=== PATIENT | female | born 1940 | race Caucasian/White ===

== ENCOUNTER 2023-08-05 08:49 | Outpatient (OUT) | payer MEDICARE, SELFPAY ==
--- NOTE | 2023-08-05 08:51 | VEIN_ITS ---
Patient Name: MAU WILLAMS MR#: [id number] : 1940 Exam Date: 08/05/2023 Ordering Doctor: DR ISIS DYSON M.D. RADIOLOGY REPORT PROCEDURE: VC EXT VENOUS REFLUX [place] LMTD COMPARISON: None. INDICATIONS: Pain due to varicose veins of bilateral legs I83.813 TECHNIQUE: Duplex imaging of the lower extremity to assess the deep and superficial venous system for the presence of deep or superficial venous incompetence and to document the location and severity of disease. The study includes evaluation of the great saphenous vein (GSV), anterior accessory saphenous vein (AASV) and small saphenous vein (SSV). Patient scanned in reverse Trendelenburg and standing. FINDINGS: RIGHT LOWER EXTREMITY: Saphenofemoral Junction Reflux: Yes 7.0mm 1.4 sec GSV: Diam (mm) Reflux/ Time (sec) Proximal Thigh 5.6 Yes 0.7 Mid Thigh 4.6 Yes0.4 Distal Thigh 3.1 Yes0.4 Prox Calf 2.3 Yes0.4 Mid Calf 1.4 Yes 0.4 Saphenopopliteal Junction Reflux: 8.7mm Yes 4.9 SSV: Proximal Calf 7.6 Yes 4.2 Mid Calf 3.3 Yes 2.6 AASV: Not present Proximal Thigh Mid Thigh Distal Thigh Thrombi: No acute or chronic thrombus. Compressibility: Normal. Flow: Severe deep venous reflux. Preforator: Dist/medial lower leg 3.4 mm with 0.8s reflux. Mid medial calf 3.0 mm with 0.4s reflux. Tech Note: Incompetent varicose vein proximal posterior calf off SSV measures 6.7 mm with 4.9s reflux. Varicose vein distal medial lower leg 5.4 mm with 4.3s reflux. LEFT LOWER EXTREMITY: Saphenofemoral Junction Reflux: Yes 7.9 mm 0.6 sec GSV: Diam (mm) Reflux/Time (sec) Proximal Thigh 5.5 Yes 0.9 Mid Thigh 3.6 Yes 0.5 Distal Thigh 3.2 Yes 0.3 Prox Calf 1.5 Yes 2.6 Mid Calf 1.8 Yes 0.8 Saphenopopliteal Junction Relux: 4.2 mm Yes 0.8 SSV: Proximal Calf 3.4 Yes 0.8 Mid Calf 2.7 No AASV: Proximal Thigh 2.6 No Mid Thigh Distal Thigh Thrombi: No acute or chronic thrombus. Compressibility: Normal. Flow: Severe deep venous reflux. [place] [employer]: Prox posterior calf 2.8 mm with 0.4s reflux. Tech Note: Small varicose vein medial knee measures 2.2 mm with 0.2s reflux. CONCLUSION: 1. Abnormally dilated and incompetent right small saphenous vein. 2. Borderline mildly dilated and mildly incompetent right and left great saphenous veins. Dictated by: Willis Solano M.D. on 08/05/2023 at 09:59 Approved by: Willis Solano M.D. on 08/05/2023 at 10:45
--- NOTE | 2023-08-05 08:51 | VEIN_ITS ---
Patient Name: MAU WILLAMS MR#: [id number] : 1940 Exam Date: 08/05/2023 Ordering Doctor: DR ISIS DYSON M.D. RADIOLOGY REPORT PROCEDURE: [facility] - OFFICE VISIT INITIAL COMPARISON: None. PROGRESS NOTES: [age] year old female who presents with a 4 year history of dilated bulging veins, discolored veins, leg pain and swelling, muscle cramping. The patient's right leg symptoms are worse than the left. There has been a progression of symptoms over time. This increases with prolonged like dependency. The patient describes an improvement with rest, elevation, exercise, support stockings. The patient denies any signs and symptoms to suggest arterial ischemia. The patient describes a family history varicose veins on maternal side. The patient has drinking and smoking history of occasional alcohol consumption; no tobacco use. Patient has a past medical history significant for atrial fibrillation, hypertension, and hypothyroidism. The patient denies a history of deep venous thrombus or pulmonary embolus. See separate history and physical for medication list. No prior treatment for varicose or spider veins. Current use of compression stockings. After review of nurse notes, history and physical exam I discussed at length the pathophysiology of venous hypertension and possible treatments, therapies and strategies available. We discussed at length the importance of elevating the lower extremities above the level of the heart, increased physical activity and compression stocking use. Ultrasound venous reflux study performed today was discussed at length with the patient. The report demonstrates abnormally dilated and markedly incompetent right small saphenous vein with prominent branching varicosities. Minimally dilated and mildly incompetent great saphenous vein bilaterally.. PHYSICAL EXAM: The right leg demonstrates several large varicosities, multiple spider veins, no ulceration, mild edema, no skin discoloration. The left leg demonstrates no significant varicosities, scattered spider veins, no ulceration, no significant edema, no skin discoloration. Both thighs, legs and feet were symmetrically warm to the touch. Good posterior tibial and dorsalis pedis pulses were present bilaterally. VEIN/[facility] Facility EST Comprehensive IMPRESSION: 1. Right greater than left bilateral lower extremity venous insufficiency 2. Right lower extremity varicose veins 3. Mild right lower extremity subcutaneous edema 4. No flow significant arterial disease 5. CEAP: C3, EC, , [place] PLAN: 1. Continued use of compression stockings 2. Elevated legs and increased physical activity symptomatic relief 3. Endovenous laser ablation of right small saphenous vein. 4. Microfoam chemical ablation of right lower extremity incompetent branch saphenous varicosities. 5. Sclerotherapy as needed. Nurse notes, history and physical were reviewed and confirmed, see attached forms. The nurse was present throughout the physical exam and consultation Dictated by: Willis Solano M.D. on 08/05/2023 at 10:45 Approved by: Willis Solano M.D. on 08/05/2023 at 10:53
== END 2023-08-05 08:50 | disposition home or self-care (01) ==
PROVIDERS: PCP Radiology Diagnostic Radiology; Visit Provider Radiology Diagnostic Radiology
DX: I83.813 Varicose veins of bilateral lower extremities with pain (principal)
CPT/HCPCS: 93970; G0463

== ENCOUNTER 2023-08-17 12:45 | Outpatient (OUT) | payer MEDICARE, SELFPAY ==
[2023-08-17] MEDS: 0.9 % SODIUM CHLORIDE 500 ML, LIDOCAINE HCL 20 ML, SODIUM BICARBONATE 10 MEQ INJ (12:47)
[2023-08-17] MEDS: LIDOCAINE HCL 1% 100 MG/10 ML MDV INJ (12:47)
--- OUTSIDE RECORDS SUMMARY | 2023-08-17 13:00 | XMS_ITS | CCD ---
Author Organization [facility] Care Team Providers Care Dot Compliance Specialist Name Role Phone ARABELLA WITT Unavailable Unavailable EDUAR, ARABELLA Unavailable Unavailable RENATO ROSARIO Unavailable Unavailable WEST, ISIS Valladares Unavailable Unavailable WEST, ISIS Valladares Unavailable Unavailable WEST, ISIS V Unavailable Unavailable JAI BOWIE Unavailable Unavailable WEST, ISIS V Unavailable Unavailable WEST, ISIS V Unavailable Unavailable WEST, ISIS Valladares Unavailable Unavailable Renato Rosario Unavailable Unavailable Unavailable Mary Oneill Unavailable Isis Hernandez Unavailable MD Mary Oneill Primary Care Provider MD Dmitri Garcia Attending Provider MD Isis Hernandez Attending Provider DO Sarah Hardin Attending Provider MD Mary Oneill Primary Care Provider MD Dmitri Garcia Attending Provider MD Arabella Witt Attending Provider Risaliti, TRAILER RENTAL CLERK-C Lianne Other Provider [phone] MD Mary Oneill Primary Care Provider MD Dmitri Garcia Attending Provider DO Sarah Hardin Attending Provider [phone] MD Arabella Witt Attending Provider Risaliti, TRAILER RENTAL CLERK-C Lianne Other Provider MD Mary Oneill Attending Provider Dr. Arabella Witt Attending Unavailab le Dr. Arabella Witt Referring Unavailab le Mai, Mary Blackmon Primary Care Unavailable Eduar, Dr. Arabella Mendez Attending Unavailab le Mai, Mary Blackmon Primary Care Unavailable Eduar, Dr. Arabella Mendez Attending Unavailab le Mai, Mary Blackmon Primary Care Unavailable Eduar, Dr. Arabella Mendez Attending Unavailab le Mai, Mary Blackmon Primary Care Unavailable Eduar, Dr. Arabella Mendez Attending Unavailab le Mai, Mary Blackmon Referring Unavailable Hill, Mary Blackmon Primary Care Unavailable Eduar, Dr. Arabella Mendez Admitting Unavailab le Eduar, Dr. Arabella Mendez Attending Unavailab le Hill, Mary Blackmon Referring Unavailable Hill, Mary Blackmon Primary Care Unavailable Eduar, Dr. Arabella Mendez Admitting UnavailMD Mary Killian Primary Care Provider MD Arabella Witt Attending Provider [phone] Unavailable Unavailable Silvano Leigh Unavailable MD Mary Oneill Primary Care Provider MD Arabella Witt Attending Provider MD Mary Oneill Attending Provider MD Mary Oneill Primary Care Provider MD Arabella Witt Attending Provider Felisha Heart Unavailable SHREYA Heart Attending Provider MD aMry Oneill Primary Care Provider MD Arabella Witt Attending Provider Mai MANUEL, Mary Primary Care Provider Eduar, Dr. Arabella Mendez Attending Unavailab le Eduar, Dr. Arabella Mendez Referring Unavailab le Mai, Dr. Mary Blackmon Primary Care Unavailab le Eduar, Dr. Arabella Mendez Attending Unavailab quinn Oneill, Dr. Mary Blackmon Primary Care Unavailab le Eduar, Dr. Arabella Mendez Referring Unavailab le Mai, Dr. Mary Blackmon Primary Care Unavailab le Mai, Dr. Mary Blackmon Primary Care Unavailab le Mai, Dr. Mary Blackmon Primary Care Unavailab le Hill, Dr. Mary Blackmon Primary Care Unavailab le Mai, Dr. Mary Blackmon Primary Care Unavailab le Hill, Dr. Mary Blackmon Primary Care Unavailab le Dmitriy, Dr. Zimmerman Attending Unavaila ble Dmitriy, Dr. Zimmerman Referring Unavaila ble Hill, Dr. Mary Blackmon Primary Care Unavailab le Hill, Dr. Mary Blackmon Primary Care Unavailab le Dmitriy, Dr. Zimmerman Attending Unavaila ble Dmitriy, Dr. Zimmerman Referring Unavaila ble Eduar, Dr. Arabella Mendez Attending Unavailab le Eduar, Dr. Arabella Mendez Referring Unavailab le Hill, Dr. Mary Blackmon Primary Care Unavailab le HILL, MARY Primary Care Unavailable JEFERSON HASSAN Referring Unavailable JEFERSON HASSAN Attending Unavailable JEFERSON HASSAN Admitting Unavailable MAI, MARY Primary Care Unavailable MAI, MARY Primary Care Unavailable JEFERSON HASSAN Referring Unavailable JEFERSON HASSAN Attending Unavailable MD Mary Oneill Primary Care Provider Self, Referral Attending Provider Unavailable DO Sarah Haridn Referring Provider MD Mary Oneill Attending Provider MD Mary Oneill Primary Care Provider MD Arabella Witt Attending Provider [phone] Mary Oneill MD Primary Care Provider ARABELLA WITT Attending Unavailable MARY ONEILL Primary Care Unavailable DMITRI GARCIA Attending Unavailable MARY ONEILL Primary Care Unavailable Emily Gordilload Unavailable MD Mary Oneill Primary Care Provider MD Mary Oneill Attending Provider [phone] MD Arabella Witt Attending Provider MD Fco Gordillo Attending Provider MD Mary Oneill Primary Care Provider MD Arabella Witt Attending Provider MARY ONEILL Referring Unavailable LIANNE STEWART Attending Unavailable MARY ONEILL Referring Unavailable FELISHA CALDERON Attending Unavailable MARY ONEILL Referring Unavailable SANDRO FRAGA Attending Unavailable SANDRO FRAGA Referring Unavailable BOBBY LAWS Attending Unavailable BOBBY LAWS Attending Unavailable MARY ONEILL Attending Unavailable MARY ONEILL Referring Unavailable MD Mary Oneill Primary Care Provider [phone] MD Arabella Witt Attending Provider MD Fco Gordillo Attending Provider MD Mary Oneill Attending Provider Mary Oneill Primary Care Unavailable Eduar, Arabella Attending Unavailable Eduar, Arabella Admitting Unavailable Mai, Mary Primary Care Unavailable Asaad, Imad Attending Unavailable Asaad, Imad Admitting Unavailable Mai, Mary Primary Care Unavailable Eduar, Arabella Attending Unavailable Eduar, Arabella Admitting Unavailable Hill, Mary Admitting Unavailable Hill, Mary Attending Unavailable Hill, Mary Primary Care Unavailable Self, Referral Admitting Unavailable Hill, Mary Primary Care Unavailable Self, Referral Attending Unavailable Sarah Hardin Referring Unavailable Mai, Mary Primary Care Unavailable Hill, Mary Admitting Unavailable Hill, Mary Attending Unavailable Hill, Mary Primary Care Unavailable Asaad, Imad Attending Unavailable Asaad, Imad Admitting Unavailable Mai, Mary Primary Care Unavailable Eduar, Arabella Attending Unavailable Eduar, Arabella Admitting Unavailable Mai, Mary Primary Care Unavailable Felisha Heart Attending Unavailable Felisha Heart Admitting Unavailable Hill, Mary Primary Care Unavailable Felisha Heart Attending Unavailable Sly Felisha Admitting Unavailable Hill, Mary Primary Care Unavailable Asaad, Imad Attending Unavailable Asaad, Imad Admitting Unavailable Allergies Allergy Classification Reported Allergen(s) Allergy Type Date of Onset Reaction(s) Facility (20 sources) Meperidine; Translations: [Demerol TABS] Drug Allergy 3 Shortness of breath, Other [facility] (7 sources) Meperidine Drug Allergy [facility] Other (18 sources) Meperidine; Translations: [MEPERIDINE] Drug Allergy 0 Hypotension [facility] Medications Current Medications Medication Drug Class(es) Dates Sig (Normalized) Sig (Original) acetaminophen 325 mg oral tablet (20 sources) Start: 01-29-2022 take 2 tablets by mouth every four hours as needed acetaminophen (Tylenol) 325 mg tablet Take 2 tablets (650 mg) by mouth every 4 hours if needed (pain). 0 01/29/2022 Active take 2 tablets by nd ut every six hours as needed Acetaminophen 325 MG tablet Take 2 table ts by mouth every 6 hours as needed for Mild Pain. 0 Active Tylenol 325 MG O ral Capsule as directed prn Quantity: 0 Refills: 0 Ordered: 15-Jan-2021 DO Active apixaban 2.5 mg oral tablet (20 sources) Factor Xa Inhibitor Start: 10-26-2019 End: 04-15-2024 take 1 tablet by mouth twice daily Apixaban (Eliquis) 2.5 mg Tablet Active 2.5 MG PO Twice daily October 26, 2019 12:00am Eliquis 5 MG Ora lly Active cholecalciferol 0.05 mg oral capsule (1 source) Vitamin D Cholecalciferol 50 MCG (1999) capsule Take 1 capsule by mouth. 0 Active 168 hr estradiol 0.46410 mg/ hr transdermal system (20 sources) Estrogen Start: 10-26-2019 Estradiol Active 0.025 MG TOPICAL As Directed October 26, 2019 12:00am apply 1 dose transde rmal route two times weekly Estradiol 0.025 MG/24HR 1 patch to skin Transdermal Two times a Week Active estradiol (Clima ra) 0.025 mg/[address] 1 patch on the skin 1 (one) time per week. 0 Active apply 1 dose transdermal route e very week Estradiol 0.025 MG/24HR Transdermal Patch Weekly APPLY 1 PATCH WEEKLY DIRECTED. Quantity: 0 Refills: 0 Ordered: 15-Jan-2021 DO Active lidocaine 0.05 mg/mg medicated patch (1 source) Antiarrhythmic, Amide Local Anesthetic Start: 08-20-2022 Lidocaine 5 % 1 patch remove after 12 hours Externally Once a day for 15 days August, Active Magnesium (4 sources) take 2 tablets by mouth once daily Magnesium 200 MG 2 tablets with a meal Orally Once a day Active magnesium citrate (20 sources) take 1 tablet by mouth once daily MAGNESIUM CITRATE ORAL Take 1 tablet by mouth once daily. 200 mg 0 Active Magnesium Citrat e 125 MG capsule Take 1 capsule by mouth. 0 Active take 1 tablet by mouth once aster y Magnesium Citrate 200 MG Oral Tablet Take 1 tablet daily Quantity: 0 Refills: 0 Ordered: 31-Dec-2021 DO Active Magnesium Citrat e TABS TAKE 1 TABLET DAILY. Quantity: 0 Refills: 0 Ordered: 27-Aug-2021 DO Active Magnesium Citrat e TABS TAKE 2 TABLETS DAILY. Quantity: 0 Refills: 0 Ordered: 5-Oct-2021 DO Active 24 hr metoprolol succinate 25 mg extended release oral tablet (19 sources) beta-Adrenergic Roger Start: 02-25-2023 End: 02-25-2024 take 1 tablet by mouth once daily metoprolol succinate XL (Toprol-XL) 25 mg 24 hr tablet Indications: Essential (primary) hypertension Take 1 tablet (25 mg) by mouth once daily. 90 tablet 3 02/25/2023 02/25/2024 Active Start: 08-29-2022 take 1 tablet by bonnie th once daily Metoprolol succinate 25 MG tablet XL Take 1 tablet by mouth daily. 0 08/29/2022 Active Start: 03-03-2022 take 1 tablet by bonnie th once daily Metoprolol Succinate ER 25 MG Oral Tablet Extended Release 24 Hour take 1 tablet by mouth once daily Quantity: 90 Refills: 3 Ordered: 03-Mar-2022 Dmitriy MANUEL, Dmitri Start : 03-Mar-2022 Active Start: 02-19-2022 End: 02-27-2023 take 1 tablet by mouth once daily metoprolol succinate XL (Toprol-XL) 50 mg 24 hr tablet Take 1 tablet (50 mg) by mouth once daily. 0 02/19/2022 02/27/2023 Discontinued (Therapy completed) take 1 capsule by mo [facility] once daily Metoprolol Succinate 25 MG 1 capsule Orally Once a day Active Multiple Vitamin (multivitamin) tablet (1 source) take 1 tablet by mouth once daily Multiple Vitamin (multivitamin) tablet Take 1 tablet by mouth daily. 0 Active omeprazole 20 mg delayed release oral tablet (20 sources) Proton Pump Inhibitor take 1 tablet by mouth every twenty-four hours as needed omeprazole OTC (PriLOSEC OTC) 20 mg EC tablet Take 1 tablet (20 mg) by mouth once daily as needed. 0 Active take 1 capsule by mouth once kate ly ubidecarenone 100 mg oral capsule (4 sources) take 1.5 capsules by mouth once daily coenzyme Q-10 (Co Q-10) 100 mg capsule Take 1.5 capsules by mouth once daily. 0 Active valsartan 40 mg oral tablet (20 sources) Angiotensin 2 Receptor Roger Start: take 40 mg by mouth twice daily Valsartan Active 40 MG PO Twice daily June 03, 2023 1:00am Start: 08-27-2021 take 0.5 tablet by m out once daily valsartan (Diovan) 80 mg tablet Take 0.5 tablets (40 mg) by mouth once daily. 0 08/27/2021 Active Start: 08-27-2021 take 1 tablet by bonnie th once daily Valsartan 80 MG Oral Tablet TAKE 1 TABLET DAILY. Quantity: 90 Refills: 3 Ordered: 15-Aug-2022 Dmitri Garcia MD Start : 27-Aug-2021 Active take 1 tablet by bonnie th every twenty-four hours Valsartan 40 MG 1 tablet Orally Once a day Active Valsartan Active Completed/Discontinued Medications Medication Drug Class(es) Dates Sig (Normalized) Sig (Original) amoxicillin 500 mg oral capsule (2 sources) Penicillin-class Antibacterial Start: 03-08-2021 Amoxicillin 500 MG Oral Capsule Quantity: 40 Refills: 0 Ordered: 08-Mar-2021 DO Start : 08-Mar-2021 Complete azilsartan medoxomil 40 mg oral tablet (20 sources) Angiotensin 2 Receptor Roger Start: 10-26-2019 End: 06-03-2023 take 1 tablet by mouth once daily Azilsartan Medoxomil (Edarbi) 40 mg Tablet Discontinued 40 MG PO Daily October 26, 2019 12:00am June 03, 2023 2:22pm cephalexin 500 mg oral tablet (3 sources) Cephalosporin Antibacterial Start: 09-20-2021 take 1 tablet by mouth three times daily Cephalexin 500 MG Oral Tablet TAKE 1 TABLET 3 TIMES DAILY FOR 5 DAYS. Quantity: 15 Refills: 0 Ordered: 20-Sep-2021 Kobe Fraga MD Start : 20-Sep-2021 Active Start: 12-03-2020 Cephalexin 500 MG Oral Capsule Quantity: 4 Refills: 0 Ordered: 15-Nov-2021 DO Start : 03-Dec-2020 Complete Guaifenesin-DM NR (4 sources) Guaifenesin-DM N R Not-Taking Ketoprofen (4 sources) Nonsteroidal Anti-inflammatory Drug Ketoprofen 5 % as directed Externally every 8 hrs Not-Taking Ketoprofen 10% Cream Base 10 % CREA (6 sources) Ketoprofen 10% C ream Base 10 % CREA as directed Quantity: 0 Refills: 0 Ordered: 15-Jan-2021 DO Active magnesium oxide 400 mg oral tablet (20 sources) End: 02-28-20 take 1 tablet by mouth every other day magnesium oxide (Mag-Ox) 400 mg (241.3 mg magnesium) tablet Take 1 tablet (400 mg) by mouth every other day. 0 02/27/2023 Discontinued (Therapy completed) take 1 tablet by mouth once aster y Magnesium Oxide 400 MG Oral Tablet TAKE 1 TABLET DAILY. Quantity: 90 Refills: 3 Ordered: 16-Jul-2021 DO Active metroNIDAZOLE 7.5 mg/ml topical cream (2 sources) Nitroimidazole Antimicrobial Start: 01-09-2022 metroNIDAZOLE 0.75 % External Cream Apply to face twice a day Quantity: 45 Refills: 0 Ordered: 09-Jan-2022 DO Start : 09-Jan-2022 Complete nebivolol 2.5 mg oral tablet (20 sources) Start: 07-16-2021 End: 02-27-2023 take 1 tablet by mouth once daily Nebivolol HCl - 2.5 MG Oral Tablet TAKE 1 TABLET DAILY. Quantity: 90 Refills: 3 Ordered: 16-Jul-2021 Arabella Witt MD Start : 16-Jul-2021 Active Replace the Bystolic 5 mg. PT will call when needed Start: 07-16-2021 take 0.5 tablet by m outh once daily Nebivolol HCl - 5 MG Oral Tablet TAKE 0.5 TABLET Daily Quantity: 45 Refills: 3 Ordered: 16-Jul-2021 Arabella Witt MD Start : 16-Jul-2021 Active PUT ON HOLD UNTIL PT CALLS Start: 10-26-2019 End: 06-03-2023 Nebivolol (Bystolic) 5 mg Ta blet Discontinued 5 MG PO As Directed October 26, 2019 12:00am June 03, 2023 2:23pm olmesartan medoxomil 20 mg oral tablet (3 sources) Angiotensin 2 Receptor Roger Start: 02-20-2021 take 1 tablet by mouth once daily Olmesartan Medoxomil 20 MG Oral Tablet TAKE 1 TABLET DAILY. Quantity: 90 Refills: 3 Ordered: 20-Feb-2021 Dmitri Garcia MD Start : 20-Feb-2021 Active Olmesartan Paxlovid (300/100) 20 x 150 MG & 10 x 100MG Oral Tablet Therapy Pack (1 source) Start: 03-26-2022 Paxlovid (300/100) 20 x 150 MG & 10 x 100MG Oral Tablet Therapy Pack Quantity: 30 Refills: 0 Ordered: 26-Mar-2022 DO Start : 26-Mar-2022 Complete 1000 ml sodium chloride 9 mg/ml injection (1 source) Start: 11-24-2022 End: 11-24-2022 Sodium chloride 0.9% IV solution traMADol hydrochloride 50 mg oral tablet (3 sources) Opioid Agonist Start: 01-29-2022 End: 02-27-2023 take 1 tablet by mouth every six hours as needed traMADol (Ultram) 50 mg tablet Take 1 tablet (50 mg) by mouth every 6 hours if needed. if no relief from tylenol then alternate tylenol and tramadol 0 01/29/2022 02/27/2023 Discontinued (Therapy completed) triamcinolone acetonide 40 mg/ml injectable suspension (6 sources) Corticosteroid Start: 07-17-2022 Kenalog-40 Jul, 40 mg ubidecarenone 100 mg / vitamin e 5 unt oral capsule (4 sources) Co Q10 100 MG CA PS TAKE 1.5 CAPSULE Daily Quantity: 0 Refills: 0 Ordered: 24-Jun-2022 DO Active Problems Active Problems Problem Classification Problem Date Documented Da te Episodic/Chronic Abdominal hernia (20 sources) Hiatal hernia; Translations: [Diaphragmatic hernia without obstruction or gangrene] 10-27-2019 Episodic Abdominal pain (8 sources) Unspecified abdominal pain; Translations: [Abdominal pain] Onset: 4 Episodic Administrative/social admission (20 sources) Follow-up status; Translations: [Other specified counseling] Episodic Cardiac dysrhythmias (20 sources) Longstanding persistent atrial fibrillation; Translations: [Atrial fibrillation] Onset: 9 Chronic Cardiac dysrhythmias (20 sources) Palpitations; Translations: [Palpitations] Onset: 2 Episodic Conduction disorders (20 sources) Cardiac pacemaker in situ; Translations: [Cardiac pacemaker in situ] Onset: 3 Chronic Diverticulosis and diverticulitis (7 sources) Diverticulosis of sigmoid colon; Translations: [Diverticulosis of large intestine without perforation or abscess without bleeding] Chronic Esophageal disorders (20 sources) Gastroesophageal reflux disease; Translations: [Esophageal reflux] Onset: 3 10-27-2019 Chronic Essential hypertension (20 sources) Hypertensive disorder; Translations: [Unspecified essential hypertension] Onset: 1 11-17-2022 Chronic Miscellaneous mental health disorders (7 sources) Psychophysiologic insomnia; Translations: [Psychophysiologic insomnia] Chronic Osteoarthritis (1 source) Idiopathic osteoarthritis; Translations: [Primary osteoarthritis, unspecified site] Onset: 9 11-17-2022 Chronic Other aftercare (20 sources) Patient encounter status; Translations: [Long-term (current) use of other medications] Episodic Other and ill-defined heart disease (1 source) Cardiomegaly; Translations: [Cardiomegaly] Onset: 3 Chronic Other and unspecified benign neoplasm (20 sources) History of polyp of colon; Translations: [Personal history of colonic polyps] 10-27-2019 Episodic Other and unspecified benign neoplasm (10 sources) Benign lipomatous neoplasm of other sites; 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] Episodic Other and unspecified benign neoplasm (2 sources) Hemangioma; Translations: [Hemangioma unspecified site] 06-03-2023 Episodic Other and unspecified benign neoplasm (2 sources) Hemangioma unspecified site; Translations: [Hemangioma of unspecified site] 06-03-2023 Episodic Other circulatory disease (16 sources) History of cardiovascular surgery; Translations: [Other specified cardiac device in situ] Chronic Other circulatory disease (1 source) Presence of other cardiac implants and grafts; Translations: [Presence of other cardiac implants and grafts] Onset: 3 Chronic Other gastrointestinal disorders (1 source) Irritable bowel syndrome; Translations: [Irritable bowel syndrome without diarrhea] Onset: 9 11-17-2022 Chronic Other nervous system disorders (7 sources) Chronic pain; Translations: [Other chronic pain] Chronic Other nervous system disorders (2 sources) Other chronic pain Chronic Other nutritional; endocrine; and metabolic disorders (1 source) Body mass index 25-29 - overweight; Translations: [Body Mass Index 25.0-25.9, adult] Episodic Other nutritional; endocrine; and metabolic disorders (1 source) Overweight; Translations: [Overweight] Episodic Other nutritional; endocrine; and metabolic disorders (20 sources) Overweight in adulthood with body mass index of 25 or more but less than 30; Translations: [Overweight] Onset: 3 02-27-2023 Episodic Other nutritional; endocrine; and metabolic disorders (2 sources) Body mass index (BMI) 27.0-27.9, adult; Translations: [Body mass index (BMI) 27.0-27.9, adult] Onset: 3 Episodic Other nutritional; endocrine; and metabolic disorders (2 sources) Body mass index (BMI) 28.0-28.9, adult; Translations: [Body mass index (BMI) 28.0-28.9, adult] Onset: 3 Episodic Other screening for suspected conditions (not mental disorders or infectious disease) (20 sources) Electrocardiogram abnormal; Translations: [Nonspecific abnormal electrocardiogram [ECG] [EKG]] Onset: 3 12-14-2022 Episodic Pulmonary heart disease (20 sources) Pulmonary hypertension; Translations: [Other chronic pulmonary heart diseases] Onset: 3 11-17-2022 Chronic Residual codes; unclassified (7 sources) Obstructive sleep apnea syndrome; Translations: [Obstructive sleep apnea (adult) (pediatric)] Chronic Residual codes; unclassified (1 source) Obstructive sleep apnea (adult) (pediatric); Translations: [Obstructive sleep apnea G47.33] Onset: 1 Resolved: 1 Chronic Residual codes; unclassified (4 sources) Postmenopausal state; Translations: [Asymptomatic menopausal state] Episodic Residual codes; unclassified (1 source) Asymptomatic menopausal state Episodic Residual codes; unclassified (6 sources) Never smoked tobacco; Translations: [Other specified health status] Onset: 3 02-27-2023 Episodic Residual codes; unclassified (2 sources) Other specified health status; Translations: [Other specified health status] Onset: 3 Episodic Screening and history of mental health and substance abuse codes (1 source) Encounter for screening for depression Episodic Skin and subcutaneous tissue infections (14 sources) Wound cellulitis; Translations: [Cellulitis and abscess of unspecified sites] Episodic Spondylosis; intervertebral disc disorders; other back problems (14 sources) Cervical spondylosis; Translations: [Spondylosis without myelopathy or radiculopathy, cervical region] Chronic Thyroid disorders (1 source) Hypothyroidism; Translations: [Hypothyroidism, unspecified] Onset: 9 11-17-2022 Chronic Unclassified (5 sources) Longstanding persistent atrial fibrillation; Translations: [Longstanding persistent atrial fibrillation] Onset: 3 Unclassified (1 source) Other persistent atrial fibrillation; Translations: [Other persistent atrial fibrillation] Onset: 2 Unclassified (1 source) Encounter for checking and testing of cardiac pacemaker pulse generator [battery]; Translations: [Encounter for checking and testing of cardiac pacemaker pulse generator [battery]] Onset: 4 Unclassified (1 source) Benign lipomatous neoplasm of other sites; Translations: [Benign lipomatous neoplasm of other sites] Onset: 4 Unclassified (1 source) Encounter for screening mammogram for malignant neoplasm of breast; Translations: [Encounter for screening mammogram for malignant neoplasm of breast] Onset: 3 Varicose veins of lower extremity (4 sources) Varicose veins of bilateral lower extremities with pain; Translations: [VARICOSE VNS [place] LOW EXTREM W/PAIN] Onset: 8 Episodic Past or Other Problems Problem Classification Problem Date Documented Da te Episodic/Chronic Other aftercare (1 source) 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; Translations: [snf (current) use of anticoagulants] Onset: 09-04-2021 Episodic Residual codes; unclassified (3 sources) History of palpitations; Translations: [Personal history of other diseases of circulatory system] Resolved: 07-08-2021 Episodic Spondylosis; intervertebral disc disorders; other back problems (12 sources) Cervicalgia; Translations: [Neck pain] Onset: 06-01-2019 Episodic Unclassified (20 sources) Never smoked tobacco; Translations: [Never smoker] Unclassified (1 source) Onset: 04-16-2023 04-16-2023 Results Test Name Value Interpretation Reference Range Facility [facility] Antinuclear Antibodieson 08-11-2023 Antinuclear Abs, IFA Positive Critically abnormal . [facility] Comment on above: Result Comment: Nega tive <1:80 Borderline 1:80 Positive >1:80 Performed By: #### A NA #### [facility] , Note 1 Normal . [facility] Comment on above: Result Comment: Candi felipa Potential Disease Association Homogeneous Systemic Lupus Erythematosus, Drug Induced Systemic Lupus Erythematosus, Chronic Autoimmune hepatitis, Juvenile Idiopathic Arthritis Speckled Sjogren Syndrome, Systemic Lupus Erythematosus, Subacute Cutaneous Lupus, Lupus, Congenital Heart Block, Mixed Connective Tissue Disease, Scleroderma-diffuse, Scleroderma-Autoimmune Myositis Overlap Syndrome, Systemic Lupus Uezkrswoaawfb-Hhlevmjtyis-Cnizrnxilq Myositis Overlap Syndrome, Systemic Autoimmune Rheumatic Disease, Undifferentiated Connective Tissue Disease Nucleolar Systemic Sclerosis, Scleroderma-Autoimmune Myositis Overlap Syndrome, Sjogren Syndrome, Raynaud phenomenon, Pulmonary Arterial Hypertension, Systemic Autoimmune Rheumatic Disease, Cancer Centromere Scleroderma-CREST, Limited Cutaneous SSc, Raynaud's Phenomenon, Primary Biliary Cholangitis Nuclear Dot Primary Biliary Cholangitis Nuclear Primary Biliary Cholangitis, Autoimmune Membrane Hepatitis/Liver disease, Systemic Autoimmune Rheumatic Disease, Autoimmune Cytopenias, Linear Scleroderma, Antiphospholipid Syndrome Performed at: [facility] [id number] Mandrel Maker: Girish Gilbert PhD, Phone: [phone] PERFORMED BY: [place] [address] [place] [address] PATHOLOGIST DIE ATTACHER AYANA CLEMENTE M.D. Performed By: #### A NA #### [facility] , Nucleolar Pattern 1:1280 High . [facility] Comment on above: Result Comment: ICAP nomenclature: [id number] Performed By: #### A NA #### [facility] , Speckled Pattern 1:1280 High . [facility] Comment on above: Result Comment: ICAP nomenclature: [id number] Performed By: #### A NA #### [facility] , Alanine aminotransferase [En zymatic activity/volume] in Serum or PlasmaOrdered By: Sandro [facility] on 08-11-2023 ALT [Catalytic activity/Vol] 12 U/L 7-52 [facility] Albumin [Mass/volume] in Ser um or Plasma by Bromocresol green (BCG) dye binding methoOrdered By: summerbranchland on 08-11-2023 Albumin BCG dye [Mass/Vol] 4.0 g/dL 3.5-5.7 [facility] Alkaline phosphatase [Enzyma tic activity/volume] in Serum or PlasmaOrdered By: [facility] 08-11-2023 ALP [Catalytic activity/Vol] 53 U/L 34-104 [facility] Aspartate aminotransferase [ Enzymatic activity/volume] in Serum or PlasmaOrdered By: [facility] branchland 08-11-2023 AST [Catalytic activity/Vol] 17 U/L 13-39 [facility] Automated erythrocytes count in urine sediment (number/area)Ordered By: summerman on 08-11-2023 RBC Auto (Urine sed) [#/Area] 1-2 [HPF] 0-4 [facility] Automated leukocytes count i n urine sediment (number/area)Ordered By: summer on 08-11-2023 WBC Auto (Urine sed) [#/Area] 5-9 [HPF] 0-4 [facility] Basophils Auto (Bld) [#/Vol] Ordered By: summerman on 08-11-2023 Basophils (Bld) [#/Vol] 0.0 10*3/uL 0.0-0.2 [facility] Basophils/100 WBC Auto (Bld) Ordered By: summer on 08-11-2023 Basophils/100 WBC (Bld) 0.6 % . [facility] Bilirubin Test strip Ql (U)O rdered By: summer on 08-11-2023 Bilirubin Ql (U) Negative Negative [facility] Bilirubin.total [Mass/volume ] in Serum or PlasmaOrdered By: summer on 08-11-2023 Bilirubin [Mass/Vol] 0.5 mg/dL 0.3-1.0 [facility] Calcium [Mass/volume] in Ser um or PlasmaOrdered By: summer08-11-2023 Calcium [Mass/Vol] 9.5 mg/dL 8.6-10.3 [facility] Carbon dioxide, total [Moles /volume] in Serum or PlasmaOrdered By: summer08-11-2023 CO2 [Moles/Vol] 31.3 mmol/L 21.0-31.0 [facility] Chloride [Moles/volume] in S sumeet or PlasmaOrdered By: summer08-11-2023 Chloride [Moles/Vol] 102 mmol/L 98-107 [facility] Cholesterol [Mass/volume] in Serum or PlasmaOrdered By: summerman on 08-11-2023 Cholesterol [Mass/Vol] 163 mg/dL 140-200 [facility] Comment on above: Chol less than 200 m g/dl low riskChol 201-239 mg/dl borderline riskChol 240 mg/dl and greater high risk Cholesterol in LDL Calc [Mas s/Vol]Ordered By: Sandro [facility] on 08-11-2023 Cholesterol in LDL [Mass/Vol] 92 mg/dL 0-100 [facility] Comment on above: LDL ATP III CLASSIFI CATIONLDL less than 100 mg/dL OptimalLDL 100-129 mg/dL Near or above optimalLDL 130-159 mg/dL Borderline highLDL 160-189 mg/dL HighLDL greater than 189 mg/dL Very high Cholesterol in VLDL Calc [Ma ss/Vol]Ordered By: Sandro [facility] on 08-11-2023 Cholesterol in VLDL [Mass/Vol] 15 mg/dL [facility] Color Auto (U)Ordered By: Maricarmen saravia [facility] on 08-11-2023 Color (U) Yellow Yellow [facility] Complete Blood Count Auto Di ffon 08-11-2023 Basophils (Bld) [#/Vol] 0.0 10*3/uL Normal 0.0-0.2 [facility] Comment on above: Result Comment: PERF ORMED BY: [place] [address] PATHOLOGIST DIE ATTACHER AYANA CLEMENTE M.D. Performed By: #### T 4F, T3F, ADDONUAPLUS, URMACRERAT, CMP, CBC, LIPID, TSH3 #### [address] Basophils/100 WBC (Bld) 0.6 % Normal . [facility] Comment on above: Performed By: #### T 4F, T3F, ADDONUAPLUS, URMACRERAT, CMP, CBC, LIPID, TSH3 #### [place] [address] [place] Eosinophils (Bld) [#/Vol] 0.2 10*3/uL Normal 0.0-0.45 [facility] Comment on above: Performed By: #### T 4F, T3F, ADDONUAPLUS, URMACRERAT, CMP, CBC, LIPID, TSH3 #### [place] [address] [place] Eosinophils/100 WBC (Bld) 3.5 % Normal . [facility] Comment on above: Performed By: #### T 4F, T3F, ADDONUAPLUS, URMACRERAT, CMP, CBC, LIPID, TSH3 #### [address] Erythrocyte distribution width (RBC) [Ratio] 14.3 % Normal 11.9-15.3 [facility] Comment on above: Performed By: #### T 4F, T3F, ADDONUAPLUS, URMACRERAT, CMP, CBC, LIPID, TSH3 #### [address] Hematocrit (Bld) [Volume fraction] 37.5 % Normal 34.0-46.4 [facility] Comment on above: Performed By: #### T 4F, T3F, ADDONUAPLUS, URMACRERAT, CMP, CBC, LIPID, TSH3 #### [address] Hemoglobin (Bld) [Mass/Vol] 12.6 g/dL Normal 11.8-15.4 [facility] Comment on above: Performed By: #### T 4F, T3F, ADDONUAPLUS, URMACRERAT, CMP, CBC, LIPID, TSH3 #### [address] Lymphocytes (Bld) [#/Vol] 1.7 10*3/uL Normal 1.00-4.8 [facility] Comment on above: Performed By: #### T 4F, T3F, ADDONUAPLUS, URMACRERAT, CMP, CBC, LIPID, TSH3 #### [address] Lymphocytes/100 WBC (Bld) 30.6 % Normal . [facility] Comment on above: Performed By: #### T 4F, T3F, ADDONUAPLUS, URMACRERAT, CMP, CBC, LIPID, TSH3 #### [address] MCH (RBC) [Entitic mass] 32.5 pg Normal 24.7-34.3 [facility] Comment on above: Performed By: #### T 4F, T3F, ADDONUAPLUS, URMACRERAT, CMP, CBC, LIPID, TSH3 #### [address] MCV (RBC) [Entitic vol] 96.7 fL Normal 80-100 [facility] Comment on above: Performed By: #### T 4F, T3F, ADDONUAPLUS, URMACRERAT, CMP, CBC, LIPID, TSH3 #### [address] Mean Corpuscular HGB Conc 33.6 g/dL Normal 32.0-35.0 [facility] Comment on above: Performed By: #### T 4F, T3F, ADDONUAPLUS, URMACRERAT, CMP, CBC, LIPID, TSH3 #### [address] Monocytes (Bld) [#/Vol] 0.8 10*3/uL Normal 0.0-0.8 [facility] Comment on above: Performed By: #### T 4F, T3F, ADDONUAPLUS, URMACRERAT, CMP, CBC, LIPID, TSH3 #### [address] Monocytes/100 WBC (Bld) 13.9 % Normal . [facility] Comment on above: Performed By: #### T 4F, T3F, ADDONUAPLUS, URMACRERAT, CMP, CBC, LIPID, TSH3 #### [address] Neutrophils (Bld) [#/Vol] 2.9 10*3/uL Normal 1.8-7.7 [facility] Comment on above: Performed By: #### T 4F, T3F, ADDONUAPLUS, URMACRERAT, CMP, CBC, LIPID, TSH3 #### [address] Neutrophils/100 WBC (Bld) 51.4 % Normal . [facility] Comment on above: Performed By: #### T 4F, T3F, ADDONUAPLUS, URMACRERAT, CMP, CBC, LIPID, TSH3 #### [facility] [address] [place] [address] NRBC% 0.2 /100{WBC} Normal 0-0.5 [facility] Comment on above: Performed By: #### T 4F, T3F, ADDONUAPLUS, URMACRERAT, CMP, CBC, LIPID, TSH3 #### [address] Platelet mean volume (Bld) [Entitic vol] 10.8 fL High 6.3-10.7 [facility] Comment on above: Performed By: #### T 4F, T3F, ADDONUAPLUS, URMACRERAT, CMP, CBC, LIPID, TSH3 #### [address] Platelets (Bld) [#/Vol] 179 10*3/uL Normal 150-450 [facility] Comment on above: Performed By: #### T 4F, T3F, ADDONUAPLUS, URMACRERAT, CMP, CBC, LIPID, TSH3 #### [address] RBC (Bld) [#/Vol] 3.88 10*6/uL Normal 3.60-5.00 [facility] Comment on above: Performed By: #### T 4F, T3F, ADDONUAPLUS, URMACRERAT, CMP, CBC, LIPID, TSH3 #### [address] WBC (Bld) [#/Vol] 5.5 10*3/uL Normal 3.8-11.6 [facility] Comment on above: Performed By: #### T 4F, T3F, ADDONUAPLUS, URMACRERAT, CMP, CBC, LIPID, TSH3 #### [address] Comprehensive Metabolic Pane leslie 08-11-2023 Albumin [Mass/Vol] 4.0 g/dL Normal 3.5-5.7 [facility] Comment on above: Performed By: #### T 4F, T3F, ADDONUAPLUS, URMACRERAT, CMP, CBC, LIPID, TSH3 ####[address] Albumin/Globulin [Mass ratio] 1.7 {ratio} Normal [facility] Comment on above: Performed By: #### T 4F, T3F, ADDONUAPLUS, URMACRERAT, CMP, CBC, LIPID, TSH3 ####[address] ALP [Catalytic activity/Vol] 53 U/L Normal 34-104 [facility] Comment on above: Performed By: #### T 4F, T3F, ADDONUAPLUS, URMACRERAT, CMP, CBC, LIPID, TSH3 ####[address] ALT [Catalytic activity/Vol] 12 U/L Normal 7-52 [facility] Comment on above: Performed By: #### T 4F, T3F, ADDONUAPLUS, URMACRERAT, CMP, CBC, LIPID, TSH3 ####[address] Anion gap [Moles/Vol] 9.1 mmol/L Normal 6.0-15.0 [facility] Comment on above: Performed By: #### T 4F, T3F, ADDONUAPLUS, URMACRERAT, CMP, CBC, LIPID, TSH3 ####[address] AST [Catalytic activity/Vol] 17 U/L Normal 13-39 [facility] Comment on above: Performed By: #### T 4F, T3F, ADDONUAPLUS, URMACRERAT, CMP, CBC, LIPID, TSH3 ####[address] Bilirubin [Mass/Vol] 0.5 mg/dL Normal 0.3-1.0 [facility] Comment on above: Performed By: #### T 4F, T3F, ADDONUAPLUS, URMACRERAT, CMP, CBC, LIPID, TSH3 ####[address] Calcium [Mass/Vol] 9.5 mg/dL Normal 8.6-10.3 [facility] Comment on above: Performed By: #### T 4F, T3F, ADDONUAPLUS, URMACRERAT, CMP, CBC, LIPID, TSH3 ####[address] Chloride [Moles/Vol] 102 mmol/L Normal 98-107 [facility] Comment on above: Performed By: #### T 4F, T3F, ADDONUAPLUS, URMACRERAT, CMP, CBC, LIPID, TSH3 ####[address] CO2 [Moles/Vol] 31.3 mmol/L High 21.0-31.0 [facility] Comment on above: Performed By: #### T 4F, T3F, ADDONUAPLUS, URMACRERAT, CMP, CBC, LIPID, TSH3 ####[address] Creatinine [Mass/Vol] 0.88 mg/dL Normal 0.60-1.20 [facility] Comment on above: Performed By: #### T 4F, T3F, ADDONUAPLUS, URMACRERAT, CMP, CBC, LIPID, TSH3 ####[address] GFR/1.73 sq M.predicted MDRD (S/P/Bld) [Vol rate/Area] mL/min/{1.73_m2} Normal [facility] Comment on above: Performed By: #### T 4F, T3F, ADDONUAPLUS, URMACRERAT, CMP, CBC, LIPID, TSH3 ####[address] Globulin (S) [Mass/Vol] 2.3 g/dL Normal [facility] Comment on above: Performed By: #### T 4F, T3F, ADDONUAPLUS, URMACRERAT, CMP, CBC, LIPID, TSH3 ####[place] [address] [place] [id number] [facility] Glucose [Mass/Vol] 92 mg/dL Normal 70-100 [facility] Comment on above: Result Comment: [facility] Glucose Reference Range is dependent on time and content of last meal. Glucose of more than 200 mg/dL in a nonstressed, ambulatory subject supports the diagnosis of Diabetes Mellitus. ADA recommended reference range Performed By: #### T 4F, T3F, ADDONUAPLUS, URMACRERAT, CMP, CBC, LIPID, TSH3 ####[place] [address] [address] Potassium [Moles/Vol] 4.4 mmol/L Normal 3.5-5.1 [facility] Comment on above: Performed By: #### T 4F, T3F, ADDONUAPLUS, URMACRERAT, CMP, CBC, LIPID, TSH3 ####[address] Protein [Mass/Vol] 6.3 g/dL Low 6.4-8.9 [facility] Comment on above: Performed By: #### T 4F, T3F, ADDONUAPLUS, URMACRERAT, CMP, CBC, LIPID, TSH3 ####[address] [address] [facility] Sodium [Moles/Vol] 138 mmol/L Normal 136-145 [facility] Comment on above: Performed By: #### T 4F, T3F, ADDONUAPLUS, URMACRERAT, CMP, CBC, LIPID, TSH3 ####[address] [address] [facility] Urea nitrogen [Mass/Vol] 26 mg/dL High 7-25 [facility] Comment on above: Performed By: #### T 4F, T3F, ADDONUAPLUS, URMACRERAT, CMP, CBC, LIPID, TSH3 ####[place] [id number] [facility] Creatinine [Mass/volume] in Serum or PlasmaOrdered By: Summer Workman on 08-11-2023 Creatinine [Mass/Vol] 0.88 mg/dL 0.60-1.20 [facility] Creatinine [Mass/volume] in UrineOrdered By: Summer Workman on 08-11-2023 Creatinine (U) [Mass/Vol] 73.0 mg/dL [facility] Comment on above: No reference range e stablished Dipstick and Microscopicon 0 08-11-2023 Appearance (U) Clear Normal Clear [facility] Comment on above: Order Comment: Name Collection Type:: Clean-Voided Midstream Performed By: #### T 4F, T3F, ADDONUAPLUS, URMACRERAT, CMP, CBC, LIPID, TSH3 ####[address] Bacteria,Urine 1+ High None Seen [facility] Comment on above: Order Comment: Name Collection Type:: Clean-Voided Midstream Performed By: #### T 4F, T3F, ADDONUAPLUS, URMACRERAT, CMP, CBC, LIPID, TSH3 ####[address] [address] [facility] Bilirubin,Urine Negative Normal Negative [facility] Comment on above: Order Comment: Name Collection Type:: Clean-Voided Midstream Performed By: #### T 4F, T3F, ADDONUAPLUS, URMACRERAT, CMP, CBC, LIPID, TSH3 ####[address] [address] [facility] Color (U) Yellow Normal Yellow [facility] Comment on above: Order Comment: Name Collection Type:: Clean-Voided Midstream Performed By: #### T 4F, T3F, ADDONUAPLUS, URMACRERAT, CMP, CBC, LIPID, TSH3 ####[address] [address] [facility] Glucose Ql (U) Normal Normal Normal [facility] Comment on above: Order Comment: Name Collection Type:: Clean-Voided Midstream Performed By: #### T 4F, T3F, ADDONUAPLUS, URMACRERAT, CMP, CBC, LIPID, TSH3 ####[address] [address] [facility] Hyaline Casts,Urine 0-8 Normal 0-8 [facility] Comment on above: Order Comment: Name Collection Type:: Clean-Voided Midstream Result Comment: PERF ORMED BY: [facility] [address] [id number] PATHOLOGIST DIE ATTACHER AYANA CLEMENTE M.D. Performed By: #### T 4F, T3F, ADDONUAPLUS, URMACRERAT, CMP, CBC, LIPID, TSH3 ####[address] [address] [facility] Ketones Ql (U) Negative Normal Negative [facility] Comment on above: Order Comment: Name Collection Type:: Clean-Voided Midstream Performed By: #### T 4F, T3F, ADDONUAPLUS, URMACRERAT, CMP, CBC, LIPID, TSH3 ####[address] [address] [facility] Leukocyte esterase Test strip Ql (U) Negative Normal Negative [facility] Comment on above: Order Comment: Name Collection Type:: Clean-Voided Midstream Performed By: #### T 4F, T3F, ADDONUAPLUS, URMACRERAT, CMP, CBC, LIPID, TSH3 ####[address] [address] [facility] Nitrite,Urine Negative Normal Negative [facility] Comment on above: Order Comment: Name Collection Type:: Clean-Voided Midstream Performed By: #### T 4F, T3F, ADDONUAPLUS, URMACRERAT, CMP, CBC, LIPID, TSH3 ####[address] [address] [facility] Occult Blood,Urine Negative Normal Negative [facility] Comment on above: Order Comment: Name Collection Type:: Clean-Voided Midstream Performed By: #### T 4F, T3F, ADDONUAPLUS, URMACRERAT, CMP, CBC, LIPID, TSH3 ####[address] [address] [facility] pH (U) 8.0 [pH] Normal 5.0-9.0 [facility] Comment on above: Order Comment: Name Collection Type:: Clean-Voided Midstream Performed By: #### T 4F, T3F, ADDONUAPLUS, URMACRERAT, CMP, CBC, LIPID, TSH3 ####[address] [address] [facility] Protein,Urine Negative Normal Negative [facility] Comment on above: Order Comment: Name Collection Type:: Clean-Voided Midstream Performed By: #### T 4F, T3F, ADDONUAPLUS, URMACRERAT, CMP, CBC, LIPID, TSH3 ####[place] [id number] [facility] RBC,Urine 1-2 Normal 0-4 [facility] Comment on above: Order Comment: Name Collection Type:: Clean-Voided Midstream Performed By: #### T 4F, T3F, ADDONUAPLUS, URMACRERAT, CMP, CBC, LIPID, TSH3 ####[place] [id number] [facility] Specificy [place],Urine 1.012 Normal 1.001-1.03 0 [facility] Comment on above: Order Comment: Name Collection Type:: Clean-Voided Midstream Performed By: #### T 4F, T3F, ADDONUAPLUS, URMACRERAT, CMP, CBC, LIPID, TSH3 ####[place] [id number] [facility] Squamous Epithelial Cell,Urine 5-9 High 0-2 [facility] Comment on above: Order Comment: Name Collection Type:: Clean-Voided Midstream Performed By: #### T 4F, T3F, ADDONUAPLUS, URMACRERAT, CMP, CBC, LIPID, TSH3 ####[place] [id number] [facility] Urobilinogen,Urine Normal Normal Normal [facility] Comment on above: Order Comment: Name Collection Type:: Clean-Voided Midstream Performed By: #### T 4F, T3F, ADDONUAPLUS, URMACRERAT, CMP, CBC, LIPID, TSH3 ####[facility] [place] [id number] [facility] WBC,Urine 5-9 High 0-4 [facility] Comment on above: Order Comment: Name Collection Type:: Clean-Voided Midstream Performed By: #### T 4F, T3F, ADDONUAPLUS, URMACRERAT, CMP, CBC, LIPID, TSH3 ####[place] [address] [place] [id number] [facility] Eosinophils Auto (Bld) [#/Vo l]Ordered By: Eloxxbranchland on 08-11-2023 Eosinophils (Bld) [#/Vol] 0.2 10*3/uL 0.0-0.45 [facility] Eosinophils/100 WBC Auto (Bl d)Ordered By: Summer Quad/Graphicsman on 08-11-2023 Eosinophils/100 WBC (Bld) 3.5 % . [facility] Erythrocyte distribution wid th Auto (RBC) [Ratio]Ordered By: Eloxxbranchland on 08-11-2023 Erythrocyte distribution width (RBC) [Ratio] 14.3 % 11.9-15.3 [facility] Free T4 (Free Thyroxine)on 0 08-11-2023 Free T4 [Mass/Vol] 0.79 ng/dL Normal 0.61-1.12 [facility] Comment on above: Performed By: #### T 4F, T3F, ADDONUAPLUS, URMACRERAT, CMP, CBC, LIPID, TSH3 ####[place] [address] [place] [id number] [facility] Globulin Calc (S) [Mass/Vol] Ordered By: Eloxxbranchland on 08-11-2023 Globulin (S) [Mass/Vol] 2.3 g/dL [facility] Glucose [Mass/volume] in Ser um or PlasmaOrdered By: Eloxxbranchland on 08-11-2023 Glucose [Mass/Vol] 92 mg/dL 70-100 [facility] Comment on above: ADA recommended refe rence rangeRandom Glucose Reference Range is dependent on time and content of last meal. Glucose of more than 200 mg/dL in a nonstressed, ambulatory subject supports the diagnosis of Diabetes Mellitus. Hematocrit Auto (Bld) [Volum e fraction]Ordered By: Sandro [facility] on 08-11-2023 Hematocrit (Bld) [Volume fraction] 37.5 % 34.0-46.4 [facility] Hemoglobin [Mass/volume] in BloodOrdered By: Sandro [facility] on 08-11-2023 Hemoglobin (Bld) [Mass/Vol] 12.6 g/dL 11.8-15.4 [facility] Ketones Auto test strip (U) [Mass/Vol]Ordered By: Sandro [facility] on 08-11-2023 Ketones (U) [Mass/Vol] Negative Negative [facility] - UrinalysisOrder ed By: Sandro [facility] on 08-11-2023 Hyaline casts LM Ql (Urine sed) 0-8 [LPF] 0-8 [facility] Leukocytes [#/volume] correc abel for nucleated erythrocytes in Blood by Automated counOrdered By: Sandro [facility] on 08-11-2023 WBC corrected for nucl RBC Auto (Bld) [#/Vol] 5.5 10*3/uL 3.8-11.6 [facility] Lipid Panelon 08-11-2023 Cholesterol [Mass/Vol] 163 mg/dL Normal 140-200 [facility] Comment on above: Result Comment: Chol less than 200 mg/dl low risk Chol 201-239 mg/dl borderline risk Chol 240 mg/dl and greater high risk Performed By: #### T 4F, T3F, ADDONUAPLUS, URMACRERAT, CMP, CBC, LIPID, TSH3 ####[facility] [id number] Cholesterol in HDL [Mass/Vol] 56 mg/dL Normal 23-92 [facility] Comment on above: Result Comment: HDL CHOL ATP-III CLASSIFICATION Cardiovascular Risk HDL > or equal to 60 mg/dL LOW HDL < 40 mg/dL HIGH Performed By: #### T 4F, T3F, ADDONUAPLUS, URMACRERAT, CMP, CBC, LIPID, TSH3 ####[facility] [address] [place] [address] [facility] Cholesterol.total/Chol esterol in HDL [Mass ratio] 2.9 {ratio} Normal <5.0 [facility] Comment on above: Performed By: #### T 4F, T3F, ADDONUAPLUS, URMACRERAT, CMP, CBC, LIPID, TSH3 ####[place] [address] LDL Cholesterol,Calculated 92 mg/dL Normal 0-100 [facility] Comment on above: Result Comment: LDL ATP III CLASSIFICATION LDL less than 100 mg/dL Optimal LDL 100-129 mg/dL Near or above optimal LDL 130-159 mg/dL Borderline high LDL 160-189 mg/dL High LDL greater than 189 mg/dL Very high Performed By: #### T 4F, T3F, ADDONUAPLUS, URMACRERAT, CMP, CBC, LIPID, TSH3 ####[place] [address] Triglyceride w/Reflex 76 mg/dL Normal 0-149 [facility] Comment on above: Result Comment: TRIG ATP III CLASSIFICATION TRIG less than 150 mg/dL Normal TRIG 150-199 mg/dL Borderline high TRIG 200-500 mg/dL High TRIG greater than 500 mg/dL Very high Standard traceable to the Center for Disease Conrtrol and Prevention (CDC) test method. Performed By: #### T 4F, T3F, ADDONUAPLUS, URMACRERAT, CMP, CBC, LIPID, TSH3 ####[place] [address] VLDL CHOLESTEROL 15 mg/dL Normal [facility] Comment on above: Performed By: #### T 4F, T3F, ADDONUAPLUS, URMACRERAT, CMP, CBC, LIPID, TSH3 ####[address] Lymphocytes Auto (Bld) [#/Vo l]Ordered By: Sandro Workman on 08-11-2023 Lymphocytes (Bld) [#/Vol] 1.7 10*3/uL 1.00-4.8 [facility] Lymphocytes/100 WBC Auto (Bl d)Ordered By: Summer Workman on 08-11-2023 Lymphocytes/100 WBC (Bld) 30.6 % . [facility] MCH Auto (RBC) [Entitic mass ]Ordered By: Summer Workman on 08-11-2023 MCH (RBC) [Entitic mass] 32.5 pg 24.7-34.3 [facility] MCHC Auto (RBC) [Mass/Vol]Or dered By: Summer Workman on 08-11-2023 MCHC (RBC) [Mass/Vol] 33.6 g/dL 32.0-35.0 [facility]ir [facility] MCV Auto (RBC) [Entitic vol] Ordered By: Summer Workman on 08-11-2023 MCV (RBC) [Entitic vol] 96.7 fL 80-100 [facility] MicroAlb Creat Ratio,Uon Albumin DL <= 20 mg/L (U) [Mass/Vol] 1.0 mg/dL Normal 0.0-1.8 [facility] Comment on above: Performed By: #### T 4F, T3F, ADDONUAPLUS, URMACRERAT, CMP, CBC, LIPID, TSH3 #### [address] Creatinine, Urine (Random) 73.0 mg/dL Normal [facility] Comment on above: Result Comment: No r eference range established Performed By: #### T 4F, T3F, ADDONUAPLUS, URMACRERAT, CMP, CBC, LIPID, TSH3 #### [address] Microalbumin/Creatinin e Ratio 13.0 mg/g Normal 0.0-30.0 [facility] Comment on above: Result Comment: 30-3 00 mg/g indicates an increased risk for diabetic nephropathy. Greater than 300 mg/g is consistent with clinical nephropathy. (Am. J. Kidney Disease 1995, 25:107) PERFORMED BY: [place] [address] PATHOLOGIST DIE ATTACHER AYANA CLEMENTE M.D. Performed By: #### T 4F, T3F, ADDONUAPLUS, URMACRERAT, CMP, CBC, LIPID, TSH3 #### [address] Microalbumin [Mass/volume] i n UrineOrdered By: Sandro Fraga on 08-11-2023 Albumin DL <= 20 mg/L (U) [Mass/Vol] 1.0 mg/dL 0.0-1.8 [facility] Monocytes Auto (Bld) [#/Vol] Ordered By: Sandro Fraga on 08-11-2023 Monocytes (Bld) [#/Vol] 0.8 10*3/uL 0.0-0.8 [facility] Monocytes/100 WBC Auto (Bld) Ordered By: Sandro Fraga on 08-11-2023 Monocytes/100 WBC (Bld) 13.9 % . [facility] Neutrophils Auto (Bld) [#/Vo l]Ordered By: Sandro Fraga on 08-11-2023 Neutrophils (Bld) [#/Vol] 2.9 10*3/uL 1.8-7.7 [facility] Neutrophils/100 WBC Auto (Bl d)Ordered By: Sandro Fraga 08-11-2023 Neutrophils/100 WBC (Bld) 51.4 % . [facility] Nitrite Test strip Ql (U)Ord ered By: Sandro Fraga on 08-11-2023 Nitrite Ql (U) Negative Negative [facility] No Panel InformationOrdered By: Sandro Fraga on 08-11-2023 Estimated GFR (CKD-EPI) > 60.0 mL/Min [facility] Creatinine Clearance (Chem N/A [facility] Nucleated erythrocytes [Pres ence] in Blood by Automated countOrdered By: Sandro Fraga 08-11-2023 Nucleated RBC Auto Ql (Bld) 0.2 /100{WBC} 0-0.5 [facility] Platelet mean volume Auto (B ld) [Entitic vol]Ordered By: Sandro Fraga 08-11-2023 Platelet mean volume (Bld) [Entitic vol] 10.8 fL 6.3-10.7 [facility] Platelets Auto (Bld) [#/Vol] Ordered By: Sandro Fraga 08-11-2023 Platelets (Bld) [#/Vol] 179 10*3/uL 150-450 [facility] Potassium [Moles/volume] in Serum or PlasmaOrdered By: Sandro Fraga on 08-11-2023 Potassium [Moles/Vol] 4.4 mmol/L 3.5-5.1 [facility] Protein Auto test strip (U) [Mass/Vol]Ordered By: summer on 08-11-2023 Protein (U) [Mass/Vol] Negative Negative [facility] Protein [Mass/volume] in Ser um or PlasmaOrdered By: summer08-11-2023 Protein [Mass/Vol] 6.3 g/dL 6.4-8.9 [facility] RBC Auto (Bld) [#/Vol]Ordere d By: summer on 08-11-2023 RBC (Bld) [#/Vol] 3.88 10*6/uL 3.60-5.00 [facility] Serum or plasma albumin/glob ulin mass ratioOrdered By: summer08-11-2023 Albumin/Globulin [Mass ratio] 1.7 {ratio} [facility] Serum or plasma anion gap de terminationOrdered By: summer on 08-11-2023 Anion gap [Moles/Vol] 9.1 mmol/L 6.0-15.0 [facility] Serum or plasma high density lipoprotein (HDL) cholesterol measurementOrdered By: summer08-11-2023 Cholesterol in HDL [Mass/Vol] 56 mg/dL 23-92 [facility] Comment on above: HDL CHOL ATP-III CLA SSIFICATION Cardiovascular RiskHDL > or equal to 60 mg/dL LOWHDL < 40 mg/dL HIGH Serum or plasma total choles terol/high density lipoprotein (HDL) cholesterol mass ratOrdered By: summer08-11-2023 Cholesterol.total/Chol esterol in HDL [Mass ratio] 2.9 {ratio} <5.0 [facility] Sodium [Moles/volume] in Ser um or PlasmaOrdered By: summer08-11-2023 Sodium [Moles/Vol] 138 mmol/L 136-145 [facility] Specific gravity Auto test s trip (U) [Rel density]Ordered By: summer08-11-2023 Specific gravity (U) [Rel density] 1.012 1.001-1.03 0 [facility] Squamous epithelial cells de tection in urine sediment by light microscopyOrdered By: Summer Workman on 08-11-2023 Epithelial cells.squamous LM Ql (Urine sed) 5-9 [HPF] 0-2 [facility] Thyroid Stimulating Hormoneo n 08-11-2023 TSH Qn 5.04 m[IU]/L Normal 0.45-5.33 [facility] Comment on above: Result Comment: PERF ORMED BY: [facility] [address] [place] [address] PATHOLOGIST DIE ATTACHER AYANA CLEMENTE M.D. Performed By: #### T 4F, T3F, ADDONUAPLUS, URMACRERAT, CMP, CBC, LIPID, TSH3 ####[facility] [id number] [place] [address] [facility] Thyrotropin [Units/volume] i n Serum or PlasmaOrdered By: Summer Workman on 08-11-2023 TSH Qn 5.04 m[IU]/L 0.45-5.33 [facility] Thyroxine (T4) free [Mass/vo lume] in Serum or PlasmaOrdered By: Summer Workman on 08-11-2023 Free T4 [Mass/Vol] 0.79 ng/dL 0.61-1.12 [facility] Triglyceride [Mass/volume] i n Serum or PlasmaOrdered By: Summer Workman on 08-11-2023 Triglyceride [Mass/Vol] 76 mg/dL 0-149 [facility] Comment on above: TRIG ATP III CLASSIF ICATIONTRIG less than 150 mg/dL NormalTRIG 150-199 mg/dL Borderline highTRIG 200-500 mg/dL High TRIG greater than 500 mg/dL Very highStandard traceable to the Center for Disease Conrtrol and Prevention (CDC) test method. Triiodothyronine (T3) Freeon 08-11-2023 Triiodothyronine (T3) Free 3.03 pg/mL Normal 2.50-3.90 [facility] Comment on above: Result Comment: PERF ORMED BY: [facility] [address] [place] [address] PATHOLOGIST DIE ATTACHER AYANA CLEMENTE M.D. Performed By: #### T 4F, T3F, ADDONUAPLUS, URMACRERAT, CMP, CBC, LIPID, TSH3 ####[facility] [id number] [place] [address] [facility] Triiodothyronine (T3) Free [ Mass/volume] in Serum or PlasmaOrdered By: summerbranchland on 08-11-2023 Free T3 [Mass/Vol] 3.03 pg/mL 2.50-3.90 [facility] Urea nitrogen [Mass/volume] in Serum or PlasmaOrdered By: summerbranchland on 08-11-2023 Urea nitrogen [Mass/Vol] 26 mg/dL 7-25 [facility] Urine bacteria detection by automated methodOrdered By: summerbranchland on 08-11-2023 Bacteria Auto Ql (U) 1+ [HPF] None Seen [facility] Urine clarity by refractomet ry automatedOrdered By: summerbranchland 08-11-2023 Clarity Refractometry automated (U) Clear Clear [facility] Urine glucose measurement by automated test strip (mass/volume)Ordered By: summerbranchland 08-11-2023 Glucose Auto test strip (U) [Mass/Vol] Normal mg/dL Normal [facility] Urine hemoglobin detection b y automated test stripOrdered By: [facility] 08-11-2023 Hemoglobin Auto test strip Ql (U) Negative Negative [facility] Urine leukocyte esterase det ection by automated test stripOrdered By: [facility] 08-11-2023 Leukocyte esterase Auto test strip Ql (U) Negative Negative [facility] Urine microalbumin/creatinin e mass ratioOrdered By: summerbranchland 08-11-2023 Albumin/Creatinine DL <= 20 mg/L (U) [Mass ratio] 13.0 mg/g 0.0-30.0 [facility] Comment on above: 30-300 mg/g indicate s an increased risk for diabetic nephropathy. Greater than 300 mg/g is consistent with clinical nephropathy. (Am. J. Kidney Disease 1995, 25:107) Urobilinogen Auto test strip (U) [Mass/Vol]Ordered By: [facility] branchland on 08-11-2023 Urobilinogen (U) [Mass/Vol] Normal mg/dL Normal [facility] WBC Auto (Bld) [#/Vol]Ordere d By: Sandro Workman on 08-11-2023 WBC (Bld) [#/Vol] 5.5 10*3/uL 3.8-11.6 [facility] pH Auto test strip (U)Ordere d By: Sandro Workman on 08-11-2023 pH (U) 8.0 [pH] 5.0-9.[address] [facility] [address] abdomen pelvis w conon CT abdomen pelvis w con [facility] Main [place] [address] [place] [address] CT Scan Report Signed Patient: Mau Lopez MR#: [id number] : 1940 Acct:[id number] Age/Sex: 82 / F ADM Date: 06/02/23 Loc: CT Room: Type: [facility] Attending Dr: Fco Gordillo MD Copies to: Fco Gordillo MD Ordering Provider: Fco Gordillo MD Date of Service: 06/02/23 CT/CT abdomen pelvis w con: 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 Multiplanar reformats were performed and reviewed to further define anatomy and possible pathology. CT was performed with one or more of the following dose reduction techniques: Automated exposure control, adjustment of the mA and/or kV according to patient size, or use of iterative reconstruction technique. COMPARISON: 05/27/2023, 12/17/2011, and 11/16/2001 FINDINGS: Lower Chest: Atherosclerotic changes are noted in the thoracic aorta and coronary arteries. There is mild cardiomegaly. There is a 2 mm calcified granuloma at the base of the left upper lobe. Mild emphysematous changes are present. ABDOMEN: Liver: There is a hypoattenuating 5.2 cm mass within the right hepatic lobe extending exophytically inferior and posterior to involve the pastora hepatis. This shows only peripheral arterial enhancement with more delayed peripheral filling remaining hypointense to liver throughout. The nodular peripheral enhancement pattern is more suggestive of a benign hemangioma. This is unchanged when compared to the CT from 12/17/2011 and ultrasound dated 11/16/2001. Bile Ducts: Normal caliber. Gallbladder: Stones and debris are noted in the gallbladder lumen. Pancreas: Within normal limits. Spleen: Within normal limits. Adrenals: Within normal limits. Kidneys: There is a simple cyst in the left renal cortex requiring no further follow-up. Pelvis: Reproductive Organs: No pelvic masses. Ureters: Within normal limits. Bladder: Within normal limits. Bowel: There are uncomplicated colonic diverticula. There is no evidence of bowel obstruction. There is a normal appendix in the right lower quadrant. Mesenteric Lymph Nodes: No enlarged mesenteric lymph nodes. Peritoneum: No ascites or free air, no fluid collection. Vessels: Atherosclerotic changes are noted in the abdominal aorta and its branches. Retroperitoneum: Within normal limits. Abdominal Wall: Within normal limits. Bones: Degenerative changes are noted in the thoracolumbar spine, hips, and sacroiliac joints. CT/CT abdomen pelvis w con IMPRESSION: Redemonstration of a benign-appearing hemangioma within the right hepatic lobe measuring up to 5.2 cm in greatest dimension. This is unchanged when compared to the CT from 12/17/2011 and ultrasound dated 11/16/2001. No acute intra-abdominal pathology. Additional chronic findings are noted, as above. Impression dictated by: Venancio Lopez M.D.06/02/2023 8:55 PM Dictation Location: [place] [address] Transcribed By: [facility] 06/02/232054 Dictated By: Venancio Lopez II, MD 06/02/232041 Signed By: 06/02/232054 Normal [facility] Creatinine (Bld) [Mass/Vol]O rdered By: Fco Gordillo on 05-27-2023 Creatinine [Mass/Vol] 1.1 mg/dL 0.6-1.3 [facility] Comment on above: ER/ESD physician is notified/shown all ISTAT results.Critical values may be confirmed by laboratory testing ifdeemed necessary by ER attending doctor. ISTAT XRay CREon 05-27-2023 Creatinine [Mass/Vol] 1.1 mg/dL Normal 0.6-1.3 [facility] Comment on above: Result Comment: ER/E SD physician is notified/shown all ISTAT results. Critical values may be confirmed by laboratory testing if deemed necessary by ER attending doctor. Performed By: #### I SCRE #### [address] ISTAT GFR 50.169 Normal [facility] Comment on above: Result Comment: PERF ORMED BY: [place] [address] PATHOLOGIST DIE ATTACHER AYANA CLEMENTE M.D. Performed By: #### I SCRE #### [address] MR abdomen wo/w conon 2023 MR abdomen wo/w con [facility] Main [place] [address] [place] [address] MRI Report Signed Patient: Mau Lopez MR#: [id number] : 1940 Acct:[id number] Age/Sex: 82 / F ADM Date: 05/27/23 Loc: Room: Type: [facility] Attending Dr: Fco Gordillo MD Copies to: Fco Gordillo MD Ordering Provider: Fco Gordillo MD Date of Service: 05/27/23 MR/MR abdomen wo/w con: Abdominal pain MRI OF THE ABDOMEN WITH AND WITHOUT CONTRAST: CLINICAL HISTORY: Known liver abnormality since 2016. COMPARISON: No prior imaging for direct comparison. TECHNIQUE: Multisequence, multiplanar imaging of the abdomen was obtained before and after the use of IV contrast. FINDINGS: Examination is significantly limited due to respiratory motion. The liver appears normal in contour without evidence of steatosis or intrahepatic ductal dilatation. A mildly T2 hyperintense mass with central area of T2 hyperintensity is seen in the region of the caudate lobe measuring 5.1 x 2.9 x 4.1 cm. No definitive enhancement is seen on the postcontrast series. There is associated restricted diffusion. Gallbladder appears to be distended with stones present. CBD is normal in caliber. No pancreatic divisum. Pancreatic duct appears normal in caliber. Pancreas is grossly unremarkable. Spleen appears grossly unremarkable. Small cyst left kidney. Right kidney also demonstrates a small cyst. Abdominal aorta appears normal in caliber. No bulky lymphadenopathy or ascites. Trace bilateral pleural effusions. MR/MR abdomen wo/w con IMPRESSION: EXAMINATION IS SIGNIFICANTLY LIMITED DUE TO RESPIRATORY MOTION. A MILDLY T2 HYPERINTENSE MASS WITH CENTRAL AREA OF T2 HYPERINTENSITY IS NOTED IN THE REGION OF THE CAUDATE LOBE MEASURING 5.1 X 2.9 X 4.1 CM. NO DEFINITIVE ENHANCEMENT IS SEEN CENTRALLY. GIVEN THE CT FINDINGS, AN FNH IS SUSPECTED. REPEAT LIVER CT OR MRI IN 6 MONTHS IS SUGGESTED. CHOLELITHIASIS. TRACE BILATERAL PLEURAL EFFUSIONS. 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 Results cannot be interpreted as absolute evidence of the presence or absence of malignant disease. This test is not interpretable in females. 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 Results cannot be interpreted as absolute evidence of the presence or absence of malignant disease. Performed at: [facility] [address] [id number] Mandrel Maker: Girish Gilbert PhD, Phone: [phone] PERFORMED BY: [facility] [place] [address] PATHOLOGIST DIE ATTACHER AYANA CLEMENTE M.D. Performed By: #### C A19, AFPTM #### [facility] , Serum or plasma [id number] protein tumor marker measurement (mass/volume)Ordered By: Fco Gordillo on 04-20-2023 AFP.tumor marker [Mass/Vol] 3.0 ng/mL 0.0-8.7 [facility] Comment on above: [facility] El ectrochemiluminescence Immunoassay(ECLIA)Values obtained with different assay methods or kits cannotbe used interchangeably. Results cannot be interpreted asabsolute evidence of the presence or absence of malignantdisease.This test is not interpretable in females. Serum or plasma cancer antig en 19-9 measurement (units/volume)Ordered By: Fco Gordillo on 04-20-2023 Cancer Ag 19-9 Qn 3 [arb'U]/mL 0-35 [facility] Comment on above: [facility] El ectrochemiluminescence Immunoassay(ECLIA)Values obtained with different assay methods or kits cannotbe used interchangeably. Results cannot be interpreted asabsolute evidence of the presence or absence of malignantdisease.Performed at: [facility] [id number] Director: Girish Gilbert PhD, Phone: [phone] US RUQon 03-10-2023 US RUQ US RUQ : 03/13/2023 8 :15 AM CLINICAL HISTORY: right upper qudrant abd pain. COMPARISON: February 19, 2017 TECHNIQUE: ROUTINE FINDINGS: In the right lobe of the liver there is a hyperechoic area seen and measures 4.6 x 6.9 x 3.9 cm. No intrahepatic ductal dilation is seen. There is no evidence for ascites. Within the gallbladder there are echogenic foci seen that exhibit posterior shadowing and move with change in position. Also sludge is seen. No pericholecystic edema or gallbladder wall thickening seen. The common bile duct is within normal limits at 6 mm. No peripancreatic fluid collection or focal mass is seen. The right kidney appears anatomically normal. IMPRESSION: HYPERECHOIC AREA IS SEEN IN THE RIGHT LOBE OF THE LIVER THAT IS AGAIN THOUGHT TO BE AN ANGIOMYOLIPOMA. ON PREVIOUS EXAMINATION IT MEASURED 4.8 x 3.4 x 4.9 cm. Cholelithiasis without evidence for cholecystitis ELECTRONICALLY SIGNED BY: Tasia Winters, DO Normal Not Available ECG 12 Leadon 02-27-2023 See scan [facility] Work Phone: Alanine aminotransferase [En zymatic activity/volume] in Serum or PlasmaOrdered By: Mary Oneill on 02-04-2023 ALT [Catalytic activity/Vol] 14 U/L 7-52 [facility] Albumin [Mass/volume] in Ser um or Plasma by Bromocresol green (BCG) dye binding methoOrdered By: Mary Oneill on 02-04-2023 Albumin BCG dye [Mass/Vol] 4.0 g/dL 3.5-5.7 [facility] Alkaline phosphatase [Enzyma tic activity/volume] in Serum or PlasmaOrdered By: Mary Oneill on 02-04-2023 ALP [Catalytic activity/Vol] 54 U/L 34-104 [facility] Aspartate aminotransferase [ Enzymatic activity/volume] in Serum or PlasmaOrdered By: Mary Oneill on 02-04-2023 AST [Catalytic activity/Vol] 17 U/L 13-39 [facility] Bilirubin.total [Mass/volume ] in Serum or PlasmaOrdered By: Mary Oneill on 02-04-2023 Bilirubin [Mass/Vol] 0.6 mg/dL 0.3-1.0 [facility] Calcium [Mass/volume] in Ser um or PlasmaOrdered By: Mary Oneill on 02-04-2023 Calcium [Mass/Vol] 9.6 mg/dL 8.6-10.3 [facility] Carbon dioxide, total [Moles /volume] in Serum or PlasmaOrdered By: Mary Oneill on 02-04-2023 CO2 [Moles/Vol] 31.0 mmol/L 21.0-31.0 [facility] Chloride [Moles/volume] in S sumeet or PlasmaOrdered By: Mary Oneill on 02-04-2023 Chloride [Moles/Vol] 103 mmol/L 98-107 [facility] Comprehensive Metabolic Pane leslie 02-04-2023 Albumin [Mass/Vol] 4.0 g/dL Normal 3.5-5.7 [facility] Comment on above: Performed By: #### C MP #### [address] Albumin/Globulin [Mass ratio] 1.6 {ratio} Normal [facility] Comment on above: Performed By: #### C MP #### [address] ALP [Catalytic activity/Vol] 54 U/L Normal 34-104 [facility] Comment on above: Result Comment: PERF ORMED BY: [place] [address] PATHOLOGIST DIE ATTACHER AYANA CLEMENTE M.D. Performed By: #### C MP #### [address] ALT [Catalytic activity/Vol] 14 U/L Normal 7-52 [facility] Comment on above: Performed By: #### C MP #### [address] Anion gap [Moles/Vol] 9.6 mmol/L Normal 6.0-15.0 [facility] Comment on above: Performed By: #### C MP #### [address] AST [Catalytic activity/Vol] 17 U/L Normal 13-39 [facility] Comment on above: Performed By: #### C MP #### [place] [address] [place] Bilirubin [Mass/Vol] 0.6 mg/dL Normal 0.3-1.0 [facility] Comment on above: Performed By: #### C MP #### [address] Calcium [Mass/Vol] 9.6 mg/dL Normal 8.6-10.3 [facility] Comment on above: Performed By: #### C MP #### [address] Chloride [Moles/Vol] 103 mmol/L Normal 98-107 [facility] Comment on above: Performed By: #### C MP #### [address] CO2 [Moles/Vol] 31.0 mmol/L Normal 21.0-31.0 [facility] Comment on above: Performed By: #### C MP #### [address] Creatinine [Mass/Vol] 0.82 mg/dL Normal 0.60-1.20 [facility] Comment on above: Performed By: #### C MP #### [place] [address] [place] GFR/1.73 sq M.predicted MDRD (S/P/Bld) [Vol rate/Area] mL/min/{1.73_m2} Normal [facility] Comment on above: Performed By: #### C MP #### [address] Globulin (S) [Mass/Vol] 2.5 g/dL Normal [facility] Comment on above: Performed By: #### C MP #### [address] Glucose [Mass/Vol] 90 mg/dL Normal 70-100 [facility] Comment on above: Result Comment: [facility] Glucose Reference Range is dependent on time and content of last meal. Glucose of more than 200 mg/dL in a nonstressed, ambulatory subject supports the diagnosis of Diabetes Mellitus. ADA recommended reference range Performed By: #### C MP #### [place] [address] [place] Potassium [Moles/Vol] 4.6 mmol/L Normal 3.5-5.1 [facility] Comment on above: Performed By: #### C MP #### [address] Protein [Mass/Vol] 6.5 g/dL Normal 6.4-8.9 [facility] Comment on above: Performed By: #### C MP #### [facility] [address] [place] [address] [place] Sodium [Moles/Vol] 139 mmol/L Normal 136-145 [facility] Comment on above: Performed By: #### C MP #### [facility] [address] [place] [id number] [place] Urea nitrogen [Mass/Vol] 21 mg/dL Normal 7-25 [facility] Comment on above: Performed By: #### C MP #### [facility] [address] [place] [id number] [facility] Creatinine [Mass/volume] in Serum or PlasmaOrdered By: Mary Oneill on 02-04-2023 Creatinine [Mass/Vol] 0.82 mg/dL 0.60-1.20 [facility] Globulin Calc (S) [Mass/Vol] Ordered By: Mary Oneill on 02-04-2023 Globulin (S) [Mass/Vol] 2.5 g/dL [facility] Glucose [Mass/volume] in Ser um or PlasmaOrdered By: Mary Oneill on 02-04-2023 Glucose [Mass/Vol] 90 mg/dL 70-100 [facility] Comment on above: ADA recommended refe rence rangeRandom Glucose Reference Range is dependent on time and content of last meal. Glucose of more than 200 mg/dL in a nonstressed, ambulatory subject supports the diagnosis of Diabetes Mellitus. No Panel InformationOrdered By: Mary Oneill on 02-04-2023 Estimated GFR (CKD-EPI) > 60.0 mL/Min [facility] Creatinine Clearance (Chem N/A [facility] Potassium [Moles/volume] in Serum or PlasmaOrdered By: Mary Oneill on 02-04-2023 Potassium [Moles/Vol] 4.6 mmol/L 3.5-5.1 [facility] Protein [Mass/volume] in Ser um or PlasmaOrdered By: Mary Oneill on 02-04-2023 Protein [Mass/Vol] 6.5 g/dL 6.4-8.9 [facility] Serum or plasma albumin/glob ulin mass ratioOrdered By: Mary Oneill on 02-04-2023 Albumin/Globulin [Mass ratio] 1.6 {ratio} [facility] Serum or plasma anion gap de terminationOrdered By: Mary Oneill on 02-04-2023 Anion gap [Moles/Vol] 9.6 mmol/L 6.0-15.0 [facility] Sodium [Moles/volume] in Ser um or PlasmaOrdered By: Mary Oneill on 02-04-2023 Sodium [Moles/Vol] 139 mmol/L 136-145 [facility] Urea nitrogen [Mass/volume] in Serum or PlasmaOrdered By: Mary Oneill on 02-04-2023 Urea nitrogen [Mass/Vol] 21 mg/dL 11-04 [facility] MM screening mammo BI w/CADo n 01-14-2023 MM screening mammo BI w/CAD [facility] [place] [address] Mammography Report Signed Patient: Mau Lopez MR#: [id number] : 1940 Acct:[id number] Age/Sex: 82 / F ADM Date: 01/14/23 Loc: [place] Room: Type: [facility] Attending Dr: Referral Self Copies to: Sarah Hardin, DO Mary Oneill MD SELF,REFERRAL Ordering Provider: SELF,REFERRAL Date of Service: 01/14/23 MM/MM screening mammo BI w/CAD: SCREENING CLINICAL DATA: Screening for malignancy. BILATERAL SCREENING MAMMOGRAMS - FULL FIELD DIGITAL WITH TOMOSYNTHESIS AND CAD Tomosynthesis craniocaudal and mediolateral oblique views of both breasts were obtained using low- dose digital technique. Comparison is made to prior studies from January 13, 2019 through January 14, 2022. This examination was reviewed with the aid of CAD. There are scattered fibroglandular densities. Benign and vascular calcifications are present. There are no developing masses, typically malignant calcifications or architectural distortion. There has been no significant interval change. MM/MM screening mammo BI w/CAD IMPRESSION: NO MAMMOGRAPHIC EVIDENCE OF MALIGNANCY. ROUTINE FOLLOW-UP IS RECOMMENDED IN ONE YEAR. RESULT CODE: 2 Benign Findings(s) DENSITY CODE: 2 (approximately 25-50% glandular) FOLLOW UP: 1YR The false-negative rate of mammography is approximately 10-percent. Management of a palpable abnormality must be based on clinical grounds. Patient was entered into a reminder system with a target due date for the next mammogram. Impression dictated by: Shira Davis M.D.01/14/2023 2:43 PM Dictation Location: [facility] Transcribed By: ASHLYN 01/14/231442 Dictated By: Shira Davis MD 01/14/231440 Signed By: 01/14/231442 Normal [facility] CMP FASTINGon 11-17-2022 A:G RATIO 1.3 RATIO Normal 1.3-2.2 [facility] ALBUMIN 4.0 G/dl Normal 3.5-5.0 [facility] ALP [Catalytic activity/Vol] 53 U/L Normal 38-126 [facility] ALT [Catalytic activity/Vol] 18 U/L Normal <35 [facility] AST [Catalytic activity/Vol] 26 U/L Normal 14-36 [facility] Bilirubin [Mass/Vol] 0.5 mg/dL Normal 0.2-1.3 [facility] Calcium [Mass/Vol] 9.6 mg/dL Normal 8.4-10.2 [facility] Chloride [Moles/Vol] 102 mmol/L Normal 98-107 [facility] Comment on above: Result Comment: Ashu hughes note: Triglyceride levels of 600mg/dL or higher may positively bias chloride results by approximately 2.1 mmol CO2 [Moles/Vol] 29 mmol/L Normal 22-30 [facility] Creatinine [Mass/Vol] 0.80 mg/dL Normal 0.7-1.2 [facility] EST. GFR, 89 ml/min/1.73sq.m [facility] EST. GFR,Non 73 ml/min/1.73sq.m [facility] GFR Information Average GFR for 70+ years old = 75. Normal [facility] Comment on above: Result Comment: Slot Shift Manager tammie Kidney disease, GFR = <60. Kidney failure, GFR = <15. The GFR estimate is not adjusted for extreme body surface area or acute process, nor has it been validated for women or ethnic groups other than and . Glucose [Mass/Vol] 80 mg/dL Normal 70-100 [facility] Comment on above: Result Comment: NORMAL <100 mg/dL PREDIABETES 101-126 mg/dL DIABETES 126 mg/dL or higher Potassium [Moles/Vol] 5.0 mmol/L Normal 3.5-5.1 [facility] Protein [Mass/Vol] 7.2 g/dL Normal 6.3-8.2 [facility] Sodium [Moles/Vol] 135 mmol/L Low 137-145 [facility] Urea nitrogen [Mass/Vol] 31 mg/dL High 7-20 [facility] XR pre/post mri xrayon 09-16 XR pre/post mri xray [facility] [place] [address] MRI Report Signed Patient: Mau Lopez MR#: [id number] : 1940 Acct:[id number] Age/Sex: 81 / F ADM Date: 09/16/22 Loc: Room: Type: [facility] Attending Dr: Felisha CASH Copies to: SHREYA Chu Ordering Provider: SHREYA Chu Date of Service: 09/16/22 MR/MR cervical spine wo con: evaluate for spondylosis;Cervical muscle pain ([id number]) XR/XR pre/post mri xray: M54.2 MR cervical spine wo con, XR pre/post mri xray 09/16/2022 7:34 AM SIGNS AND SYMPTOMS: Posterior neck pain, limited range of motion PROTOCOL: Multiplanar multisequence MR images of the cervical spine were obtained without IV contrast. Lateral and bilateral oblique radiographs of the cervical spine were obtained. COMPARISON: 06/14/2021 FINDINGS: Radiographs of the cervical spine: There is mild vertebral disc height loss at C2-C3, C3-C4, and C4-C5. There is severe disc height loss at C5-C6 with partial bony fusion at C6-C7. There is accompanying facet and uncovertebral joint degenerative change contributing to bilateral neural foraminal stenosis. There is 3 mm of anterolisthesis of C4 upon C5. There is 3 mm of retrolisthesis of C5 upon C6. There is 3 mm of anterolisthesis of C7 upon T1. The prevertebral soft tissues are within normal limits. There is no fracture. The vertebral body heights are preserved. MRI cervical spine: Disc height loss and alignment is as noted above. There is preservation of vertebral body heights. The marrow signal is within normal limits. The cord is normal in signal. No epidural or paraspinous fluid collection is appreciated. The visualized paraspinous soft tissues are within normal limits. The prevertebral soft tissues are within normal limits. At C2-C3: There is a normal disc, central canal, and neural foramen. At C3-C4: There is a normal disc, central canal, and neural foramen. At C4-C5: There is a broad-based disc bulge with facet and uncovertebral joint degenerative change contributing to moderate bilateral neural foraminal narrowing and mild spinal canal narrowing. At C5-C6: There is facet and uncovertebral joint degenerative change contributing to moderate spinal canal narrowing with mild to moderate bilateral neural foraminal narrowing. At C6-C7: There is fusion across the intervertebral disc space with facet hypertrophy contributing to mild left neural foraminal narrowing. And dural diverticula extend into the neural foramina bilaterally. At C7-T1: There is uncovertebral joint spurring with facet hypertrophy contributing to mild left neural foraminal narrowing. Neural diverticula extend into the neural foramina bilaterally. No significant spinal canal narrowing. MR/MR cervical spine wo con IMPRESSION: No cord compression or cord signal abnormality. Similar malalignment is as noted above. Relatively similar degrees of degenerative changes are noted without significant interval change. Impression dictated by: Venancio Lopez M.D.09/16/2022 3:08 PM Dictation Location: [place] [address] Transcribed By: [facility] 09/16/22 1508 Dictated By: Venancio Lopez II, MD 09/16/22 1458 Signed By: 09/16/22 1508 Normal [facility] XR cerv spine AP/LAT/FLX/EXT on 08-20-2022 XR cerv spine AP/LAT/FLX/EXT [facility] [place] [address] XRay Report Signed Patient: Mau Lopez#: [id number] : 1940 Acct:[id number] Age/Sex: 81 / F ADM Date: 08/20/22 Loc: XD Room: Type: [facility] Attending Dr: Felisha CASH Copies to: SHREYA Chu Ordering Provider: SHREYA Chu Date of Service: 08/20/22 XR/XR cerv spine AP/LAT/FLX/EXT: M54.2 CERVICAL SPINE 4 views: CLINICAL HISTORY: Posterior neck pain that radiates up into head and down into left shoulder COMPARISON: CT cervical spine 06/14/2021 FINDINGS: Vertebral body heights appear maintained. Moderate to severe spondylosis C5-C7 similar configuration to the prior MRI study. No pathological motion seen on flexion or extension views. No prevertebral soft tissue swelling. XR/XR cerv spine AP/LAT/FLX/EXT IMPRESSION: NO SIGNIFICANT CHANGE IN CERVICAL SPINE FINDINGS COMPARED TO THE PRIOR MRI STUDY. Impression dictated by: Reynaldo Gallo Jr., Yohana08/20/2022 3:02 PM Dictation Location: [place] [address] Transcribed By: [facility] 08/20/22 1502 Dictated By: Reynaldo Gallo Jr, DO 08/20/22 1501 Signed By: 08/20/22 1502 Normal [facility] Alanine aminotransferase [En zymatic activity/volume] in Serum or PlasmaOrdered By: Mary Oneill on 08-01-2022 ALT [Catalytic activity/Vol] 12 U/L 7-52 [facility] Albumin [Mass/volume] in Ser um or Plasma by Bromocresol green (BCG) dye binding methoOrdered By: Mary Oneill on 08-01-2022 Albumin BCG dye [Mass/Vol] 4.0 g/dL 3.5-5.7 [facility] Alkaline phosphatase [Enzyma tic activity/volume] in Serum or PlasmaOrdered By: Mary Oneill on 08-01-2022 ALP [Catalytic activity/Vol] 46 U/L 34-104 [facility] Aspartate aminotransferase [ Enzymatic activity/volume] in Serum or PlasmaOrdered By: Mary Oneill on 08-01-2022 AST [Catalytic activity/Vol] 15 U/L 13-39 [facility] Basophils Auto (Bld) [#/Vol] Ordered By: Mary Oneill on 08-01-2022 Basophils (Bld) [#/Vol] 0.1 10*3/uL 0.0-0.2 [facility] Basophils/100 WBC Auto (Bld) Ordered By: Mary Oneill on 08-01-2022 Basophils/100 WBC (Bld) 0.8 % . [facility] Bilirubin Test strip Ql (U)O rdered By: Mary Oneill on 08-01-2022 Bilirubin Ql (U) Negative Negative [facility] Bilirubin.total [Mass/volume ] in Serum or PlasmaOrdered By: Mary Oneill on 08-01-2022 Bilirubin [Mass/Vol] 0.6 mg/dL 0.3-1.0 [facility] Calcium [Mass/volume] in Ser um or PlasmaOrdered By: Mary Oneill on 08-01-2022 Calcium [Mass/Vol] 9.0 mg/dL 8.6-10.3 [facility] Carbon dioxide, total [Moles /volume] in Serum or PlasmaOrdered By: Mary Oneill on 08-01-2022 CO2 [Moles/Vol] 29.9 mmol/L 21.0-31.0 [facility] Chloride [Moles/volume] in S sumeet or PlasmaOrdered By: Mary Oneill on 08-01-2022 Chloride [Moles/Vol] 102 mmol/L 98-107 [facility] Cholesterol [Mass/volume] in Serum or PlasmaOrdered By: Mary Oneill on 08-01-2022 Cholesterol [Mass/Vol] 165 mg/dL 140-200 [facility] Comment on above: Chol less than 200 m g/dl low riskChol 201-239 mg/dl borderline riskChol 240 mg/dl and greater high risk Cholesterol in LDL Calc [Mas s/Vol]Ordered By: Mary Oneill on 08-01-2022 Cholesterol in LDL [Mass/Vol] 89 mg/dL 0-100 [facility] Comment on above: LDL ATP III CLASSIFI CATIONLDL less than 100 mg/dL OptimalLDL 100-129 mg/dL Near or above optimalLDL 130-159 mg/dL Borderline highLDL 160-189 mg/dL HighLDL greater than 189 mg/dL Very high Cholesterol in VLDL Calc [Ma ss/Vol]Ordered By: Mary Oneill on 08-01-2022 Cholesterol in VLDL [Mass/Vol] 13 mg/dL [facility] Color Auto (U)Ordered By: Jena Oneill on 08-01-2022 Color (U) Yellow Yellow [facility] Creatinine [Mass/volume] in Serum or PlasmaOrdered By: Mary Oneill on 08-01-2022 Creatinine [Mass/Vol] 0.96 mg/dL 0.60-1.20 [facility] Creatinine [Mass/volume] in UrineOrdered By: Mary Oneill on 08-01-2022 Creatinine (U) [Mass/Vol] 72.0 mg/dL 11.0-20.0 [facility] Eosinophils Auto (Bld) [#/Vo l]Ordered By: Mary Oneill on 08-01-2022 Eosinophils (Bld) [#/Vol] 0.1 10*3/uL 0.0-0.45 [facility] Eosinophils/100 WBC Auto (Bl d)Ordered By: Mary Oneill on 08-01-2022 Eosinophils/100 WBC (Bld) 1.8 % . [facility] Erythrocyte distribution wid th Auto (RBC) [Ratio]Ordered By: Mary Oneill on 08-01-2022 Erythrocyte distribution width (RBC) [Ratio] 14.1 % 11.9-15.3 [facility] Globulin Calc (S) [Mass/Vol] Ordered By: Mary Oneill on 08-01-2022 Globulin (S) [Mass/Vol] 2.6 g/dL [facility] Glucose [Mass/volume] in Ser um or PlasmaOrdered By: Mary Oneill on 08-01-2022 Glucose [Mass/Vol] 87 mg/dL 70-100 [facility] Comment on above: ADA recommended refe rence rangeRandom Glucose Reference Range is dependent on time and content of last meal. Glucose of more than 200 mg/dL in a nonstressed, ambulatory subject supports the diagnosis of Diabetes Mellitus. Hematocrit Auto (Bld) [Volum e fraction]Ordered By: Mary Oneill on 08-01-2022 Hematocrit (Bld) [Volume fraction] 40.2 % 34.0-46.4 [facility] Hemoglobin [Mass/volume] in BloodOrdered By: Mary Oneill on 08-01-2022 Hemoglobin (Bld) [Mass/Vol] 13.0 g/dL 11.8-15.4 [facility] Ketones Auto test strip (U) [Mass/Vol]Ordered By: Mary Oenill on 08-01-2022 Ketones (U) [Mass/Vol] Negative [facility] Leukocytes [#/volume] correc abel for nucleated erythrocytes in Blood by Automated counOrdered By: Mary Oneill on 08-01-2022 WBC corrected for nucl RBC Auto (Bld) [#/Vol] 7.5 10*3/uL 3.8-11.6 [facility] Lymphocytes Auto (Bld) [#/Vo l]Ordered By: Mary Oneill on 08-01-2022 Lymphocytes (Bld) [#/Vol] 1.7 10*3/uL 1.00-4.8 [facility] Lymphocytes/100 WBC Auto (Bl d)Ordered By: Mary Oneill on 08-01-2022 Lymphocytes/100 WBC (Bld) 22.6 % . [facility] MCH Auto (RBC) [Entitic mass ]Ordered By: Mary Oneill on 08-01-2022 MCH (RBC) [Entitic mass] 31.6 pg 24.7-34.3 [facility] MCHC Auto (RBC) [Mass/Vol]Or dered By: Mary Oneill on 08-01-2022 MCHC (RBC) [Mass/Vol] 32.4 g/dL 32.0-35.0 [facility] MCV Auto (RBC) [Entitic vol] Ordered By: Mary Oneill on 08-01-2022 MCV (RBC) [Entitic vol] 97.6 fL 80-100 [facility] Microalbumin [Mass/volume] i n UrineOrdered By: Mary Oneill on 08-01-2022 Albumin DL <= 20 mg/L (U) [Mass/Vol] mg/dL 0.0-1.8 [facility] Monocytes Auto (Bld) [#/Vol] Ordered By: Mary Oneill on 08-01-2022 Monocytes (Bld) [#/Vol] 1.0 10*3/uL 0.0-0.8 [facility] Monocytes/100 WBC Auto (Bld) Ordered By: Mary Oneill on 08-01-2022 Monocytes/100 WBC (Bld) 14.0 % . [facility] Neutrophils Auto (Bld) [#/Vo l]Ordered By: Mary Oneill on 08-01-2022 Neutrophils (Bld) [#/Vol] 4.5 10*3/uL 1.8-7.7 [facility] Neutrophils/100 WBC Auto (Bl d)Ordered By: Mary Oneill on 08-01-2022 Neutrophils/100 WBC (Bld) 60.8 % . [facility] Nitrite Test strip Ql (U)Ord ered By: Mary Oneill on 08-01-2022 Nitrite Ql (U) Negative Negative [facility] No Panel InformationOrdered By: Mary Oneill on 08-01-2022 Estimated GFR (CKD-EPI) 59.440 mL/Min [facility] Creatinine Clearance (Chem N/A [facility] Nucleated erythrocytes [Pres ence] in Blood by Automated countOrdered By: Mary Oneill on 08-01-2022 Nucleated RBC Auto Ql (Bld) 0.2 /100{WBC} 0-0.5 [facility] Platelet mean volume Auto (B ld) [Entitic vol]Ordered By: Mary Oneill on 08-01-2022 Platelet mean volume (Bld) [Entitic vol] 10.4 fL 6.3-10.7 [facility] Platelets Auto (Bld) [#/Vol] Ordered By: Mary Oneill on 08-01-2022 Platelets (Bld) [#/Vol] 205 10*3/uL 150-450 [facility] Potassium [Moles/volume] in Serum or PlasmaOrdered By: Mary Oneill on 08-01-2022 Potassium [Moles/Vol] 4.8 mmol/L 3.5-5.1 [facility] Protein Auto test strip (U) [Mass/Vol]Ordered By: Mary Oneill on 08-01-2022 Protein (U) [Mass/Vol] Negative Negative [facility] Protein [Mass/volume] in Ser um or PlasmaOrdered By: Mary Oneill on 08-01-2022 Protein [Mass/Vol] 6.6 g/dL 6.4-8.9 [facility] RBC Auto (Bld) [#/Vol]Ordere d By: Mary Oneill on 08-01-2022 RBC (Bld) [#/Vol] 4.12 10*6/uL 3.60-5.00 [facility] Serum or plasma albumin/glob ulin mass ratioOrdered By: Mary Oneill on 08-01-2022 Albumin/Globulin [Mass ratio] 1.5 {ratio} [facility] Serum or plasma anion gap de terminationOrdered By: Mary Oneill on 08-01-2022 Anion gap [Moles/Vol] 9.9 mmol/L 6.0-15.0 [facility] Serum or plasma high density lipoprotein (HDL) cholesterol measurementOrdered By: Mary Oneill on 08-01-2022 Cholesterol in HDL [Mass/Vol] 63 mg/dL 35-85 [facility] Comment on above: HDL CHOL ATP-III CLA SSIFICATION Cardiovascular RiskHDL > or equal to 60 mg/dL LOWHDL < 40 mg/dL HIGH Serum or plasma total choles terol/high density lipoprotein (HDL) cholesterol mass ratOrdered By: Mary Oneill on 08-01-2022 Cholesterol.total/Chol esterol in HDL [Mass ratio] 2.6 {ratio} <5.0 [facility] Sodium [Moles/volume] in Ser um or PlasmaOrdered By: Mary Oneill on 08-01-2022 Sodium [Moles/Vol] 137 mmol/L 136-145 [facility] Specific gravity Auto test s trip (U) [Rel density]Ordered By: Mary Oneill on 08-01-2022 Specific gravity (U) [Rel density] 1.014 1.001-1.03 0 [facility] Thyrotropin [Units/volume] i n Serum or PlasmaOrdered By: Mary Oneill on 08-01-2022 TSH Qn 4.63 m[IU]/L 0.45-5.33 [facility] Thyroxine (T4) free [Mass/vo lume] in Serum or PlasmaOrdered By: Mary Oneill on 08-01-2022 Free T4 [Mass/Vol] 0.93 ng/dL 0.61-1.12 [facility] Triglyceride [Mass/volume] i n Serum or PlasmaOrdered By: Mary Oneill on 08-01-2022 Triglyceride [Mass/Vol] 65 mg/dL 0-149 [facility] Comment on above: TRIG ATP III CLASSIF ICATIONTRIG less than 150 mg/dL NormalTRIG 150-199 mg/dL Borderline highTRIG 200-500 mg/dL High TRIG greater than 500 mg/dL Very highStandard traceable to the Center for Disease Conrtrol and Prevention (CDC) test method. Triiodothyronine (T3) Free [ Mass/volume] in Serum or PlasmaOrdered By: Mary Oneill on 08-01-2022 Free T3 [Mass/Vol] 3.27 pg/mL 2.50-3.90 [facility] Urea nitrogen [Mass/volume] in Serum or PlasmaOrdered By: Mary Oneill on 08-01-2022 Urea nitrogen [Mass/Vol] 32 mg/dL 7-25 [facility] Urine clarity by refractomet ry automatedOrdered By: Mary Oneill on 08-01-2022 Clarity Refractometry automated (U) Clear Clear [facility] Urine glucose measurement by automated test strip (mass/volume)Ordered By: Mary Oneill on 08-01-2022 Glucose Auto test strip (U) [Mass/Vol] Normal mg/dL Normal [facility] Urine hemoglobin detection b y automated test stripOrdered By: Mary Oneill on 08-01-2022 Hemoglobin Auto test strip Ql (U) Negative Negative [facility] Urine leukocyte esterase det ection by automated test stripOrdered By: Mary Oneill on 08-01-2022 Leukocyte esterase Auto test strip Ql (U) Negative Negative [facility] Urine microalbumin/creatinin e mass ratioOrdered By: Mary Oneill on 08-01-2022 Albumin/Creatinine DL <= 20 mg/L (U) [Mass ratio] TNP [facility] Comment on above: Test not performed Urobilinogen Auto test strip (U) [Mass/Vol]Ordered By: Mary Oneill on 08-01-2022 Urobilinogen (U) [Mass/Vol] Normal mg/dL Normal [facility] WBC Auto (Bld) [#/Vol]Ordere d By: Mary Oneill on 08-01-2022 WBC (Bld) [#/Vol] 7.5 10*3/uL 3.8-11.6 [facility] pH Auto test strip (U)Ordere d By: Mary Oneill on 08-01-2022 pH (U) 7.0 [pH] 5.0-9.0 [facility] Office Visit (Cardiology)on 06-24-2022 Follow-up visit Diagnoses/Problems Assessed Atrial flutter (427.32) (I48.92) Hypertension (401.9) (I10) Longstanding persistent atrial fibrillation (427.31) (I48.11) Never smoker Overweight with body mass index (BMI) of 27 to 27.9 in adult (278.02,V85.23) (E66.3,Z68.27) PAC (premature atrial contraction) (427.61) (I49.1) Palpitation (785.1) (R00.2) Premature ventricular contractions (PVCs) (VPCs) (427.69) (I49.3) Pulmonary hypertension (416.8) (I27.20) Sinus bradycardia (427.89) (R00.1) Status post placement of implantable loop recorder (V45.09) (Z95.818) 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 Prescriptions will not be filled unless you are compliant with your follow up appointments or have a follow up appointment scheduled as per instruction of your physician. Refills should be requested at the time of your visit. Echo Follow up in 6 months Chief Complaint MAU LOPEZ is being seen for a 6 month follow-up of. History of Present Illness Here for follow-up continue management for history of atrial fibrillation flutter status post PVI x2, sick sinus syndrome with permanent pacemaker implantation, continue complain of palpitation. She also had documentation of moderate degree of pulmonary hypertension. There had been some concern about the possibility of pulmonic vein stenosis. Patient denies complaint of chest pain, lightheadedness, dizziness or syncope. She denies shortness of breath. She continues to complain of intermittent palpitation. She report her blood pressure overall is controlled. She reports her palpitation is improved since restarting Q enzyme Q10. ASSESSMENT: 1. Atrial fibrillation /flutter with prior radiofrequency ablation, remained in sinus rhythm with no recurrence in a while, she does have frequent premature atrial contractions based on recent Holter monitor. Recent documentation of bradycardia and sick sinus syndrome underwent pacemaker implantation 2. Mildly overweight. 3. Abnormal ECG, but normal LV function and no significant left ventricular hypertrophy noted on prior echo. 4. Hypertension controlled 5. Documentation of ectopic beats based on Holter monitor 6. Recent documentation of moderate degree of pulmonary hypertension she is functional class I. Concern had been raised about the possibility of pulmonic vein stenosis however the plan was to repeat echo for follow-up RECOMMENDATION: 1. The patient advised to present medical regimen 2. The patient was counseled on losing weight, exercise, and risk factor adjustment. 3. I will repeat echocardiogram for follow-up for pulmonary hypertension if continues to demonstrate significant pulmonary hypertension consideration for CTA of the chest looking for pulmonic vein stenosis 4. I reviewed with her her recent test check 5. Risk, benefit and alternative anticoagulation reviewed with her at length 6. I we will see her back in the office in 6 weeks and follow-up Surgical History Problems History of Appendectomy History of Cataract surgery History of Catheter ablation History of Complete colonoscopy Jaiden Boss History of Hysterectomy History of Knee replacement History of Knee surgery History of Loop recorder insertion History of Loop recorder removal History of Pacemaker insertion History of Permanent pacemaker insertion Current Meds Medication NameInstruction Co Q10 100 MG CAPSTAKE 1.5 CAPSULE Daily Eliquis 2.5 MG Oral Tablet1 tab twice daily Estradiol 0.025 MG/24HR Transdermal Patch WeeklyAPPLY 1 PATCH WEEKLY DIRECTED. Magnesium Citrate 200 MG Oral TabletTake 1 tablet daily Magnesium Oxide 400 MG Oral TabletTAKE 1 TABLET EVERY OTHER DAY Metoprolol Succinate ER 25 MG Oral Tablet Extended Release 24 Hourtake 1 tablet by mouth once daily PriLOSEC OTC 20 MG Oral Tablet Delayed ReleaseTAKE 1 TABLET Daily prn Tylenol 325 MG Oral Capsuleas directed prn Valsartan 80 MG Oral TabletTAKE 1 TABLET DAILY. Allergies Medication Demerol TABS Allergy; Shortness of breath; Syncope; Updated By: Kriss Schaefer; 02/15/2021 8:18:30 AM Social History Problems Caffeine use (V49.89) (Z78.9) 1 piece of chocolate or less daily Never smoker No alcohol use No illicit drug use Review of Systems Constitutional: not feeling tired. Cardiovascular: no intermittent leg claudication and as noted in HPI. (more content not included)... Normal [facility] Tobacco Screening.on 023 Adult depression screening assessment No [facility] [employer] 250 DO Work Phone: Fall risk assessment a) No falls within the last year [facility] [employer] 250 DO Work Phone: Tobacco use status [facility] b) No [facility] [employer] 250 DO Work Phone: CHEST 2 VIEW PA AND LATon CHEST 2 VIEW PA AND LAT Patient Name: MAU LOPEZ STUDY: TH CHEST 2 VIEW PA AND LAT INDICATION: CLINIC AND CHEST XRAY. COMPARISON: January 29, 2022 ACCESSION NUMBER(S): [id number] ORDERING CLINICIAN: ARABELLA WITT FINDINGS: Cardiomegaly with pacemaker. No consolidation, effusion, edema, or pneumothorax. IMPRESSION: Interval pacemaker placement. No evidence of acute intrathoracic abnormality. Electronically signed by: MARIA G [place] MD Normal [facility] Office Visit (Cardiology)on 04-29-2022 Follow-up visit Diagnoses/Problems Assessed Atrial flutter (427.32) (I48.92) Longstanding persistent atrial fibrillation (427.31) (I48.11) Premature ventricular contractions (PVCs) (VPCs) (427.69) (I49.3) PAC (premature atrial contraction) (427.61) (I49.1) Palpitation (785.1) (R00.2) Status post placement of implantable loop recorder (V45.09) (Z95.818) Encounter for long-term current use of medication (V58.69) (Z79.899) Encounter for medication counseling (V65.49) (Z71.89) Encounter to discuss test results (V65.49) (Z71.2) Sinus bradycardia (427.89) (R00.1) Cardiac pacemaker in situ (V45.01) (Z95.0) Overweight with body mass index (BMI) of 27 to 27.9 in adult (278.02,V85.23) (E66.3,Z68.27) Hypertension (401.9) (I10) Never smoker Orders Cardiac pacemaker in situ Interr. Device Eval - Sngl/Dual/Multiple Pacemaker; Status:Hold For - Scheduling,Retrospective Authorization; Requested for:29Apr2022; Longstanding persistent atrial fibrillation IO EKG Electrocardiogram- 12 Lead; Status:Complete - Retrospective Authorization; Done: 29Apr2022 Overweight with body mass index (BMI) of 27 to 27.9 in adult Healthy Weight Tips; Status:Complete - Retrospective Authorization; Done: 29Apr2022 Losing just 5 to 10 pounds may lower your risk of health problems.; Status:Complete - Retrospective Authorization; Done: 29Apr2022 Patient Instructions Continue same medications/treatment. Patient educated on proper medication use. Patient educated on risk factor modification. Please bring any lab results from other providers/physicians to your next appointment. Please bring all medicines, vitamins, and herbal supplements with you when you come to the office. Prescriptions will not be filled unless you are compliant with your follow up appointments or have a follow up appointment scheduled as per instruction of your physician. Refills should be requested at the time of your visit. Increase walking activity [place] office - May increase rate to 60 after the first week of May 2022, will fax to [facility] device clinic Follow up with Dr. Garcia in June [address] Witt in 12 months Chief Complaint Patient here for 3 month follow-up, s/p loop recorder explant and PM implant Adult Risk Screening Initial Fall Risk Screening: MAU has not fallen in the last 6 months. Tobacco Screening: MAU does not use tobacco. History of Present Illness She is here for electrophysiology follow-up The patient and are here to discuss l pacemaker. She feels worse since PVI x 2 in [place]. She inquires if remote PVI's added to her shortness of breath. We did discuss that pulmonary vein stenosis can occur with PVI's. Defer to PCP for further evaluation. For symptomatic bradycardia, she had pacemaker implanted in January 2022. She used to have daily episodes of near syncope, and those resolved since pacemaker was implanted. Her arrhythmia symptoms have stabilized. She may feel better with her heart rate at 60 bpm rather than 50 bpm. She can feel sharp episodes of rapid beat that lasts for about 20 beats in a row. We reviewed that her device check did not show any tachycardia. We also discussed that the device was tweaked to increase the sensitivity of diagnosis. I reviewed with the patient and her how pacemaker works and that it does not prevent atrial fibrillation. We reviewed her personal heart rate and blood pressure log. The patient denies any syncope, chest discomfort, orthopnea, PND, or edema. See ROS, PMH, FMH, and surgical history for details. Personal review of ECG and cardiac data reviewed Outside records: OV with Dr. Garcia February 2022 Pacemaker implant January 2022. Loop recorder implant January 2022 Device check Dec 2021 OV with me December 2021 Echo August 2021. Normal LVEF 60%. Mod pulm HTN with RVSP 52.6 mm Hg MIld to mod LA and RA dilation. Event monitor August 2021. No AF Holter Jun 2021. Ave HR 57 bpm. Moderate amount of PAC's. Rare PVC's.No symptoms. No AF. ECG Jan 2021 Nuclear testing October 2019 Echocardiogram January 2020 Device check. Today. [employer] 2272 pacemaker. Estimate longevity device over 10.2 years. 0 A. fib. 0 VT. 11% atrial pacing and 9% ventricular pacing. Acceptable heart rate histogram. Chest x-ray pending ECG today. NSR,. PACs. Normal axis. Qtc 450 ms. LVH. Inferolateral T wave abnormality. Imp / Plan Persistent atrial fibrillation and atrial flutter, s/p PVI ablation x2 in [place], most recent ablation 2016. Chronic. Stable. Monitor for burden of atrial fibrillation. Pacemaker Palpitation, may correlate with PAC's. Reviewed medications. Continue medications. Follow-up with cardiology. Chronotropic competence and sinus node dysfunction. Status post pacemaker. Resolution of syncope after pacemaker. [employer] 2272 pacemaker. Reviewed device check. Normal device function. Ordered device checks. Patient follows at [facility] device clini (more content not included)... Normal [facility] Radiologyon 04-29-2022 XR Chest 2 Views Please click on the link to view the study images Normal -[facility] DO Work Phone: XR Chest 2 Views Normal [facility] DO Work Phone: Tobacco Screening.on 023 Adult depression screening assessment No [facility] DO Work Phone: Fall risk assessment a) No falls within the last year [facility] DO Work Phone: Tobacco use status CPHS b) No -[facility] DO Work Phone: COVID CepheidOrdered By: Kashmir Oneill on 03-26-2022 SARS-CoV-2 (COVID-19) Ab IA Ql Positive Negative [facility] Comment on above: This is a duplicate CepColibri IOid Xpert Xpress CoV-2/Flu/RSV Plus RNA by RT-PCR result to be used for statistical tracking purpose only. SARS-CoV-2 (COVID-19) RNA LUIS E+probe Ql (Unsp spec) [facility] SARS-CoV-2 (COVID-19) RNA LUIS E+probe Ql (Unsp spec) [facility] Office Visit (Cardiology)on 02-19-2022 Follow-up visit Diagnoses/Problems Assessed Atrial flutter (427.32) (I48.92) Hypertension (401.9) (I10) PAC (premature atrial contraction) (427.61) (I49.1) Palpitation (785.1) (R00.2) Premature ventricular contractions (PVCs) (VPCs) (427.69) (I49.3) Pulmonary hypertension (416.8) (I27.20) Sinus bradycardia (427.89) (R00.1) Longstanding persistent atrial fibrillation (427.31) (I48.11) Never smoker Abnormal EKG (794.31) (R94.31) Overweight with body mass index (BMI) of 27 to 27.9 in adult (278.02,V85.23) (E66.3,Z68.27) Cardiac pacemaker in situ (V45.01) (Z95.0) Orders Longstanding persistent atrial fibrillation Renew: Eliquis 2.5 MG Oral Tablet; 1 tab twice daily Longstanding persistent atrial fibrillation, Premature ventricular contractions (PVCs) (VPCs) Start: Metoprolol Succinate ER 50 MG Oral Tablet Extended Release 24 Hour (Toprol XL); TAKE 1 TABLET BY MOUTH DAILY SocHx: Never smoker Tobacco Use Screening; Status:Complete; Done: 19Feb2022 Unlinked Stop: Nebivolol HCl - 5 MG Oral Tablet Patient Instructions Please bring all medicines, vitamins, and herbal supplements with you when you come to the office. Prescriptions will not be filled unless you are compliant with your follow up appointments or have a follow up appointment scheduled as per instruction of your physician. Refills should be requested at the time of your visit. Echo in August Toprol xl 50 mg daily Follow up in 6 months Chief Complaint MAU LOPEZ is being seen for a 6 month follow-up of. History of Present Illness Patient is here for follow-up continue management for history of paroxysmal atrial fibrillation with prior ablation x2, will continue complain of palpitation. She clearly has an element of sick sinus syndrome and recently underwent pacemaker implantation historically she has been treated with diastolic due to tendency to have bradycardia. Her previous work-up including the presence of pulmonary hypertension is moderately elevated. She denies lightheadedness, dizziness or syncope. She is Functional class II. ASSESSMENT: 1. Atrial fibrillation /flutter with prior radiofrequency ablation, remained in sinus rhythm with no recurrence in a while, she does have frequent premature atrial contractions based on recent Holter monitor. Recent documentation of bradycardia and sick sinus syndrome underwent pacemaker implantation 2. Mildly overweight. 3. Abnormal ECG, but normal LV function and no significant left ventricular hypertrophy noted on prior echo. 4. Hypertension optimally controlled 5. Rate documentation of PVCs and 6. Recent documentation of moderate degree of pulmonary hypertension she is functional class I she is 80 years old. She has no lung disease this is a new finding and I suggested for the time being with recommend to repeat echo in 6 months to a year and advised the patient to notify if she had changes in her shortness of breath. 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 The patient advised to try to switch from diastolic to metoprolol XL 50 mg once daily to see if her palpitation will improve 2. The patient was counseled on losing weight, exercise, and risk factor adjustment. 3. I will see the patient back in 6-month and plan to repeat her echocardiogram if pulmonary pressure remains elevated will consider CTA to look for pulmonic vein stenosis 4. I reviewed with her her recent hospitalization record and pacemaker check 5. Risk, benefit and alternative anticoagulation reviewed with her at length 6. I we will see her back in the office in 6 weeks and follow-up Current Meds Medication NameInstruction Eliquis 2.5 MG Oral Tablet1 tab twice daily Estradiol 0.025 MG/24HR Transdermal Patch WeeklyAPPLY 1 PATCH WEEKLY DIRECTED. Magnesium Citrate 200 MG Oral TabletTake 1 tablet daily Magnesium Oxide 400 MG Oral TabletTAKE 1 TABLET EVERY OTHER DAY Nebivolol HCl - 5 MG Oral TabletTAKE 1 TABLET DAILY. PriLOSEC OTC 20 MG Oral Tablet Delayed ReleaseTAKE 1 TABLET Daily prn Tylenol 325 MG Oral Capsuleas directed prn Valsartan 80 MG Oral TabletTAKE 1 TABLET DAILY. Allergies Medication Demerol TABS Allergy; Shortness of breath; Syncope; Updated By: Kriss Schaefer; 02/15/2021 8:18:30 AM Social History Problems Caffeine use (V49.89) (Z78.9) 1 piece of chocolate or less daily Never smoker No alcohol use No illicit drug use Review of Systems Constitutional: not feeling tired. Cardiovascular: palpitations, but no intermittent leg claudication and as noted in HPI. Respiratory: shortness of breath during exertion, but no cough and no shortness of breath. Gastrointestinal: no change in bowel habits and no blood in stools. Integumentary: no skin rashes. Neurological: no seizures and no frequent falls. All other systems have been reviewed and are negative for complaint. Vitals Vital Signs Recorded: 19Feb2022 02:52PM Heart Rat (more content not included)... Normal [facility] Tobacco Screening.on 022 Adult depression screening assessment No [facility] 250 DO Work Phone: Fall risk assessment a) No falls within the last year [facility] 250 DO Work Phone: Tobacco use status CPHS b) No [facility] 250 DO Work Phone: Discharge [id number] Discharge Profile2 Discharge Orders: DNAR: Code Status at Discharge: Full Code Appointments: Follow-Up Appointment 01: Physician/Dept/[facility] Reason for ReferralIncision check Scheduled Date/Vlws75-Hwn-6715 13:30 [facility], [email or web address] Phone [phone] Follow-Up Appointment 02: Physician/Dept/[facility] Reason for ReferralDevice check and chest X-ray Scheduled Date/Byuq85-Wys-3886 13:45 [facility] Phone [phone] CommentsBring chest x-ray requisition to this appt Follow-Up Appointment 03: Physician/Dept/Service[facility] Eduar Reason for ReferralFollow-up Scheduled Date/Cshh47-Dqv-3578 15:20 [facility] Office, [email or web address] Phone [phone] Electronic Signatures: Ho Constantino (COOR) (Signed 29-Jan-2022 09:14) Authored: Discharge Orders, Appointments, Gold Form - Harnessmaker Apprentice Summary Last Updated: 29-Jan-2022 09:14 by Ho Constantino (COOR) Normal [facility] Electrocardiogram 12 Leadon 01-29-2022 Electrocardiogram 12 Lead Ventricular Rate 76 Atrial Rate 76 P-R Interval 194 QRS Duration 108 Q-T Interval 446 QTC Calculation(Bazett) 501 P Brem[place] -8 R Brem[place] -45 T [place] 123 QRS Count 13 Q Onset 209 P Onset 111 P Offset 154 T Offset 432 QTC Fredericia 482 Diagnosis Class Abnormal Diagnosis AV dual-paced rhythm with premature atrial complexes with aberrant conduction Abnormal ECG When compared with ECG of 29-JAN-2022 07:40, Electronic ventricular pacemaker has replaced Sinus rhythm Confirmed by Momo Gonzalez ([id number]) on 01/29/2022 1:25:55 PM Normal [facility] Electrocardiogram 12 Lead Ventricular Rate 65 Atrial Rate 65 P-R Interval 150 QRS Duration 84 Q-T Interval 436 QTC Calculation(Bazett) 453 P [place] 69 R Brem[place] -21 T [place] 156 QRS Count 11 Q Onset 227 P Onset 152 P Offset 218 T Offset 445 QTC Fredericia 447 Diagnosis Class Abnormal Diagnosis Sinus rhythm with marked sinus arrhythmia Possible Left atrial enlargement Left ventricular hypertrophy with repolarization abnormality Abnormal ECG When compared with ECG of 04-SEP-2021 08:01, No significant change was found Confirmed by Momo Gonzalez ([id number]) on 01/29/2022 10:43:20 AM Normal [facility] No Panel Informationon 01-29 [email or web address] ?RetrieveTestByDateTime?Pa [id number]&Date=&Time=12%3a52%3a43% 3a00&TestType=ECG&Site=11& OutputType=PDF&Ext=PDF [facility] [place] Work Phone: AV dual-paced rhythm with premature atrial complexes with aberrant conduction [facility] [place] Work Phone: Abnormal [facility] [place] Work Phone: [phone] [facility] [place] Work Phone: [phone] [facility] [place] Work Phone: [phone] [facility] [place] Work Phone: [phone] [facility] [place] Work Phone: [phone] [facility] [place] Work Phone: 13 [phone] [facility] [place] Work Phone: [phone] [facility] [place] Work Phone: -[phone] [facility] [place] Work Phone: -[phone] [facility] [place] Work Phone: [phone] [facility] [place] Work Phone: [phone] [facility] [place] Work Phone: [phone] [facility] [place] Work Phone: [phone] [facility] [place] Work Phone: [phone] [facility] [place] Work Phone: [email or web address] ?RetrieveTestByDateTime?Pa [id number]&Date=&Time=07%3a40%3a19% 3a00&TestType=ECG&Site=11& OutputType=PDF&Ext=PDF [facility] [place] Work Phone: Sinus rhythm with ma rked sinus arrhythmia [facility] [place] Work Phone: Abnormal [facility] [place] Work Phone: [phone] [facility] [place] Work Phone: [phone] [facility] [place] Work Phone: [phone] [facility] [place] Work Phone: [phone] [facility] [place] Work Phone: [phone] [facility] [place] Work Phone: 11 1 [facility] [place] Work Phone: [phone] [facility] [place] Work Phone: -[phone] [facility] [place] Work Phone: [phone] [facility] [place] Work Phone: [phone] [facility] [place] Work Phone: [phone] [facility] [place] Work Phone: [phone] [facility] [place] Work Phone: [phone] [facility] [place] Work Phone: [phone] [facility] [place] Work Phone: Order Reconciliationon 01-29 Order Reconciliation Page 1 Discharge Reconciliation Document Reconciliation Type: Discharge requested on behalf of Carolina Mauro (Advanced Practice Nurse) done by Carolina Mauro ([facility]) Discharge - Reconciliation: 29-Jan-2022 12:42 by: Carolina Mauro ([facility]) Discharge - Reset to Incomplete: 29-Jan-2022 15:16 by: Carolina Mauro ([facility]) Discharge - Reconciliation: 29-Jan-2022 15:16 by: Carolina Mauro ([facility]) Home Medications EnteredHOME MEDICATIONS AT DISCHARGE DateReconciliation Comment/ Additional Information Bystolic 2.5 mg oral tablet 1 tab(s) alternating with 2 tabs every other day. 28-Jan-2022 10:10 Bystolic 2.5 mg oral tablet 1 tab(s) orally once a day Discontinued; Copy/Discontinue Bystolic 2.5 mg oral tablet is continued and modified Bystolic 2.5 mg oral tablet 2 tab(s) orally every other day 28-Jan-2022 10:11 Discontinued; Discontinue from OR Bystolic 2.5 mg oral tablet is not required Eliquis 2.5 mg oral tablet 1 tab(s) orally 2 times a day 04-Sep-2021 09:26 Eliquis 2.5 mg oral tablet 1 tab(s) orally 2 times a day - hold for 2 days and resume on 02/01/22 Discontinued; Copy/Discontinue Eliquis 2.5 mg oral tablet is continued and modified Estradiol Patch 0.025 mg/24 hours weekly transdermal film, extended release 1 patch transdermal once a week 03-Sep-2021 10:44 Estradiol Patch 0.025 mg/24 hours weekly transdermal film, extended release 1 patch transdermal once a week 03-Sep-2021 10:44 Estradiol Patch 0.025 mg/24 hours weekly transdermal film, extended release is continued as Estradiol Patch 0.025 mg/24 hours weekly transdermal film, extended release magnesium citrate 1 tab(s) orally once a day 04-Sep-2021 07:53 magnesium citrate 1 tab(s) orally once a day 04-Sep-2021 07:53 magnesium citrate is continued as magnesium citrate magnesium oxide 400 mg oral tablet 1 tab(s) orally every other day 03-Sep-2021 10:45 magnesium oxide 400 mg oral tablet 1 tab(s) orally every other day 03-Sep-2021 10:45 magnesium oxide 400 mg oral tablet is continued as magnesium oxide 400 mg oral tablet PriLOSEC OTC 20 mg oral delayed release tablet 1 tab(s) orally once a day 03-Sep-2021 10:45 PriLOSEC OTC 20 mg oral delayed release tablet 1 tab(s) orally once a day 03-Sep-2021 10:45 PriLOSEC OTC 20 mg oral delayed release tablet is continued as PriLOSEC OTC 20 mg oral delayed release tablet Tylenol 325 mg oral capsule 1 cap(s) orally 3 times a day, As Needed 03-Sep-2021 10:46 Discontinued; Discontinue from ORM Tylenol 325 mg oral capsule is not required valsartan 80 mg oral tablet 1 tab(s) orally once a day 03-Sep-2021 10:46 valsartan 80 mg oral tablet 1 tab(s) orally once a day 03-Sep-2021 10:46 valsartan 80 mg oral tablet is continued as valsartan 80 mg oral tablet Current OrdersDateHOME MEDICATIONS AT DISCHARGE DateReconciliation Comment/ Additional Information Acetaminophen Tablet (TYLENOL)DOSE = 650 mg Oral Every 4 Hours, PRN Pain - Mild (1-3) 29-Jan-2022 12:38 acetaminophen 325 mg oral tablet 2 tab(s) orally every 4 hours, As needed, Pain 29-Jan-2022 12:39 Acetaminophen is continued as acetaminophen 325 mg oral tablet and modified Ondansetron Injectable (ZOFRAN)DOSE = 4 mg IntraVenous Push Every 8 Hours, PRN Nausea & Vomiting 29-Jan-2022 12:38 Ondansetron Injectable is not required Sodium Chloride 0.9% Infusion IV Bag Volume = 1,000 mL Run at: 10 mL/hr IntraVenous 28-Jan-2022 10:01 Sodium Chloride 0.9% Infusion is not required traMADol Tablet (ULTRAM)DOSE = 50 mg Oral Every 6 Hours, PRN Pain - Mod (4-6) 29-Jan-2022 12:38 traMADol 50 mg oral tablet 1 tab(s) orally every 6 hours, As needed, Pain if no relief from tylenol then alternate tylenol and tramadol 29-Jan-2022 12:40 Prescription is created for traMADol 50 mg oral tablet Home Medications Added During Discharge Reconciliation Discharge Discharge Diagnosis< I49.5 Sinus node dysfunction Discharge Provider, Dannie Witt Instructions for Staff Only: after 1529 if meets discharge criteria and device check completed Discharge Disposition : .Home Condition at Discharge: Satisfactory Discharge Communication Instructions for Nursing Only: Remove IV prior to discharge from hospital. Do not remove any midline, if present, without an order from the provider. Discharge Instructions - PHR After your discharge from the hospital, two Summary of Care Documents will be available online in your Personal Health Record (PHR). 1.Consolidated-Clinical Document Architecture (C-CDA) Patient Discharge Summary This document is a summary of your hospital stay to be kept for your reference.2.C-CDA Visit Summary This document is a summary of your hospital stay to be shared with your follow-up providers (doctor, steel placer, physical therapist, etc.). Follow Up with incision check ([facility] office) in 1 Weeks see additional discharge sheet All Active Home Medications at time of Discharge Reconciliation: 29-Jan-2022 15:16 (more content not included)... Normal [facility] Patient Profile - Preop v3on 01-29-2022 Patient Profile - Preop v3 Patient Profile - Preop: Initial Info: Patient DemographicsName: MAU LOPEZ Date: 1940 Address: [address] [place] [address] Primary Phone [phone] How to be AddressedSheila Spoken Language PreferredEnglish Stated Reason for Admissionpacemaker in Primary Contact Name and NumberClemith [phone] Medications Brought to Hospitalno General Health: Weight in kg63.5 kilogram(s) Weight in rwy713.9 pound(s) Weight Methodactual (measured) Scale Typestanding Height in feet5 feet Height in inches1.97 inch(es) Height in cm157.4 centimeter(s) Height Methodstated BMI (kg/m2)25.63 square meter Patient or Family Member Reaction to Anesthesiano previous reaction Blood Avoidance/Restrictionsnone Previous Transfusion Reactionno Health Mgmt: Symptoms/Conditions Managed at Homegastrointestinal; cardiovascular Cardiovascular Symptoms/Conditionshyperte nsion; dysrhythmia Cardiovascular Management Strategiesroutine screening; medication therapy Gastrointestinal Symptoms/Conditionsreflux/ heartburn Gastrointestinal Management Strategiesmedication therapy Barriers to Managing Healthnone Relationship/Environ: Lives Withspouse Living Arrangementshouse Resource/Environmental Concernsnone [facility]ticipated [facility] Anticipated at Transitionnone Tobacco Use: Tobacco Useno Pre-op Checklist: Arrival [id number] Arrival Time07:12 Procedure TypePPM Last Food [id number]-0199 23:00 Last Clear Fluid [id number]-Rvl-6076 07:00 ID Band On Patientpatient ID (name), allergy, falls risk Consent Signedyes H&P Completeyes Anesthesia Assessment Completedpending EKG Performedyes Additional Information: Information Review: Allergies, Home Meds and Significant Events have been Reviewed and Verified with Patient/Familyyes Allergy, Intolerance, Adverse Event: Allergies: Demerol: Drug, Unknown, Active Electronic Signatures: Blessing Puri (STAFF N) (Signed 29-Jan-2022 07:49) Authored: Initial Info, General Health, Health Mgmt, Relationship/Environ, Tobacco Use, Pre-op Checklist, Additional Information Last Updated: 29-Jan-2022 07:49 by Blessing Puri (STAFF N) Normal [facility] Radiologyon 01-29-2022 XR Chest 2 Views Normal -[facility] Work Phone: Basophils Auto (Bld) [#/Vol] Ordered By: Arabella Witt on 01-27-2022 Basophils (Bld) [#/Vol] 0.0 10*3/uL 0.0-0.2 [facility] Basophils/100 WBC Auto (Bld) Ordered By: Arabella Witt on 01-27-2022 Basophils/100 WBC (Bld) 0.7 % . [facility] COVID-19 Positive/NegativeOr dered By: Arabella Witt on 01-27-2022 SARS-CoV-2 (COVID-19) N gene LUIS E+probe Ql (Resp) Negative Negative [facility] Comment on above: Testing for SARS-CoV -2 by RT-PCRThis test was developed and its performance characteristics determined by [employer] ([employer]) and validated at the [facility]. This test has not been FDA cleared or approved. This test has been authorized by FDA under an Emergency Use Authorization (EUA). This test has been validated in accordance with the FDA's Guidance Document (Policy for Diagnostics Testing in Laboratories Certified to Perform High Complexity Testing under CLIA prior to Emergency Use Authorization for Coronavirus Disease-2019 during the Public Health Emergency) issued on July 14, 2019. This test is only authorized for the duration of time the declaration that circumstances exist justifying the authorization of the emergency use of in vitro diagnostic tests for detection of SARS-CoV-2 virus and/or diagnosis of COVID-19 infection under section 564(b)(1) of the Act, 21 U.S.C. 360bbb-3(b)(1), unless the authorization is terminated or revoked sooner. Creatinine and Glomerular fi ltration rate.predicted panel (S/P/Bld)Ordered By: Arabella Witt on 01-27-2022 Creatinine [Mass/Vol] 0.85 mg/dL 0.44-1.03 [facility] Eosinophils Auto (Bld) [#/Vo l]Ordered By: Arabella Witt on 01-27-2022 Eosinophils (Bld) [#/Vol] 0.2 10*3/uL 0.0-0.45 [facility] Eosinophils/100 WBC Auto (Bl d)Ordered By: Arabella Witt on 01-27-2022 Eosinophils/100 WBC (Bld) 3.1 % . [facility] Erythrocyte distribution wid th Auto (RBC) [Ratio]Ordered By: Arabella Witt on 01-27-2022 Erythrocyte distribution width (RBC) [Ratio] 14.5 % 11.9-15.3 [facility] Estimated glomerular filtrat ion rate (GFR) non- AmericanOrdered By: Arabella Witt on 01-27-2022 GFR/1.73 sq M.predicted among non-blacks MDRD (S/P/Bld) [Vol rate/Area] > 60 mL/Min [facility] Hematocrit Auto (Bld) [Volum e fraction]Ordered By: Arabella Witt on 01-27-2022 Hematocrit (Bld) [Volume fraction] 38.5 % 34.0-46.4 [facility] Hemoglobin [Mass/volume] in BloodOrdered By: Arabella Witt on 01-27-2022 Hemoglobin (Bld) [Mass/Vol] 12.7 g/dL 11.8-15.4 [facility] Laboratory - CoagulationOrde red By: Arabella Witt on 01-27-2022 PT Coag (PPP) [Time] 12.4 s 9.0-12.9 [facility] Laboratory - Hematology and Cell countsOrdered By: Arabella Witt on 01-27-2022 Nucleated RBC/100 WBC (Bld) [Ratio] 0.1 % 0-0.5 [facility] Leukocytes [#/volume] in Blo od by Automated countOrdered By: Arabella Witt on 01-27-2022 WBC (Bld) [#/Vol] 5.4 10*3/uL 4.5-11.0 [facility] Lymphocytes Auto (Bld) [#/Vo l]Ordered By: Arabella Witt on 01-27-2022 Lymphocytes (Bld) [#/Vol] 1.6 10*3/uL 1.00-4.8 [facility] Lymphocytes/100 WBC Auto (Bl d)Ordered By: Arabella Witt on 01-27-2022 Lymphocytes/100 WBC (Bld) 29.3 % . [facility] MCH Auto (RBC) [Entitic mass ]Ordered By: Arabella Witt on 01-27-2022 MCH (RBC) [Entitic mass] 31.9 pg 24.7-34.3 [facility] MCHC Auto (RBC) [Mass/Vol]Or dered By: Arabella Witt on 01-27-2022 MCHC (RBC) [Mass/Vol] 32.9 g/dL 32.0-35.0 [facility] MCV Auto (RBC) [Entitic vol] Ordered By: Arabella Witt on 01-27-2022 MCV (RBC) [Entitic vol] 96.9 fL 80-100 [facility] Monocytes Auto (Bld) [#/Vol] Ordered By: Arabella Witt on 01-27-2022 Monocytes (Bld) [#/Vol] 0.8 10*3/uL 0.0-0.8 [facility] Monocytes/100 WBC Auto (Bld) Ordered By: Arabella Witt on 01-27-2022 Monocytes/100 WBC (Bld) 15.5 % . [facility] Neutrophils Auto (Bld) [#/Vo l]Ordered By: Arabella Witt on 01-27-2022 Neutrophils (Bld) [#/Vol] 2.8 10*3/uL 1.8-7.7 [facility] Neutrophils/100 WBC Auto (Bl d)Ordered By: Arabella Witt on 01-27-2022 Neutrophils/100 WBC (Bld) 51.4 % . [facility] No Panel InformationOrdered By: Arabella Witt on 01-27-2022 Estimated GFR () > 60 mL/Min [facility] Comment on above: GFR estimated refere nce range: According to KDOQI guidelines, <60 ml/min/1.73m2 is sufficient to diagnose a patient with chronic kidney disease. Pharmacy Creatinine Clearance (Chem N/A [facility] No Panel Informationon 01-27 8.5\S\8.5 Normal 6.0-15.0 [facility] a [address] DO Work Phone: 9.2\S\9.2 Normal 8.2-10.2 [facility] a 320 DO Work Phone: Comment on above: PERFORMED BY:[place] [address] [place] [place] [phone] MEDICAL DIRECTORAYANA CLEMENTE M.D. 29.1\S\29.1 Normal 22.0-30.0 [facility] a [address] DO Work Phone: 105\S\105 Normal 95-114 [facility] a [address] DO Work Phone: 4.6\S\4.6 Normal 3.5-5.1 [facility] 320 DO Work Phone: [phone]\S\138 Normal 136-146 [facility] garland 320 DO Work Phone: > 60 Normal [facility] Morena garland 320 DO Work Phone: Comment on above: GFR estimated refere nce range: According to KDOQI guidelines, <60 ml/min/1.73m2 is sufficient to diagnose a patient with chronic kidney disease. 0.85\S\0.85 Normal 0.44-1.03 [facility] 320 DO Work Phone: 19\S\19 Normal 9-23 [facility] 320 DO Work Phone: 95\S\95 Normal 70-100 [facility] 320 DO Work Phone: Comment on above: Random Glucose Refer ence Range is dependent on time and content of last meal. Glucose of more than 200 mg/dL in a nonstressed, ambulatory subject supports the diagnosis of Diabetes Mellitus. ADA recommended reference range 1.1\S\1.1 Normal [facility] [address] DO Work Phone: Comment on above: INR Therapeutic Rang e A) Pre- and Peroperative OAT started two weeks before surgery. NOT HIP SURGERY: 1.5 - 2.5 HIP SURGERY: 2 - 3 B) Primary and secondary prevention of venous THROMBOSIS: 2 - 3 C) Active venous thrombosis, pulmonary embolism and prevention of recurrent venous thrombosis: 2 - 3 D) Prevention of arterial thromboembolism including patients with mechanical heart valves: 3 - 4.5PERFORMED BY:[facility] [place], [place] [phone] MEDICAL DIRECTORAYANA CLEMENTE M.D. 12.4\S\12.4 Normal 9.0-12.9 [facility] dada 320 DO Work Phone: 0.0\S\0.0 Normal 0.0-0.2 [facility] a 320 DO Work Phone: [phone] Comment on above: PERFORMED BY:[facility] [place] [phone] MEDICAL DIRECTORAYANA CLEMENTE M.D. 0.2\S\0.2 Normal 0.0-0.45 [facility] [address] DO Work Phone: [phone] 0.8\S\0.8 Normal 0.0-0.8 [facility] [address] DO Work Phone: [phone] 1.6\S\1.6 Normal 1.00-4.8 [facility] [address] DO Work Phone: [phone] 2.8\S\2.8 Normal 1.8-7.7 [facility] a [address] DO Work Phone: [phone] 0.1\S\0.1 Normal 0-0.5 [facility] [address] DO Work Phone: [phone] 0.7\S\0.7 Normal . [facility] [address] DO Work Phone: [phone] 3.1\S\3.1 Normal . [facility] [address] DO Work Phone: [phone] 15.5\S\15.5 Normal . [facility] [address] DO Work Phone: 29.3\S\29.3 Normal . [facility] [address] DO Work Phone: [phone] 51.4\S\51.4 Normal . [facility] [address] DO Work Phone: 10.3\S\10.3 Normal 6.3-10.7 [facility] 320 DO Work Phone: [phone] 210\S\210 Normal 150-450 [facility] [address] DO Work Phone: [phone] 14.5\S\14.5 Normal 11.9-15.3 [facility] [address] DO Work Phone: [phone] 32.9\S\32.9 Normal 32.0-35.0 [facility] [address] DO Work Phone: [phone] 31.9\S\31.9 Normal 24.7-34.3 [facility] a [address] DO Work Phone: [phone] 96.9\S\96.9 Normal 80-100 [facility] [address] DO Work Phone: [phone] 38.5\S\38.5 Normal 34.0-46.4 [facility] [address] DO Work Phone: [phone] 12.7\S\12.7 Normal 11.8-15.4 [facility] [address] DO Work Phone: [phone] 3.98\S\3.98 Normal 3.60-5.00 [facility] [address] DO Work Phone: [phone] 5.4\S\5.4 Normal 3.8-11.6 [facility] [address] DO Work Phone: [phone] Platelet mean volume Auto (B ld) [Entitic vol]Ordered By: Arabella Witt on 01-27-2022 Platelet mean volume (Bld) [Entitic vol] 10.3 fL 6.3-10.7 [facility] Platelet poor plasma interna tional normalized ratio (INR) by coagulation assay (relatOrdered By: Arabella Witt on 01-27-2022 INR Coag (PPP) [Relative time] 1.1 {INR} [facility] Comment on above: INR Therapeutic Rang e A) Pre- and Peroperative OAT started two weeks before surgery. NOT HIP SURGERY: 1.5 - 2.5 HIP SURGERY: 2 - 3B) Primary and secondary prevention of venous THROMBOSIS: 2 - 3C) Active venous thrombosis, pulmonary embolismand prevention of recurrent venous thrombosis: 2 - 3D) Prevention of arterial thromboembolismincluding patients with mechanical heart valves: 3 - 4.5 Platelets Auto (Bld) [#/Vol] Ordered By: Arabella Witt on 01-27-2022 Platelets (Bld) [#/Vol] 210 10*3/uL 150-450 [facility] RBC Auto (Bld) [#/Vol]Ordere d By: Arabella Witt on 01-27-2022 RBC (Bld) [#/Vol] 3.98 10*6/uL 3.60-5.00 [facility] Serum or plasma anion gap de terminationOrdered By: Arabella Witt on 01-27-2022 Anion gap [Moles/Vol] 8.5 mmol/L 6.0-15.0 [facility] Serum or plasma calcium bari urement (mass/volume)Ordered By: Arabella Witt on 01-27-2022 Calcium [Mass/Vol] 9.2 mg/dL 8.2-10.2 [facility] Serum or plasma chloride asndra surement (moles/volume)Ordered By: Arabella Witt on 01-27-2022 Chloride [Moles/Vol] 105 mmol/L 95-114 [facility] Serum or plasma glucose bari urement (mass/volume)Ordered By: Arabella Witt on 01-27-2022 Glucose [Mass/Vol] 95 mg/dL 70-100 [facility] Comment on above: ADA recommended refe rence rangeRandom Glucose Reference Range is dependent on time and content of last meal. Glucose of more than 200 mg/dL in a nonstressed, ambulatory subject supports the diagnosis of Diabetes Mellitus. Serum or plasma potassium me asurement (moles/volume)Ordered By: Arabella Witt on 01-27-2022 Potassium [Moles/Vol] 4.6 mmol/L 3.5-5.1 [facility] Serum or plasma sodium measu rement (moles/volume)Ordered By: Arabella Witt on 01-27-2022 Sodium [Moles/Vol] 138 mmol/L 136-146 [facility] Serum or plasma total carbon dioxide measurement (moles/volume)Ordered By: Arabella Witt on 10-17-2022 CO2 [Moles/Vol] 29.1 mmol/L 22.0-30.0 [facility] Serum or plasma urea nitroge n measurement (mass/volume)Ordered By: Arabella Witt on 01-27-2022 Urea nitrogen [Mass/Vol] 19 mg/dL 01-03 [facility] TSH DL <= 0.005 mIU/L QnOrde red By: Lianne Stewart on 01-27-2022 TSH Qn 5.74 m[IU]/L 0.45-5.33 [facility] Thyroxine (T4) free [Mass/vo lume] in Serum or PlasmaOrdered By: Lianne Stewart on 01-27-2022 Free T4 [Mass/Vol] 0.61 ng/dL 0.61-1.12 [facility] Triiodothyronine (T3) Free [ Mass/volume] in Serum or PlasmaOrdered By: Lianne Stewart on 01-27-2022 Free T3 [Mass/Vol] 2.80 pg/mL 2.50-3.90 [facility] Office Visit (Cardiology)on 12-31-2021 Follow-up visit Diagnoses/Problems Assessed Atrial flutter (427.32) (I48.92) Longstanding persistent atrial fibrillation (427.31) (I48.11) Premature ventricular contractions (PVCs) (VPCs) (427.69) (I49.3) Palpitation (785.1) (R00.2) PAC (premature atrial contraction) (427.61) (I49.1) Status post placement of implantable loop recorder (V45.09) (Z95.818) Overweight with body mass index (BMI) of 27 to 27.9 in adult (278.02,V85.23) (E66.3,Z68.27) Never smoker Encounter to discuss test results (V65.49) (Z71.2) Encounter for medication counseling (V65.49) (Z71.89) Encounter for long-term current use of medication (V58.69) (Z79.899) Sinus bradycardia (427.89) (R00.1) Preop cardiovascular exam (V72.81) (Z01.810) Orders Health Maintenance Avoid alcoholic beverages.; Status:Complete - Retrospective Authorization; Done: 00Pvd6529 Diets that are low in carbohydrates and high in protein are very popular for weight loss.; Status:Complete - Retrospective Authorization; Done: 27Saz5422 Eat a low fat and low cholesterol diet.; Status:Complete - Retrospective Authorization; Done: 59Ycq3373 Please bring all medicines, vitamins, and herbal supplements with you when you come to the office.; Status:Complete - Retrospective Authorization; Done: 41Llo6759 Restrict the salt in your diet by avoiding highly salted foods.; Status:Complete - Retrospective Authorization; Done: 39Jfu7142 There are many exercise options for seniors.; Status:Complete - Retrospective Authorization; Done: 75Nbt4183 Longstanding persistent atrial fibrillation, PAC (premature atrial contraction), Premature ventricular contractions (PVCs) (VPCs), Sinus bradycardia Pacemaker Implant, Dual Chamber; Status:Active - Retrospective Authorization; Requested for:[id number]; Longstanding persistent atrial fibrillation, Pulmonary hypertension Renew: Nebivolol HCl - 2.5 MG Oral Tablet (Bystolic); Take 1 tablet alternating with 2 tablets every other day Overweight with body mass index (BMI) of 27 to 27.9 in adult Losing just 5 to 10 pounds may lower your risk of health problems.; Status:Complete - Retrospective Authorization; Done: 22Xdv9781 Sinus bradycardia Basic Metabolic Panel; Status:Active - Retrospective Authorization; Requested for:36Hpp9396; Complete Blood Count; Status:Active - Retrospective Authorization; Requested for:[id number]; CORONAVIRUS 2019 RNA BY PCR, SCREEN ASYMPTOMATIC AMBULATORY; Status:Hold For - Specimen/Data Collection,Retrospective Authorization; Requested for:[id number]; PT/INR; Status:Active - Retrospective Authorization; Requested for:[id number]; SocHx: Never smoker Tobacco Use Screening; Status:Complete; Done: 15Rcl1304 Patient Instructions Will Schedule a Dual Chamber Pacmeker. Hold Eliquis 2 days prior. Increase Bystolic to 2.5mg alternating with 5 mg daily. Drink plenty of water daily. Andie Lyles CMA, am scribing for and in the presence of, Dr. Arabella Witt MA, FACC, FACP, FHRS. The provider reviewed the following test(s) and result(s) with the patient: ECG Chief Complaint Patient here for 4 month follow-up from [facility] after loop recorder insertion Adult Risk Screening Initial Fall Risk Screening: MAU has not fallen in the last 6 months. Tobacco Screening: MAU does not use tobacco. Has not used tobacco in the past 6 months. History of Present Illness She is here for electrophysiology evaluation The patient and are here to discuss loop recorder and palpitation. She feels worse since PVI x 2 in [place]. Every day she feels palpitation. She has worked up Mg dose to Mg Ox 400 mg and Mg Citrate. She can only take Bystolic 2.5 mg daily. We reviewed loop recorder check with frequent PAC's. The patient is agreeable to try alternating doses of Bystolic 2.5 mg and 5 mg. We reviewed her personal bp and irregular HR log. She continues to be anxious. She gets diarrhea with higher dose Mg Ox and Bystolic makes her tired. She is fatigued , short of breath, feels palpitation, and has near syncope every day. The patient denies any syncope, chest discomfort, orthopnea, PND, or edema. See ROS, PMH, FMH, and surgical history for details. Personal review of ECG and cardiac data reviewed Outside records: Device check Dec 2021 Device check Nov 2021 Device check October 2021 Device check September 2021 OV with me August 2021 Echo August 2021. Normal LVEF 60%. Mod pulm HTN with RVSP 52.6 mm Hg MIld to mod LA and RA dilation. Event monitor August 2021. No AF Holter Jun 2021. Ave HR 57 bpm. Moderate amount of PAC's. Rare PVC's.No symptoms. No AF. ECG Jan 2021 Nuclear testing October 2019 Echocardiogram January 2020 Device check. 2021. NSR, PAC S and PVC s HR histogram blunted with HR 40-50's bpm ECG today. NSR, sinus arrhythmia. PAC. Normal axis. Qtc 450 ms. Inferolateral T wave abnormality. 1 Imp / Plan Persistent atrial fibrillation and atrial flutter, s/p PVI ablation x2 i (more content not included)... Normal [facility] Tobacco Screening.on 022 Fall risk assessment a) No falls within the last year [facility] a [address] DO Work Phone: Tobacco use status [facility] b) No [facility] a [address] DO Work Phone: Tobacco Screening. Yes [facility] a 320 DO Work Phone: Discharge [id number] Discharge Profile2 Discharge Orders: DNAR: Code Status at Discharge: Full Code Appointments: [facility] Reason for ReferralIncision Check Scheduled Date/[id number]-[id number] 09:30 [facility] Office Phone [phone] Follow-Up Appointment 02: Physician/Dept/[facility] Registration Reason for ReferralDevice check Scheduled Date/[id number]-Yet-5746 14:00 [id number] [place] [place] Phone [phone] Follow-Up Appointment 03: Physician/Dept/ServiceDr. Witt Reason for ReferralFollow-up Scheduled Date/Nvih83-Hpy-6195 15:00 [facility] Office, [address], [address] Phone [phone] Electronic Signatures: Ho Constantino (COOR) (Signed 04-Sep-2021 09:08) Authored: Discharge Orders, Appointments, Gold Form - Harnessmaker Apprentice Summary Last Updated: 04-Sep-2021 09:08 by Ho Constantino (COOR) [facility] No Panel Informationon 09-04 [email or web address] ?RetrieveTestByDateTime?Pa [id number]&Date=&Time=08%3a01%3a06% 3a00&TestType=ECG&Site=11& OutputType=PDF&Ext=PDF [facility] 250 DO Work Phone: Sinus bradycardia [facility] kevin 250 DO Work Phone: [phone] Abnormal [facility] 250 DO Work Phone: [phone] [facility] 250 DO Work Phone: [phone] [facility] 250 DO Work Phone: [phone] [facility] 250 DO Work Phone: [phone] [facility] 250 DO Work Phone: [phone] [facility] 250 DO Work Phone: [phone] [facility] 250 DO Work Phone: [phone] [facility] 250 DO Work Phone: [phone] [facility] 250 DO Work Phone: [phone] [facility] 250 DO Work Phone: [phone] [facility] 250 DO Work Phone: [phone] [facility] 250 DO Work Phone: [phone] [facility] 250 DO Work Phone: [phone] [facility] 250 DO Work Phone: [phone] [facility] 250 DO Work Phone: Order Reconciliationon 09-04 Order Reconciliation Page 1 Discharge Reconciliation Document Reconciliation Type: Discharge requested on behalf of Carolina Mauro (Advanced Practice Nurse) done by Carolina Mauro (CENTER ADMINISTRATOR-[facility]) Discharge - Partial Reconciliation: 04-Sep-2021 09:26 by: Carolina Mauro (CENTER ADMINISTRATOR-[facility]) Discharge - Reconciliation: 04-Sep-2021 11:06 by: Carolina Mauro (CENTER ADMINISTRATOR-[facility]) Home Medications EnteredHOME MEDICATIONS AT DISCHARGE DateReconciliation Comment/ Additional Information Bystolic 2.5 mg oral tablet 1 tab(s) orally once a day 03-Sep-2021 10:43 Bystolic 2.5 mg oral tablet 1 tab(s) orally once a day 03-Sep-2021 10:43 Bystolic 2.5 mg oral tablet is continued as Bystolic 2.5 mg oral tablet Eliquis 2.5 mg oral tablet 1 tab(s) orally 2 times a day 03-Sep-2021 10:44 Eliquis 2.5 mg oral tablet 1 tab(s) orally 2 times a day- hold for 2 days. Resume on 09/07/21 Discontinued; Copy/Discontinue Eliquis 2.5 mg oral tablet is continued and modified Estradiol Patch 0.025 mg/24 hours weekly transdermal film, extended release 1 patch transdermal once a week 03-Sep-2021 10:44 Estradiol Patch 0.025 mg/24 hours weekly transdermal film, extended release 1 patch transdermal once a week 03-Sep-2021 10:44 Estradiol Patch 0.025 mg/24 hours weekly transdermal film, extended release is continued as Estradiol Patch 0.025 mg/24 hours weekly transdermal film, extended release magnesium citrate 1 tab(s) orally once a day 04-Sep-2021 07:53 magnesium citrate 1 tab(s) orally once a day 04-Sep-2021 07:53 magnesium citrate is continued as magnesium citrate magnesium oxide 400 mg oral tablet 1 tab(s) orally every other day 03-Sep-2021 10:45 magnesium oxide 400 mg oral tablet 1 tab(s) orally every other day 03-Sep-2021 10:45 magnesium oxide 400 mg oral tablet is continued as magnesium oxide 400 mg oral tablet PriLOSEC OTC 20 mg oral delayed release tablet 1 tab(s) orally once a day 03-Sep-2021 10:45 PriLOSEC OTC 20 mg oral delayed release tablet 1 tab(s) orally once a day 03-Sep-2021 10:45 PriLOSEC OTC 20 mg oral delayed release tablet is continued as PriLOSEC OTC 20 mg oral delayed release tablet Tylenol 325 mg oral capsule 1 cap(s) orally 3 times a day, As Needed 03-Sep-2021 10:46 Tylenol 325 mg oral capsule 1 cap(s) orally 3 times a day, As Needed 03-Sep-2021 10:46 Tylenol 325 mg oral capsule is continued as Tylenol 325 mg oral capsule valsartan 80 mg oral tablet 1 tab(s) orally once a day 03-Sep-2021 10:46 valsartan 80 mg oral tablet 1 tab(s) orally once a day 03-Sep-2021 10:46 valsartan 80 mg oral tablet is continued as valsartan 80 mg oral tablet Current OrdersDateHOME MEDICATIONS AT DISCHARGE DateReconciliation Comment/ Additional Information Acetaminophen Tablet (TYLENOL)DOSE = 650 mg Oral Every 6 Hours, PRN Pain - Mild (1-3) 04-Sep-2021 09:19 Acetaminophen is not required Ondansetron Injectable (ZOFRAN)DOSE = 4 mg IntraVenous Push Every 8 Hours, PRN Nausea & Vomiting 04-Sep-2021 09:19 Ondansetron Injectable is not required Sodium Chloride 0.9% Infusion IV Bag Volume = 1,000 mL Run at: 10 mL/hr IntraVenous 03-Sep-2021 10:42 Sodium Chloride 0.9% Infusion is not required All Active Home Medications at time of Discharge Reconciliation: 04-Sep-2021 11:06 Bystolic 2.5 mg oral tablet 1 tab(s) orally once a day Eliquis 2.5 mg oral tablet 1 tab(s) orally 2 times a day- hold for 2 days. Resume on 09/07/21 Estradiol Patch 0.025 mg/24 hours weekly transdermal film, extended release 1 patch transdermal once a week magnesium citrate 1 tab(s) orally once a day magnesium oxide 400 mg oral tablet 1 tab(s) orally every other day PriLOSEC OTC 20 mg oral delayed release tablet 1 tab(s) orally once a day Tylenol 325 mg oral capsule 1 cap(s) orally 3 times a day, As Needed valsartan 80 mg oral tablet 1 tab(s) orally once a day Normal [facility] Patient Profile - Preop v3on 09-04-2021 Patient Profile - Preop v3 Patient Profile - Preop: Initial Info: Patient DemographicsName: MAU LOPEZ Date: 1940 Address: [address] [place] [address] Primary Phone [phone] How to be AddressedSheila Spoken Language PreferredEnglish Source of Informationpatient Stated Reason for AdmissionLOOP implant Primary [facility] Chay [phone] Medications Brought to Hospitalno General Health: Weight in kg63.4 kilogram(s) Weight in lul840.7 pound(s) Weight Methodactual (measured) Scale Typestanding Height in feet5 feet Height in inches0 inch(es) Height in cm152.4 centimeter(s) Height Methodstated BMI (kg/m2)27.297 square meter Patient or Family Member Reaction to Anesthesiano previous reaction Blood Avoidance/Restrictionsnone Previous Transfusion Reactionnot applicable Health Mgmt: Symptoms/Conditions Managed at Homecardiovascular; respiratory; musculoskeletal; gastrointestinal Cardiovascular Symptoms/Conditionsdysrhyt hmia Gastrointestinal Symptoms/Conditionsdiarrhe a Musculoskeletal Symptoms/Conditionsosteoar thritis Respiratory Symptoms/Conditionssleep disordered breathing Respiratory Management StrategiesCPAP Barriers to Managing Healthnone Relationship/Environ: Lives Withspouse Living Arrangementshouse Resource/Environmental Concernsnone [facility]ticipated [facility] Anticipated at Transitionnone Tobacco Use: Tobacco Useno Pre-op Checklist: Arrival [id number] Arrival Time07:10 Procedure TypeLOOP implant NPOyes Last Food [id number] 21:30 ID Band On Patientpatient ID (name), allergy, falls risk Consent Signedyes H&P Completeyes Anesthesia Assessment Completedpending EKG Performedyes Chest X-Ray Performedyes Preop Antibioticsnot ordered HCG Urine TestN/A Chlorhexadine Bath Givencompleted in pre-op Nasal Antiseptic Appliedcompleted in pre-op Soap and Water Bath the Night Before Surgerynot applicable Hair Washed with Shampoonot applicable Bowel Prepno Surgical Site Infection Preventionyes Pain Scales and Managementyes Additional Information: Information Review: Allergies, Home Meds and Significant Events have been Reviewed and Verified with Patient/Familyyes Allergy, Intolerance, Adverse Event: Allergies: Demerol: Drug, Unknown, Active Electronic Signatures: Andie Zabala (KANDICE) (Signed 04-Sep-2021 07:40) Authored: Initial Info, General Health, Health Mgmt, Relationship/Environ, Tobacco Use, Pre-op Checklist, Additional Information Last Updated: 04-Sep-2021 07:40 by Andie Zabala (KANDICE) Normal [facility] Radiologyon 09-04-2021 XR Chest 2 Views Normal -[facility]-Sandu kevin 250 DO Work Phone: Office Visit (Cardiology)on 08-27-2021 Follow-up visit Diagnoses/Problems Assessed Atrial flutter (427.32) (I48.92) Palpitation (785.1) (R00.2) Hypertension (401.9) (I10) Longstanding persistent atrial fibrillation (427.31) (I48.11) Overweight with body mass index (BMI) of 27 to 27.9 in adult (278.02,V85.23) (E66.3,Z68.27) PAC (premature atrial contraction) (427.61) (I49.1) Premature ventricular contractions (PVCs) (VPCs) (427.69) (I49.3) Never smoker Pulmonary hypertension (416.8) (I27.20) Orders Hypertension Start: Valsartan 80 MG Oral Tablet; TAKE 1 TABLET DAILY Basic Metabolic Panel; Status:Active; Requested for:10Sep2021; Longstanding persistent atrial fibrillation Continue with our present treatment plan.; Status:Complete; Done: [id number] Longstanding persistent atrial fibrillation, Pulmonary hypertension Echocardiogram; Status:Hold For - Scheduling; Requested for:27Aug2022; Overweight with body mass index (BMI) of 27 to 27.9 in adult Healthy Weight Tips; Status:Complete; Done: [id number] SocHx: Never smoker Tobacco Use Screening; Status:Complete; Done: [id number] Unlinked Stop: Valsartan 40 MG Oral Tablet Patient Instructions By signing my name below, Verena Lyles Lpn, Scribe, attest that this documentation has been prepared under the direction and in the presence of Dr. Dmitri Garcia MD. All medical record entries made by the Beatriceibe were at my direction and personally dictated by me. I have reviewed the chart and agree that the record accurately reflects my personal performance of the history, physical exam, discussion and plan. Please bring all medicines, vitamins, and herbal supplements with you when you come to the office. Prescriptions will not be filled unless you are compliant with your follow up appointments or have a follow up appointment scheduled as per instruction of your physician. Refills should be requested at the time of your visit. Echo one year. Follow up in 6 months Chief Complaint MAU LOPEZ is being seen for an annual follow-up of. History of Present Illness Here for follow-up continue management for atrial fibrillation flutter with prior radiofrequency ablation, hypertension and palpitation. Since last time I saw her she continues to complain bitterly about palpitation. She has been seen by Dr. Witt and recommendation for loop recorder because of concern about tachybradycardia. This is in the process of being done. The patient blood pressure has been elevated elevated. Recent echo showed moderate degree of pulmonary hypertension which is a new finding. ASSESSMENT: 1. Atrial fibrillation /flutter with prior radiofrequency ablation, remained in sinus rhythm with no recurrence in a while, she does have frequent premature atrial contractions based on recent Holter monitor. Continues to complain of palpitation and concerned about slow heart rate. Loop recorder has been recommended by Dr. Witt 2. Mildly overweight. 3. Abnormal ECG, but normal LV function and no significant left ventricular hypertrophy noted on prior echo. 4. Hypertension optimally controlled 5. Rate documentation of PVCs and 6. Recent documentation of moderate degree of pulmonary hypertension she is functional class I she is 80 years old. She has no lung disease this is a new finding and I suggested for the time being with recommend to repeat echo in 6 months to a year and advised the patient to notify if she had changes in her shortness of breath RECOMMENDATION: 1. The patient advised to increase her valsartan to 80 mg to optimize blood pressure control 2. The patient was counseled on losing weight, exercise, and risk factor adjustment. 3. I will see the patient back in 6-month 4. Patient advised to repeat lab work 5. Risk, benefit and alternative anticoagulation reviewed with her at length 6. I reviewed her lab with her Surgical History Problems History of Appendectomy History of Cataract surgery History of Catheter ablation History of Complete colonoscopy Jaiden Dr Isis Boss History of Hysterectomy History of Knee replacement History of Knee surgery Current Meds Medication NameInstruction Bystolic 2.5 MG Oral TabletTAKE 1 TABLET DAILY. Eliquis 2.5 MG Oral Tablet1 tab twice daily Estradiol 0.025 MG/24HR Transdermal Patch WeeklyAPPLY 1 PATCH WEEKLY DIRECTED. Magnesium Citrate TABSTAKE 1 TABLET DAILY. Magnesium Oxide 400 MG Oral TabletTAKE 1 TABLET EVERY OTHER DAY PriLOSEC OTC 20 MG Oral Tablet Delayed ReleaseTAKE 1 TABLET Daily prn Tylenol 325 MG Oral Capsuleas directed prn Valsartan 40 MG Oral TabletTAKE 1 and 1/2 TABLET DAILY= 60 mg QD Allergies Medication Demerol TABS Allergy; Shortness of breath; Syncope; Updated By: Kriss Schaefer; 02/15/2021 8:18:30 AM Social History Problems Caffeine use (V49.89) (Z78.9) 1 piece of chocolate or less daily Never smoker No alcohol use No illicit drug use Review of Systems Constitutional: not feeling tired. Cardiovascular: palpitations, but no int (more content not included)... Normal [facility] Follow-up visit Diagnoses/Problems Assessed Premature ventricular contractions (PVCs) (VPCs) (427.69) (I49.3) Palpitations (785.1) (R00.2) PAC (premature atrial contraction) (427.61) (I49.1) Longstanding persistent atrial fibrillation (427.31) (I48.11) Encounter to discuss test results (V65.49) (Z71.2) Encounter for medication counseling (V65.49) (Z71.89) Encounter for long-term current use of medication (V58.69) (Z79.899) Overweight with body mass index (BMI) of 27 to 27.9 in adult (278.02,V85.23) (E66.3,Z68.27) Never smoker Orders Health Maintenance Avoid alcoholic beverages.; Status:Complete - Retrospective Authorization; Done: [id number] Avoid foods and beverages that contain caffeine.; Status:Complete - Retrospective Authorization; Done: 86Xnl9846 Diets that are low in carbohydrates and high in protein are very popular for weight loss.; Status:Complete - Retrospective Authorization; Done: 43Bgw4976 Eat a low fat and low cholesterol diet.; Status:Complete - Retrospective Authorization; Done: 07Tnw4830 Please bring all medicines, vitamins, and herbal supplements with you when you come to the office.; Status:Complete - Retrospective Authorization; Done: 50Obw9161 Restrict the salt in your diet by avoiding highly salted foods.; Status:Complete - Retrospective Authorization; Done: [id number] There are many exercise options for seniors.; Status:Complete - Retrospective Authorization; Done: 46Oxh3992 PAC (premature atrial contraction) Start: Nebivolol HCl - 2.5 MG Oral Tablet; TAKE 1 TABLET EVERY OTHER DAY PAC (premature atrial contraction), Premature ventricular contractions (PVCs) (VPCs) Loop Recorder Implant; Status:Active - Retrospective Authorization; Requested for:27Aug2021; Basic Metabolic Panel; Status:Active - Retrospective Authorization; Requested for:27Aug2021; Complete Blood Count; Status:Active - Retrospective Authorization; Requested for:27Aug2021; CORONAVIRUS 2019 RNA BY PCR, SCREEN ASYMPTOMATIC AMBULATORY; Status:Hold For - Specimen/Data Collection,Retrospective Authorization; Requested for:27Aug2021; PT/INR; Status:Active - Retrospective Authorization; Requested for:27Aug2021; SocHx: Never smoker Tobacco Use Screening; Status:Complete; Done: 27Aug2021 Patient Instructions Follow up with Dr. Witt on 01-14-2022, and in 1 year. Hold Eliquis 1 day prior to procedure. By signing my name below, I, Andie Martinez CMA,Scribe, attest that this documentation has been prepared under the direction and in the presence of Dr. Arabella Witt MD, FACC, FACP, FHRS. The provider reviewed the following test(s) and result(s) with the patient: echocardiogram and Holter monitor Chief Complaint Patient here to review recent Echocardiogram and RAGINI results Adult Risk Screening Initial Fall Risk Screening: MAU has not fallen in the last 6 months. Tobacco Screening: MAU does not use tobacco. Blood Pressure monitoring Blood Pressure Controlled, Systolic = 130-139 mm Hg Blood Pressure Controlled, Diastolic < 80mm Hg History of Present Illness She is here for electrophysiology evaluation The patient and are here to discuss Holter monitor. She can feel her PAC's several times a day. She doesn't like her beta roger because it makes her tired and short of breath. It feels the same as when she had AF. She brings her log with irregular HR readings. We reviewed her 7 day monitor which showed no AF but did show isolated and consecutive PAC s up to 3 beats. She is very anxious. Mg Ox makes loose stool. Bystolic makes her tired. PAC s make her tired. The patient denies any near syncope, syncope, chest discomfort, orthopnea, PND, or edema. See ROS, PMH, FMH, and surgical history for details. Personal review of ECG and cardiac data reviewed Outside records: Echo August 2021. Normal LVEF 60%. Mod pulm HTN with RVSP 52.6 mm Hg Event monitor August 2021. No AF Holter Jun 2021. Ave HR 57 bpm. Moderate amount of PAC's. Rare PVC's.No symptoms. No AF. OV with me Jan 2021 ECG Jan 2021 Nuclear testing October 2019 Echocardiogram January 2020 Imp / Plan Persistent atrial fibrillation and atrial flutter, s/p PVI ablation x2 in [place], most recent ablation 2016. Chronic. Stable. Palpitation, may correlate with PAC's. Reviewed event monitor and echo. Pt very anxious. Extended discussion 64 minutes re: no AF, PAC's, loop recorder, and what are indcations for pacemaker. She will take Bystolic every other day per her request, as she's too tired with daily dosing. Shared decision making. Discussed loop recorder. Reviewed model of loop recorder. Consented. If loop recorder shows symptomatic bradycardia in future, then dual chamber pacemaker. High-risk medication - Eliquis. She continues to take lower dose than recommended Eliquis and understands risk of suboptimal anticoagulation what is considered standard dose anticoagulation. Hold Eliquis x 24 hours before procedure. Abnormal echo with mild LA (more content not included)... Normal [facility] Tobacco Screening.on 022 Adult depression screening assessment No [facility] 320 DO Work Phone: Fall risk assessment a) No falls within the last year [facility] 320 DO Work Phone: Tobacco use status [facility] b) No [facility] 320 DO Work Phone: Adult depression screening assessment No [facility] 320 DO Work Phone: Fall risk assessment a) No falls within the last year [facility] 320 DO Work Phone: Tobacco use status [facility] b) No [facility] 320 DO Work Phone: Echocardiogramon 08-13-2021 Echocardiography [facility] [address] [place] [address], [address] [facility], [place] [address] TRANSTHORACIC ECHOCARDIOGRAM REPORT Patient Name: MAU LOPEZ Reading Physician: [id number] Dmitri Garcia MD Study Date: 08/13/2021 Referring [id number] ARABELLA WITT Physician: MRN/PID: [id number] PCP: Mary Oneill MD Accession/Order#: [id number] Department [facility] Location: Date of : 1940 Fellow: Gender: F Nurse: Admit Date: Gas Check Pad Maker: Neela Navarro RDCS, RVT Height: 152.40 cm CC Report to: Weight: 63.96 kg Study Type: Echocardiogram BSA: 1.61 m2 Blood Pressure: 136 /70 mmHg Diagnosis/ICD: I48.0-Paroxysmal atrial fibrillation; R00.2-Palpitations; I49.1-Atrial premature depolarization; I49.3-Ventricular premature depolarization Indication: s/p Abltion X2, HTN Procedure/CPT: Echo Complete w Full [id number] Study Detail: The following Echo studies were performed: 2D, M-Mode, Doppler and color flow. PHYSICIAN INTERPRETATION: Left Ventricle: The left ventricular systolic function is normal, with an estimated ejection fraction of 60-65%. The left ventricular cavity size is normal. Spectral Doppler shows a restrictive pattern of left ventricular diastolic filling. Mild LVH. Left Atrium: The left atrium is mild to moderately dilated. Right Ventricle: The right ventricle is normal in size. There is normal right ventricular global systolic function. Right Atrium: The right atrium is mild to moderately dilated. Aortic Valve: The aortic valve appears structurally normal. There is no evidence of aortic valve regurgitation. The peak instantaneous gradient of the aortic valve is 5.9 mmHg. The mean gradient of the aortic valve is 3.0 mmHg. Mitral Valve: The mitral valve is mildly thickened. There is mild mitral valve regurgitation. Mild MR. Tricuspid Valve: The tricuspid valve is structurally normal. There is mild tricuspid regurgitation. The Doppler estimated RVSP is moderately elevated at 52.6 mmHg. Mild TR. Pulmonic Valve: The pulmonic valve is structurally normal. There is no indication of pulmonic valve regurgitation. Pericardium: There is no pericardial effusion noted. Aorta: The aortic root is normal. CONCLUSIONS: 1. The left ventricular systolic function is normal with a 60-65% estimated ejection fraction. 2. Mild LVH. 3. Spectral Doppler shows a restrictive pattern of left ventricular diastolic filling. 4. The left atrium is mild to moderately dilated. 5. The right atrium is mild to moderately dilated. 6. Mild MR. 7. Mild TR. 8. Moderately elevated right ventricular systolic pressure. 9. When compared to previous study the pulmonary hypertension is new. QUANTITATIVE DATA SUMMARY: 2D MEASUREMENTS: Normal Ranges: Ao Root d: 2.50 cm (2.0-3.7cm) LAs: 3.90 cm (2.7-4.0cm) RVIDd: 2.50 cm (0.9-3.6cm) IVSd: 1.30 cm (0.6-1.1cm) LVPWd: 0.90 cm (0.6-1.1cm) LVIDd: 4.00 cm (3.9-5.9cm) LVIDs: 2.40 cm LV Mass Index: 90.5 g/m2 LV % FS 40.0 % LV SYSTOLIC FUNCTION BY 2D PLANIMETRY (MOD): Normal Ranges: EF-A4C View: 67.4 % (>55%) LV DIASTOLIC FUNCTION: Normal Ranges: MV Peak E: 1.22 m/s (0.7-1.2 m/s) MV Peak A: 0.25 m/s (0.42-0.7 m/s) E/A Ratio: 4.94 (1.0-2.2) MV lateral e' 0.08 m/s MV medial e' 0.08 m/s E/e' Ratio: 15.40 (<8.0) MITRAL VALVE: Normal Ranges: MV Vmax: 1.30 m/s (<1.3m/s) MV peak P.8 mmHg (<5mmHg) MV mean P.0 mmHg (<48mmHg) MITRAL INSUFFICIENCY: Normal Ranges: MR Vmax: 549.00 cm/s dP/dt: 1298 mmHg/s (>1200mmHg/sec) AORTIC VALVE: Normal Ranges: AoV Vmax: 1.21 m/s (<1.7m/s) AoV Peak P.9 mmHg (<20mmHg) AoV Mean P.0 mmHg (1.7-11.5mmHg) LVOT Max Arash: 0.75 m/s (<1.1m/s) AoV VTI: 27.00 cm (18-25cm) LVOT VTI: 17.20 cm LVOT Diameter: 2.10 cm (1.8-2.4cm) AoV Area, VTI: 2.21 cm2 (2.5-5.5cm2) AoV Area,Vmax: 2.15 cm2 (2.5-4.5cm2) AoV Dimensionless Index: 0.64 AORTIC INSUFFICIENCY: AI Vmax: 3.80 m/s AI Half-time: 833 msec AI Decel Rate: 134.00 cm/s2 TRICUSPID VALVE/RVSP: Normal Ranges: Peak TR Velocity: 3.52 m/s RV Syst Pressure: 52.6 mmHg (< 30mmHg) PULMONIC VALVE: Normal Ranges: PV Max Arash: 0.4 m/s (0.6-0.9m/s) PV Max P.7 mmHg [id number] Dmitri Garcia MD Electronically signed on 08/14/2021 at 5:38:11 PM Final Normal [facility] Cardiovasc Arrhythmia Result son 08-06-2021 Cardiovasc Arrhythmia Results Reason For Visit Event Monitor: MAU is here for the application of a 30 day event monitor in office., Diagnosis: AFIB Ordering Physician: EDUAR WOODARD Enrollment sent to: [facility] Monitor number [id number] applied. Holter monitor printed and placed on Eduar desk to dictate. Procedure Date I received for dictation 08/21/21 7 day monitor Indication for test - atrial fibrillation 29 triggered events. The recorded rhythms were normal sinus rhythm, sinus arrhythmia, isolated and consecutive PAC's up to 3 beats, or isolated PVC. Heart rates were 48 - 72 bpm. Imp: No clinically significant rhythm. No atrial fibrillation Clinical correlation recommended. Diagnosis/Problems Assessed Atrial flutter (427.32) (I48.92) Future Appointments Date/TimeProviderSpecialty Site 08/27/2021 08:40 Arabella Trujillo [facility] [place] 320 DO 09/25/2021 02:20 Dmitri Casey [facility] 2 [place] 250 DO 01/14/2022 10:20 Arabella Trujillo [facility] [place] 320 DO Signatures Electronically signed by : Arabella Witt MD; Aug 21 2021 5:42PM EST (Author) Normal [facility] Office Visit (Cardiology)on 07-16-2021 Follow-up visit Diagnoses/Problems Assessed Longstanding persistent atrial fibrillation (427.31) (I48.11) PAC (premature atrial contraction) (427.61) (I49.1) Palpitations (785.1) (R00.2) Premature ventricular contractions (PVCs) (VPCs) (427.69) (I49.3) Encounter for medication counseling (V65.49) (Z71.89) Encounter to discuss test results (V65.49) (Z71.2) Encounter for long-term current use of medication (V58.69) (Z79.899) Overweight with body mass index (BMI) of 27 to 27.9 in adult (278.02,V85.23) (E66.3,Z68.27) Never smoker Orders Health Maintenance Avoid alcoholic beverages.; Status:Complete - Retrospective Authorization; Done: 04Vdy3359 Avoid foods and beverages that contain caffeine.; Status:Complete - Retrospective Authorization; Done: 54Lqc4313 Diets that are low in carbohydrates and high in protein are very popular for weight loss.; Status:Complete - Retrospective Authorization; Done: 85Xtc2389 Eat a low fat and low cholesterol diet.; Status:Complete - Retrospective Authorization; Done: 71Wmi0635 Please bring all medicines, vitamins, and herbal supplements with you when you come to the office.; Status:Complete - Retrospective Authorization; Done: 71Kxz3562 Restrict the salt in your diet by avoiding highly salted foods.; Status:Complete - Retrospective Authorization; Done: 32Jht2176 There are many exercise options for seniors.; Status:Complete - Retrospective Authorization; Done: 24Hzd3998 Longstanding persistent atrial fibrillation Start: Nebivolol HCl - 2.5 MG Oral Tablet (Bystolic); TAKE 1 TABLET DAILY [place] [facility] [place]-Event Monitor; Status:Active - Retrospective Authorization; Requested for:16Jul2021; Longstanding persistent atrial fibrillation, PAC (premature atrial contraction), Palpitations, Premature ventricular contractions (PVCs) (VPCs) Start: Nebivolol HCl - 5 MG Oral Tablet (Bystolic); TAKE 0.5 TABLET Daily Echocardiogram; Status:Hold For - Scheduling,Retrospective Authorization; Requested for:16Jul2021; SocHx: Never smoker Tobacco Use Screening; Status:Complete; Done: 16Jul2021 Patient Instructions Magnesium Oxide 500mg daily for 1 week, then Start Bystolic 0.5mg daily. Holter monitor in 3 weeks. Follow up with Dr. Witt in August after testing. By signing my name below, I, Andie Martinez CMA,Scribe, attest that this documentation has been prepared under the direction and in the presence of Dr. Arabella Witt MD, FACC, FACP, RS. Chief Complaint Patient is here today to review recent test results Adult Risk Screening Initial Fall Risk Screening: MAU has not fallen in the last 6 months. Tobacco Screening: MAU does not use tobacco. Blood Pressure monitoring Blood Pressure Controlled, Systolic = 130-139 mm Hg Blood Pressure Controlled, Diastolic 80-89mm Hg History of Present Illness She is here for electrophysiology evaluation The patient and are here to discuss Holter monitor. She can feel her PAC's daily. It makes her tired and short of breath. When she wore the 24 hour monitor, she didn't have many symptoms. She tracks her bp and HR on her bp monitor. SHe's had irregular heart beats and slow beats. Bystolic was discontinued due to side effects. Then her PAC s increased in frequency. The patient denies any near syncope, syncope, chest discomfort, orthopnea, PND, or edema. See ROS, PMH, FMH, and surgical history for details. The patient denies any recent hospitalizationor urgent care visit. Personal review of ECG and cardiac data reviewed Outside records: Holter Jun 2021. Ave HR 57 bpm. Moderate amount of PAC's. Rare PVC's.No symptoms. No AF. OV with me Jan 2021 ECG Jan 2021 Nuclear testing October 2019 Echocardiogram January 2020 Imp / Plan Persistent atrial fibrillation and atrial flutter, s/p PVI ablation x2 in [place], most recent ablation 2015. Chronic. Stable. Palpitation, may correlate with PAC's. Reviewed Holter with patient and . Echo with normal EF 65% in January 2020. Reviewed medication. Change to Mg Ox to 400 mg daily. Restart Bystolic at 2.5 mg after 1 week of Mg Ox. Declined and continues to decline loop recorder to assess for arrhythmia with symptoms. 7 day event monitor after 2 weeks of Bystolic. Echo to reeval LVEF. If symptomatic bradycardia then dual chamber pacemaker. High-risk medication - Eliquis. She continues to take lower dose than recommended Eliquis and understands risk of suboptimal anticoagulation what is considered standard dose anticoagulation Abnormal echo with mild LA dilation, mild valvular heart disease with mild mitral vegetation tricuspid regurgitation in January 2020 echocardiogram. Chronic. Hypertension, benign, chronic, controlled. Stable. Reviewed medications. Reenforced that pt should be taking valsartan 60 mg daily as noted in last OV with me. Refills discussed. Paroxysmal supraventricular tachycardia / atrial flutter and remote ablation. Chronic. Stable. No clinical recurrence. Reviewed medications (more content not included)... Normal [facility] Tobacco Screening.on 022 Fall risk assessment a) No falls within the last year [facility] 320 DO Work Phone: Tobacco use status [facility] b) No [facility] 320 DO Work Phone: Tobacco Screening. Yes [facility] a 320 DO Work Phone: Cardiovasc Arrhythmia Result son 07-02-2021 Cardiovasc Arrhythmia Results Reason For Visit Reason for Visit: Holter Monitor: MAU is here for the application of a 24 hour Holter monitor. Ordering Physician: Dr. Sharmaine CARD Diagnosis: palps NO equipment agreement signed. MAU understands monitor is to be returned on: 07/03/2021 Monitor number [id number] applied. Holter monitor returned with diary and downloaded. Holter monitor printed and placed on DR ONEILL desk to dictate Procedure Holter monitor recording completed for 24 hours for complaint of palpitations. Findings: 1) the rhythm is sinus mechanism throughout the recording. The average heart rate 57 bpm. Minimum rate was 41 bpm and the maximum rate 129 bpm. There are no significant pauses. 2) the patient has at least moderate volume of supraventricular ectopy. There were 6710 supraventricular ectopic beats. This included 9 atrial runs longest of which was 5 beats in duration. There were 463 atrial couplets. The rest is single PACs. 3) ventricular ectopy is present but low volume. There were 6 PVCs. 4) there is persistent T wave inversion throughout most of the recording. Unclear clinical significance. There were no patient's complaints of anginal symptoms. 5) patient diary is returned but there are no entries for activities or symptoms while wearing the monitor. 6) overall the Holter monitor is technically somewhat limited as there is significant artifact throughout much of the recording but the rhythm appears to be sinus rhythm with at least moderate volume of supraventricular ectopy and very low volume of ventricular ectopy. No patient's symptoms were reported. Diagnosis/Problems Assessed Palpitations (785.1) (R00.2) Future Appointments Date/TimeProviderSpecialty Site 09/25/2021 02:20 Dmitri Casey [id number] Victor Manuel 250 DO 01/14/2022 10:20 Arabella Trujillo MDCardiology[address] Victor Manuel 320 DO Signatures Electronically signed by : Momo Oneill DO; Jul 04 2021 3:02PM EST (Author) [facility] MRI Cervical Spine w/oon MRI Cervical Spine w/o HISTORY: Position al headaches, left greater than right upper extremity paresthesias. TECHNIQUE: Routine cervical spine MR protocol without gadolinium. COMPARISON: None. RESULT: Counting reference: Craniocervical junction. Anatomic Variants: None. Alignment: There is mild reversal of the cervical lordosis. Vertebral body heights are maintained. Multilevel loss of disc spaced throughout the cervical the spine. There is a retrolisthesis of C5 and C6. There is grade 1 anterolisthesis of C7 on T1. Craniocervical junction: Craniocervical junction is normal. Cord: The cervical spinal cord is within normal limits of signal intensity and morphology. Multilevel perineural sleeve cysts at right of C5-C7. Bone marrow signal/fracture: No evidence of pathologic marrow infiltration. No evidence of prior fracture. Cervical soft tissues: The paraspinal soft tissues are within normal limits. Multilevel degenerative changes of the cervical spine including discussion of her complex, endplate remodeling, ligamentum flavum hypertrophy and uncinate hypertrophy. C2-C3: Small disc osteophyte complex without canal stenosis. Neural foramen are patent. C3-C4: Small disc osteophyte complex, facet degenerative changes without significant canal stenosis. Mild bilateral neural foraminal narrowing. C4-C5: Small disc osteophyte complex, uncinate hypertrophy and facet degenerative changes with mild canal stenosis. Moderate right and mild left neural foraminal narrowing. C5-C6: Disc osteophyte complex, uncinate hypertrophy and facet degenerative changes with moderate canal stenosis. Severe bilateral neural foraminal narrowing. C6-C7: Disc osteophyte complex, facet degenerative changes with mild canal stenosis. Neural foramen are patent. C7-T1: Small disc osteophyte complex without canal stenosis. Neural foramen are patent. Upper thoracic spine: Visualized upper thoracic canal and foramina without significant narrowing. IMPRESSION: Multilevel degenerative change of the cervical spine with up to moderate canal stenosis and severe neural foraminal narrowing, most prominent at C5-C6. Report reported and signed by MARISSA GOMEZ on 06/14/2021 1517 HISTORY: Positional headaches, left greater than right upper extremity paresthesias. TECHNIQUE: Routine cervical spine MR protocol without gadolinium. COMPARISON: MRI cervical spine 05/15/2019. RESULT: Counting reference: Craniocervical junction. Anatomic Variants: None. Alignment: There is mild reversal of the cervical lordosis. Vertebral body heights are maintained. Multilevel loss of disc spaced throughout the cervical the spine. There is a retrolisthesis of C5 and C6. There is grade 1 anterolisthesis of C7 on T1. No way better looking Craniocervical junction: Craniocervical junction is normal. Cord: The cervical spinal cord is within normal limits of signal intensity and morphology. Multilevel perineural sleeve cysts at right of C5-C7. Bone marrow signal/fracture: No evidence of pathologic marrow infiltration. No evidence of prior fracture. Cervical soft tissues: The paraspinal soft tissues are within normal limits. Multilevel degenerative changes of the cervical spine including discussion of her complex, endplate remodeling, ligamentum flavum hypertrophy and uncinate hypertrophy. C2-C3: Small disc osteophyte complex without canal stenosis. Neural foramen are patent. C3-C4: Small disc osteophyte complex, facet degenerative changes without significant canal stenosis. Mild bilateral neural foraminal narrowing. C4-C5: Small disc osteophyte complex, uncinate hypertrophy and facet degenerative changes with mild canal stenosis. Moderate right and mild left neural foraminal narrowing, unchanged since prior C5-C6: Disc osteophyte complex, uncinate hypertrophy and facet degenerative changes with moderate canal stenosis. Severe bilateral neural foraminal narrowing similar to 2020. C6-C7: Disc osteophyte complex, facet degenerative changes with mild canal stenosis. Neural foramen are patent. C7-T1: Small disc osteophyte complex without canal stenosis. Neural foramen are patent. Upper thoracic spine: Visualized upper thoracic canal and foramina without significant narrowing. IMPRESSION: Multilevel degenerative change of the cervical spine with up to moderate canal stenosis and severe neural foraminal narrowing, most prominent at C5-C6, similar to the MRI from May 2019. Report reported and signed by MARISSA GOMEZ on 06/18/2021 1446 Normal [facility] MRI Brain w/o + w/on 022 MRI Brain w/o + w/ HISTORY: Positional headaches with pressure to the left frontal region. TECHNIQUE: Routine brain MRI protocol without and with contrast including diffusion images. CONTRAST: 13 mL gadolinium (Prohance) injection COMPARISON: CT head 05/14/2021. RESULT: Acute Change: There is no evidence of restricted diffusion to suggest an acute infarct. Hemorrhage: No evidence of prior parenchymal hemorrhage. Mass Lesion/ Mass Effect: No evidence of an intracranial mass or extra-axial fluid collection. No abnormal parenchymal or leptomeningeal enhancement following contrast administration. No significant mass effect. Chronic Change: The white matter is within normal limits of signal intensity for age. Parenchyma: No significant volume loss for age. The brain parenchyma is otherwise within normal limits of signal intensity and morphology. Ventricles: Normal caliber and morphology. Skull Base: Hypothalamic and pituitary region are grossly normal. Craniocervical junction is normal. No significant marrow replacement process. Vasculature: Major intracranial arterial structures, and dural venous sinuses show typical flow void, suggesting patency. Other: Mild mucosal thickening paranasal sinuses. Mastoid air cells are clear. Bilateral lens replacement surgery. Extracranial soft tissues grossly unremarkable. IMPRESSION: No acute intracranial process or suspicious enhancement. Report reported and signed by Ho Dee on 05/27/2021 1509 Normal [facility] CT Head or Brain w/o Contras t*on 05-14-2021 CT Head or Brain w/o Contrast* HISTORY: Pain across left side of forehead wound bending over or coughing. COMPARISON: None available. TECHNIQUE: Multiple contiguous axial images of the head/brain were obtained without contrast enhancement. Multiplaner reformats were acquired at the CT console. All CT scans at this facility use dose modulation, iterative reconstruction, and/or weight based dosing when appropriate to reduce radiation dose to as low as reasonably achievable. FINDINGS: Brain volume is age-appropriate. Ventricular morphology is within normal limits. Westfall-white matter differentiation is maintained. No acute hemorrhage or abnormal extra-axial fluid collection. No mass-effect or midline shift. The visualized paranasal sinuses and mastoid air cells are clear. IMPRESSION: No acute intracranial process. Report reported and signed by Mary Cohen on 05/14/2021 1131 Normal [facility] [employer] Tobacco Screening.on Fall risk assessment a) No falls within the last year [facility] kevin 250 DO Work Phone: Tobacco use status [facility]PH[facility] b) No [facility] ke[facility] 250 DO Work Phone: Falls Risk Screeningon 01-15 Fall risk assessment a) No falls within the last year [facility] a 320 DO Work Phone: Tobacco use status CP b) No [facility] 320 DO Work Phone: Inpatient Clinical Summaryon 12-23-2018 Inpatient Clinical Summary [address] [address] Clinical Summary Person Information: Name: MAU LOPEZ Age: 78 Years : 1940 12:00 AM Sex: Female PCP: RENATO ROSARIO MD Marital Status: Phone: [phone] Race: White Ethnicity: Non- or Language: Hebrew Visit Id: Visit Reason: RIGHT KNEE OA VALGUS Speciality: Acuity: Enc Type: Inpatient Med Service: Surgery Arrival: 12/20/2018 9:46 AM Discharge: 12/21/2018 3:30 PM Dispo Type: Home (Routine DC) Address: [address] [place] [phone] Provider Notes: Discharge Summary Diagnosis: 1:S/P total knee arthroplasty; 2:Localized osteoarthritis of right knee; 3:Atrial fibrillation; 4:Hypertension; 5:No contraindication to deep vein thrombosis (DVT) prophylaxis; 6:Hyponatremia; 7:Leukocytosis; 8:Anemia Problems Active Hypertension Smoking Status: Functional Status: Sensory Deficits: History of Falls: Mobility Assistance Prior to Admission: ADLs: Current Level of Assistance for Self-Care/Mobility: Cognitive Status: Allergies Demerol (Hypotension) penicillin (Swelling) (Redness) erythromycin (jittery) Measurements: Height: Weight: 65.9 kg Blood Pressure: 96 mmHg / 57 mmHg BMI: Procedures Arthroplasty of knee Replacement of Right Knee Joint with Synthetic Substitute, Cemented, Open Approach (12/20/2018) Introduction of Anesthetic Agent into Peripheral Nerves and Plexi, Percutaneous Approach (12/20/2018) Immunizations No Immunizations Documented This Visit Final Med List: acetaminophen-oxycodone (Percocet 325 mg-5 mg Tab) 1 Tabs By Mouth every 4 hours as needed Pain - Moderate. acetaminophen-oxycodone (Percocet 325 mg-5 mg Tab) 2 Tabs By Mouth every 4 hours as needed Pain - Moderate. apixaban (Eliquis 2.5 mg oral tablet) 1 Tabs By Mouth 2 times a day. azilsartan (Edarbi 40 mg oral tablet) 0.5 Tabs By Mouth every day. docusate (Colace 100 mg Cap) 1 Capsules By Mouth 2 times a day. estradiol (estradiol 0.025 mg/24 hours weekly Transderm ER Film) 1 Patches Topical every 7 days. ketoprofen topical 1 Application Topical every day as needed Arthritis. magnesium hydroxide (magnesium hydroxide 400 mg oral tablet, chewable) 1 tab By Mouth at bedtime. multivitamin with minerals (Multivitamin, Therapeutic w/ Minerals) 1 Tabs By Mouth every day. Care Team Members: Attending Physician: Momo Del Castillo DO Consulting Physician: Referring Physician: Momo Del Castillo DO Follow up: With: Address: When: RENATO ROSARIO [address] [place], [place] [id number] Business (1) Comments: Call if needed. With: Address: When: Momo Del Castillo [address] [place] [id number] [employer] (1) 01/21/2019 8:30 AM Comments: Keep scheduled appointment Patient Education Information: Abundio - Total Knee Arthroplasty (Custom) (CUSTOM) Colace, Percocet 325 mg-5 mg Tab Normal [facility] Inpatient Patient Summaryon 12-23-2018 Inpatient Patient Summary [facility] [address] [place], [place] [address] Patient Discharge Instructions PERSON INFORMATION Name: MAU LOPEZ Date of : 1940 12:00 AM Current Date: 12/23/18 15:53:19 PHYSICIANS Admitting Physician: Momo Del Castillo DO Primary Care Physician: ABRAHAM MANUEL, RENATO PCP Comment: Discharge Diagnosis: 1:S/P total knee arthroplasty; 2:Localized osteoarthritis of right knee; 3:Atrial fibrillation; 4:Hypertension; 5:No contraindication to deep vein thrombosis (DVT) prophylaxis; 6:Hyponatremia; 7:Leukocytosis; 8:Anemia Condition at Discharge: Stable MAU LOPEZ has been given the following list of follow-up instructions, prescriptions, and patient education materials: PATIENT FOLLOW-UP INFORMATION Diet: Regular, Drink liquids and eat a light meal Discharge Activity: Ambulate as tolerated, Arrange for a responsible adult supervision for 24 hours, Expect mild pain, Partial weight bearing, Do not lift more than 5 lbs Discharge Restrictions: No driving, Do not operate machinery or tools, Do not make important decisions for 24 hours, Do not drink alcoholic beverages for 24 hours Wound Care Instructions: Remove dressing as instructed Remove Your Dressing In 10 Days Call Your Doctor For: Persistent or heavy bleeding, Temperature above 101.5 degrees, Redness, swelling, or pus at operative site, Severe pain at the operative site, Persistent vomiting Return to Work: Follow up with PCP IF UNABLE TO CONTACT YOUR PHYSICIAN AND YOU FEEL IT IS AN EMERGENCY, GO TO THE NEAREST EMERGENCY ROOM OR CALL 911 Home Treatment: CPAP Devices/Equipment: CPAP unit, Walker - front wheeled Special Services: Additional Instructions: Primary Care Physician to provide the following pending test results: None Follow up: With: Address: When: RENATO ROSARIO [address] [place] [id number] Business (1) Comments: Call if needed. With: Address: When: Momo Del Castillo [address] [place] [address] Business (1) 01/21/2019 8:30 AM Comments: Keep scheduled appointment In the event that this physician does not participate in your insurance network, please consult with your insurance company to find a nearby participating provider. Comment: IMER Lyles SHEILA M, have received the attached patient education materials/instructions and have verbalized understanding: Patient Signature __ Date Clinican/Nurse Signature Date HERE ARE THE MEDICATION CHANGES THAT OCCURRED DURING YOUR HOSPITAL STAY Medications to Continue with No Changes Other Medications acetaminophen-oxycodone (Percocet 325 mg-5 mg Tab) 1 Tabs By Mouth every 4 hours as needed Pain - Moderate. Last Dose: N ext Dose: acetaminophen-oxycodone (Percocet 325 mg-5 mg Tab) 2 Tabs By Mouth every 4 hours as needed Pain - Moderate. Last Dose: N ext Dose: apixaban (Eliquis 2.5 mg oral tablet) 1 Tabs By Mouth 2 times a day. Last Dose: N ext Dose: azilsartan (Edarbi 40 mg oral tablet) 0.5 Tabs By Mouth every day. Last Dose: N ext Dose: docusate (Colace 100 mg Cap) 1 Capsules By Mouth 2 times a day. Last Dose: N ext Dose: estradiol (estradiol 0.025 mg/24 hours weekly Transderm ER Film) 1 Patches Topical every 7 days. Last Dose: N ext Dose: ketoprofen topical 1 Application Topical every day as needed Arthritis. Last Dose: N ext Dose: magnesium hydroxide (magnesium hydroxide 400 mg oral tablet, chewable) 1 tab By Mouth at bedtime. Last Dose: N ext Dose: multivitamin with minerals (Multivitamin, Therapeutic w/ Minerals) 1 Tabs By Mouth every day. Last Dose: N ext Dose: Comment: MEDICATION LIST PROVIDED FOR YOU IS A LIST OF YOUR CURRENT MEDICATIONS. PLEASE CARRY THIS WITH YOU AT ALL TIMES. acetaminophen-oxycodone (Percocet 325 mg-5 mg Tab) 1 Tabs By Mouth every 4 hours as needed Pain - Moderate. acetaminophen-oxycodone (Percocet 325 mg-5 mg Tab) 2 Tabs By Mouth every 4 hours as needed Pain - Moderate. apixaban (Eliquis 2.5 mg oral tablet) 1 Tabs By Mouth 2 times a day. azilsartan (Edarbi 40 mg oral tablet) 0.5 Tabs By Mouth every day. docusate (Colace 100 mg Cap) 1 Capsules By Mouth 2 times a day. estradiol (estradiol 0.025 mg/24 hours weekly Transderm ER Film) 1 Patches Topical every 7 days. ketoprofen topical 1 Application Topical every day as needed Arthritis. magnesium hydroxide (magnesium hydroxide 400 mg oral tablet, chewable) 1 tab By Mouth at bedtime. multivitamin with minerals (Multivitamin, Therapeutic w/ Minerals) 1 Tabs By Mouth every day. Pharmacy Information: [facility] Comment: PATIENT EDUCATION INFORMATION Instructions: [place], [place] [facility] DISCHARGE INSTRUCTIONS TOTAL KNEE ARTHROPLASTY INCISION CARE: Aquacell dressing can get wet with showers. Please remove 10 days after surgery per instruction sheet. If eusebio present, please coordinate removal 14 days after surgery with office staff. Please notify the office if any increase in redness, tenderness, drainage, fever, or wound separation is noted beyond this point. Compression stockings may be helpful if any significant or uncomfortable swelling in the legs is noted postoperatively. Use and removal instructions should be given by physical therapy. If the swelling is below the knee, knee high compression stockings may suffice. If this does cause swelling into the thigh region, waist high compression stockings may be beneficial as well. These can be obtained from most pharmacies, or can be obtained from the hospital or through Home Health. The mild grade compression stockings are best used initially. MEDICATIONS: You may resume your home medications at the time of discharge. Resume preop medications including Eliquis. Pain medication has been prescribed as well. You may continue to use the pain medication every four hours as needed. Any narcotic pain medication can cause side effects including stomach upset, constipation, or light-headedness. You should not drive or operate machinery, or use alcohol while using the narcotic pain medication. You should not use other pain medications with this prescription pain medication unless further directed by your physician. PHYSICAL THERAPY: Continue the range of motion and strengthening exercises initiated in Physical Therapy in the hospital. [facility] Discharge Instructs for TKA Page 2 Physical Therapy Cont. Continue weight bearing, as ordered, to the operated knee for four to six weeks as directed in Physical Therapy, or until your strength is improved and Physical Therapy will then allow you to progress to full weight. This will be with the use of a walker or crutches initially. After four or six weeks you may then progress to the use of one crutch, or a cane. A quad-cane is preferred as this is more stable. Physical therapy as begun in the hospital will continue at home, possible with the language assistant of Home Health Physical Therapy or in the hospital as an outpatient. When you have become independent with the physical therapy program, this will then be discontinued as a supervised program and you will be instructed to continue the physical therapy exercises at home. Your exercises are more to successful rehabilitation. You should gain full extension first, hopefully before hospital discharge, then continue to do the exercises to maintain this, and gain 90 degrees flexion by one month post-op. Do the exercises daily, twice if preferred. DRIVING: Please do not drive for 4-6 weeks pending therapy progress. 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 It is therefore advised not to drive until after your first office visit following surgery FOLLOW-UP OFFICE VISIT: ___ Momo Del Castillo, DO [facility] [address] [place] [address] Reviewed: 07-19 Medication Leaflets: docusate (oral/rectal) (MAKEDA caruso) Colace, Diocto, Doc-Q-Lace, Docu, Doculase, Docusil, Docusoft S, DocuSol, Dulcolax Stool Softener, Enemeez Mini, Jose-Tin, Pedia-Lax Stool Softener, Delatorre Stool Softener, Promolaxin, Silace, Surfak Stool Softener, Abida-Q-Lax What is the most important information I should know about docusate? You should not use docusate if you also use mineral oil, unless your doctor tells you to. What is docusate? Docusate is a stool softener that makes bowel movements softer and easier to pass. Docusate is used to relieve occasional constipation (irregularity). There are many brands and forms of docusate available. Not all brands are listed on this leaflet. Docusate may also be used for purposes not listed in this medication guide. What should I discuss with my healthcare provider before using docusate? You should not use docusate if you are allergic to it. Ask a doctor or pharmacist if this medicine is safe to use if you have: ?? stomach pain; ? nausea; ? vomiting; or ? a sudden change in bowel habits that lasts over 2 weeks. Ask a doctor before using this medicine if you are or . Do not give this medicine to a child without medical advice. How should I use docusate? Use exactly as directed on the label, or as prescribed by your doctor. Drink plenty of liquids while you are using docusate. Measure liquid medicine carefully. Use the dosing syringe provided, or use a medicine dose-measuring device (not a kitchen spoon). Do not take the rectal enema by mouth. Rectal medicine is for use only in the rectum. Wash your hands before and after using the enema. To use the enema, lie on your left side with your left leg extended and your right leg slightly bent. Remove the cap from the applicator tip and gently insert the tip into your rectum. Slowly squeeze the bottle to empty the contents into the rectum. After using the enema, lie down on your left side for at least 30 minutes to allow the liquid to distribute throughout your intestines. Avoid using the bathroom, and hold in the enema at least 1 hour, or all night if possible. Read and carefully follow any Instructions for Use provided with your medicine. Ask your doctor or pharmacist if you do not understand these instructions. Docusate generally produces bowel movement in 12 to 72 hours. Call your doctor if your symptoms do not improve after 72 hours. You should not use docusate for longer than 1 week, unless your doctor tells you to. Store at room temperature away from moisture and heat. Do not freeze liquid medicine. What happens if I miss a dose? Since docusate is used when needed, you may not be on a dosing schedule. Skip any missed dose if it's almost time for your next dose. Do not use two doses at one time. What happens if I overdose? Seek emergency medical attention or call the Poison Help line at . What should I avoid while using docusate? Avoid using mineral oil, unless told to do so by a doctor. What are the possible side effects of docusate? Get emergency medical help if you have signs of an allergic reaction: hives; difficult breathing; swelling of your face, lips, tongue, or throat. Stop using docusate and call your doctor at once if you have: ?? rectal bleeding or irritation; or ? no bowel movement after 72 hours. Less serious side effects may be more likely, and you may have none at all. This is not a complete list of side effects and others may occur. Call your doctor for medical advice about side effects. You may report side effects to FDA at 8-718-ZSX-0991. What other drugs will affect docusate? Other drugs may affect docusate, including prescription and [id number]-[id number] medicines, vitamins, and herbal products. Tell your doctor about all your current medicines and any medicine you start or stop using. Where can I get more information? Your pharmacist can provide more information about docusate. Remember, keep this and all other medicines out of the reach of children, never share your medicines with others, and use this medication only for the indication prescribed. Every effort has been made to ensure that the information provided by [employer]. ('[employer]') is accurate, up-to-date, and complete, but no guarantee is made to that effect. Drug information contained herein may be time sensitive. op5 information has been compiled for use by healthcare practitioners and consumers in the [place] and therefore op5 does not warrant that uses outside of the [place] are appropriate, unless specifically indicated otherwise. [employer] drug information does not endorse drugs, diagnose patients or recommend therapy. [employer] drug information is an informational resource designed to assist licensed healthcare practitioners in caring for their patients and/or to serve consumers viewing this service as a supplement to, and not a substitute for, the expertise, skill, knowledge and judgment of healthcare practitioners. The absence of a warning for a given drug or drug combination in no way should be construed to indicate that the drug or drug combination is safe, effective or appropriate for any given patient. op5 does not assume any responsibility for any aspect of healthcare administered with the aid of information op5 provides. The information contained herein is not intended to cover all possible uses, directions, precautions, warnings, drug interactions, allergic reactions, or adverse effects. If you have questions about the drugs you are taking, check with your doctor, nurse or pharmacist. Copyright 2364-0327 [employer] Version: 4.01. Revision Date: 10/18/2018. acetaminophen and oxycodone (a SEET a MIN oh fen and OX i KOE done) Endocet 10/325, Endocet 2.5/325, Endocet 5/325, Endocet 7.5/325, Nalocet, Percocet 10/325, Percocet 2.5/325, Percocet 5/325, Percocet 7.5/325, Primalev, Primlev, Roxicet, Xartemis XR What is the most important information I should know about acetaminophen and oxycodone? MISUSE OF OPIOID MEDICINE CAN CAUSE ADDICTION, OVERDOSE, OR . Keep the medication in a place where others cannot get to it. An overdose of acetaminophen can damage your liver or cause . Call your doctor at once if you have pain in your upper stomach, loss of appetite, dark urine, or jaundice (yellowing of your skin or eyes). Taking opioid medicine during may cause life-threatening withdrawal symptoms in the . Fatal side effects can occur if you use opioid medicine with alcohol, or with other drugs that cause drowsiness or slow your breathing. Stop taking this medicine and call your doctor right away if you have skin redness or a rash that spreads and causes blistering and peeling. What is acetaminophen and oxycodone? Oxycodone is an opioid pain medication, sometimes called a narcotic. Acetaminophen is a less potent pain reliever that increases the effects of oxycodone. Acetaminophen and oxycodone is a combination medicine used to relieve moderate to severe pain. Acetaminophen and oxycodone may also be used for purposes not listed in this medication guide. What should I discuss with my healthcare provider before taking acetaminophen and oxycodone? You should not use this medicine if you are allergic to acetaminophen or oxycodone, or if you have: ?? severe asthma or breathing problems; or ? a blockage in your stomach or intestines. Tell your doctor if you have ever had: ?? liver disease; ? a drug or alcohol addiction; ? kidney disease; ? a head injury or seizures; ? urination problems; or ? problems with your thyroid, pancreas, or gallbladder. If you use opioid medicine while you are , your baby could become dependent on the drug. This can cause life-threatening withdrawal symptoms in the baby after it is born. Babies born dependent on opioids may need medical treatment for several weeks. Do not breast-feed. This medicine can pass into breast milk and cause drowsiness, breathing problems, or in a nursing baby. How should I take acetaminophen and oxycodone? Follow all directions on your prescription label. Never take this medicine in larger amounts, or for longer than prescribed. An overdose can damage your liver or cause . Tell your doctor if the medicine seems to stop working as well in relieving your pain. Never share this medicine with another person, especially someone with a history of drug abuse or addiction. MISUSE CAN CAUSE ADDICTION, OVERDOSE, OR . Keep the medicine in a place where others cannot get to it. Selling or giving away acetaminophen and oxycodone is against the law. Measure liquid medicine carefully. Use the dosing syringe provided, or use a medicine dose-measuring device (not a kitchen spoon). If you need surgery or medical tests, tell the doctor ahead of time that you are using this medicine. You should not stop using this medicine suddenly. Follow your doctor's instructions about tapering your dose. Store at room temperature away from moisture and heat. Keep track of your medicine. You should be aware if anyone is using it improperly or without a prescription. Do not keep leftover opioid medication. Just one dose can cause in someone using this medicine accidentally or improperly. Ask your pharmacist where to locate a drug take-back disposal program. If there is no take-back program, flush the unused medicine down the toilet. What happens if I miss a dose? Since this medicine is used for pain, you are not likely to miss a dose. Skip any missed dose if it is almost time for your next dose. Do not use two doses at one time. What happens if I overdose? Seek emergency medical attention or call the Poison Help line at . An overdose of acetaminophen and oxycodone can be fatal. The first signs of an acetaminophen overdose include loss of appetite, nausea, vomiting, stomach pain, sweating, and confusion or weakness. Later symptoms may include pain in your upper stomach, dark urine, and yellowing of your skin or the whites of your eyes. Overdose can also cause severe muscle weakness, pinpoint pupils, very slow breathing, extreme drowsiness, or coma. What should I avoid while taking acetaminophen and oxycodone? Avoid driving or operating machinery until you know how this medicine will affect you. Dizziness or drowsiness can cause falls, accidents, or severe injuries. Do not drink alcohol. Dangerous side effects or could occur. Ask a doctor or pharmacist before using any other medicine that may contain acetaminophen (sometimes abbreviated as APAP). Taking certain medications together can lead to a fatal overdose. What are the possible side effects of acetaminophen and oxycodone? Get emergency medical help if you have signs of an allergic reaction: hives; difficulty breathing; swelling of your face, lips, tongue, or throat. Opioid medicine can slow or stop your breathing, and may occur. A person caring for you should seek emergency medical attention if you have slow breathing with long pauses, blue colored lips, or if you are hard to wake up. In rare cases, acetaminophen may cause a severe skin reaction that can be fatal. This could occur even if you have taken acetaminophen in the past and had no reaction. Stop taking this medicine and call your doctor right away if you have skin redness or a rash that spreads and causes blistering and peeling. Call your doctor at once if you have: ?? noisy breathing, sighing, shallow breathing; ? a light-headed feeling, like you might pass out; ? weakness, tiredness, fever, unusual bruising or bleeding; ? confusion, unusual thoughts or behavior; ? problems with urination; ? liver problems--nausea, upper stomach pain, tiredness, loss of appetite, dark urine, nakia-colored stools, jaundice (yellowing of the skin or eyes); or ? low cortisol levels-- nausea, vomiting, loss of appetite, dizziness, worsening tiredness or weakness. Seek medical attention right away if you have symptoms of serotonin syndrome, such as: agitation, hallucinations, fever, sweating, shivering, fast heart rate, muscle stiffness, twitching, loss of coordination, nausea, vomiting, or diarrhea. Serious side effects may be more likely in older adults and those who are overweight, malnourished, or debilitated. Long-term use of opioid medication may affect fertility (ability to have children) in men or women. It is not known whether opioid effects on fertility are permanent. Common side effects include: ?? dizziness, drowsiness, feeling tired; ? feelings of extreme happiness or sadness; ? nausea, vomiting, stomach pain; ? constipation; or ? headache. This is not a complete list of side effects and others may occur. Call your doctor for medical advice about side effects. You may report side effects to FDA at 7-658-RXH-6565. What other drugs will affect acetaminophen and oxycodone? You may have breathing problems or withdrawal symptoms if you start or stop taking certain other medicines. Tell your doctor if you also use an antibiotic, antifungal medication, heart or blood pressure medication, seizure medication, or medicine to treat HIV or hepatitis C. Opioid medication can interact with many other drugs and cause dangerous side effects or . Be sure your doctor knows if you also use: ?? cold or allergy medicines, bronchodilator asthma/COPD medication, or a diuretic ('water pill'); ? medicines for motion sickness, irritable bowel syndrome, or overactive bladder; ? other narcotic medications--opioid pain medicine or prescription cough medicine; ? a sedative like Valium--diazepam, alprazolam, lorazepam, Xanax, Klonopin, Versed, and others; ? drugs that make you sleepy or slow your breathing--a sleeping pill, muscle relaxer, medicine to treat mood disorders or mental illness; ? drugs that affect serotonin levels in your body--a stimulant, or medicine for depression, Parkinson's disease, migraine headaches, serious infections, or nausea and vomiting. This list is not complete. Other drugs may affect acetaminophen and oxycodone, including prescription and [id number]-[id number] medicines, vitamins, and herbal products. Not all possible interactions are listed here. Where can I get more information? Your doctor or pharmacist can provide more information about acetaminophen and oxycodone. Remember, keep this and all other medicines out of the reach of children, never share your medicines with others, and use this medication only for the indication prescribed. Every effort has been made to ensure that the information provided by [employer]') is accurate, up-to-date, and complete, but no guarantee is made to that effect. Drug information contained herein may be time sensitive. [employer] information has been compiled for use by healthcare practitioners and consumers in the [place] and therefore [employer] does not warrant that uses outside of the [place] are appropriate, unless specifically indicated otherwise. op5's drug information does not endorse drugs, diagnose patients or recommend therapy. op5's drug information is an informational resource designed to assist licensed healthcare practitioners in caring for their patients and/or to serve consumers viewing this service as a supplement to, and not a substitute for, the expertise, skill, knowledge and judgment of healthcare practitioners. The absence of a warning for a given drug or drug combination in no way should be construed to indicate that the drug or drug combination is safe, effective or appropriate for any given patient. [facility] does not assume any responsibility for any aspect of healthcare administered with the aid of information [facility] provides. The information contained herein is not intended to cover all possible uses, directions, precautions, warnings, drug interactions, allergic reactions, or adverse effects. If you have questions about the drugs you are taking, check with your doctor, nurse or pharmacist. Copyright 2917-8176 [employer] [facility] [employer]. Version: 18.02. Revision Date: 03/10/2018. Thank you for choosing [facility] Normal [facility] Coding Summary.on 12-22-2018 Coding Summary. CODING DATE: 019 FINAL [facility] STATUS: Home (Routine DC) PAYOR: Medicare Grouper: 470 MS-DRG MAJOR HIP AND KNEE JOINT REPLACEMENT OR REATTACHMENT OF LOWER EXTREMITY W/O LONG-TERM Low Trim 0 High Trim 999 302 APR-DRG KNEE JOINT REPLACEMENT Severity of Illness Major Risk of Mortality Moderate ADMIT DX: M17.11 Unilateral primary osteoarthritis, right knee REASON FOR VISIT DX: FINAL DX: PRINCIPAL: M17.11 Y Unilateral primary osteoarthritis, right knee SECONDARY: E87.1 Y Hypo-osmolality and hyponatremia D62 N Acute posthemorrhagic anemia M21.061 Y Valgus deformity, not elsewhere classified, right knee I95.81 Y Postprocedural hypotension E86.0 Y Dehydration E87.8 Y Other disorders of electrolyte and fluid balance, not elsewhere classified I48.91 Y Unspecified atrial fibrillation I10 Y Essential (primary) hypertension E03.9 Y Hypothyroidism, unspecified E66.9 Y Obesity, unspecified Z68.26 1 Body mass index (BMI) 26.0-26.9, adult Z79.01 1 snf (current) use of anticoagulants PROCEDURES DOCTOR NAME DATE [id number] Replacement of Right Knee Joint Momo Del Castillo DO 12/20/2018 with Synthetic Substitute, Cemented, Open Approach [id number] Introduction of Anesthetic Ho Sexton MD 12/20/2018 Agent into Peripheral Nerves and Plexi, Percutaneous Approach NOTE: The code number assigned matches the documented diagnosis and / or procedure in the patient's chart. However, the narrative phrase printed from the coding software may appear abbreviated, or result in slightly different terminology. Coded By: Carolina Nickerson Date Saved: 12/22/2018 07:53 am Normal [facility] Auto Diffon 12-21-2018 Basophils/100 WBC (Bld) 0.1 % Normal 0.0-2.0 [facility] Comment on above: Order Comment: Order added by Discern Expert. Performed By: #### 2 583026, 8725018, 16716972, 2131997, 1093928, 4834928 #### [facility] [address] [place] [address] Basophils/Leukocytes Auto (Bld) [Pure # fraction] 0.0 E9/L Normal 0.0-0.2 [facility] Comment on above: Order Comment: Order added by Discern Expert. Performed By: #### 2 441896, 2134105, 31954285, 0344037, 0161740, 1289344 #### [facility] [address] [place] [address] Eosinophils/100 WBC (Bld) 0.0 % Normal 0.0-8.0 [facility] Comment on above: Order Comment: Order added by Discern Expert. Performed By: #### 2 228956, 9093757, 46437992, 3046108, 8978838, 6433706 #### [facility] [address] [place] [address] Eosinophils/Leukocytes Auto (Bld) [Pure # fraction] 0.0 E9/L Normal 0.0-0.5 [facility] Comment on above: Order Comment: Order added by Discern Expert. Performed By: #### 2 153327, 0935338, 16418149, 7138752, 7663743, 5416968 #### [facility] [address] [place] [address] Lymphocytes/100 WBC (Bld) 7.7 % Low 14.0-50.0 [facility] Comment on above: Order Comment: Order added by Discern Expert. Performed By: #### 2 108231, 7119400, 04967736, 1970375, 3329358, 3154867 #### [facility] [address] [place] [address] Lymphocytes/Leukocytes Auto (Bld) [Pure # fraction] 0.9 E9/L Low 1.0-4.0 [facility] Comment on above: Order Comment: Order added by Discern Expert. Performed By: #### 2 931634, 8927562, 52280638, 6858499, 3403453, 5571913 #### [facility] [address] [place] [address] Monocytes/100 WBC (Bld) 8.6 % Normal 4.0-14.0 [facility] Comment on above: Order Comment: Order added by Discern Expert. Performed By: #### 2 459024, 3467191, 31372750, 8070799, 9608277, 3502135 #### [facility] [address] [place] [address] Monocytes/Leukocytes Auto (Bld) [Pure # fraction] 1.0 E9/L Normal 0.2-1.0 [facility] Comment on above: Order Comment: Order added by Discern Expert. Performed By: #### 2 046582, 4539650, 77851848, 6251591, 1146233, 2991960 #### [facility] [address] [place] [address] Neutrophils/100 WBC (Bld) 83.6 % High 36.0-75.0 [facility] Comment on above: Order Comment: Order added by Discern Expert. Performed By: #### 2 330724, 5231906, 06032641, 4834900, 9702146, 9593110 #### [facility] [address] [place] [address] Neutrophils/Leukocytes Auto (Bld) [Pure # fraction] 9.4 E9/L High 2.0-7.5 [facility] Comment on above: Order Comment: Order added by Discern Expert. Performed By: #### 2 804573, 5418282, 29991071, 1646268, 2728160, 1760695 #### [facility] [address] [place] [address] BUNon 12-21-2018 Urea nitrogen [Mass/Vol] 22 mg/dL High 5-21 [facility] Comment on above: Performed By: #### 2 786182, 7392199, 84307002, 0146698, 1130999, 0790400 #### [facility] [address] [place] [address] CBC w/ Auto Diffon 9 Erythrocyte distribution width (RBC) [Ratio] 13.8 % Normal 10.9-14.2 [facility] Comment on above: Performed By: #### 2 053855, 4641689, 52145162, 6093811, 1832918, 8836483 #### [facility] [address] [place] [address] Hematocrit (Bld) [Volume fraction] 33.3 % Low 34.0-46.0 [facility] Comment on above: Performed By: #### 2 685715, 3211213, 87919454, 1973291, 1201081, 6645975 #### [facility] [address] [place] [address] Hemoglobin (Bld) [Mass/Vol] 11.1 g/dL Low 12.0-16.0 [facility] Comment on above: Performed By: #### 2 068361, 8622906, 70022369, 1764150, 2558604, 8153766 #### [facility] [address] [place] [address] MCH (RBC) [Entitic mass] 31.8 pg Normal 27.0-34.0 [facility] Comment on above: Performed By: #### 2 535382, 1537577, 88662959, 5308771, 7153768, 6112382 #### [facility] [address] [place] [address] MCHC (RBC) [Mass/Vol] 33.5 g/dL Normal 33.3-35.7 [facility] Comment on above: Performed By: #### 2 206695, 4318771, 38965166, 6539587, 3892194, 6134187 #### [facility] [address] [place], [place] [address] MCV (RBC) [Entitic vol] 95.0 fL Normal 80.0-100.0 [facility] Comment on above: Performed By: #### 2 209344, 2454994, 27231150, 6879742, 6278908, 7576356 #### [facility] [address] [place], [place] [address] Platelet mean volume (Bld) [Entitic vol] 10.4 fL Normal 6.4-10.8 [facility] Comment on above: Performed By: #### 2 820249, 3171092, 34322937, 3301193, 7467740, 4520221 #### [facility] [address] [place] [address] Platelets (Bld) [#/Vol] 175.0 E9/L Normal 150.0-500. 0 [facility] Comment on above: Performed By: #### 2 520842, 1296898, 94615172, 5228403, 7985209, 1345157 #### [facility] [address] [place], [place] [address] RBC (Bld) [#/Vol] 3.5 E12/L Low 4.3-5.9 [facility] Comment on above: Performed By: #### 2 564549, 0054539, 06279647, 7834745, 4601519, 9967096 #### [facility] [address] [place] [address] WBC corrected for nucl RBC Auto (Bld) [#/Vol] 11.3 E9/L High 4.0-11.0 [facility] Comment on above: Performed By: #### 2 925212, 7297119, 96567212, 7738394, 5525524, 1555957 #### [facility] [address] [place] [address] Creatinineon 12-21-2018 Creatinine [Mass/Vol] 0.8 mg/dL Normal 0.5-1.3 [facility] Comment on above: Performed By: #### 2 287936, 1934305, 63216492, 9413608, 3176696, 8717504 #### [facility] [address] [place] [address] Interdisciplinary Note - Amaury e Manageron 12-21-2018 Interdisciplinary Note - Director Of District Office Pt is alert and involved in plan of care. Previously rounded with Geovanna SIDDIQI and Dr. Del Castillo . PCP verified and insurance information reviewed. DME discussed. Contact information provided and white board updated. Pt is with [facility] program for therapy [place], and is expecting FWW to be delivered from [facility] today. Medicare rights reviewed, and form signed. Original provided to pt. Pt is nauseous at this time, and has not yet worked with therapy. Lives with and he will transport at [place]. Normal [facility] Interdisciplinary Note - Deisy n 12-21-2018 Interdisciplinary Note - OT OT eval. com leted. Instructed in use of LE ADL equi ment. Doing well SBA with LE ADL's after set u . 6 clicks AM- AC ADL score= 22/24. No OT is indicated. t. to go home with Home Health. No difficulties anitici ated. Normal [facility] Lyteson 12-21-2018 Anion gap [Moles/Vol] 14 mmol/L Normal 6-16 [facility] Comment on above: Performed By: #### 2 739423, 3768380, 12179368, 1427605, 3156469, 6448715 #### [facility] [address] [place] [address] Chloride [Moles/Vol] 97 mmol/L Low 101-111 [facility] Comment on above: Performed By: #### 2 323379, 7586874, 38491841, 6882613, 9716819, 9375149 #### [facility] [address] [place] [address] CO2 [Moles/Vol] 25 mmol/L Normal 21-31 [facility] Comment on above: Performed By: #### 2 241426, 3937386, 66356313, 1195143, 5124562, 3365760 #### [facility] [address] [place] [address] Potassium [Moles/Vol] 4.6 mmol/L Normal 3.5-5.3 [facility] Comment on above: Performed By: #### 2 968781, 4540613, 76946454, 0866333, 3814760, 5151112 #### [facility] [address] [place] [address] Sodium [Moles/Vol] 131 mmol/L Low 135-145 [facility] Comment on above: Performed By: #### 2 502011, 2677687, 15561436, 3844292, 6043764, 8072744 #### [facility] [address] [place] [address] Main OR Intraoperative Recor don 12-21-2018 Main OR Intraoperative Record IntraOp Document Type FT Summary Primary Physician: Momo Del Castillo DO Finalized Date/Time: 12/21/18 13:38:32 Pt. Name: MAU LOPEZ/Sex: 1940 Female Med Rec #: [id number] Physician: Momo Del Castillo DO Financial #: [id number] Pt. Type: I Room/Bed: Admit/Disch: 12/20/18 09:46:00 - Institution: Case Times FT Entry 1 Patient Times In Room 12/20/18 12:46:00 Out Room 12/20/18 14:25:00 Procedure Times Start 12/20/18 13:20:00 Stop 12/20/18 14:21:00 Anesthesia Times Start 12/20/18 12:46:00 Stop 12/20/18 14:25:00 Block Timeout w12/20/18 12:39:00 Anesthesia Last Modified By: Anum Sexton CST 12/20/18 14:28:44 General Comments: 1239- PATIENT TAKEN TO BLOCK ROOM, HOOKED TO MONITORS SATING 94% ON RA AND HR 67, USING ULTRASOUND AND CHLORAPREP TO PREP AREA DR SEXTON PERFORMED BLOCK WITH Karina LO RN ASSIST, PATIENT TOLERATED WELL. - AHMET WOODSON 1256- AFTER PATIENT ARRIVAL TO OR SPINAL DONE BY HERRERA ANTON WITH Fan PATEL RN ASSISTING WITH POSITIONING, PATIENT TOLERATED WELL AND THEN ASSISTED TO SUPINE POSITION. - AHMET WOODSON 12/21/18 Chart opened to review and send charges J Bonnie NAVARRETE Case Attendance FT Entry 1 Entry 2 Entry 3 Case Attendee Joo ANTON, Herrera Del Castillo DO, Momo Lo RN, Casey Role Performed Anesthesiologist Surgeon - Primary CONFIGURATION ENGINEER Director Of Rotc Time In 12/20/18 12:46:00 12/20/18 13:14:00 12/20/18 12:46:00 Time Out 12/20/18 13:55:00 12/20/18 14:08:00 12/20/18 14:25:00 Procedure KNEE TOTAL KNEE TOTAL KNEE TOTAL ARTHROPLASTY(Right) ARTHROPLASTY(Right) ARTHROPLASTY(Right) Comments DR SEXTON SUPERVISING dameon hutchinson student year 3 scrubbed in for procedure Last Modified By: Angelo RN, Hazel Stephens RN, Hazel Stephens RN, Hazel Garland 12/20/18 14:28:46 12/20/18 14:28:46 12/20/18 14:28:46 Entry 4 Entry 5 Entry 6 Case Attendee Amanda WOODSON, Andie Stephens RN, Hazel Kingston APPLICATION PACKAGING CONSULTANT, Andie Garland Role Performed Podiatric Foot And Ankle Specialist - Primary Podiatric Foot And Ankle Specialist - Primary Scrub - Primary Time In 12/20/18 12:46:00 09/09/19 12:46:00 12/20/18 12:46:00 Time Out 12/20/18 14:25:00 12/20/18 14:25:00 12/20/18 14:25:00 Procedure KNEE TOTAL KNEE TOTAL KNEE TOTAL ARTHROPLASTY(Right) ARTHROPLASTY(Right) ARTHROPLASTY(Right) Comments ORIENTATION Last Modified By: Angelo WOODSON, Hazel Stephens RN, Hazel Stephens RN, Hazel Garland 12/20/18 14:28:46 12/20/18 14:28:46 12/20/18 14:28:46 Entry 7 Entry 8 Case Attendee Mitchel NAVARRETE, Carlos Stephens Jr., DO Role Performed Scrub - Other Anesthesiologist of Record Time In 12/20/18 12:46:00 12/20/18 13:53:00 Time Out 12/20/18 14:25:00 12/20/18 14:25:00 Procedure KNEE TOTAL KNEE TOTAL ARTHROPLASTY(Right) ARTHROPLASTY(Right) Comments 2ND SCRUB, PRECEPTOR Last Modified By: Angelo WOODSON, Hazel Stephens RN, Hazel Garland 12/20/18 14:28:46 12/20/18 14:28:46 General Comments: reji roberts rep present for procedure. Austyn leo rninternet database specialist Protocols FT Pre-Care Text: Implements protective measures prior to operative or invasive procedure, confirms identity before the operative or invasive procedure, verifies operative procedure, surgical site, and laterality Entry 1 Procedure(s) KNEE TOTAL Patient Identity Birthday, Blood Band, ARTHROPLASTY(Right) Verified (select at ID Band Check, Patient least 2): Participation Consents / H and P Anesthesia Consent, Operative Site Present Verified HandP, Surgery/Procedure Marking Verified Consent, Transfusion Consent Surgical Site Yes Laterality Verified Yes Verified Procedure Verified Yes Correct Patient Yes Position Verified Availability Equipment, Implant, Prep Dry n/a Verified (If Medication, X-ray Applicable) PreOp Antibiotic Yes Time Out Herrera Bess, Given Participants Momo Del Castillo DO, Rivera RN, Amanda Peña RN, Angelo Singh RN, Thee Brennan CST, Mitchel Cervantes CST, Benjamin Time Out Complete 12/20/18 13:14:00 Outcomes Met? Yes Last Modified By: Hazel Stephens RN 12/20/18 13:17:09 Post-Care Text: The patient is free from signs and symptoms of injury caused by extraneous objects Allergy Information FT Pre-Care Text: Verifies allergies Entry 1 Allergies Reviewed? Yes Allergies Reviewed Self/Patient With Outcomes Met? Yes Last Modified By: Hazel Stephens RN 12/20/18 12:31:03 Post-Care Text: The patient received appropriate medication(s) safely administered during the perioperative period Surgical Procedures FT Entry 1 Procedure Description Procedure KNEE TOTAL ARTHROPLASTY Modifiers Right Surgeon Description RIGHT TOTAL KNEE ARTHROPLASTY Primary Procedure Yes Primary Surgeon Momo Del Castillo DO Start 12/20/18 13:20:00 Stop 12/20/18 14:21:00 Anesthesia Type MAC Surgical Service Orthopedics Wound Class 1 - Clean Last Modified By: Hazel Stephens RN 12/20/18 14:28:48 General Case Data FT Pre-Care Text: Classifies surgical wound, implements aseptic technique, initiates traffic control Entry 1 Case Information OR OR 7 FT Case Level Level 6 Wound Class 1 - Clean Specialty Orthopedics ASA Class 3 Preop Diagnosis RIGHT KNEE Postop Same As Preop Yes OSTEOARTHRITIS VALGUS Postop Diagnosis RIGHT KNEE Outcomes Met? Yes OSTEOARTHRITIS VALGUS Last Modified By: Hazel Stephens RN 12/20/18 13:33:27 Post-Care Text: The patient is free from signs and symptoms of infection Skin Assessment (Pre Procedure) FT Pre-Care Text: Implements protective measures to prevent skin/ tissue injury due to thermal or mechanical sources Evaluates for signs and symptoms of physical injury to skin and tissue Entry 1 Skin Integrity Intact, [place], Warm, and Skin Abnormality No Dry Outcomes Met? Yes Last Modified By: Hazel Stephens RN 12/20/18 13:17:22 Post-Care Text: The patient is free from signs and symptoms of injury caused by extraneous objects Patient Positioning FT Pre-Care Text: Identifies physical alterations that require additional precautions for procedure-specific positioning, verifies presence of prosthetics or corrective devices, positions the patient, evaluates the patient for signs and symptoms of injury as a result of positioning Entry 1 Procedure KNEE TOTAL Additional ORANGE TOTAL KNEE ARTHROPLASTY(Right) Information MORALSE PLACED ON RIGHT SIDE OF BED WITH FOLDED BLANKETS UNDER BILATERAL LEGS Body Position Supine Feet Uncrossed? Yes Left Arm Position Extended on Padded Arm Right Arm Position Extended on Padded Arm Board Board Left Leg Position Extended Right Leg Position Held on Field Positioning Device Blankets Folded, Padded Press Points Checked Yes Armboard, Pillow Under Head Large, Safety Strap, Total Knee Morales, Other/See Comments By Herrera Bess, Outcomes Met? Yes Casey Lo RN, Barbee RN, Andie Carrington Last Modified By: Hazel Stephens RN 12/20/18 12:59:55 Post-Care Text: The patient is free from signs and symptoms of injury related to positioning Patient Care Devices FT Pre-Care Text: Implements protective measures to prevent skin/ tissue injury due to thermal or mechanical sources Entry 1 Entry 2 Entry 3 Equipment Type CAUTERY UNIT[F] PLASCENCIA SYSTEM[F] INTERPULSE[F] Equipment Number C2 Equipment Setting Outcomes Met? Yes Yes Yes Last Modified By: Angelo RN, Hazel Stephens RN, Hazel Dacosta RN 12/20/18 08:30:18 12/20/18 08:30:18 12/20/18 08:30:18 Entry 4 Entry 5 Entry 6 Equipment Type MISTRAL FORCED AIR MONITOR CHARGE SURGERY ROSA SUCTION UNIT [F] WARMING SYSTEM UNIT[F] [F] Equipment Number M1 Equipment Setting Outcomes Met? Yes Yes Yes Last Modified By: Hazel Stephens RN, RN, Hazel Dacosta RN 12/20/18 08:30:18 12/20/18 08:30:18 12/20/18 08:30:18 Entry 7 Entry 8 Equipment Type SONOSITE ULTRASOUND TOURNIQUET KAYLEN [F] UNIT[F] Equipment Number D Equipment Setting Outcomes Met? Yes Yes Last Modified By: Hazel Stephens RN, RN, Emily A 12/20/18 08:30:18 12/20/18 08:30:18 Post-Care Text: The patient is free from signs and symptoms of injury caused by extraneous objects Transport To OR FT Pre-Care Text: Transports according to individual needs. Evaluates for signs and symptoms of skin and tissue injury as a result of transfer or transport Entry 1 Via Cart By Casey Lo RN Safety Precautions Side Rails Up Outcomes Met? Yes Last Modified By: Hazel Stephens RN 12/20/18 12:31:58 Post-Care Text: The patient is free from signs and symptoms of injury related to transfer/transport Cautery FT Pre-Care Text: Implements protective measures to prevent injury due to electrical sources, and evaluates for signs and symptoms of electrical injury Entry 1 ESU Identification Equipment Number C2 ESU Settings Cut 50 Coag 50 ESU Grounding Pad Site Left Thigh Hair Removal Pad No Site Pre Pad Site Clear and Intact Post Pad Site Clear and Intact Condition Condition Grounding Pad Hazel Stephens RN Placed By Outcomes Met? Yes Last Modified By: Hazel Stephens RN 12/20/18 13:17:45 Post-Care Text: The patient if free from signs and symptoms of electrical injury Counts Verification FT Pre-Care Text: Performs required counts Entry 1 Entry 2 Entry 3 Procedure(s) KNEE TOTAL KNEE TOTAL KNEE TOTAL ARTHROPLASTY(Right) ARTHROPLASTY(Right) ARTHROPLASTY(Right) Type Initial Closing Final Items Sponges, Sharps Sponges, Sharps Sponges, Sharps Status Correct Correct Correct Time 12/20/18 12:36:00 12/20/18 14:04:00 12/20/18 14:14:00 By Hazel Stephens RN, Barbee RN, Kimberly Y, Barbee RN, Andie Carrington, Thee APPLICATION PACKAGING CONSULTANT, Andie Kingston APPLICATION PACKAGING CONSULTANT, Andie Kingston APPLICATION PACKAGING CONSULTANT, Andie Garland Outcomes Met? Yes Yes Yes Last Modified By: Hazel Stephens RN, RN, Emily A Coy RN, Emily A 12/20/18 13:18:27 12/20/18 14:04:56 12/20/18 14:14:22 Post-Care Text: The patient is free from signs and symptoms of injury caused by extraneous objects Skin Prep FT Pre-Care Text: Performs skin preparations Entry 1 Procedure KNEE TOTAL Prep Area entire leg to upper ARTHROPLASTY(Right) thigh to ankle - RIGHT LEG Prep Agents Betadine Scrub and Solution Hair Removal Methods Not Indicated By Andie Patel RN Outcomes Met? Yes Last Modified By: Hazel Stephens RN 12/20/18 13:18:40 Post-Care Text: The patient is free from signs and symptoms of infection Departure From OR FT Pre-Care Text: Transports according to individual needs. Evaluates for signs and symptoms of skin and tissue injury as a result of transfer or transport. Entry 1 Via Patient Bed Safety Precautions Side Rails Up PostOp Destination PACU Transported By Hazel Stephens RN Patient Status Stable Skin. Condition Dry, Other/See Comments Description RIGHT KNEE INCISION, OTHER SKIN UNCHANGED FROM PREVIOUSLY Airway Maintenance Outcomes Met? Yes Last Modified By: Hazel Stephens RN 12/20/18 14:29:05 Post-Care Text: The patient is free from signs and symptoms of injury related to transfer/transport General Comments: REPORT GIVEN TO [facility]. Austyn LEO RN Dressing/Packing FT Pre-Care Text: Administers care to wound sites Entry 1 Type Dressing Site and Details SKIN AFFIX, MEPILEX, 6in cast padding and double 6 efe TO RIGHT KNEE Outcomes Met? Yes Last Modified By: Hazel Stephens RN 12/20/18 13:55:14 Post-Care Text: The patient is free from signs and symptoms of infection Medication Administration FT Pre-Care Text: Verifies allergies, administers prescribed medications and solutions, administers prescribed antibiotic therapy and immunizing agents as ordered, evaluates response to medications Administers prescribed medications and solutions Entry 1 Route of Admin Field Expiration Date Yes Verified Outcomes Met? Yes Last Modified By: Hazel Stephens RN 12/20/18 08:30:49 Post-Care Text: The patient received appropriate medication(s) safely administered during the perioperative period For Alonso-Ness please see scanned medication reconcilliation form for medications used at the field during the procedure. Tourniquet FT Pre-Care Text: Implements protective measures to prevent skin/tissue injury due to mechanical sources Entry 1 Tourniquet Type TOURNIQUET CUFF ROYAL Setting 300 mmHg BLUE 30 X 4 [[id number]][F] Equipment Number D Placement Right Upper Thigh Cuff Size 30 Padding Under Cuff Yes Applied Applied By Casey Lo RN Skin Assessment Unremarkable Before Inflation Skin Assessment Unremarkable After Inflation Tourniquet Times Inflated 12/20/18 13:19:00 Deflated 12/20/18 14:20:00 Total Time 60 minute(s) Outcomes Met? Yes Last Modified By: Hazel Stephens RN 12/20/18 14:21:21 Post-Care Text: The patient is free from signs and symptoms of injury caused by extraneous objects Implant Log FT Pre-Care Text: Records devices implanted during the operative or invasive procedure Entry 1 Entry 2 Entry 3 Procedure KNEE TOTAL KNEE TOTAL KNEE TOTAL ARTHROPLASTY(Right) ARTHROPLASTY(Right) ARTHROPLASTY(Right) Implant/Explant Implant Implant Implant Implant Identification FT Description CEMENT SIMPLEX PLAIN PFC SIGMA TIBIAL TRAY SIGMA FEMORAL POSTERIOR VISCOSITY HIGH FIXED BEARING MODULAR STABILIZED CEMENTED [6194-1-010][F] COCR Serial Number Lot Number [id number] Load Number Corporate Staff Accountant -KAYLEN DEPUY DEPUY Catalog ?# 6194-1-001 [id number] Size FULL DOSE US 2.5 2.5 RIGHT Expiration Date 07/11/20 07/11/28 08/11/27 Manufactured Date Materials Unique Device Identifier (AMANDA) Human Readable Barcode Machine Readable Barcode Usage Data FT Implant Site Knee R Knee R Knee R Implant Site Comment RIGHT KNEE RIGHT KNEE RIGHT KNEE Quantity 2 1 1 Implant/Explant Date 12/20/18 13:31:00 12/20/18 13:47:00 12/20/18 13:47:00 Implanted By Momo Del Castillo DO, DO, Momo Del Castillo DO, Momo T Explant Reason Biological Implants Biological Source Donor Number MR Classification Temperature Reconstitution Method Outcomes Met? Yes Yes Yes Corporate Staff Accountant Model Number Last Modified By: Angelo RN, Hazel Stephens RN, Hazel Stephens RN, Hazel Garland 12/20/18 13:33:07 12/20/18 13:51:51 12/20/18 13:51:51 Entry 4 Entry 5 Procedure KNEE TOTAL KNEE TOTAL ARTHROPLASTY(Right) ARTHROPLASTY(Right) Implant/Explant Implant Implant Implant Identification FT Description PFC SIGMA TIBIAL INSERT OVAL DOME PATELLA 3-PEG FIXED BEARING STABILIZED Serial Number Lot Number [id number] Load Number Corporate Staff Accountant DEPUY DEPUY Catalog ?# 1581-22-108 96-0101 Size 2.5, 8MM 35MM Expiration Date 06/10/22 08/11/23 Manufactured Date Materials Unique Device Identifier (AMANDA) Human Readable Barcode Machine Readable Barcode Usage Data FT Implant Site Knee R Knee R Implant Site Comment RIGHT KNEE RIGHT KNEE Quantity 1 1 Implant/Explant Date 12/20/18 13:47:00 12/20/18 13:47:00 Implanted By Abundio HAQ, Momo Del Castillo DO, Momo Moore Explant Reason Biological Implants Biological Source Donor Number MR Classification Temperature Reconstitution Method Outcomes Met? Yes Yes Corporate Staff Accountant Model Number Last Modified By: Hazel Stephens RN, RN, Emily A 12/20/18 13:51:51 12/20/18 13:51:51 Post-Care Text: The patient is free from signs and symptoms of injury caused by extraneous objects Urinary Catheter Pre-Care Text: Patient is prepped using sterile technique. Entry 1 Urinary Catheter TRAY URINE ANDREA CATH Present Upon Arrival No Inserted LF 16FR [[id number]][F] Insertion Date/Time 12/20/18 13:02:00 Urine Residual 375 Insertion Site Uretheral Urine CLEAR YELLOW URINE Characteristics Inserted By Andie Patel RN Discontinued? No Outcomes Met? Yes Last Modified By: Hazel Stephens RN 12/20/18 13:25:33 Post-Care Text: The patient is free from signs of trauma. Cultures and Specimens FT Pre-Care Text: Manages specimen handling and disposition Manages culture specimen collection Entry 1 Cultures Ordered Yes Culture Disposition Lab Culture Source URINE FROM ORELLANA Specimens Ordered Yes Specimen Disposition Designated OR Area Frozen Section Times Outcomes Met? Yes Last Modified By: Hazel Stephens RN 12/20/18 13:26:19 Post-Care Text: The patient is free from signs and symptoms of injury caused by extraneous objects The patient is free from signs and symptoms of infection General Comments: SPECIMEN: BONE AND SOFT TISSUE - RIGHT KNEE. Austyn LEO RN Temperature Control Entry 1 Temperature Control BLANKET MISTRAL AIR Quantity 1 Aid TORSO [[id number]][F] Fluid/Bogue Chitto Unit Mistral warming system Setting HIGH/43 Body Site Upper anterior torso Last Modified By: Hazel Stephens RN 12/20/18 08:31:22 Case Comments Finalized By: Anum Sexton CST Document Signatures Signed By: Hazel Stephens RN 12/20/18 14:29 Anum Sexton CST 12/21/18 13:38 Normal [facility] Operative Reporton 9 Operative Report Date of Surgery: 12/20/2018 SURGEON: Ho Sexton M.D. OPERATION: Right ultrasound guided single shot adductor canal block for postoperative pain control ANESTHESIA: 1 mg. of Versed PROCEDURE: The patient was interviewed and examined. Anesthetic options for postoperative pain control were discussed in great detail. After a lengthy discussion encompassing the risks, benefits and alternatives of the procedure, the patient elected to undergo the procedure. In the Block Room the patient was placed on routine monitors, vital signs were reviewed, landmarks were reviewed, and the site was prepped in a sterile fashion. Visualization of the adductor canal was excellent, and a 21 gauge 100 mm Pajunk needle was advanced with excellent ultrasound visualization. There were no paresthesias, and under direct ultrasound visualization 15 cc of a 0.35% Naropin solution was injected in divided doses with frequent aspiration. There were no signs of intraneural or intravascular injection, and the patient tolerated the procedure very well. Within several minutes the patient began to show signs and symptoms of successful blockade. The patient was then transported back to the Operating Room and underwent a spinal/monitored anesthesia care for the planned procedure. Ho Sexton M.D. [place] Dictated: 12/20/2018 #[id number] Typed: 12/21/2018 #[id number] cc: Ho Sexton M.D. [facility] Comment on above: Result Comment: Elec tronically Signed By: Bonnie MANUEL, Ho\.br\Date and Time Signed: 12/21/18 13:56 EDT Operative Report Date of Surgery: 12/20/2018 SURGEON: Momo Del Castillo D.O. 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 and SLOANE Durán TOURNIQUET TIME: See nurses record SPECIMEN: Bone ESTIMATED BLOOD LOSS: Zero IMPLANTS: DePuy PFC Knee System with a #2.5 PS cemented right femur, a #2.5 cemented fixed tibial tray, an 8 fixed PS insert, and a 35 mm cemented patellar button HISTORY/OPERATIVE INDICATIONS: Mau is a 78 year old female with progressive valgus knee osteoarthritis that has failed conservative injection care over the last several years. She has had pain and disruption with simple walking, standing for more than a few minutes, as well as night disruption. Simple activities of daily living such as cleaning her house, doing her dishes, going to the grocery store have become problematic. She has noticed a significant increase in her buckling with giving out with fear for falls and safety concern. X-rays show Grade IV severe degenerative changes, in particular the lateral patellofemoral joint with valgus deformity. The pros, cons, risks and benefits, and reasonable expectations of the above procedure were discussed, consent form signed and charted, sites marked preoperatively. All questions were answered preoperatively. Antibiotics were provided weight based per protocol. OPERATIVE REPORT: The patient was taken to the Operating Room in the supine position. Anesthesia was provided. The patient was positioned with a Sterile urinary Orellana catheter. The right leg was placed with a well padded tourniquet on the right upper thigh. It was prepped and draped in a sterile fashion with Betadine prep. Time-out procedure occurred consistent with the consent form, history and physical examination and preoperative marked site. Landmarks were identified. The leg was exsanguinated with a sterile Esmarch, tourniquet was inflated to 300 mm. of Hg. A midline incision was made of approximately six inches. Medial parapatellar arthrotomy was performed. The patella was everted. End stage tricompartmental degenerative changes were noted. Fat pad was excised, the ErySep antimicrobial irrigation solution soaked in the knee for one minute, and the patella was appropriately cut and retracted. Intramedullary drill and jig device was placed in the femur. A five degree valgus cut taking off 11 mm was performed. This was sized at a 2.5. Anterior and posterior chamfer cuts as well as posterior stabilized box cut was performed. Anterior cruciate ligament and posterior cruciate ligament were resected. Collateral ligaments were protected and balanced. Meniscal remnants were removed. Intramedullary drill and jig device was placed in the tibia. The tibia was cut. Gaps were symmetrical. Posterior gutters were clean and free. The tibia was prepared for a 2.5 fixed tray. Trial components were placed with full extension and appropriate flexion, patella tracking and alignment was appropriate. All trial components were removed. Posterior capsule, gutters and subcutaneous tissues were injected with 100 cc of Exparel. The ErySep was allowed to soak for two minutes and then copious irrigation was performed with bone preparation. The Kaylen Simplex cement was mixed, all components were cemented in place and allowed to harden for 16 minutes. All cement osteophytes were removed. It was taken through an arc of motion and deemed stable. After copious irrigation two grams of Tranexamic acid were placed subfascially. Fascial layer was closed with #2 Quill suture in a running fashion, 2-0 Quill suture closed the subcutaneous tissues, and 2-0 Monoderm intracuticular suture was placed with liquid adhesive glue. Tourniquet was deflated. Once dressing was applied with an eight inch Mepilex with a soft roll wrap. The patient was awakened from anesthesia and transferred to the Recovery Room in stable and satisfactory condition. CASE: Clean and elective SPONGE AND NEEDLE COUNT: Correct SPECIMEN: None PATIENT CONDITION: Satisfactory Momo Del Castillo D.O. aek Dictated: 12/20/2018 #[id number] Typed: 12/21/2018 #[id number] cc: Delisa Freire D.O. [facility] Comment on above: Result Comment: Elec tronically Signed By: Momo Del Castillo DO\.br\Date and Time Signed: 12/21/18 08:22 EDT Patient Education - Texton 0 12-21-2018 Patient Education - Text [place], [place] [facility] DISCHARGE INSTRUCTIONS TOTAL KNEE ARTHROPLASTY INCISION CARE: Aquacell dressing can get wet with showers. Please remove 10 days after surgery per instruction sheet. If eusebio present, please coordinate removal 14 days after surgery with office staff. Please notify the office if any increase in redness, tenderness, drainage, fever, or wound separation is noted beyond this point. Compression stockings may be helpful if any significant or uncomfortable swelling in the legs is noted postoperatively. Use and removal instructions should be given by physical therapy. If the swelling is below the knee, knee high compression stockings may suffice. If this does cause swelling into the thigh region, waist high compression stockings may be beneficial as well. These can be obtained from most pharmacies, or can be obtained from the hospital or through Home Health. The mild grade compression stockings are best used initially. MEDICATIONS: You may resume your home medications at the time of discharge. Resume preop medications including Eliquis. Pain medication has been prescribed as well. You may continue to use the pain medication every four hours as needed. Any narcotic pain medication can cause side effects including stomach upset, constipation, or light-headedness. You should not drive or operate machinery, or use alcohol while using the narcotic pain medication. You should not use other pain medications with this prescription pain medication unless further directed by your physician. PHYSICAL THERAPY: Continue the range of motion and strengthening exercises initiated in Physical Therapy in the hospital. [facility] Discharge Instructs for TKA Page 2 Physical Therapy Cont. Continue weight bearing, as ordered, to the operated knee for four to six weeks as directed in Physical Therapy, or until your strength is improved and Physical Therapy will then allow you to progress to full weight. This will be with the use of a walker or crutches initially. After four or six weeks you may then progress to the use of one crutch, or a cane. A quad-cane is preferred as this is more stable. Physical therapy as begun in the hospital will continue at home, possible with the language assistant of Home Health Physical Therapy or in the hospital as an outpatient. When you have become independent with the physical therapy program, this will then be discontinued as a supervised program and you will be instructed to continue the physical therapy exercises at home. Your exercises are more to successful rehabilitation. You should gain full extension first, hopefully before hospital discharge, then continue to do the exercises to maintain this, and gain 90 degrees flexion by one month post-op. Do the exercises daily, twice if preferred. DRIVING: Please do not drive for 4-6 weeks pending therapy progress. 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 It is therefore advised not to drive until after your first office visit following surgery FOLLOW-UP OFFICE VISIT: ___ Momo Del Castillo, DO [facility] [address] [place] [address] Reviewed: 07-19 [facility] Progress Note-Physicianon Progress Note-Physician Patient: MAU LOPEZ Age: 78 years Sex: Female : 1940 Associated Diagnoses: None Author: Ho Sexton MD Preoperative Information Anesthesia history: Patient History: No personal or Family history of problems with anesthesia. Re-eval prior to induction: Inital eval reviewed: No significant interval change. Review of Systems Constitutional: Negative. Cardiovascular: Cardiovascular risk stratafacation reviewed, 1 FOS without difficulty, No chest pain. Respiratory: No SOB. Hematology/Lymphatics: Negative. Gastrointestinal: Negative. Musculoskeletal: OTHER. Neurologic: Negative. Psychiatric: Negative. Health Status Allergies: Allergic Reactions (Selected) Moderate Demerol- Hypotension. Penicillin- Swelling and redness. Severity Not Documented Erythromycin- Jittery. Current medications: (Selected) Inpatient Medications Ordered Colace 100 mg Cap: 100 mg = 1 cap(s), Cap, Oral, BID, Routine, Start date 12/20/18 21:00:00 EDT Dulcolax 5 mg Tab-EC: 10 mg = 2 tab(s), Tab-EC, Oral, Daily PRN Constipation, Routine, Start date 12/22/18 17:06:00 EDT Exparel 1.3% (13.3 mg/mL) injectable suspension: 266 mg = 20 mL, Injection, Misc, Once, Stop date 12/20/18 13:00:00 EDT, Routine, Start date 12/20/18 13:00:00 EDT, 20 ml given to field with 50 ml 0.9% sodium chloride and 30 ml 0.25% Sensorcaine with epinephrine Fleet Enema: 135 mL, Enema, Rectal, Once PRN Other (see comment), Routine, Start date 12/23/18 17:06:00 EDT HYDROmorphone 1 mg/mL injectable solution: 1 mg = 1 mL, Injection, IV Push, q2hr PRN Pain - Severe for 5 day(s), Stop date 12/25/18 5:59:00 EDT, Routine, Start date 12/20/18 6:00:00 EDT Lactated Ringers IV Moni 1000 mL 1,000 mL: 1,000 mL, IV, 150 mL/hr, Routine, Start date 12/20/18 10:45:00 EDT, 6.7 hour(s), Total volume (mL): 1,000 Lactated Ringers IV Moni 1000 mL 1,000 mL: 1,000 mL, IV, 80 mL/hr, Routine, Start date 12/17/18 17:06:00 EDT, 12.5 hour(s), Total volume (mL): 1,000 Milk of Magnesia 8% Susp-Oral: 30 mL, Susp-Oral, Oral, BID PRN Constipation, Routine, Start date 12/17/18 17:06:00 EDT Ofirmev 10 mg/mL intravenous solution: 1,000 mg = 100 mL, Soln-IV, IV Piggyback, Once, Stop date 12/20/18 13:00:00 EDT, Routine, Start date 12/20/18 13:00:00 EDT, 400 mL/hr, Infuse over 15 minute(s), to be given during total joint replacement Pantoprazole [address] Tab: 40 mg = 1 tab(s), Tab-DR, Oral, Daily, Routine, Start date 12/21/18 9:00:00 EDT Percocet 325 mg-5 mg Tab: 1 tab(s), Tab, Oral, q4hr PRN Pain - Moderate for 5 day(s), Stop date 12/25/18 5:59:00 EDT, Routine, Start date 12/20/18 6:00:00 EDT Percocet 325 mg-5 mg Tab: 2 tab(s), Tab, Oral, q4hr PRN Pain - Moderate for 5 day(s), Stop date 12/25/18 5:59:00 EDT, Routine, Start date 12/20/18 6:00:00 EDT Tylenol 325 mg Tab: 650 mg = 2 tab(s), Tab, Oral, q4hr PRN Pain/Fever, Routine, Start date 12/17/18 17:06:00 EDT Vitamin C 500 mg Tab: 500 mg = 1 tab(s), Tab, Oral, BIDWM, Routine, Start date 12/20/18 17:00:00 EDT Zofran 4 mg/2 mL Injection: 4 mg = 2 mL, Injection, IV Push, q6hr PRN Nausea/Vomiting, Routine, Start date 12/17/18 17:06:00 EDT clindamycin 900 mg/50 mL-D5W IV Moni: 900 mg = 50 mL, Soln-IV, IV Piggyback, PREOP, Routine, Start date 12/20/18 10:15:00 EDT, 50 mL/hr, Infuse over 1 hour(s) clindamycin 900 mg/50 mL-D5W IV Moni: 900 mg = 50 mL, Soln-IV, IV Piggyback, q8hr for 2 dose(s), Stop date 12/21/18 3:59:00 EDT, Routine, Start date 12/20/18 12:00:00 EDT, 100 mL/hr, Infuse over 30 minute(s) ferrous sulfate 325 mg Tab: 325 mg = 1 tab(s), Tab, Oral, BIDWM, Routine, Start date 12/20/18 17:00:00 EDT morphine 2 mg/mL Inj: 2 mg = 1 mL, Injection, IV, q4hr PRN Pain - Severe for 5 day(s), Stop date 12/25/18 5:59:00 EDT, Routine, Start date 12/20/18 6:00:00 EDT tranexamic acid 100 mg/mL intravenous solution: 2,000 mg = 20 mL, Injection, Misc, Once, Stop date 12/20/18 13:00:00 EDT, Routine, Start date 12/20/18 13:00:00 EDT, To be given to the field for injection into the operative site during the procedure. Documented Medications Documented Colace 100 mg Cap: 100 mg = 1 cap(s), Oral, BID, Refills(s) 0 Edarbi 40 mg oral tablet: 20 mg = 0.5 tab(s), Oral, Daily, Refills(s) 0, High blood pressure Eliquis 2.5 mg oral tablet: 2.5 mg = 1 tab(s), Oral, BID, # 60 tab(s), Refills(s) 0, Irregular heartbeat Multivitamin, Therapeutic w/ Minerals: 1 tab(s), Oral, Daily, Refill(s) 0, Prophylaxis Percocet 325 mg-5 mg Tab: 1 tab(s), Oral, q4hr Pain - Moderate, Refill(s) 0 Percocet 325 mg-5 mg Tab: 2 tab(s), Oral, q4hr Pain - Moderate, Refill(s) 0 estradiol 0.025 mg/24 hours weekly Transderm ER Film: 1 patch(es), Topical, q7day, Refill(s) 0, Menopause ketoprofen topical: 1 eden, Topical, Daily Arthritis, Refill(s) 0, Arthritis magnesium hydroxide 400 mg oral tablet, chewable: 1 tab, Oral, Bedtime, Refills(s) 0, Constipation Problem list: All Problems Hypertension / SNOMED CT 1084841762 / Confirmed Apnea, sleep / SNOMED CT 367101307 / Confirmed Localized osteoarthritis of knee / SNOMED CT 180151005 / Confirmed right Acquired valgus deformity of knee / SNOMED CT 32571927 / Confirmed right Resolved: History of atrial fibrillation / SNOMED CT 386207660 resolved after second ablation Histories Past Medical History: No active or resolved past medical history items have been selected or recorded. Procedure history: Hysterectomy ([id number]). Appendectomy ([id number]). Comments: 12/03/2018 11:04 - Promise Cotton RN done with hysterectomy Cataract extraction and insertion of intraocular lens ([id number]). Comments: 12/03/2018 11:05 - Promise Cotton RN bilateral Arthroscopy of knee ([id number]). Comments: 12/03/2018 11:05 - Promise Cotton RN right cardiac ablation. Social History Social & Psychosocial Habits Alcohol 12/03/2018 Risk Assessment: Low Risk Substance Abuse 12/03/2018 Risk Assessment: Denies Substance Abuse Tobacco 12/03/2018 Risk Assessment: Denies Tobacco Use. Physical Examination Pain assessment: Self-reports no pain. Airway: Mallampati classification: II (soft palate, fauces, uvula visible). Distance: Adequate. Mouth: Adequate opening. Neck: Full range of motion. Respiratory: Respirations are non-labored. Cardiovascular: Regular rhythm. Neurologic: Alert, Oriented. Review / Management Results review: No qualifying data available. Plan [place] [employer] (ASA) physical status classification: Class III. Anesthetic Preoperative Plan Anesthesia: General. , Regional block for post op pain control.. Anesthetic plan, risks, benefits, and alternatives discussed with the patient and/or family. Patient verbalized understanding. Pt agrees with anesthetic plan and accepts all risks including but not limited to; Bleeding, infection, nerve injury, dental injury, eye injury, headache, low blood pressure, serious problems with the heart and lungs, allergic reactions, failed block and .. Normal [facility] Comment on above: Result Comment: Elec tronically Signed By: Bonnie MANUEL, Rui.nitish\Date and Time Signed: 12/21/18 13:51 EDT Progress Note-Physician DAILY PROGRESS NOTE: 12/21/2018 CHIEF COMPLAINT: Postoperative day 1 status post right total knee arthroplasty. HISTORY OF PRESENT ILLNESS: Mau was seen in postoperative rounding which she is doing well and well controlled with respect to pain. She did have some nausea last night which did require medication with Zofran. No significant emesis. She did eat some dinner but felt somewhat nauseous. She has no chest pain, shortness of breath or palpitations. She has been reinitiated on her Eliquis with her history of atrial fibrillation. Her pain is currently well controlled. She did do well with physical therapy and walked yesterday. She does feel as though she is comfortable going home later. PHYSICAL EXAMINATION: She is alert and oriented, vital signs stable 36.3, 80, 16, 95/58. Hemoglobin 11.1, hematocrit 33.3, sodium 131, chloride 97. Her Mepilex dressing is clean, dry and intact. Cryo cuff and SCD are opened up. Her swelling is very mild. There is no ecchymosis, no hematoma. She can straight leg raise without assist. She does get some posterior hamstring discomfort. No tourniquet pain. She is neurovascularly intact distally without sign of deficit or food drop. X-rays in the Recovery Room show stable position and alignment of the prosthesis. ASSESSMENT: 1. Status post right total knee arthroplasty secondary to end-stage severe osteoarthritis with valgus deformity. 2. Postsurgical expected stable acute blood loss anemia. 3. Hyponatremia, hypochloremia. 4. History of hypertension and atrial fibrillation. TREATMENT PLAN: The nature of the findings were discussed at length. She has been reinitiated on her Eliquis. She will continue with mechanical prophylaxis. Physical therapy for two sessions today as well as occupational therapy with probable discharge thereafter. Will continue to monitor her medically. She will resume all her normal medications, Percocet 1-2 every four hours as needed for pain, regular diet. She has suture which dressing can be removed at ten days. Follow up in the office will be in four weeks. She is an [facility] patient with assignments made at her house. Numerous questions answered at the bedside. Momo Del Castillo D.O. gls Dictated: 12/21/2018 #[id number] Typed: 12/21/2018 #[id number] cc: Momo Del Castillo D.O. [facility] Comment on above: Result Comment: Elec tronically Signed By: Momo Del Castillo DO\.br\Date and Time Signed: 12/21/18 12:31 EDT Progress Note-Physician Assessment/Plan PLAN: 1. S/P total knee arthroplasty (Z96.659: Presence of unspecified artificial knee joint) Status post right total knee arthroplasty POD # 1 secondary to OA performed and managed by Dr. Momo Del Castillo -PT/OT- to eval, treat- recommending HH/PT -Pain management -per ortho services -Education: Oral pain medication regimen, incentive spirometry while awake and bowel regimen to avoid constipation -Thank you for the opportunity to assist in the management of your patient 2. Localized osteoarthritis of right knee (M17.11: Unilateral primary osteoarthritis, right knee) -See # 1 3. Atrial fibrillation (I48.91: Unspecified atrial fibrillation) Patient is s/p 2 ablations - states she has been in RSR since that time, apical is regular -Continue apixaban -per Dr. Del Castillo 4. Hypertension (I10: Essential (primary) hypertension) -Mildly hypotensive this morning . Hold azilsartan today. 5. No contraindication to deep vein thrombosis (DVT) prophylaxis (Z78.9: Other specified health status) Deferred to orthopedic services? resume apixaban this evening -Continue SCDs, early ambulation 6. Hyponatremia (E87.1: Hypo-osmolality and hyponatremia) - Mild dehydration with hypochloremia and hypotension postoperative. -Given 250mg Sodium Chloride x 1 IV 7. Leukocytosis (D72.829: Elevated white blood cell count, unspecified) -Secondary to #1 -No fevers or tachycardia. -Trend lab and vital curves. 8. Anemia (D64.9: Anemia, unspecified) -Secondary to #1 -Trend labs. Orders: Sodium Chloride 0.9% intravenous solution 250 mL, 250 mL, IV, 250 mL/hr, Routine, Start date 12/21/18 7:28:00 EDT, 1 hour(s), Total volume (mL): 250 Subjective Doing well this morning. Denies chest pain, shortness of breath; is using her incentive spirometry as directed. Complains of mild nausea but no vomiting. Has not eaten yet this morning. Is expelling flatus but no bowel movement. Discussed home pain and bowel regimen to avoid constipation. Objective Vitals & Measurements T: 36.5 ?C (Oral) TMIN: 34.5 ?C (Axillary) TMAX: 37.3 ?C (Axillary) HR: 61(Monitored) RR: 18 BP: 92/48 SpO2: 99% WT: 65.9 kg Intake & Output This visit (24 hour periods starting at 07:00 EDT) 12/21/18 * 12/20/18 12/19/18 Total Summary Intake mL -- 3,460.392 -- Output mL -- 1,160 -- Fluid Balance -- 2,300.392 -- Intake (13) Lactated Ringers Injection mL -- 1,200 -- Lactated Ringers Injection 1,000 mL mL -- 1,063 -- Oral Intake mL -- 1,050 -- bupivacaine mL -- 1.2 -- clindamycin mL -- 100 -- dexamethasone mL -- 1 -- ephedrine mL -- 0.6 -- fentanyl mL -- 0.2 -- lidocaine mL -- 3 -- midazolam mL -- 1 -- morphine mL -- 1 -- ondansetron mL -- 2 -- propofol mL -- 37.392 -- Total -- 3,460.392 -- Output (2) Urine Catheter mL -- 1,080 -- Urine Count mL -- 80 -- Total -- 1,160 -- Counts (1) Urine Count mL -- 80 -- * This column has not completed the indicated time period. Physical Exam General: Alert and oriented, No acute distress. Ambulation status: Not observed Appearance: obese Behavior: Appropriate, Cooperative. Hydration: mild dehydration Skin: Normal for ethnicity. Eye: Pupils are equal, round and reactive to light. Sclera: neg HENT: Normocephalic, Normal hearing, No pharyngeal erythema. Mouth: Tongue (furrowed), Oral mucosa ( moist), Neck: Supple, Non-tender, No lymphadenopathy. Respiratory: Lungs are clear to auscultation, Respirations are non-labored, Breath sounds are equal, Symmetrical chest wall expansion. Cardiovascular: Normal rate, apical is regular, Good pulses equal in all extremities, Normal peripheral perfusion, No edema. Gastrointestinal: Soft, Non-tender, Non-distended, Normal bowel sounds. Musculoskeletal Normal range of motion & strength with exception of RLE s/p surgical intervention Integumentary: Warm, Dry, not intact. Integumentary exam: Right knee Efe wrap and ice pack intact, surgical incision line not visualized as this is managed per orthopedic services. Neurologic: Alert, Oriented, No focal deficits. Psychiatric: Cooperative, Appropriate mood & affect, Normal judgment. Lab Results Size: 2.5 (12/20/18 13:51:51 EDT) Size: 35MM (12/20/18 13:51:51 EDT) Size: 2.5, 8MM (12/20/18 13:51:51 EDT) Size: 2.5 RIGHT (12/20/18 13:51:51 EDT) WBC: 11.3 E9/L High (12/21/18 05:09:00 EDT) RBC: 3.5 E12/L Low (12/21/18 05:09:00 EDT) Hgb: 11.1 gm/dL Low (12/21/18 05:09:00 EDT) Hct: 33.3 % Low (12/21/18 05:09:00 EDT) MCV: 95 fL (12/21/18 05:09:00 EDT) MCH: 31.8 pg (12/21/18 05:09:00 EDT) MCHC: 33.5 gm/dL (12/21/18 05:09:00 EDT) RDW: 13.8 % (12/21/18 05:09:00 EDT) Platelet: 175 E9/L (12/21/18 05:09:00 EDT) MPV: 10.4 fL (12/21/18 05:09:00 EDT) Neutro Auto: 83.6 % High (12/21/18 05:09:00 EDT) Lymph Auto: 7.7 % Low (12/21/18 05:09:00 EDT) [place] Auto: 8.6 % (12/21/18 05:09:00 EDT) Eos Auto: 0 % (12/21/18 05:09:00 EDT) Basophil Auto: 0.1 % (12/21/18 05:09:00 EDT) Neutro Absolute: 9.4 E9/L High (12/21/18 05:09:00 EDT) Lymph Absolute: 0.9 E9/L Low (12/21/18 05:09:00 EDT) [place] Absolute: 1 E9/L (12/21/18 05:09:00 EDT) Eos Absolute: 0 E9/L (12/21/18 05:09:00 EDT) Basophil Absolute: 0 E9/L (12/21/18 05:09:00 EDT) BUN: 22 mg/dL High (12/21/18 05:09:00 EDT) Creatinine: 0.8 mg/dL (12/21/18 05:09:00 EDT) eGFR: >60 (12/21/18 05:09:00 EDT) eGFR AA: >60 (12/21/18 05:09:00 EDT) Sodium Lvl: 131 mmol/L Low (12/21/18 05:09:00 EDT) Potassium Lvl: 4.6 mmol/L (12/21/18 05:09:00 EDT) Chloride: 97 mmol/L Low (12/21/18 05:09:00 EDT) CO2: 25 mmol/L (12/21/18 05:09:00 EDT) AGAP: 14 mEq/L (12/21/18 05:09:00 EDT) UA Spec Desc: [place] (12/20/18 13:02:00 EDT) UA Color: Yellow2 (12/20/18 13:02:00 EDT) UA Clarity: Clear2 (12/20/18 13:02:00 EDT) UA Spec Grav: <=1.005 (12/20/18 13:02:00 EDT) UA pH: 6.0 (12/20/18 13:02:00 EDT) UA Protein: NEGATIVE1 (12/20/18 13:02:00 EDT) UA Glucose: NEGATIVE1 (12/20/18 13:02:00 EDT) UA Ketones: NEGATIVE1 (12/20/18 13:02:00 EDT) UA Bili: NEGATIVE1 (12/20/18 13:02:00 EDT) UA Blood: NEGATIVE1 (12/20/18 13:02:00 EDT) UA Nitrite: NEGATIVE1 (12/20/18 13:02:00 EDT) UA Urobilinogen: 0.2 (12/20/18 13:02:00 EDT) UA Leuk Est: NEGATIVE1 (12/20/18 13:02:00 EDT) UA RBC: 0-3 (12/20/18 13:02:00 EDT) UA Squam Epithelial: 0-2 (12/20/18 13:02:00 EDT) UA WBC: 0-5 (12/20/18 13:02:00 EDT) ABO/Rh: A POS (12/20/18 10:51:00 EDT) ABSC Gel Interp: Negative (12/20/18 10:51:00 EDT) Problem List/Past Medical History Ongoing Hypertension Historical No qualifying data Medications Inpatient clindamycin 900 mg/50 mL-D5W IV Moni, 900 mg= 50 mL, IV Piggyback, q8hr Colace 100 mg Cap, 100 mg= 1 cap(s), Oral, BID Dulcolax 5 mg Tab-EC, 10 mg= 2 tab(s), Oral, Daily, PRN Eliquis, Normal Patient Dose, Oral, BID ferrous sulfate 325 mg Tab, 325 mg= 1 tab(s), Oral, BIDWM Fleet Enema, 135 mL, Rectal, Once, PRN HYDROmorphone 1 mg/mL injectable solution, 1 mg= 1 mL, IV Push, q2hr, PRN Lactated Ringers IV Moni 1000 mL 1,000 mL, 1000 mL, IV Lactated Ringers IV Moni 1000 mL 1,000 mL, 1000 mL, IV Lactated Ringers IV Moni 1000 mL 1,000 mL, 1000 mL, IV Magnesium Citrate, Normal Patient Dose, Oral, BID Milk of Magnesia 8% Susp-Oral, 30 mL, Oral, BID, PRN morphine 2 mg/mL Inj, 2 mg= 1 mL, IV, q4hr, PRN Pantoprazole [address] Tab, 40 mg= 1 tab(s), Oral, Daily Percocet 325 mg-5 mg Tab, 2 tab(s), Oral, q4hr, PRN Percocet 325 mg-5 mg Tab, 1 tab(s), Oral, q4hr, PRN Sodium Chloride 0.9% IV Moni 250 mL bag 250 mL, 250 mL, IV Therapeutic Multiple Vitamins with Minerals Tab, 1 tab(s), Oral, Daily Tylenol 325 mg Tab, 650 mg= 2 tab(s), Oral, q4hr, PRN Vitamin C 500 mg Tab, 500 mg= 1 tab(s), Oral, BIDWM Zofran 4 mg/2 mL Injection, 4 mg= 2 mL, IV Push, q6hr, PRN Home Colace 100 mg Cap, 100 mg= 1 cap(s), Oral, BID Edarbi 40 mg oral tablet, 20 mg= 0.5 tab(s), Oral, Daily Eliquis 2.5 mg oral tablet, 2.5 mg= 1 tab(s), Oral, BID estradiol 0.025 mg/24 hours weekly Transderm ER Film, 1 patch(es), Topical, q7day ketoprofen topical, 1 eden, Topical, Daily, PRN magnesium hydroxide 400 mg oral tablet, chewable, 1 tab, Oral, Bedtime Multivitamin, Therapeutic w/ Minerals, 1 tab(s), Oral, Daily Percocet 325 mg-5 mg Tab, 2 tab(s), Oral, q4hr, PRN Percocet 325 mg-5 mg Tab, 1 tab(s), Oral, q4hr, PRN Normal [facility] Comment on above: Result Comment: Elec tronically Signed By: Kalee MILLER\.br\Date and Time Signed: 12/21/18 10:45 EDT\.br\Electronically Co-Signed By: Antionette Ruiz MD\.br\Date and Time Co-Signed: 12/21/18 11:22 EDT eGFRon 12-21-2018 GFR/1.73 sq M predicted among blacks MDRD (S/P/Bld) [Vol rate/Area] mL/min/{1.73_m2} Normal >=59 [facility] Comment on above: Order Comment: Order added by Discern Expert. Result Comment: eGFR is race adjusted. AA=. Performed By: #### 2 [id number] #### [facility] [address] [place] [address] GFR/1.73 sq M predicted among non-blacks MDRD (S/P/Bld) [Vol rate/Area] mL/min/{1.73_m2} Normal >=59 [facility] Comment on above: Order Comment: Order added by Discern Expert. Result Comment: Slot Shift Manager tammie kidney disease could be indicated at eGFR's of less than 60 mL/min/1.73m2. Kidney failure is indicated at less than 15 mL/min/1.73m2. Performed By: #### 2 [id number] #### [facility] [address] [place] [address] ABO/Rhon 12-20-2018 ABO/Rh Positive [facility] Comment on above: Performed By: #### 2 [id number] #### [facility] [address] [place] [address] ABO/Rh History Checkon 12-20 ABO/Rh History Check Verified Hx Blood Type Normal [facility] Comment on above: Performed By: #### 2 [id number] #### [facility] [address] [place] [address] ABSCon 12-20-2018 ABSC Gel Interp Negative Normal [facility] Comment on above: Performed By: #### 2 [id number] #### [facility] [address] [place] [address] Blood Bank ID#on 12-20-2018 BBID# [id number] [facility] Comment on above: Performed By: #### 2 [id number] #### [facility] [address] [place] [address] Consultation Noteon 12-21-19 Consultation Note Chief Complaint Right knee pain Reason for Consultation Medical management History of Present Illness 78-year-old female with PMH of atrial fibrillation, HTN and right knee OA. Patient presented to [facility] to the care of Dr. Momo Del Castillo and underwent a right total knee arthroplasty on 12/20/18. Review of Systems Constitutional: Negative Eye: Negative. Ear/Nose/Mouth/Throat: Negative. Respiratory: Negative Cardiovascular: Negative. Gastrointestinal: Passing flatus. Last bowel movement: Genitourinary: Negative. Hematology/Lymphatics: Negative. Endocrine: Negative. Immunologic: Negative Musculoskeletal: Negative. Integumentary: Negative. Neurologic: Alert and oriented X4. Psychiatric: Negative. Additional ROS info: Except as noted in the above Review of Systems and in the History of Present Illness all other systems have been reviewed and are negative or noncontributory Physical Exam Vitals & Measurements T: 37.3 ?C (Axillary) TMIN: 36.6 ?C (Oral) TMAX: 37.3 ?C (Axillary) HR: 63(Monitored) RR: 18 BP: 115/58 SpO2: 97% General: Alert and oriented, No acute distress. Ambulation status: Not observed Appearance: obese Behavior: Appropriate, Cooperative. Hydration: mild dehydration Skin: Normal for ethnicity. Eye: Pupils are equal, round and reactive to light. Sclera: neg HENT: Normocephalic, Normal hearing, No pharyngeal erythema. Mouth: Tongue (furrowed), Oral mucosa ( moist), Neck: Supple, Non-tender, No lymphadenopathy. Respiratory: Lungs are clear to auscultation, Respirations are non-labored, Breath sounds are equal, Symmetrical chest wall expansion. Cardiovascular: Normal rate, apical is regular, Good pulses equal in all extremities, Normal peripheral perfusion, No edema. Gastrointestinal: Soft, Non-tender, Non-distended, Normal bowel sounds. Musculoskeletal Normal range of motion & strength with exception of RLE s/p surgical intervention Integumentary: Warm, Dry, not intact. Integumentary exam: Right knee Efe wrap and ice pack intact, surgical incision line not visualized as this is managed per orthopedic services. Neurologic: Alert, Oriented, No focal deficits. Psychiatric: Cooperative, Appropriate mood & affect, Normal judgment. Assessment/Plan 1. S/P total knee arthroplasty (Z96.659: Presence of unspecified artificial knee joint) Status post right total knee arthroplasty POD # 0 secondary to OA performed and managed by Dr. Momo Del Castillo -Continue ferrous sulfate -PT/OT -CBC/BMP -Pain management -per ortho services -Education: Oral pain medication regimen, incentive spirometry 10 times while awake and bowel regimen to avoid constipation -Thank you for the opportunity to assist in the management of your patient 2. Localized osteoarthritis of right knee (M17.11: Unilateral primary osteoarthritis, right knee) -See # 1 3. Atrial fibrillation (I48.91: Unspecified atrial fibrillation) Patient is s/p 2 ablations - states she has been in RSR since that time, apical is regular -Continue apixaban - resume this evening per Dr. Del Castillo 4. Hypertension (I10: Essential (primary) hypertension) -Continue azilsartan - with hold parameters 5. Obesity (E66.9: Obesity, unspecified) BMI - pending ht./wt. 6. No contraindication to deep vein thrombosis (DVT) prophylaxis (Z78.9: Other specified health status) Deferred to orthopedic services? resume apixaban this evening -Continue SCDs, early ambulation Orders: apixaban, 2.5 mg = 1 tab(s), Tab, Oral, BID, Routine, Start date 12/20/18 21:00:00 EDT losartan, 25 mg = 0.5 tab(s), Tab, Oral, Daily, Routine, Start date 12/21/18 9:00:00 EDT, Hold for sbp 110 or less multivitamin with minerals, 1 tab(s), Tab, Oral, Daily, Routine, Start date 12/21/18 9:00:00 EDT Communication Order Physician to Nursing Disposition: Deferred to surgical services This report was transcribed using voice recognition software. Every effort was made to ensure accuracy, however, inadvertently computerized manager camp mistakes may be present. Attestation Case reviewed and discussed with Dr. Ruiz who is in agreement with current treatment plan Problem List/Past Medical History Ongoing Hypertension Historical No qualifying data Procedure/Surgical History Appendectomy, Arthroscopy of knee, cardiac ablation, Cataract extraction and insertion of intraocular lens, Hysterectomy. Medications Inpatient clindamycin 900 mg/50 mL-D5W IV Moni, 900 mg= 50 mL, IV Piggyback, q8hr Colace 100 mg Cap, 100 mg= 1 cap(s), Oral, BID Dulcolax 5 mg Tab-EC, 10 mg= 2 tab(s), Oral, Daily, PRN Eliquis 2.5 mg oral tablet, 2.5 mg= 1 tab(s), Oral, BID ferrous sulfate 325 mg Tab, 325 mg= 1 tab(s), Oral, BIDWM Fleet Enema, 135 mL, Rectal, Once, PRN HYDROmorphone 1 mg/mL injectable solution, 1 mg= 1 mL, IV Push, q2hr, PRN Lactated Ringers IV Moni 1000 mL 1,000 mL, 1000 mL, IV Lactated Ringers IV Moni 1000 mL 1,000 mL, 1000 mL, IV Lactated Ringers IV Moni 1000 mL 1,000 mL, 1000 mL, IV losartan 50 mg Tab, 25 mg= 0.5 tab(s), Oral, Daily Milk of Magnesia 8% Susp-Oral, 30 mL, Oral, BID, PRN morphine 2 mg/mL Inj, 2 mg= 1 mL, IV, q4hr, PRN Pantoprazole [address] Tab, 40 mg= 1 tab(s), Oral, Daily Percocet 325 mg-5 mg Tab, 2 tab(s), Oral, q4hr, PRN Percocet 325 mg-5 mg Tab, 1 tab(s), Oral, q4hr, PRN Therapeutic Multiple Vitamins with Minerals Tab, 1 tab(s), Oral, Daily Tylenol 325 mg Tab, 650 mg= 2 tab(s), Oral, q4hr, PRN Vitamin C 500 mg Tab, 500 mg= 1 tab(s), Oral, BIDWM Zofran 4 mg/2 mL Injection, 4 mg= 2 mL, IV Push, q6hr, PRN Home Colace 100 mg Cap, 100 mg= 1 cap(s), Oral, BID Edarbi 40 mg oral tablet, 20 mg= 0.5 tab(s), Oral, Daily Eliquis 2.5 mg oral tablet, 2.5 mg= 1 tab(s), Oral, BID estradiol 0.025 mg/24 hours weekly Transderm ER Film, 1 patch(es), Topical, q7day ketoprofen topical, 1 [place], Topical, Daily, PRN magnesium hydroxide 400 mg oral tablet, chewable, 1 tab, Oral, Bedtime Multivitamin, Therapeutic w/ Minerals, 1 tab(s), Oral, Daily Percocet 325 mg-5 mg Tab, 2 tab(s), Oral, q4hr, PRN Percocet 325 mg-5 mg Tab, 1 tab(s), Oral, q4hr, PRN Allergies Demerol (Hypotension) penicillin (Swelling, Redness) erythromycin (jittery) Social History Alcohol - Low Risk, 12/03/2018 Substance Abuse - Denies Substance Abuse, 12/03/2018 Tobacco - Denies Tobacco Use, 12/03/2018 Family History Cardiac arrhythmia: Father. Primary malignant neoplasm of lung: Father. Lab Results Size: 2.5 (12/20/18 13:51:51 EDT) Size: 35MM (12/20/18 13:51:51 EDT) Size: 2.5, 8MM (12/20/18 13:51:51 EDT) Size: 2.5 RIGHT (12/20/18 13:51:51 EDT) UA Spec Desc: Orellana (12/20/18 13:02:00 EDT) UA Color: Yellow2 (12/20/18 13:02:00 EDT) UA Clarity: Clear2 (12/20/18 13:02:00 EDT) UA Spec Grav: <=1.005 (12/20/18 13:02:00 EDT) UA pH: 6.0 (12/20/18 13:02:00 EDT) UA Protein: NEGATIVE1 (12/20/18 13:02:00 EDT) UA Glucose: NEGATIVE1 (12/20/18 13:02:00 EDT) UA Ketones: NEGATIVE1 (12/20/18 13:02:00 EDT) UA Bili: NEGATIVE1 (12/20/18 13:02:00 EDT) UA Blood: NEGATIVE1 (12/20/18 13:02:00 EDT) UA Nitrite: NEGATIVE1 (12/20/18 13:02:00 EDT) UA Urobilinogen: 0.2 (12/20/18 13:02:00 EDT) UA Leuk Est: NEGATIVE1 (12/20/18 13:02:00 EDT) UA RBC: 0-3 (12/20/18 13:02:00 EDT) UA Squam Epithelial: 0-2 (12/20/18 13:02:00 EDT) UA WBC: 0-5 (12/20/18 13:02:00 EDT) ABO/Rh: A POS (12/20/18 10:51:00 EDT) ABSC Gel Interp: Negative (12/20/18 10:51:00 EDT) Diagnostic Results XR Knee 1 or 2 Views Right 12/20/18 15:25:20 IMPRESSION: SATISFACTORY POSTOPERATIVE APPEARANCE OF THE RIGHT KNEE. CLINICAL HISTORY: POSTOP RIGHT KNEE PROSTHESIS, POSTOP EVALUATION OF RIGHT KNEE COMPARISONS: None available. FINDINGS: Portable AP and lateral views demonstrate satisfactory anatomic alignment and position of the right knee prosthesis. There is no radiographic evidence of loosening of the prosthesis. There is no acute fracture or dislocation of the right knee. There is a postoperative joint effusion. Signed By: Joss Angelo MD [facility] Comment on above: Result Comment: Elec tronically Signed By: Lenka WHITTINGTON\.br\Date and Time Signed: 12/20/18 15:33 EDT\.br\Electronically Co-Signed By: Antionette Ruiz MD\.br\Date and Time Co-Signed: 12/20/18 16:28 EDT Interdisciplinary Note - PTo n 12-20-2018 Interdisciplinary Note - PT PT evaluation completed this date. The pt scores a on the AM-PAC, recommending d/c home with home health once medically stable. The pt with great start to PT, performing all transfers with SBA-CGA and ambulating 40' w/ FWW, CGA. PT to see 2x/day during acute care stay. [facility] Main OR PACU I [place] Main OR PACU I Record PACU Phase I Docum ent Type FT Summary Primary Physician: Momo Del Castillo DO Finalized Date/Time: 12/20/18 15:15:40 Pt. Name: MAU LOPEZ/Sex: 1940 Female Med Rec #: [id number] Physician: Momo Del Castillo DO Financial #: [id number] Pt. Type: I Room/Bed: 12/12 Admit/Disch: 12/20/18 09:46:46 - Institution: Case Times PACU I FT Pre-Care Text: Identifies barriers to communication and implements measures to provide psychological support Develops individualized plan of care, and ensures continuity of care Maintains patient's dignity and privacy, and maintains patient confidentiality Identifies and reports philosophical, cultural, and spiritual beliefs and values Identifies individual values and wishes concerning care Implements aseptic technique, and administers prescribed antibiotic therapy and immunizing agents as ordered Evaluates postoperative tissue perfusion Implements thermoregulation measures, and monitors body temperature Evaluates postoperative respiratory status Evaluates postoperative cardiac status Evaluates postoperative neurological status Assesses pain control, collaborated in initiating patient-controlled analgesia and implements alternative methods of pain control Verifies allergies, administers prescribed medications and solutions, evaluates response to medications Entry 1 In PACU I 12/20/18 14:26:00 Discharge from PACU 12/20/18 14:56:00 I Outcomes Met? Yes Last Modified By: Deepika Jamil RN 12/20/18 15:15:21 Post-Care Text: The patient demonstrates knowledge of the expected response to the operative or invasive procedure The patient's care is consistent with the individualized perioperative plan of care The patient's right to privacy is maintained The patient's value system, lifestyle, ethnicity, and culture are considered, respected, and incorporated into the perioperative plan of care The patient participates in decisions affecting his or her perioperative plan of care The patient is free from signs and symptoms of infection The patient has wound/tissue perfusion consistent with or improved from baseline levels established preoperatively The patient is at or returning to normothermia at the conclusion of the immediate postoperative period The patient's respiratory function is consistent with or improved from baseline levels established preoperatively The patient's cardiovascular status is consistent with or improved from baseline levels established preoperatively The patient's cardiovascular status is consistent with or improved from baseline levels established preoperatively The patient demonstrates and/or reports adequate pain control throughout the perioperative period The patient received appropriate medication(s), safely administered during the perioperative period Acuity Level PACU I FT Entry 1 Start Time 12/20/18 14:26:00 Stop Time 12/20/18 14:56:00 Acuity Level Acuity Level I Last Modified By: Deepika Jamil RN 12/20/18 15:15:32 Finalized By: Deepika Jamil RN Document Signatures Signed By: Deepika Jamil RN 12/20/18 15:15 Deepika Jamil RN 12/20/18 15:15 Normal [facility] Main OR Preoperative Recordo n 12-20-2018 Main OR Preoperative Record PreOp Document Type FT Summary Primary Physician: Momo Del Castillo DO Finalized Date/Time: 12/20/18 12:58:11 Pt. Name: MAU LOPEZ Naa MullerB./Sex: 1940 Female Med Rec #: [id number] Physician: Momo Del Castillo DO Financial #: [id number] Pt. Type: Room/Bed: [place] [address] Admit/Disch: 12/20/18 09:46:46 - Institution: Case Times PreOp FT Pre-Care Text: Verifies consent for planned procedure, identifies individual values and wishes concerning care, includes family members in perioperative teaching Entry 1 Patient Times. In Pre Surgery 12/20/18 09:50:00 Out Pre Surgery 12/20/18 12:38:00 Outcomes Met? Yes Last Modified By: Hazel Stephens RN 12/20/18 12:58:07 Post-Care Text: The patient participates in decisions affecting his or her perioperative plan of care Finalized By: Hazel Stephens RN Document Signatures Signed By: Hazel Stephens RN 12/20/18 12:58 Normal [facility] Operative Reporton 9 Operative Report Patient: TRELL LOPEZ Age: 78 years Sex: Female : 1940 Associated Diagnoses: None Author: Momo Del Castillo DO Health Status Allergies: Allergic Reactions (Selected) Moderate Demerol- Hypotension. Penicillin- Swelling and redness. Severity Not Documented Erythromycin- Jittery. Review / Management Results review: Lab results 12/20/2018 13:02 EDT UA Spec Desc Orellana UA Color Yellow UA Clarity Clear UA Spec Grav <=1.005 UA pH 6.0 UA Protein Negative UA Glucose Negative UA Ketones Negative UA Bili Negative UA Blood Negative UA Nitrite Negative UA Urobilinogen 0.2 EU/dL UA Leuk Est Negative UA RBC 0-3 /HPF UA Squam Epithelial 0-2 /HPF UA WBC 0-5 /HPF 12/20/2018 10:51 EDT ABO/Rh Interp A POS ABSC Gel Interp Negative . Impression and Plan Diagnosis Pre-op dx-rt knee OA Post-op dx-same Procedure-rt tka Anesthesia-bonnie spinal EBL-0 TT-see nn To Recovery Room in stable and satisfactory condition.. Normal [facility] Comment on above: Result Comment: Elec tronically Signed By: Momo Del Castillo DO\.br\Date and Time Signed: 12/20/18 14:43 EDT UA With Cult Reflexon 2018 Bilirubin Ql (U) Negative Normal Negative [facility] Comment on above: Performed By: #### 2 632249, 1570374, 91860606, 1641550, 6451167, 6894348 #### [facility] [address] [place] [address] Clarity (U) CLEAR Normal Clear [facility] Comment on above: Performed By: #### 2 141840, 2326747, 31063695, 2631767, 9253282, 8230662 #### [facility] [address] [place] [address] Color (U) YELLOW Normal Yellow [facility] Comment on above: Performed By: #### 2 496433, 3468751, 62531878, 3946279, 2168791, 0647329 #### [facility] [address] [place] [address] Epithelial cells.squamous LM.HPF (Urine sed) [#/Area] 0-2 Normal 0-2 [facility] Comment on above: Performed By: #### 2 150964, 4715417, 61969997, 4870677, 3070245, 7636948 #### [facility] [address] [place] [address] Glucose Test strip (U) [Mass/Vol] Negative Normal Negative [facility] Comment on above: Performed By: #### 2 356006, 3683894, 68052893, 4845170, 9007898, 4390885 #### [facility] [address] [place] [address] Hemoglobin Ql (U) Negative Normal Negative [facility] Comment on above: Performed By: #### 2 836547, 0550932, 17649607, 9074361, 1358810, 9703191 #### [facility] [address] [place] [address] Ketones (U) [Mass/Vol] Negative Normal Negative [facility] Comment on above: Performed By: #### 2 575586, 2954746, 01223305, 2553713, 3204497, 6859980 #### [facility] [address] [place] [address] [place].plasma/[place] .RBC (Bld) [Mass ratio] 0-3 Normal 0-3 [facility] Comment on above: Performed By: #### 2 080480, 9216404, 05753773, 9995753, 5269466, 6863924 #### [facility] [address] [place] [address] Nitrite Ql (U) Negative Normal Negative [facility] Comment on above: Performed By: #### 2 695527, 3939483, 29637546, 7472621, 1531518, 8881205 #### [facility] [address] [place] [address] pH (U) 6.0 [pH] 5.0-9.0 [facility] Comment on above: Performed By: #### 2 626255, 3959297, 87621384, 3770579, 5489141, 6033971 #### [facility] [address] [place] [address] Protein (U) [Mass/Vol] Negative Normal Negative [facility] Comment on above: Performed By: #### 2 509116, 6331852, 04559467, 1651785, 7519424, 9380644 #### [facility] [address] [place] [address] Specific gravity (U) [Rel density] <=1.005 1.005-1.03 0 [facility] Comment on above: Performed By: #### 2 890692, 5703431, 03178183, 6962788, 4812467, 3017555 #### [facility] [address] [place] [address] UA Spec Desc Orellana Normal [facility] Comment on above: Performed By: #### 2 107025, 2630267, 57597334, 7468734, 3460032, 0760086 #### [facility] [address] [place], [place] [address] Urobilinogen Qn (U) 0.2 {Annika'U}/dL Normal 0.0-1.0 [facility] Comment on above: Performed By: #### 2 218344, 5013999, 28814164, 1146937, 3594545, 7815277 #### [facility] [address] [place] [address] WBC Auto Ql (U) Negative Normal Negative [facility] Comment on above: Performed By: #### 2 305143, 4157162, 59518314, 3236358, 8463568, 7934349 #### [facility] [address] [place] [address] WBC LM.HPF (Urine sed) [#/Area] 0-5 Normal 0-5 [facility] Comment on above: Performed By: #### 2 042464, 5536058, 92806405, 1387755, 4577483, 1638801 #### [facility] [address] [place] [address] XR Knee 1 or 2 Views Righton 12-20-2018 XR Knee 1 or 2 Views Right Exam Date/Time: 12/20/2018 14:41 EDT Reason for Exam: Post-op evaluation;Other (please specify) Report IMPRESSION: SATISFACTORY POSTOPERATIVE APPEARANCE OF THE RIGHT KNEE. CLINICAL HISTORY: POSTOP RIGHT KNEE PROSTHESIS, POSTOP EVALUATION OF RIGHT KNEE COMPARISONS: None available. FINDINGS: Portable AP and lateral views demonstrate satisfactory anatomic alignment and position of the right knee prosthesis. There is no radiographic evidence of loosening of the prosthesis. There is no acute fracture or dislocation of the right knee. There is a postoperative joint effusion. FINAL REPORT Dictated: 12/20/2018 3:22 pm Joss Angelo MD Signed (Electronic Signature): 12/20/2018 3:22 pm Signed by: Joss Angelo MD Transcribed by: GERA Technologist: STACY Normal [facility] Coding Summary.on 12-06-2018 Coding Summary. CODING DATE: 019 FINAL [facility] DSC STATUS: Home (Routine DC) PAYOR: Medicare APC DESCRIPTION 5521 Level 1 Imaging without Contrast ADMIT DX: REASON FOR VISIT DX: Z01.818 Encounter for other preprocedural examination FINAL DX: PRINCIPAL: Z01.818 Encounter for other preprocedural examination SECONDARY: M17.11 Unilateral primary osteoarthritis, right knee PYMT PROC APC STAT DESCRIPTION DOCTOR NAME DATE NOTE: The code number assigned matches the documented diagnosis and / or procedure in the patient's chart. However, the narrative phrase printed from the coding software may appear abbreviated, or result in slightly different terminology. Coded By: Yolanda Cortes CphT Date Saved: 12/06/2018 12:10 pm Normal [facility] ABO/Rh Retypeon 12-03-2018 ABO/Rh Retype Interp Positive Fish er [facility] Comment on above: Performed By: #### 1 [id number] #### [facility] [address] [place] [address] BUNon 12-03-2018 Urea nitrogen [Mass/Vol] 32 mg/dL High 5-21 [facility] Comment on above: Performed By: #### 2 120219, 8250647, 92377572, 8441171, 1497928, 6531775 #### [facility] [address] [place] [address] CBC w/Indiceson 12-03-2018 Erythrocyte distribution width (RBC) [Ratio] 14.0 % Normal 10.9-14.2 [facility] Comment on above: Performed By: #### 2 397552, 8181919, 23241133, 8059693, 1432511, 7873069 #### [facility] [address] [place] [address] Hematocrit (Bld) [Volume fraction] 35.4 % Normal 34.0-46.0 [facility] Comment on above: Performed By: #### 2 948189, 0497352, 25096892, 5364971, 7742160, 7844582 #### [facility] [address] [place] [address] Hemoglobin (Bld) [Mass/Vol] 11.7 g/dL Low 12.0-16.0 [facility] Comment on above: Performed By: #### 2 093810, 6859476, 33972838, 6854426, 6436365, 1771836 #### [facility] [address] [place] [address] MCH (RBC) [Entitic mass] 31.8 pg Normal 27.0-34.0 [facility] Comment on above: Performed By: #### 2 702039, 1686014, 49300558, 2914063, 1081854, 6737814 #### [facility] [address] [place] [address] MCHC (RBC) [Mass/Vol] 33.2 g/dL Low 33.3-35.7 [facility] Comment on above: Performed By: #### 2 856679, 1973981, 23511763, 6803457, 5471267, 1763821 #### [facility] [address] [place] [address] MCV (RBC) [Entitic vol] 95.8 fL Normal 80.0-100.0 [facility] Comment on above: Performed By: #### 2 370336, 8684276, 48066014, 0748571, 6318120, 9220904 #### [facility] [address] [place] [address] Platelet mean volume (Bld) [Entitic vol] 10.7 fL Normal 6.4-10.8 [facility] Comment on above: Performed By: #### 2 536412, 5695955, 69607035, 6561281, 4350373, 7386002 #### [facility] [address] [place] [address] Platelets (Bld) [#/Vol] 163.0 E9/L Normal 150.0-500. 0 [facility] Comment on above: Performed By: #### 2 843215, 7896667, 88756337, 9330450, 2893304, 2623997 #### [facility] [address] [place] [address] RBC (Bld) [#/Vol] 3.7 E12/L Low 4.3-5.9 [facility] Comment on above: Performed By: #### 2 352768, 1791297, 11578359, 8511349, 1875093, 6625725 #### [facility] [address] [place] [address] WBC corrected for nucl RBC Auto (Bld) [#/Vol] 7.8 E9/L Normal 4.0-11.0 [facility] Comment on above: Performed By: #### 2 225287, 7474144, 31933038, 4316271, 2139170, 2527524 #### [facility] [address] [place] [address] Creatinineon 12-03-2018 Creatinine [Mass/Vol] 0.7 mg/dL Normal 0.5-1.3 [facility] Comment on above: Performed By: #### 2 406043, 9638429, 59102588, 1368665, 9486382, 4498507 #### [facility] [address] [place] [address] Glucoseon 12-03-2018 Glucose [Mass/Vol] 96 mg/dL Normal 55-199 [facility] Comment on above: Performed By: #### 2 543306, 3052883, 34440777, 9880594, 8943984, 7349882 #### [facility] [address] [place] [address] Lyteson 12-03-2018 Anion gap [Moles/Vol] 14 mmol/L Normal 6-16 [facility] Comment on above: Performed By: #### 2 698420, 2808814, 27017822, 2337941, 9082921, 9321531 #### [facility] [address] [place] [address] Chloride [Moles/Vol] 96 mmol/L Low 101-111 [facility] Comment on above: Performed By: #### 2 745615, 4663436, 93183014, 1213746, 3137583, 8420754 #### [facility] [address] [place] [address] CO2 [Moles/Vol] 25 mmol/L Normal 21-31 [facility] Comment on above: Performed By: #### 2 031979, 5448027, 39710228, 4959514, 6319020, 1924883 #### [facility] [address] [place] [address] Potassium [Moles/Vol] 4.2 mmol/L Normal 3.5-5.3 [facility] Comment on above: Performed By: #### 2 198260, 6378582, 74015343, 6253037, 4292557, 0652372 #### [facility] [address] [place] [address] Sodium [Moles/Vol] 131 mmol/L Low 135-145 [facility] Comment on above: Performed By: #### 2 396362, 9593960, 77430551, 2410951, 1955022, 7249579 #### [facility] [address] [place] [address] Urinalysison 12-03-2018 Bilirubin Ql (U) Negative Normal Negative [facility] Comment on above: Performed By: #### 1 0372159 #### [facility] [address] [place] [address] Clarity (U) CLEAR Normal Clear [facility] Comment on above: Performed By: #### 1 1953338 #### [facility] [address] [place] [address] Color (U) YELLOW Normal Yellow [facility] Comment on above: Performed By: #### 1 2696916 #### [facility] [address] [place] [address] Epithelial cells.squamous LM.HPF (Urine sed) [#/Area] 0-2 Normal 0-2 [facility] Comment on above: Performed By: #### 1 8713556 #### [facility] [address] [place] [address] Glucose Test strip (U) [Mass/Vol] Negative Normal Negative [facility] Comment on above: Performed By: #### 1 6207537 #### [facility] [address] [place] [address] Hemoglobin Ql (U) TRACE Abnormal Negative [facility] Comment on above: Performed By: #### 1 0235720 #### [facility] [address] [place] [address] Ketones (U) [Mass/Vol] Negative Normal Negative [facility] Comment on above: Performed By: #### 1 0379185 #### [facility] [address] [place] [address] [place].plasma/[place] .RBC (Bld) [Mass ratio] 0-3 Normal 0-3 [facility] Comment on above: Performed By: #### 1 5607230 #### [facility] [address] [place] [address] Nitrite Ql (U) Negative Normal Negative [facility] Comment on above: Performed By: #### 1 5036378 #### [facility] [address] [place] [address] pH (U) 6.0 [pH] 5.0-9.0 [facility] Comment on above: Performed By: #### 1 8076807 #### [facility] [address] [place] [address] Protein (U) [Mass/Vol] Negative Normal Negative [facility] Comment on above: Performed By: #### 1 0416726 #### [facility] [address] [place] [address] Specific gravity (U) [Rel density] <=1.005 1.005-1.03 0 [facility] Comment on above: Performed By: #### 1 3892039 #### [facility] [address] [place] [address] UA Spec Desc Clean Catch Normal [facility] Comment on above: Performed By: #### 1 3755592 #### [facility] [address] [place] [address] Urobilinogen Qn (U) 0.2 {Annika'U}/dL Normal 0.0-1.0 [facility] Comment on above: Performed By: #### 1 6244171 #### [facility] [address] [place] [address] WBC Auto Ql (U) TRACE Abnormal Negative [facility] Comment on above: Performed By: #### 1 2363134 #### [facility] [address] [place] [address] WBC LM.HPF (Urine sed) [#/Area] 0-5 Normal 0-5 [facility] Comment on above: Performed By: #### 1 4673826 #### [facility] [address] [place] [address] XR Chest 2 Viewson 9 XR Chest 2 Views Exam Date/Time: 12/03/2018 12:11 EDT Reason for Exam: Pre Op Report IMPRESSION: NO EVIDENCE OF ACTIVE CHEST DISEASE. CLINICAL HISTORY: Pre Op. COMMENT: The heart is upper limits of normal in size. There is mild tortuosity of the descending thoracic aorta. The mediastinum is unremarkable. The lungs appear clear. No infiltration nor pleural effusion is evident. FINAL REPORT Dictated: 12/03/2018 1:01 pm Jean-Paul Hernandez M.D. Signed (Electronic Signature): 12/03/2018 1:01 pm Signed by: Jean-Paul Hernandez M.D. Transcribed by: GERA Technologist: RH Normal [facility] eGFRon 12-03-2018 GFR/1.73 sq M predicted among blacks MDRD (S/P/Bld) [Vol rate/Area] mL/min/{1.73_m2} Normal >=59 [facility] Comment on above: Order Comment: Order added by Discern Expert. Result Comment: eGFR is race adjusted. AA=. Performed By: #### 2 270394, 3239433, 50215289, 6613560, 1787325, 7016764 #### [facility] [address] [place] [address] GFR/1.73 sq M predicted among non-blacks MDRD (S/P/Bld) [Vol rate/Area] mL/min/{1.73_m2} Normal >=59 [facility] Comment on above: Order Comment: Order added by Discern Expert. Result Comment: Slot Shift Manager tammie kidney disease could be indicated at eGFR's of less than 60 mL/min/1.73m2. Kidney failure is indicated at less than 15 mL/min/1.73m2. Performed By: #### 2 006881, 6059098, 00071325, 1523159, 1177032, 2937207 #### [facility] [address] [place] [address] VEIN CENTER CONSULTATIONo n 12-24-2017 [facility] [address] [place] [address] Patient: MAU LOPEZ Exam Date: 12/24/2017DOB: 1940 Gender:F : DR ISIS KUMAR Admission #: [id number] : Order #: [id number] HERE TO VIEW EXAM RADIOLOGY REPORT PROCEDURE: [facility] C[facility] CONSULTATION [facility] - OFFICE VISIT INITIAL COMPARISON: [facility] VENOUS REFLUX [place] LMT, 12/23/2017. PROGRESS NOTES: 77-year-old female who presents with a 2 week history of lower extremity achiness and subcutaneous edema, left greater than right. This happened after prolonged sitting on a bus during a vacation and has spontaneously resolved. The patient has used over the counter muscle cramps. The patient denies any current symptoms of pain, achiness, swelling or tiredness. The patient did express concern that varicose veins on both lower extremities were secondary to anti coagulation therapy which she is on for atrial fibrillation. The patient denies any signs and symptoms to suggest arterial ischemia. The patient has a past medical history significant for atrial fibrillation with 2 ablation 's, hypertension and hypothyroidism. The patient is on Eliquis and Synthroid. No illicit drug use. . Past surgical history significant for hysterectomy, appendectomy, eye cataract surgery and right knee arthroscopy. No history of deep venous thrombus or pulmonary embolus. See separate history and physical for medication list. No prior treatment for varicose or spider veins. No use of compression stockings. After review of nurse notes, history and physical exam I discussed at length the pathophysiology of her lower extremity achiness edema and possible treatments, therapies and strategies available. We discussed at length the importance of elevating the lower extremities above the level of the heart, physical activity and frequent rest/exercise breaks instead of prolonged sitting. Ultrasound venous reflux study performed 12/23/17 was discussed at length with the patient. The report demonstrates slightly dilated incompetent right small saphenous vein and bilateral dilated incompetent varicose veins measuring up to 4.7 mm on the right. Despite the presence of incompetent veins, the patient reports no current symptoms at all, she was given the option of continued watchful waiting versus treatment. She did not want to proceed with treatment at this time. She was counseled to continue to observe the legs and was also given guidelines on symptoms of venous disease. The patient was asked to return as needed. PHYSICAL EXAM: The right leg demonstrates mild to moderate scattered varicose veins most significant along the lateral, posterior and medial lower leg. Mild scattered reticular and spider veins. No active ulceration, subcutaneous edema or skin discoloration The left leg demonstrates mild to moderate scattered varicose veins most significant along the lateral, posterior and medial lower leg. Mild scattered reticular and spider veins. No active ulceration, subcutaneous edema or skin discoloration Both thighs, legs and feet were symmetrically warm to the touch. Good posterior tibial and dorsalis pedis pulses were present bilaterally. IMPRESSION: 1. Right small saphenous vein venous insufficiency 2. Mild to moderate bilateral lower extremity varicose veins3. No lower extremity subcutaneous edema4. No flow significant arterial disease5. CEAP: C2, Ep, As, Pr PLAN:1. Elevated legs and increased physical activity symptomatic relief2. Return as needed Nurse notes, history and physical were reviewed and confirmed, see attached forms.The nurse was present throughout the physical exam and consultation Dictated by: Isis Kumar M.D. on 12/24/2017 at 11:21 Approved by: Isis Kumar M.D. on 12/24/2017 at 11:30 Normal [facility] VC VENOUS REFLUX SAN[place]ORD LMTon 0 12-23-2017 VC VENOUS REFLUX [address] [place] [address] Patient: MAU LOPEZ Exam Date: 12/23/2017DOB: 1940 Gender:F : DR ISIS KUMAR Admission #: [id number] : Order #: [id number] HERE TO VIEW EXAM RADIOLOGY REPORT PROCEDURE: VEIN CENTER ULTRASOUND VENOUS REFLUX BILATERAL LIMTED COMPARISON: None. INDICATIONS: Painful varicose veins TECHNIQUE: Duplex imaging of the lower extremity to assess the deep and superficial venous system for the presence of deep or superficial venous incompetence and to document the location and severity of disease. The study includes evaluation of the great saphenous vein (GSV), anterior accessory saphenous vein (AASV) and small saphenous vein (SSV). FINDINGS: RIGHT LOWER EXTREMITY: Saphenofemoral Junction Reflux: NoGSV: Diam (mm) Reflux/Time (sec) TortuousProximal Thigh 4.4 No NoMid Thigh 4.1 No NoDistal Thigh 3.4 No NoProx Calf 3.3 No NoMid Calf 1.6 No NoSaphenopopliteal Junction Reflux: Yes SSV: Proximal Calf 6.2 Yes 1.6 seconds. NoMid Calf 2.1 Yes 1.1 seconds. NoAASV: Not present Proximal Thigh Mid Thigh Distal Thigh Thrombi: No acute or chronic DVT visualized. Compressibility: Normal. Flow: Normal. Tech Note: Patent varicose veins visualized on the posterior lower leg measuring 4.7 mm. LEFT LOWER EXTREMITY: Saphenofemoral Junction Reflux: NoGSV: Diam (mm) Reflux/Time (sec) TortuousProximal Thigh 4.9 No NoMid Thigh 3.1 No NoDistal Thigh 2.9 No NoProximal Calf 2.8 No NoMid Calf 1.8 No NoSaphenopopliteal Junction Reflux: No SSV: Proximal Calf 3.6 No NoMid Calf 3.3 No NoAASV: Not present Proximal Thigh Mid Thigh Distal Thigh Thrombi: No acute or chronic DVT visualized. Compressibility: Normal. Flow: Normal. Tech Note: Small patent varicose veins visualized on the middle lateral lower leg measuring 1.7 mm. CONCLUSION: 1. Patent varicose veins of the distal lower leg bilaterally. 2. Mild reflux within the right small saphenous vein. Dictated by: Jai Bowie M.D. on 12/23/2017 at 15:20 Approved by: Jai Bowie M.D. on 12/23/2017 at 15:23 Normal [facility] Vital Signs Date Time Vital Sign Value Performing Clinician Facility 06-03-2023 13:21-0500 Body weight 64.41 kg MD Mary Oneill Work Phone: [facility] 05-27-2023 07:01-0500 Body height 154.94 cm MD Mary Oneill Work Phone: [facility] 05-27-2023 07:01-0500 Body weight 64.41 kg MD Mary Oneill Work Phone: [facility] 04-29-2023 11:53-0500 Body height 154.94 cm Imad Asaad Other [facility] 04-20-2023 14:30-0500 Body height 154.94 cm Imad Asaad Other [facility] 04-20-2023 14:30-0500 Body mass index (BMI) [Ratio] 26.83 kg/m2 Imad Asaad Other [employer] Other 04-20-2023 14:30-0500 Body weight 64.41 kg Imad Asaad Other [facility] 04-20-2023 14:30-0500 Diastolic blood pressure 64 mm[Hg] Imad Asaad Other [facility] 04-20-2023 14:30-0500 Systolic blood pressure 122 mm[Hg] Imad Duy Other [facility] 04-16-2023 14:56-0500 Body height 154.9 cm Dmitri Garcia MD Work Phone: [facility] 04-16-2023 14:56-0500 Body mass index (BMI) [Ratio] 26.83 kg/m2 Dmitri Garcia MD Work Phone: [facility] 04-16-2023 14:56-0500 Body weight 64.41 kg Dmitri Garcia MD Work Phone: [facility] 04-16-2023 14:56-0500 Diastolic blood pressure 62 mm[Hg] Dmitri Garcia MD Work Phone: [facility] 04-16-2023 14:56-0500 Heart rate 60 /min Dmitri Garcia MD Work Phone: [facility] 04-16-2023 14:56-0500 Systolic blood pressure 106 mm[Hg] Dmitri Garcia MD Work Phone: [facility] 02-27-2023 14:35-0500 Body height 152.4 cm Arabella Witt MD Work Phone: [facility] 02-27-2023 14:35-0500 Body mass index (BMI) [Ratio] 28.32 kg/m2 Arabella Witt MD Work Phone: [facility] 02-27-2023 14:35-0500 Body weight 65.77 kg Arabella Witt MD Work Phone: [facility] 02-27-2023 14:35-0500 Diastolic blood pressure 74 mm[Hg] Arabella Witt MD Work Phone: [facility] 02-27-2023 14:35-0500 Heart rate 80 /min Arabella Witt MD Work Phone: [facility] 02-27-2023 14:35-0500 Systolic blood pressure 120 mm[Hg] Arabella Witt MD Work Phone: [facility] 11-24-2022 08:05-0400 Diastolic blood pressure 73 mm[Hg] Jeferson Hassan MD Work Phone: [facility] 11-24-2022 08:05-0400 Heart rate 60 /min Jeferson Hassan MD Work Phone: [facility] 11-24-2022 08:05-0400 SaO2% (BldA) [Mass fraction] 97 % Jeferson Hassan MD Work Phone: [facility] 11-24-2022 08:05-0400 Systolic blood pressure 124 mm[Hg] Jeferson Hassan MD Work Phone: [facility] 11-24-2022 07:50-0400 Respiratory rate 16 /min Jeferson Hassan MD Work Phone: [facility] 11-24-2022 07:35-0400 Body temperature 97 [degF] Jeferson Hassan MD Work Phone: [facility] 11-24-2022 06:17-0400 Body height 154.9 cm Jeferson Hassan MD Work Phone: [facility] 11-24-2022 06:17-0400 Body mass index (BMI) [Ratio] 26.83 kg/m2 Jeferson Hassan MD Work Phone: [facility] 11-24-2022 06:17-0400 Body weight 64.41 kg Jeferson Hassan MD Work Phone: [facility] 08-20-2022 10:50-0400 Body height 154.94 cm Felisha Heart Other [employer] Other 08-20-2022 10:50-0400 Body mass index (BMI) [Ratio] 26.64 kg/m2 Felisha eHart Other [employer] Other 08-20-2022 10:50-0400 Body weight 63.96 kg Felisha Heart Other [employer] Other 08-20-2022 10:50-0400 Diastolic blood pressure 72 mm[Hg] Felisha Heart Other [employer] Other 08-20-2022 10:50-0400 SaO2% (BldA) [Mass fraction] 98 % Felisha [employer] Other [employer] Other 08-20-2022 10:50-0400 Systolic blood pressure 108 mm[Hg] Felisha [employer] Other [employer] Other 06-24-2022 14:49-0400 Body height 152.4 cm Mary Oneill Work Phone: [employer] [facility] Work Phone: 06-24-2022 14:49-0400 Body mass index (BMI) [Ratio] 27.93 kg/m2 Mary Oneill Work Phone: [employer] [facility] DO Work Phone: 06-24-2022 14:49-0400 Body surface area Derived from formula 1.62 m2 Mary Oneill Work Phone: [employer] [employer] [address] DO Work Phone: 06-24-2022 14:49-0400 Body weight 64.86 kg Mary Oneill Work Phone: [employer] [facility] [address] DO Work Phone: 06-24-2022 14:49-0400 Diastolic blood pressure 68 mm[Hg] Mary Oneill Work Phone: [facility] DO Work Phone: 06-24-2022 14:49-0400 Heart rate 60 /min Mary Oneill Work Phone: [facility] DO Work Phone: 06-24-2022 14:49-0400 Systolic blood pressure 118 mm[Hg] Mary Oneill Work Phone: [facility] DO Work Phone: 04-29-2022 15:15-0500 Body height 152.4 cm Mary Oneill Work Phone: [facility] [place] [address] DO Work Phone: 04-29-2022 15:15-0500 Body mass index (BMI) [Ratio] 27.54 kg/m2 Mary Oneill Work Phone: [facility] [address] DO Work Phone: 04-29-2022 15:15-0500 Body surface area Derived from formula 1.61 m2 Mary Oneill Work Phone: [facility] [address] DO Work Phone: 04-29-2022 15:15-0500 Body weight 63.96 kg Mary Oneill Work Phone: [facility] [address] DO Work Phone: 04-29-2022 15:15-0500 Diastolic blood pressure 84 mm[Hg] Mary Oneill Work Phone: [facility] [address] DO Work Phone: 04-29-2022 15:15-0500 Heart rate 65 /min Mary Oneill Work Phone: [facility] [address] DO Work Phone: 04-29-2022 15:15-0500 Systolic blood pressure 136 mm[Hg] Mary Oneill Work Phone: [facility] [address] DO Work Phone: 02-19-2022 14:52-0500 Body height 152.4 cm Mary Oneill Work Phone: [facility] DO Work Phone: 02-19-2022 14:52-0500 Body mass index (BMI) [Ratio] 27.93 kg/m2 Mary Oneill Work Phone: [facility] DO Work Phone: 02-19-2022 14:52-0500 Body surface area Derived from formula 1.62 m2 Mary Oneill Work Phone: [facility] DO Work Phone: 02-19-2022 14:52-0500 Body weight 64.86 kg Mary Oneill Work Phone: [facility] DO Work Phone: 02-19-2022 14:52-0500 Diastolic blood pressure 68 mm[Hg] Mary Oneill Work Phone: [facility] DO Work Phone: 02-19-2022 14:52-0500 Heart rate 66 /min Mary Oneill Work Phone: [facility] DO Work Phone: 02-19-2022 14:52-0500 Systolic blood pressure 110 mm[Hg] Mary Hines Mai Work Phone: [facility] DO Work Phone: 02-05-2022 14:35-0400 Body height 152.4 cm Mary Oneill Work Phone: [facility] DO Work Phone: 02-05-2022 14:35-0400 Body mass index (BMI) [Ratio] 27.54 kg/m2 Mary Oneill Work Phone: [facility] DO Work Phone: 02-05-2022 14:35-0400 Body surface area Derived from formula 1.61 m2 Mary Oneill Work Phone: [facility] DO Work Phone: 02-05-2022 14:35-0400 Body temperature 98 [degF] Mary Oneill Work Phone: [facility] DO Work Phone: 02-05-2022 14:35-0400 Body weight 63.96 kg Mary Oneill Work Phone: [facility] DO Work Phone: 02-05-2022 14:35-0400 Diastolic blood pressure 68 mm[Hg] Mary Oneill Work Phone: [facility] DO Work Phone: 02-05-2022 14:35-0400 Heart rate 72 /min Mary Oneill Work Phone: [facility] DO Work Phone: 02-05-2022 14:35-0400 Systolic blood pressure 112 mm[Hg] Mary Oneill Work Phone: [facility] DO Work Phone: 12-31-2021 13:39-0400 Body height 152.4 cm Mary Oneill Work Phone: [facility] [address] DO Work Phone: 12-31-2021 13:39-0400 Body mass index (BMI) [Ratio] 27.73 kg/m2 Mary Oneill Work Phone: [facility] [address] DO Work Phone: 12-31-2021 13:39-0400 Body surface area Derived from formula 1.61 m2 Mary Oneill Work Phone: [facility] [address] DO Work Phone: 12-31-2021 13:39-0400 Body weight 64.41 kg Mary Oneill Work Phone: [facility] [address] DO Work Phone: 12-31-2021 13:39-0400 Diastolic blood pressure 68 mm[Hg] Mary Oneill Work Phone: [facility] DO Work Phone: 12-31-2021 13:39-0400 Heart rate 64 /min Mary Oneill Work Phone: [facility] DO Work Phone: 12-31-2021 13:39-0400 Systolic blood pressure 112 mm[Hg] Mary Oneill Work Phone: [facility] DO Work Phone: 09-20-2021 15:45-0400 Body temperature 98.3 [degF] Mary Oneill Work Phone: [facility] DO Work Phone: 09-20-2021 15:45-0400 Diastolic blood pressure 70 mm[Hg] Mary Oneill Work Phone: [facility] DO Work Phone: 09-20-2021 15:45-0400 Heart rate 56 /min Mary Oneill Work Phone: [facility] DO Work Phone: 09-20-2021 15:45-0400 Systolic blood pressure 136 mm[Hg] Mary Oneill Work Phone: [facility] DO Work Phone: 09-12-2021 15:21-0400 Diastolic blood pressure 74 mm[Hg] Mary Oneill Work Phone: [facility] DO Work Phone: 09-12-2021 15:21-0400 Heart rate 56 /min Mary Oneill Work Phone: [facility] DO Work Phone: 09-12-2021 15:21-0400 Systolic blood pressure 130 mm[Hg] Mary Oneill Work Phone: [facility] DO Work Phone: 08-27-2021 14:45-0400 Diastolic blood pressure 88 mm[Hg] Mary Oneill Work Phone: [facility] DO Work Phone: 08-27-2021 14:45-0400 Systolic blood pressure 139 mm[Hg] Mary Oneill Work Phone: [facility] DO Work Phone: 08-27-2021 13:28-0400 Body height 152.4 cm Mary Oneill Work Phone: [facility] DO Work Phone: 08-27-2021 13:28-0400 Body mass index (BMI) [Ratio] 27.54 kg/m2 Mary Oneill Work Phone: [facility] DO Work Phone: 08-27-2021 13:28-0400 Body surface area Derived from formula 1.61 m2 Mary Oneill Work Phone: [facility] DO Work Phone: 08-27-2021 13:28-0400 Body weight 63.96 kg Mary Oneill Work Phone: [facility] DO Work Phone: 08-27-2021 13:28-0400 Diastolic blood pressure 78 mm[Hg] Mary Oneill Work Phone: [facility] DO Work Phone: 08-27-2021 13:28-0400 Heart rate 54 /min Mary Oneill Work Phone: [facility] DO Work Phone: 08-27-2021 13:28-0400 Systolic blood pressure 144 mm[Hg] Mary Oneill Work Phone: [facility] DO Work Phone: 08-27-2021 08:51-0400 Body height 152.4 cm Mary Oneill Work Phone: [facility] [address] DO Work Phone: 08-27-2021 08:51-0400 Body mass index (BMI) [Ratio] 27.39 kg/m2 Mary Oneill Work Phone: [facility] [address] DO Work Phone: 08-27-2021 08:51-0400 Body surface area Derived from formula 1.61 m2 Mary Oneill Work Phone: [facility] DO Work Phone: 08-27-2021 08:51-0400 Body weight 63.62 kg Mary Oneill Work Phone: [facility] [address] DO Work Phone: 08-27-2021 08:51-0400 Diastolic blood pressure 70 mm[Hg] Mary Oneill Work Phone: [facility] DO Work Phone: 08-27-2021 08:51-0400 Heart rate 56 /min Mary Oneill Work Phone: [facility] [address] DO Work Phone: 08-27-2021 08:51-0400 Systolic blood pressure 136 mm[Hg] Mary Oneill Work Phone: [facility] DO Work Phone: 08-13-2021 13:30-0400 65 1 Mary Oneill Work Phone: [facility] [place] Work Phone: Comment on above: [id number] 07-16-2021 13:28-0400 Body height 152.4 cm Mary Oneill Work Phone: [facility] [address] DO Work Phone: 07-16-2021 13:28-0400 Body mass index (BMI) [Ratio] 27.54 kg/m2 Mary Oneill Work Phone: [facility] [address] DO Work Phone: 07-16-2021 13:28-0400 Body surface area Derived from formula 1.61 m2 Mary Oneill Work Phone: [facility] DO Work Phone: 07-16-2021 13:28-0400 Body weight 63.96 kg Mary Oneill Work Phone: [facility] DO Work Phone: 07-16-2021 13:28-0400 Diastolic blood pressure 80 mm[Hg] Mary Oneill Work Phone: [facility] DO Work Phone: 07-16-2021 13:28-0400 Heart rate 60 /min Mary Oneill Work Phone: [facility] DO Work Phone: 07-16-2021 13:28-0400 Systolic blood pressure 132 mm[Hg] Mary Oneill Work Phone: [facility] DO Work Phone: 02-20-2021 14:39-0500 Body height 152.4 cm Mary Oneill Work Phone: [facility] DO Work Phone: 02-20-2021 14:39-0500 Body mass index (BMI) [Ratio] 27.54 kg/m2 Mary Oneill Work Phone: [facility] DO Work Phone: 02-20-2021 14:39-0500 Body surface area Derived from formula 1.61 m2 Mary Oneill Work Phone: [facility] DO Work Phone: 02-20-2021 14:39-0500 Body weight 63.96 kg Mary Oneill Work Phone: [facility] DO Work Phone: 02-20-2021 14:39-0500 Diastolic blood pressure 63 mm[Hg] Mary Oneill Work Phone: [facility] DO Work Phone: 02-20-2021 14:39-0500 Heart rate 59 /min Mary Oneill Work Phone: [facility] DO Work Phone: 02-20-2021 14:39-0500 Systolic blood pressure 139 mm[Hg] Mary Oneill Work Phone: [facility] DO Work Phone: 01-24-2021 11:15-0400 Body height 154.94 cm Isis Hernandez Other [employer] Other 01-24-2021 11:15-0400 Body mass index (BMI) [Ratio] 27.02 kg/m2 Isis Hernandez Other [employer] Other 01-24-2021 11:15-0400 Body temperature 97.1 [degF] Isis Hernandez Other [employer] Other 01-24-2021 11:15-0400 Body weight 64.86 kg Isis Hernandez Other [employer] Other 01-24-2021 11:15-0400 Diastolic blood pressure 58 mm[Hg] Isis Hernandez Other [employer] Other 01-24-2021 11:15-0400 SaO2% (BldA) [Mass fraction] 95 % Isis Hernandez Other [employer] Other 01-24-2021 11:15-0400 Systolic blood pressure 104 mm[Hg] Isis Hernandez Other [employer] Other 01-15-2021 11:29-0400 Body height 152.4 cm Renato Rosario Work Phone: [facility] [address] DO Work Phone: 01-15-2021 11:29-0400 Body mass index (BMI) [Ratio] 27.42 kg/m2 Renato Rosario Work Phone: [facility] [employer] [address] DO Work Phone: 01-15-2021 11:29-0400 Body surface area Derived from formula 1.61 m2 Renato Rosario Work Phone: [facility] DO Work Phone: 01-15-2021 11:29-0400 Body weight 63.68 kg Renato Rosario Work Phone: [facility] [address] DO Work Phone: 01-15-2021 11:29-0400 Diastolic blood pressure 84 mm[Hg] Renato Rosario Work Phone: [facility] [address] DO Work Phone: 01-15-2021 11:29-0400 Heart rate 51 /min Renato Rosario Work Phone: [facility] [address] DO Work Phone: 01-15-2021 11:29-0400 Systolic blood pressure 124 mm[Hg] Renato Rosario Work Phone: [facility] DO Work Phone: Encounters Encounter Date Encounter Type Care Provider Facility Start: 08-11-2023 End: 08-11-2023 ambulatory Mary Oneill Facility:[facility] Start: 08-11-2023 End: 08-11-2023 ambulatory MD Mary Oneill Work Phone: [facility] Work Phone: Start: 08-11-2023 End: 08-11-2023 Patient encounter procedure MD Mary Oneill Work Phone: [facility]-Lab [place] Work Phone: Start: 06-18-2023 End: 06-18-2023 ambulatory BOBBY LAWS Not Available Start: 06-03-2023 End: 06-03-2023 ambulatory MD Mary Oneill Work Phone: [facility] Work Phone: Start: 06-03-2023 End: 06-03-2023 Patient encounter procedure MD Mary Oneill Work Phone: [facility] Work Phone: Start: 06-02-2023 End: 06-02-2023 ambulatory Mary Oneill Facility:[facility] Start: 06-02-2023 End: 06-02-2023 ambulatory MD Mary Oneill Work Phone: [facility] Work Phone: Start: 06-02-2023 End: 06-02-2023 Patient encounter procedure MD Mary Oneill Work Phone: [facility]-CT Scan [place] Work Phone: Start: 05-27-2023 End: 05-27-2023 ambulatory Mary Oneill Facility:[facility] Start: 05-27-2023 End: 05-27-2023 ambulatory MD Mary Oneill Work Phone: [facility] Work Phone: Start: 05-27-2023 End: 05-27-2023 Patient encounter procedure MD Mary Oneill Work Phone: [facility]MRI [facility] [place] Work Phone: Start: 05-15-2023 End: 05-15-2023 ambulatory Mary Oneill Facility:[facility] Start: 05-15-2023 End: 05-15-2023 Patient encounter procedure MD Mary Oneill Work Phone: [facility]-Pacemaker Check Start: 05-11-2023 End: 05-11-2023 ambulatory MARY ONEILL Not Available Start: 04-29-2023 End: 04-29-2023 ambulatory Imad Asaad Other [facility] Other Start: 04-29-2023 Telephone encounter Imad Asaad [facility] Start: 04-29-2023 End: 04-29-2023 Patient encounter procedure MD Mary Oneill Work Phone: [facility]- Start: 04-20-2023 End: 04-20-2023 Patient encounter procedure MD Mary Oneill Work Phone: [facility] [place] Work Phone: Start: 04-20-2023 End: 04-20-2023 ambulatory MD Mary Oneill Work Phone: [facility] Work Phone: Start: 04-20-2023 Office outpatient ne w 45 minutes Imad Asaad [facility] Start: 04-20-2023 End: 04-20-2023 Patient encounter procedure MD Mary Oneill Work Phone: [facility] Work Phone: Start: 04-16-2023 End: 04-16-2023 ambulatory [facility] Ambulatory Start: 04-16-2023 End: 04-16-2023 Office outpatient visit 25 minutes Dmitri Garcia MD Work Phone: [facility] Comment on above: Longstanding persist ent atrial fibrillation (CMS/HCC) (Primary Dx); Primary hypertension; PAC (premature atrial contraction); Palpitation; Pulmonary hypertension (CMS/HCC); Typical atrial flutter (CMS/HCC); Abnormal EKG; Premature ventricular contractions (PVCs) (VPCs); Sinus bradycardia; BMI 27.0-27.9,adult; Never smoked tobacco; Cardiac pacemaker in situ; 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) Start: 04-10-2023 End: 04-10-2023 ambulatory MARY ONEILL Not Available Start: 03-26-2023 End: 03-26-2023 ambulatory MARY ONEILL Not Available Start: 03-19-2023 End: 03-19-2023 ambulatory BOBBY LAWS Not Available Start: 03-13-2023 End: 03-14-2023 ambulatory SANDRO FRAGA Not Available Start: 03-10-2023 End: 03-11-2023 ambulatory MARY ONEILL Not Available Start: 02-27-2023 End: 02-27-2023 ambulatory ARABELLA WITT [facility] Ambulatory Start: 02-27-2023 End: 02-27-2023 Office outpatient visit 25 minutes Arabella Witt MD Work Phone: [facility] Comment on above: Atrial flutter, unsp ecified type (CMS/HCC) (Primary Dx); Sinus bradycardia; Pulmonary hypertension (CMS/HCC); Premature ventricular contractions (PVCs) (VPCs); Palpitation; PAC (premature atrial contraction); Longstanding persistent atrial fibrillation (CMS/HCC); Primary hypertension; Cardiac pacemaker in situ; BMI 28.0-28.9,adult; Never smoked tobacco Start: 02-27-2023 End: 02-27-2023 Subsequent hospital visit by physician [facility] Comment on above: Cardiac pacemaker in situ; Sick sinus syndrome (CMS/HCC) Start: 02-13-2023 End: 02-13-2023 ambulatory Mary Oneill Facility:[facility] Start: 02-13-2023 End: 02-13-2023 ambulatory MD Mary Oneill Work Phone: [facility] Work Phone: Start: 02-13-2023 End: 02-13-2023 Patient encounter procedure MD Mary Oneill Work Phone: [facility]-Pacemaker Check Start: 02-04-2023 End: 02-04-2023 ambulatory Mary Oneill Facility:[facility] Start: 02-04-2023 End: 02-04-2023 ambulatory MD Mary Oneill Work Phone: [facility] Work Phone: Start: 02-04-2023 End: 02-04-2023 Patient encounter procedure MD Mary Oneill Work Phone: [facility]-Lab [place] Work Phone: Start: 01-14-2023 End: 01-14-2023 ambulatory Referral Self Facility:[facility] Start: 01-14-2023 End: 01-14-2023 ambulatory MD Mary Oneill Work Phone: [facility] Work Phone: Start: 01-14-2023 End: 01-14-2023 Patient encounter procedure MD Mary Oneill Work Phone: [facility] Work Phone: Start: 11-24-2022 End: 11-24-2022 ambulatory MARY ONEILL [facility] Start: 11-24-2022 End: 11-24-2022 Subsequent hospital visit by physician Jeferson Hassan MD Work Phone: [facility] Comment on above: Occipital neuralgia, unspecified laterality Start: 11-22-2022 ambulatory [facility] Start: 11-17-2022 ambulatory [facility] Start: 11-17-2022 Encounter for other preprocedural examination JEFERSON HASSAN [facility] Start: 11-14-2022 End: 11-14-2022 ambulatory Mary Oneill Facility:[facility] Start: 11-14-2022 End: 11-14-2022 ambulatory MD Mary Oneill Work Phone: [facility] Work Phone: Start: 11-14-2022 End: 11-14-2022 Patient encounter procedure MD Mary Oneill Work Phone: [facility]-Pacemaker Check Start: 11-14-[address] Mary Oneill Facility:[id number] Start: 09-16-2022 End: 09-16-[address] Mary Oneill Facility:[id number] Start: 09-16-2022 End: 09-16-2022 ambulatory MD Mary Oneill Work Phone: [facility] Work Phone: Start: 09-16-2022 End: 09-16-2022 Patient encounter procedure MD Mary Oneill Work Phone: [facility]-MRI [place] Work Phone: Start: 08-20-2022 Office outpatient ne w 45 minutes Felisha CROSS [facility] Start: 08-20-2022 End: 08-20-2022 ambulatory MD Mary Oneill Work Phone: [facility] [employer] Other Start: 08-20-2022 End: 08-20-2022 Patient encounter procedure MD Mary Oneill Work Phone: [facility]-XRay [place] Work Phone: Start: 08-18-2022 Chart Update Mary Oneill Work Phone: [facility] 600 DO Work Phone: Start: 08-15-2022 Rx Renewal Mary Oneill [facility]: [facility] DO Work Phone: Start: 08-11-[address] Mary gutierrez Adak Facility:[id number] Start: 08-11-2022 End: 08-11-2022 ambulatory MD Mary Oneill Work Phone: [facility] Work Phone: Start: 08-11-2022 End: 08-11-2022 Patient encounter procedure MD Mary Oneill Work Phone: [facility]-Pacemaker Check Start: 08-07-2022 End: 08-07-2022 ambulatory Silvano Leigh Other [employer] [facility] [employer] Other Start: 08-07-2022 Office outpatient vi sit 15 minutes Silvano Leigh [facility] [place] Start: 08-01-2022 End: 08-01-2022 ambulatory MD Mary Oneill Work Phone: [facility] Work Phone: Start: 08-01-2022 End: 08-01-2022 Patient encounter procedure MD Mary Oneill Work Phone: [facility]-Lab [place] Work Phone: Start: 07-17-2022 End: 07-17-2022 ambulatory Silvano Leigh Other [employer] Other Start: 07-17-2022 Office outpatient vi sit 25 minutes Silvano Leigh [facility] [place] Start: 06-24-2022 Office outpatient vi sit 25 minutes Mary Oneill Work Phone: [facility] 250 DO Work Phone: Start: 06-24-[address] Mary Oneill Facility: Start: 05-14-[address] Mary Oneill Facility:[id number] Start: 05-14-2022 End: 05-14-2022 ambulatory MD Mary Oneill Work Phone: [facility] Work Phone: Start: 05-14-2022 End: 05-14-2022 Patient encounter procedure MD Mary Oneill Work Phone: [facility]-Pacemaker Check Start: 05-01-2022 Chart Update Mary Oneill Work Phone: [facility] 320 DO Work Phone: Start: 04-29-2022 Current tobacco non-user cad cap copd pv dm Mary Oneill Work Phone: [facility] 320 DO Work Phone: Start: 04-29-[address] Arabella Witt Facility:[id number] Start: 03-26-2022 End: 03-26-2022 ambulatory MD Mary Oneill Work Phone: [facility] Work Phone: Start: 03-26-2022 End: 03-26-2022 Patient encounter procedure MD Mary Oneill Work Phone: [facility]-[place] COVID Testing Start: 03-03-2022 Telephone encounter Mary isabel Work Phone: [facility] 250 DO Work Phone: Start: 02-19-2022 Office outpatient vi sit 25 minutes Mary Oneill Work Phone: [facility] 250 DO Work Phone: Start: 02-19-[address] Dmitri Garcia Facility: Start: 02-05-[address] Mary Oneill Facility:[id number] Start: 02-05-2022 Postop follow up vis it related to original px Mary Oneill Work Phone: [facility] 250 DO Work Phone: Start: 02-05-2022 WOUNDCHECK, Provider : ANEL JACOBS CLASSIFICATION CASE MANAGER 1,[id number], Status: Pen, Time: 2:30 PM Mary Flora Oneill Work Phone: [facility] 127 DO Work Phone: Start: 02-05-[address] Arabella Witt Facility: Start: 02-05-2022 End: 02-05-2022 ambulatory MD Mary Oneill Work Phone: [facility] Work Phone: Start: 02-05-2022 End: 02-05-2022 Patient encounter procedure MD Mary Oneill Work Phone: [facility]-Pacemaker Check Start: 02-04-2022 Telephone encounter Mary Hines Quinton isabel Work Phone: [facility] 127 DO Work Phone: Start: 01-29-2022 AUDIT Mary Oneill Work Phone: [facility] Work Phone: Start: 01-29-2022 PPG IMPLNT, Provider : [facility] LINING FELLER 4,[id number], Status: Pen, Time: 8:00 AM Mary Flora Oneill Work Phone: [facility] [place] 320 DO Work Phone: Start: 01-29-2022 [facility], Provider: Arabella Witt, Status: Pen, Time: 8:00 AM Mary Oneill Work Phone: [facility] 320 DO Work Phone: Start: 01-29-2022 End: 01-29-[address] Arabella Witt Facility:[id number] Start: 01-27-2022 Chart Update Mary Oneill Work Phone: [facility] 320 DO Work Phone: Start: 01-27-2022 End: 01-27-2022 ambulatory MD Mary Oneill Work Phone: [facility] Work Phone: Start: 01-27-2022 End: 01-27-2022 Patient encounter procedure MD Mary Oneill Work Phone: [facility]-[place] Swab Start: 01-14-2022 End: 01-14-2022 ambulatory MD Mary Oneill Work Phone: [facility] Work Phone: Start: 01-14-2022 End: 01-14-2022 Patient encounter procedure MD Mary Oneill Work Phone: [facility] Start: 12-31-2021 Current tobacco non-user cad cap copd pv dm Mary Oneill Work Phone: [facility] 320 DO Work Phone: Start: 12-31-[address] Arabella Witt Facility: Start: 12-27-2021 End: 12-27-2021 Patient encounter procedure MD Mary Oneill Work Phone: [facility]-Pacemaker Check Start: 12-27-[address] Mary Oneill Facility:[id number] Start: 12-03-2021 End: 12-03-2021 Patient encounter procedure MD Mary Oneill Work Phone: [facility]-Sleep Lab Start: 10-22-2021 End: 10-22-2021 Patient encounter procedure MD Mary Oneill Work Phone: [facility]-Pacemaker Check Start: 09-20-2021 Postop follow up vis it related to original px Mary Oneill Work Phone: [facility] 250 DO Work Phone: Start: 09-11-[address] Arabella Witt Facility:[id number] Start: 09-11-2021 Postop follow up vis it related to original px Mary Oneill Work Phone: [facility] 250 DO Work Phone: Start: 09-05-[address] Arabella Witt Facility:[id number] Start: 09-04-2021 End: 09-04-[address] Arabella Witt Facility:[id number] Start: 08-27-2021 Current tobacco non-user cad cap copd pv dm Mary Oneill Work Phone: [facility] 320 DO Work Phone: Start: 08-13-2021 Patient encounter procedure Mary Oneill Work Phone: [facility] [place] Work Phone: Start: 08-13-[address] Arabella Witt Facility:[id number] Start: 08-06-2021 Patient encounter procedure Mary Oneill Work Phone: [facility] 250 DO Work Phone: Start: 07-16-2021 Current tobacco non-user cad cap copd pv dm Mary Oneill Work Phone: [facility] 320 DO Work Phone: Start: 07-02-2021 Patient encounter procedure Mary Oneill Work Phone: [facility] 250 DO Work Phone: Start: 03-18-2021 Rx Renewal Mary Oneill Work Phone: [facility] [address] [place] Work Phone: Start: 02-20-2021 Office outpatient vi sit 25 minutes Mary Hines Mai Work Phone: [facility] 250 DO Work Phone: Start: 01-24-2021 Office outpatient vi sit [address] [facility] Start: 01-15-2021 Office outpatient vi sit 25 minutes Renato Garland Rosario Work Phone: [facility] 320 DO Work Phone: Start: 12-24-2017 End: 12-25-2017 Patient encounter ISIS KUMAR Facility:H1 Start: 12-23-2017 End: 12-24-2017 Patient encounter ISIS KUMAR Facility: Start: 09-03-2017 Ambulatory ARABELLA EDUAR Facility:[facility] Patient encounter status Mary Oneill Work Phone: [facility] 320 DO Work Phone: Procedures Date Procedure Procedure Detail Performing Clinician Start: 06-02-2023 Computed tomography of abdomen and pelvis with contrast MD Mary Oneill Work Phone: Start: 05-27-2023 MRI of abdomen with contrast MD Mary Oneill Work Phone: Start: 02-27-2023 Ecg routine ecg w/le ast 12 lds w/i&r Arabella Witt MD Work Phone: Start: 02-27-2023 Program eval implant able in persn dual ld pacer Arabella Witt MD Work Phone: Start: 01-14-2023 Screening mammograph y of bilateral breasts MD Mary Oneill Work Phone: Start: 09-16-2022 Dual energy X-ray absorptiometry MD Mary Oneill Work Phone: Start: 09-16-2022 XR pre/post mri xray MD Mary Oneill Work Phone: Start: 09-16-2022 MRI of cervical spin e without contrast MD Mary Oneill Work Phone: Start: 08-20-2022 X-ray of cervical spine MD Mary Oneill Work Phone: Start: 08-18-2022 Echocardiography Mary Oneill Work Phone: Start: 03-26-2022 SARS-CoV-2, Influenz a & RSV (PCR) MD Mary Oneill Work Phone: Start: 01-14-2022 Screening mammograph y of bilateral breasts MD Mary Oneill Work Phone: Start: 08-13-2021 Echocardiography Mary Oneill Work Phone: Appendectomy Renato Webb er Work Phone: Arthroplasty of knee Renato Rosario Work Phone: Cataract surgery Renato seymour Work Phone: Catheter ablation of arrhythmogenic focus Mary Oneill Work Phone: Hysterectomy Renato Webb er Work Phone: Implantation of card iac pacemaker Mary Oneill Work Phone: Implantation of inse rtable loop recorder Mary Oneill Work Phone: Insertion of pacemak er pulse generator Mary Oneill Work Phone: Operative procedure on knee Renato Rosario Work Phone: Removal of device Mary isabel Work Phone: Total colonoscopy Renato atwood Work Phone: Comment on above: Ricky Boss; Plan of Treatment Date Care Activity Detail Author Start: 11-24-2023 End: 11-24-2023 Patient encounter procedure 11/24/2023 1:20 PM EDT Office Visit [facility] [address] [facility] [address] [place] [address] Arabella Witt MD [address] [facility] Medical Office Bldg, [address] [place], [place] [id number] [facility] Start: 11-12-2023 End: 02-28-2024 Cardiac device check - In Clinic Cardiac device check - In Clinic Implantable Cardiac Device Routine Atrial flutter, unspecified type (CMS/HCC) Cardiac pacemaker in situ Expected: 11/12/2023 (Approximate), Expires: 02/28/2024 [facility] Work Phone: Comment on above: Expected: 11/12/2023 (Approximate), Expires: 02/28/2024 Start: 10-22-2023 End: 10-22-2023 Patient encounter procedure 10/22/2023 3:50 PM EDT Office Visit [facility] [address] [place] [address] Dmitri Garcia MD [address], [address] [place] [address] [facility] Start: 08-19-2023 End: 08-19-2023 Patient encounter procedure 08/19/2023 12:30 PM EDT Appointment [facility] [address] [place] [address] [facility] Start: 08-12-2023 End: 02-27-2025 [facility] Transthoracic Transthoracic Echo (TTE) Complete Echocardiography Routine Atrial flutter, unspecified type (CMS/HCC) Longstanding persistent atrial fibrillation (CMS/HCC) Expected: 08/12/2023 (Approximate), Expires: 02/27/2025 [facility] Work Phone: Comment on above: Expected: 08/12/2023 (Approximate), Expires: 02/27/2025 Start: 08-11-2023 [facility] Start: 04-16-2023 End: 04-16-2023 Patient encounter procedure 04/16/2023 3:00 PM EST Office Visit [facility] [address] [place] [address] Dmitri Garcia MD [address], [address] [place] [address] [facility] Start: 02-27-2023 End: 02-28-2024 ECG 12 lead (Ancillary Performed) ECG 12 lead (Ancillary Performed) ECG Routine Atrial flutter, unspecified type (CMS/HCC) Expected: 02/27/2023, Expires: 02/28/2024 [facility] Service Area Work Phone: Comment on above: Expected: 02/27/2023 , Expires: 02/28/2024 Start: 01-20-2023 FUV, Provider: Arabella Witt, Status: Pen, Time: 1:00 PM FUV, Provider: Arabella Witt, Status: Pen, Time: 1:00 PM [facility] DO Work Phone: Start: 01-14-2023 Screening for malign ant neoplasm of breast MAMMOGRAM SCREENING DISCUSSION [facility] Start: 12-24-2022 FUV, Provider: Dmitri Garcia, Status: Pen, Time: 1:20 PM FUV, Provider: Dmitri Garcia, Status: Pen, Time: 1:20 PM [facility] Work Phone: Start: 12-12-2022 Influenza vaccination INFLUENZA VACC INE (#1) [facility] Start: 11-24-2022 End: 11-24-2022 Injection aa&/strd greater occipital nerve INJECTION NERVE GREATER OCCIPITAL Occipital neuralgia, unspecified laterality 11/24/2022 7:22 AM EDT [facility] Start: 09-03-2022 FUV, Provider: Dmitri Garcia, Status: Pen, Time: 1:30 PM FUV, Provider: Dmitri Garcia, Status: Pen, Time: 1:30 PM [facility] Work Phone: Start: 08-18-2022 ECHO, Provider: CYN ARMENTA ULTRASOUND ,[id number], Status: Pen, Time: 9:45 AM ECHO, Provider: CYN SMARTI ULTRASOUND ,[id number], Status: Pen, Time: 9:45 AM [facility] 320 DO Work Phone: Start: 06-24-2022 FUV, Provider: Dmitri Garcia, Status: Pen, Time: 2:30 PM FUV, Provider: Dmitri Garcia, Status: Pen, Time: 2:30 PM [facility] 320 DO Work Phone: Start: 04-29-2022 FUV, Provider: Arabella Witt, Status: Pen, Time: 3:20 PM FUV, Provider: Arabella Witt, Status: Pen, Time: 3:20 PM [facility] [place] Work Phone: Start: 04-29-2022 Patient encounter procedure [id number], Provider: [facility],[id number], Status: Pen, Time: 2:20 PM [facility] [place] Work Phone: Start: 02-19-2022 FUV, Provider: Dmitri Garcia, Status: Pen, Time: 2:50 PM FUV, Provider: Dmitri Garcia, Status: Pen, Time: 2:50 PM [facility] DO Work Phone: Start: 02-05-2022 CECILIO, Provider : ANEL JACOBS CLASSIFICATION CASE MANAGER 1,[id number], Status: Pen, Time: 2:30 PM [facility], Provider: ANEL JACOBS CLASSIFICATION CASE MANAGER 1,[id number], Status: Pen, Time: 2:30 PM [facility] [place] Work Phone: Start: 01-29-2022 [facility], Provider: Arabella Witt, Status: Pen, Time: 8:00 AM [facility], Provider: Arabella Witt, Status: Pen, Time: 8:00 AM [facility] 320 DO Work Phone: Start: 01-14-2022 FUV, Provider: Arabella Witt, Status: Pen, Time: 10:20 AM FUV, Provider: Arabella Witt, Status: Pen, Time: 10:20 AM [facility] 320 DO Work Phone: Start: 01-03-2022 FUV, Provider: Arabella Witt, Status: Pen, Time: 3:00 PM FUV, Provider: Arabella Witt, Status: Pen, Time: 3:00 PM [facility] 250 DO Work Phone: Start: 01-03-2022 Patient encounter procedure [id number], Provider: [facility],[id number], Status: Pen, Time: 2:00 PM [facility] 250 DO Work Phone: Start: 12-31-2021 FUV, Provider: Arabella Witt, Status: Pen, Time: 1:20 PM FUV, Provider: Arabella Witt, Status: Pen, Time: 1:20 PM [facility] 250 DO Work Phone: Start: 09-25-2021 FUV, Provider: Dmitri Garcia, Status: Pen, Time: 2:20 PM FUV, Provider: Dmitri Garcia, Status: Pen, Time: 2:20 PM [facility] 250 DO Work Phone: Start: 09-04-2021 LOOP IMPLA, Provider : [facility] [employer] FELLER 5,[id number], Status: Pen, Time: 11:00 AM LOOP IMPLA, Provider: [facility] 5,[id number], Status: Pen, Time: 11:00 AM [facility] 320 DO Work Phone: Start: 09-04-2021 [facility], Provider: Arabella Witt, Status: Pen, Time: 11:00 AM [facility], Provider: Arabella Witt, Status: Pen, Time: 11:00 AM [facility] 320 DO Work Phone: Start: 08-27-2021 FUV, Provider: Arabella Witt, Status: Pen, Time: 8:40 AM FUV, Provider: Arabella Witt, Status: Pen, Time: 8:40 AM [facility] 320 DO Work Phone: Start: 08-13-2021 ECHO, Provider: CYN HHVI ULTRASOUND 01,[id number], Status: Pen, Time: 1:30 PM ECHO, Provider: CYN HHVI ULTRASOUND 01,[id number], Status: Pen, Time: 1:30 PM [facility] 320 DO Work Phone: Start: 08-06-2021 EVENT ROSANGELA, Provider : ANEL JACOBS CLASSIFICATION CASE MANAGER 1,[id number], Status: Pen, Time: 9:00 AM EVENT ROSANGELA, Provider: ANEL JACOBS CLASSIFICATION CASE MANAGER 1,[id number], Status: Pen, Time: 9:00 AM [facility] DO Work Phone: Start: 04-03-2021 COVID-19 VACCINE (3 - Booster for Peyman series) COVID-19 VACCINE (3 - Booster for Peyman series) [facility] Start: 02-20-2021 FUV, Provider: Dmitri Garcia, Status: Pen, Time: 2:30 PM FUV, Provider: Dmitri Garcia, Status: Pen, Time: 2:30 PM [facility] DO Work Phone: Start: 10-26-2020 Screening for malign ant neoplasm of colon COLORECTAL CANCER SCREENING DISCUSSION [facility] Start: 2000 Hepatitis B Vaccines (1 of 3 - Risk 3-dose series) Hepatitis B Vaccines (1 of 3 - Risk 3-dose series) [facility] Start: 1962 DTaP/Tdap/Td Vaccine s (1 - Tdap) DTaP/Tdap/Td Vaccines (1 - Tdap) [facility] Start: 1961 Screening for malign ant neoplasm of cervix CERVICAL CANCER SCREENING DISCUSSION [facility] Start: 12-06-1959 Hepatitis A Vaccines (1 of 2 - Risk 2-dose series) Hepatitis A Vaccines (1 of 2 - Risk 2-dose series) [facility] Start: 12-06-1959 Third diphtheria, tetanus and acellular pertussis (DTaP) vaccination TDAP (ADULT) [facility] Start: 1958 Diabetes mellitus screening Diabetes Screening [facility] Start: 1940 Lipid panel Lipid Panel [facility] Start: 1940 Medicare Annual Wellness Visit Medicare Annual Wellness Visit (AWV) [facility] Start: 1940 Screening for osteoporosis [facility] Start: 1940 Tetanus vaccination TETANUS [facility] Cardiac device check - In Clinic Cardiac device check - In Clinic Implantable Cardiac Device Routine Cardiac pacemaker in situ Sick sinus syndrome (CMS/HCC) 02/27/2023 2:04 PM EST [facility] Service Area Work Phone: Homogenous nuclear A b pattern [Titer] in Serum [facility] Nuclear Ab [Titer] i n Serum [facility] Immunizations Immunization Date Immunization Notes Care Provider Fa bryant 08-27-2022 Pneumococcal conjuga te vaccine, 20-valent (PREVNAR 20) Arabella Witt MD Work Phone: [facility] Work Phone: 01-12-2022 Fluzone High-Dose Quadrivalent 0.7 ML Intramuscular Suspension Prefilled Syringe Mary Hines [employer] Work Phone: [facility] 320 DO Work Phone: 01-12-2022 influenza virus vacc ine, unspecified formulation Jeferson Hassan MD Work Phone: [facility] 02-06-2021 Peyman COVID-19 Vac cine 0.5 ML Intramuscular Suspension Mary Flora Oneill Work Phone: [facility] 250 DO Work Phone: 01-20-2021 Fluzone High-Dose Quadrivalent 0.7 ML Intramuscular Suspension Prefilled Syringe Mary L [employer] Work Phone: [facility] 250 DO Work Phone: 06-21-2020 Peyman COVID-19 Vac cine 0.5 ML Intramuscular Suspension Renato Rosario Work Phone: [facility] 320 DO Work Phone: 01-21-2020 influenza, seasonal, injectable Renatogeni Bruceagher Work Phone: [facility] DO Work Phone: 07-13-2019 zoster vaccine recombinant Renato A Rosario Work Phone: [facility] DO Work Phone: 01-22-2019 influenza, high dose seasonal, preservative-free Renato A Rosario Work Phone: [facility] DO Work Phone: 01-11-2019 influenza, high dose seasonal, preservative-free Renato A Rosario Work Phone: [facility] DO Work Phone: 01-11-2019 zoster vaccine recombinant Renato A Rosario Work Phone: [facility] DO Work Phone: 08-03-2018 zoster vaccine recombinant Renato A Rosario Work Phone: [facility] DO Work Phone: 07-21-2018 zoster vaccine recombinant Renato A Rosario Work Phone: [facility] DO Work Phone: 02-02-2018 zoster vaccine recombinant Renato A Rosario Work Phone: [facility] DO Work Phone: 02-02-2018 zoster vaccine, live Mary L Hill Work Phone: [facility] DO Work Phone: 01-20-2018 influenza, high dose seasonal, preservative-free Renato A Rosario Work Phone: [facility] DO Work Phone: 01-22-2017 influenza, injectabl e, quadrivalent, preservative free Renato Dada Rosario Work Phone: [place] [address] DO Work Phone: 01-14-2017 influenza, injectabl e, madin sascha canine kidney, preservative free Renato Rosario Work Phone: [place] [address] DO Work Phone: 01-24-2016 pneumococcal polysaccharide vaccine, 23 valent Renato A Rosario Work Phone: [place] [address] DO Work Phone: 01-22-2016 influenza virus vacc ine, unspecified formulation Mary Hines Mai Work Phone: [place] [address] DO Work Phone: 12-17-2015 influenza, seasonal, injectable, preservative free Renato Rosario Work Phone: [place] [address] DO Work Phone: 01-16-2015 influenza virus vacc ine, unspecified formulation Mary Oneill Work Phone: [place] [address] DO Work Phone: 01-16-2015 pneumococcal conjuga te vaccine, 7 valent Mary Oneill Work Phone: [place] [address] DO Work Phone: 01-25-2014 influenza virus vacc ine, unspecified formulation Mary Oneill Work Phone: [place] [address] DO Work Phone: 01-11-2013 influenza, seasonal, injectable Arabella Witt MD Work Phone: [facility] Work Phone: 04-13-2007 pneumococcal polysaccharide vaccine, 23 valent Mary Oneill Work Phone: [facility] [address] DO Work Phone: influenza virus vacc ine, unspecified formulation Mary Oneill Work Phone: -[facility] [address] DO Work Phone: Comment on above: Jan 2013 Payers Date Payer Category Payer Unknown 2022 Self-pay [id number] 2022 Unknown [id number] 2.1 [id number] 2005 Medicare [id number] 2.1 [id number] 2005 Medicare [id number] 1959 Medicare [id number] 1940 Unknown [id number] 2.16.8 40.1.715197.3.579.2.106 1940 Unknown [id number] 2.16.8 40.1.613851.3.579.2.1067 1940 Unknown [id number] 2.16.8 40.1.438677.3.579.2.1067 1940 Unknown [id number] 2.16.8 40.1.506451.3.579.2.1067 1940 Unknown [id number] 2.16.8 40.1.256449.3.579.2.1068 1940 Unknown [id number] 2.16.8 40.1.457781.3.579.2.1068 1940 Unknown [id number] 2.16. 840.1.075035.3.579.2.356 1940 Unknown [id number] 2.16. 840.1.016494.3.579.2.356 1940 Unknown [id number] 2.16. 840.1.923742.3.579.2.356 1940 Unknown [id number] 2.16. 840.1.406688.3.579.2.356 1940 Unknown [id number] 2.16. 840.1.427073.3.579.2.356 1940 Unknown [id number] 2.16. 840.1.104588.3.579.2.356 1940 Unknown [id number] 2.16. 840.1.386398.3.579.2.356 1940 Unknown [id number] 2.16. 840.1.294314.3.579.2.356 1940 Unknown [id number] 2.16. 840.1.503453.3.579.2.356 1940 Unknown [id number] 2.16. 840.1.840299.3.579.2.356 1940 Unknown [id number] 2.16. 840.1.996548.3.579.2.356 1940 Unknown [id number] 2.16.8 40.1.427165.3.579.2.983 1940 Unknown [id number] 2.16.8 40.1.287031.3.579.2.983 1940 Unknown [id number] 2.16.8 40.1.118105.3.579.2.983 1940 Unknown [id number] 2.16.8 40.1.801024.3.579.2.1244 1940 Unknown [id number] 2.16.8 40.1.388073.3.579.2.1244 1940 Unknown [id number] 2.16.84 0.1.308083.3.579.2.1259 1940 Unknown [id number] 2.16.84 0.1.835272.3.579.2.1259 1940 Unknown [id number] 2.16.840 .1.684776.3.579.2.1259 1940 Unknown [id number] 2.16.840 .1.248639.3.579.2.1259 1940 Unknown [id number] 2.16.840 .1.555486.3.579.2.1259 1940 Unknown [id number] 2.16.840 .1.649127.3.579.2.1259 1940 Unknown [id number] 2.16.840 .1.052053.3.579.2.1259 Unknown [id number] 2.16.8 40.1.573410.3.579.2.531 Unknown [id number] 2.16.8 40.1.276340.3.579.2.531 Unknown [id number] 2.16.8 40.1.469473.3.579.2.531 Unknown [id number] 2.16.8 40.1.980371.3.579.2.531 Unknown [id number] 2.16.8 40.1.798798.3.579.2.531 Unknown [id number] 2.16.8 40.1.792718.3.579.2.531 Unknown [id number] 2.16.8 40.1.172311.3.579.2.531 Unknown [id number] 2.16.8 40.1.801996.3.579.2.531 Unknown [id number] 2.16.8 40.1.143552.3.579.2.531 Unknown [id number] 2.16.8 40.1.082820.3.579.2.531 Unknown [id number] 2.16.8 40.1.833403.3.579.2.531 Social History Date Type Detail Facility Start: 11-24-2022 End: 04-16-2023 Never smoker Never smoker [facility] [address] DO Work Phone: Comment on above: 2-3x a year; 1 piece of chocolate or less daily; Start: 11-24-2022 End: 04-16-2023 Sex Assigned At [facility] Other Start: 10-27-2019 End: 10-27-2019 Tobacco smoking status NHIS Never smoked tobacco (finding) [facility] Start: 1940 Sex Assigned At Female F [facility] Start: 11-17-2022 End: 02-27-2023 Tobacco use and exposure Smokeless tobacco non-user [facility] Start: 11-24-2022 End: 04-16-2023 Alcohol intake [facility] Start: 11-17-2022 Alcohol Comment rare [facility] Start: 1940 Sex Assigned At Not on file [facility] [place] Start: 11-14-2022 End: 04-16-2023 Exposure to SARS-CoV-2 (event) Not sure [facility] Start: 02-27-2023 Alcohol intake Ex-drinker (finding) [facility] Work Phone: Start: 04-16-2023 Alcohol Comment rarely [facility] Work Phone: Clinical Notes 12-12-2018 to 04-29-2023 Note Date & Type Note Facility 04-29-2023 Evaluation note Encounter Date Diagnosis Assessment Notes Apr, Abdominal pain (ICD-10 - R10.9) Apr, 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 female Chief Complaint Follow-up HPI Patient is here for follow-up continue management for atrial fibrillation/flutter with prior ablation x 2, sick sinus syndrome status post permanent pacemaker implantation, and hypertension. Since last time I saw her she reports she is feeling well. She described functional class I. She described occasional palpitation. She denies lightheadedness, dizziness or syncope. Her repeat echocardiogram showed moderate range pulmonary hypertension unchanged from before. ASSESSMENT: 1. Atrial fibrillation /flutter with prior radiofrequency ablation, remained in sinus rhythm with no recurrence in a while, she does have frequent premature atrial contractions based on recent Holtermonitor. She is known to have a sick sinus syndrome with prior pacemaker implantation her device check noted and reviewed with her 2. Mildly overweight. 3. Abnormal ECG, but normal LV function and no significant left ventricular hypertrophy noted on prior echo. 4. Hypertension controlled 5. Documentation of ectopic beats based on Holter monitor 6. Moderate degree of pulmonary hypertension. Repeat echo showed no change. We have to entertain the idea of pulmonic vein stenosis in the past. This has been stable and she had functional class I will consider CTA of the pulmonic vein down the road if there is any change RECOMMENDATION: 1. The patient advised to present medical regimen 2. The patient was counseled on losing weight, exercise, and risk factor adjustment. 3. I I reviewed with her her recent echo and lab work 4. I reviewed with her her recent device check 5. Risk, benefit and alternative anticoagulation reviewed with her at length 6. I we will see her back in the office in 6 weeks and follow-up Review of Systems All other systems reviewed and are negative. Visit Vitals BP 106/62 (BP Location: Left arm, Patient Position: Sitting) Pulse 60 Ht 1.549 m (5' 1 ) Wt 64.4 kg (142 lb) BMI 26.83 kg/m Smoking Status Never BSA 1.66 m Objective Physical Exam Constitutional: Appearance: Normal appearance. She is normal weight. HENT: Nose: Nose normal. Neck: Vascular: No carotid bruit. Cardiovascular: Rate and Rhythm: Normal rate. Pulses: Normal pulses. Heart sounds: Normal heart sounds. Pulmonary: Effort: Pulmonary effort is normal. Abdominal: General: Bowel sounds are normal. Palpations: Abdomen is soft. Genitourinary: Rectum: Normal. Musculoskeletal: General: Normal range of motion. Cervical back: Normal range of motion. Right lower leg: No edema. Left lower leg: No edema. Skin: General: Skin is warm and dry. Neurological: General: No focal deficit present. Mental Status: She is alert. Psychiatric: Mood and Affect: Mood normal. Behavior: Behavior normal. Thought Content: Thought content normal. Judgment: Judgment normal. Current Medications Current Outpatient Medications: acetaminophen (Tylenol) 325 mg tablet, Take 2 tablets (650 mg) by mouth every 4 hours if needed (pain)., Disp: , Rfl: apixaban (Eliquis) 2.5 mg tablet, Take 1 tablet (2.5 mg) by mouth 2 times a day., Disp: , Rfl: coenzyme Q-10 (Co Q-10) 100 mg capsule, Take 1.5 capsules by mouth once daily., Disp: , Rfl: estradiol (Climara) 0.025 mg/24 hr patch, Place 1 patch on the skin 1 (one) time per week., Disp: ,Rfl: MAGNESIUM CITRATE ORAL, Take 1 tablet by mouth once daily. 200 mg, Disp: , Rfl: metoprolol succinate XL (Toprol-XL) 25 mg 24 hr tablet, Take 1 tablet (25 mg) by mouth once daily.,Disp: 90 tablet, Rfl: 3 omeprazole OTC (PriLOSEC OTC) 20 mg EC tablet, Take 1 tablet (20 mg) by mouth once daily as needed., Disp: , Rfl: valsartan (Diovan) 80 mg tablet, Take 0.5 tablets (40 mg) by mouth once daily., Disp: , Rfl: Assessment/Plan 1. Longstanding persistent atrial fibrillation (CMS/HCC) 2. Primary hypertension 3. PAC (premature atrial contraction) 4. Palpitation 5. Pulmonary hypertension (CMS/HCC) 6. Typical atrial flutter (CMS/HCC) 7. Abnormal EKG 8. Premature ventricular contractions (PVCs) (VPCs) 9. Sinus bradycardia 10. BMI 27.0-27.9,adult 11. Never smoked tobacco Scribe Attestation By signing my name below, Heather Lyles LPN , Scribe attest that this documentation has been prepared under the direction and in the presence of MD Alhaji. documented in this encounterUniversity [facility] Work Phone: 1(397) 527-564901-04-2024 Instructions* Patient Instructions* Tamar Garrido CMA - 04/16/2023 3:00 PM EST Please bring all medicines, vitamins, and herbal supplements with you when you come to the office. Prescriptions will not be filled unless you are compliant with your follow up appointments or have a follow up appointment scheduled as per instruction of your physician. Refills should be requested at the time of your visit. documented in this encounterUniversity [facility] Work Phone: 1(467) 506-128911-17-2023 History of Present illness Narrative* Arabella Witt MD - 02/27/2023 2:40 PM EST Chief Complaint: Follow-up (10 month follow up.) History Of Present Illness: Mau Lopez is a 82 y.o. female presenting with followup. She is accompanied by her . She hasn't really noticed any atrial fibrillation. She brings her blood pressure and HR log to review. She denies any dizziness, lightheadedness, near-syncope, or syncope. We reviewed today's device check. We also reviewed the last 2 remote checks from [employer]. All device checks have less than 1% atrial fibrillation. She is pleased with low percentage of AF. Last Recorded Vitals: Vitals: 02/27/23 1435 BP: 120/74 BP Location: Left arm Patient Position: Sitting BP Cuff Size: Small adult Pulse: 80 Weight: 65.8 kg (145 lb) Height: 1.524 m (5') Past Medical History: See list Past Surgical History: See list Pacemaker implant January 2022. Loop recorder explant January 2022 Social History: She reports that she has never smoked. She has never used smokeless tobacco. She reports that she does not currently use alcohol. She reports that she does not use drugs. Family History: Family History Problem Relation Name Age of Onset Other (arteriosclerotic cardiovasculr disease) Other Allergies: Meperidine Outpatient Medications: Current Outpatient Medications Medication Instructions acetaminophen (Tylenol) 325 mg tablet 2 tablets, oral, Every 4 hours PRN apixaban (Eliquis) 2.5 mg tablet 1 tablet, oral, 2 times daily coenzyme Q-10 (Co Q-10) 100 mg capsule 1.5 capsules, oral, Daily estradiol (Climara) 0.025 mg/24 hr patch 1 patch, transdermal, Weekly MAGNESIUM CITRATE ORAL 1 tablet, oral, Daily, 200 mg metoprolol succinate XL (TOPROL-XL) 25 mg, oral, Daily omeprazole OTC (PriLOSEC OTC) 20 mg EC tablet 1 tablet, oral, Daily PRN valsartan (DIOVAN) 40 mg, oral, Daily Physical Exam Cardiovascular: Rate and Rhythm: Normal rate. Pulses: Normal pulses. Heart sounds: Normal heart sounds. Comments: Left side device Pulmonary: Effort: Pulmonary effort is normal. Neurological: General: No focal deficit present. Mental Status: She is alert. Last Labs: CBC - No results found for: WBC , HGB , HCT , MCV , PLT CMP - No results found for: CALCIUM , PHOS , PROT , ALBUMIN , AST , ALT , ALKPHOS , BILITOT LIPID PANEL - No results found for: CHOL , TRIG , HDL , CHHDL , LDLF , VLDL , NHDL RENAL FUNCTION PANEL - No results found for: GLUCOSE , NA , K , CL , CO2 , ANIONGAP , BUN , CREATININE , GFRMALE , CALCIUM , PHOS , ALBUMIN No results found for: BNP , HGBA1C Review of Systems Constitutional: Negative. Cardiovascular: Negative. Respiratory: Negative. Neurological: Negative. All other systems reviewed and are negative. Last Cardiology Tests: Device check. Today. [employer] 2272 pacemaker. Estimate longevity device over 7 years. Less than 1% A. fib. 0 VT. 58% atrial pacing and 59% ventricular pacing. Acceptable heart rate histogram. ECG today. NSR, PACs. Normal axis. Qtc 500 ms. Borderline LVH. Inferolateral T wave abnormality. Echo August 2021. Normal LVEF 60%. Mod pulm HTN with RVSP 52.6 mm Hg MIld to mod LA and RA dilation. Event monitor August 2021. No AF Holter Jun 2021. Ave HR 57 bpm. Moderate amount of PAC's. Rare PVC's.No symptoms. No AF. Nuclear testing October 2019 Echocardiogram January 2020 Lab review: I have personally reviewed the laboratory result(s) see above Assessment/Plan Problem List Items Addressed This Visit Cardiac pacemaker in situ Hypertension Longstanding persistent atrial fibrillation (CMS/HCC) PAC (premature atrial contraction) Palpitation Premature ventricular contractions (PVCs) (VPCs) Pulmonary hypertension (CMS/HCC) Atrial flutter (CMS/HCC) - Primary Sinus bradycardia BMI 28.0-28.9,adult Never smoked tobacco Earl Manuel LPN Persistent atrial fibrillation and atrial flutter, s/p PVI ablation x2 in [place], most recent ablation 2016. Chronic. Stable. Monitor for burden of atrial fibrillation by pacemaker Palpitation, may correlate with frequent PAC's. Reviewed medications. Continue medications. Follow-up with cardiology. Chronotropic competence and sinus node dysfunction. Status post pacemaker. Resolution of syncope after pacemaker. [employer] 2272 pacemaker. Reviewed device check. Normal device function. Ordered device checks. Patient follows at [facility] device clinic. Previously adjusted LRL to 60 ppm. High-risk medication - Eliquis. Continue fpc. Refill discussed. Abnormal echo with mild mod LA and RA dilation. LVEF 60% and restrictive pattern. MIld MR and TR. Mod pulm HTN 52.6 mm Hg. Given fatigue and dyspnea, consider high res CT chest for further eval, pulmonary vein stenosis, etc if needed. Follow up with Dr. Garcia. Hypertension, benign, chronic, controlled. Stable. Reviewed medications. Continue meds. Discussed refills. Paroxysmal supraventricular tachycardia / atrial flutter and remote ablation. Chronic. Stable. No clinical recurrence. Empirically treated with metoprolol. Discussed refills. Rare PVC's. See above for treatment of PAC s. Chronic. Stable. Reviewed medications. Discussed refills. Stress test October 2019 normal perfusion. No ischemia. No infarct. Ejection fraction 76%. Previously reviewed test with patient and . Overweight. AHA recommendations for exercise, diet, and behavioral modification reviewed with pt. The patient , , and I have discussed the mechanism of arrhythmia, atrial arrhythmias, prior PVI's , shortness of breath, resolution of near syncope with pacemaker, pacemaker function, pulmonary HTN, bp log, anticoagulation, device follow-up at [facility] as per patient report indications for and types of medications, discussion if and what medication refills needed, treatment options, risks, benefits, and imponderables. [employer] lifestyle changes and behavioral modification discussed. All questions answered in detail. Counseling over 50% visit regarding above. Patient appreciative of care. documented in this encounterUniversity [facility] Work Phone: 1(940) 725-363511-17-2023 Instructions* Patient Instructions* Earl Manuel LPN - 02/27/2023 2:40 PM EST 1 year visit Same medications Echo in August b documented in this encounterUniversity Hospitals [facility] Work Phone: 1(482) 763-450608-14-2023 Miscellaneous Notes* Op Note - Jeferson Hassan MD - 11/24/2022 8:22 AM EDT Operative Report DATE PERFORMED: 11/24/2022 PREOPERATIVE DIAGNOSIS: Occipital neuralgia. POSTOPERATIVE DIAGNOSIS: Occipital neuralgia. PROCEDURE: Bilateral greater occipital nerve block. SURGEON(S): Jeferson Hassan MD PROCEDURE IN DETAIL: Ms. Lopez was taken to the operating room, placed prone on the operating room table. Point of maximal tenderness in the suboccipital region bilaterally were marked. The patient was then sedated under MAC anesthesia. A 22-gauge spinal needle was inserted percutaneously and 30 mL of 0.25% Marcaine and 80 mg of Depo- Medrol were injected bilaterally equally and divided equally. [place] were removed. Pressure was applied. The patient was then turned supine [facility], taken to recovery room in stable and satisfactory condition, having tolerated the procedure well. Dictated By: MD Jeferson Gilmore MD ATTENDING JS/MedQ JOB: [id number] DOC: [id number] * Brief Op Note - Jeferson Hassan MD - 11/24/2022 7:59 AM EDT POST OPERATIVE/PROCEDURE NOTE Mau Lopez ([id number]) SURGEON Surgeon(s) and Role: * Jeferson Hassan MD - Primary RADIOLOGIC TECH None ANESTHESIOLOGIST Anesthesiologist: Charles Manzo DO SURGICAL STAFF Podiatric Foot And Ankle Specialist: Luz Marina Andrade RN Scrub Person: Margaret Fam RN PROCEDURE PERFORMED Procedure(s) (LRB): INJECTION NERVE GREATER OCCIPITAL (N/A) PRIMARY CLOSURE Yes ANESTHESIA (type of) Monitor Anesthesia Care ESTIMATED BLOOD LOSS Minimal DRAINS None BLOOD PRODUCTS None FLUIDS No intake or output data in the 24 hours ending 11/24/22 0759 PRE OPERATIVE DIAGNOSIS Occipital neuralgia, unspecified laterality [M54.81] POST OPERATIVE DIAGNOSIS Post-Op Diagnosis Codes: * Occipital neuralgia, unspecified laterality [M54.81] FINDINGS No significant abnormalities CONDITION OF PATIENT Stable COMPLICATIONS None GRAFTS AND/OR IMPLANTS See OR Nursing Documentation SPECIMENS No specimen sent * No specimens in log * Jeferson Hassan MD November 24, 2022 7:59 AM documented in this [facility]08-14-2023 Surgery Postoperative evaluation and management note* Op Note - Jeferson Hassan MD - 11/24/2022 8:22 AM EDT Operative Report DATE PERFORMED: 11/24/2022 PREOPERATIVE DIAGNOSIS: Occipital neuralgia. POSTOPERATIVE DIAGNOSIS: Occipital neuralgia. PROCEDURE: Bilateral greater occipital nerve block. SURGEON(S): Jeferson Hassan MD PROCEDURE IN DETAIL: Ms. Lopez was taken to the operating room, placed prone on the operating room table. Point of maximal tenderness in the suboccipital region bilaterally were marked. The patient was then sedated under MAC anesthesia. A 22-gauge spinal needle was inserted percutaneously and 30 mL of 0.25% Marcaine and 80 mg of Depo- Medrol were injected bilaterally equally and divided equally. [place] were removed. Pressure was applied. The patient was then turned supine [facility], taken to recovery room in stable and satisfactory condition, having tolerated the procedure well. Dictated By: MD Jeferson Gilmore MD ATTENDING YASMINE/MedQ JOB: [id number] DOC: [id number] [facility] Work Phone: 1(187) 451-652708-14-2023 Surgery Postoperative evaluation and management note* Brief Op Note - Jeferson Hassan MD - 11/24/2022 7:59 AM EDT POST OPERATIVE/PROCEDURE NOTE Mau Lopez ([id number]) SURGEON Surgeon(s) and Role: * Jeferson Hassan MD - Primary RADIOLOGIC TECH None ANESTHESIOLOGIST Anesthesiologist: Charles Manzo DO SURGICAL STAFF Podiatric Foot And Ankle Specialist: Luz Marina Andrade RN Scrub Person: Margaret Fam RN PROCEDURE PERFORMED Procedure(s) (LRB): INJECTION NERVE GREATER OCCIPITAL (N/A) PRIMARY CLOSURE Yes ANESTHESIA (type of) Monitor Anesthesia Care ESTIMATED BLOOD LOSS Minimal DRAINS None BLOOD PRODUCTS None FLUIDS No intake or output data in the 24 hours ending 11/24/22 0759 PRE OPERATIVE DIAGNOSIS Occipital neuralgia, unspecified laterality [M54.81] POST OPERATIVE DIAGNOSIS Post-Op Diagnosis Codes: * Occipital neuralgia, unspecified laterality [M54.81] FINDINGS No significant abnormalities CONDITION OF PATIENT Stable COMPLICATIONS None GRAFTS AND/OR IMPLANTS See OR Nursing Documentation SPECIMENS No specimen sent * No specimens in log * Jeferson Hassan MD November 24, 2022 7:59 AM [facility]08-14-2023 Hospital Discharge instructions* Discharge Instructions* Diana Ramirez RN - 11/24/2022 7:54 AM EDT POST SPINAL BLOCK/DISCOGRAM HOME INSTRUCTIONS Dr. Hassan [facility] Following Your Procedure - Do not drive a car or operate any heavy machinery for 24 hours. - Do not drink alcoholic beverages (beer or wine included) for 24 hours. - Delay making important decisions until you are fully recovered from your procedure. - Have a sponsor drive you home from the hospital. Activity at Home - Gentle activities today. You may resume normal activities tomorrow. - Limit the amount of heavy lifting and strenuous exercise to a minimum. Incision Care - You may take a shower tomorrow. PLEASE MAKE SURE NOTHING IS RUBBING AGAINST SURGICAL SITE Diet - You may return to your normal daily diet. Slightly increase the amount of fluids you drink today. Medications - Pain medications should be kept to a minimum in order to determine effectiveness of the procedure. All other routine daily medications should be restarted unless specified by your doctor. When to Call Your Surgeon - Your temperature is 101 degrees or above and does not come down with Tylenol. - You notice drainage, increased redness, or warmth at the injection site. - You have calf pain or unusual swelling in your lower legs. - If you are experiencing shortness of breath, chest pain, or abnormal coughing CALL 911. - Call the office with any questions, problems, or to schedule your next appointment. Our number [phone]. YOU MAY DRIVE WHEN NO LONGER TAKING ANY NARCOTICS AND FEEL SAFE TO DO SO documented in this [facility]08-14-2023 Nurse Surgical operation note* Luz Marina Andrade RN - 11/24/2022 7:38 AM EDT To op bay #8. Report to Diana [facility]08-14-2023 Nurse Note* Luz Marina Andrade RN - 11/24/2022 7:38 AM EDT To op bay #8. 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 Multilevel degenerative changes of the cervical spine. At the C2-C3 there is a small disc osteophyte complex with mild canal stenosis. C3-C4 there is a small disc osteophyte without significant canal stenosis mild bilateral neuroforaminal narrowing noted. C4-C5 small disc osteophyte complexuncinated hypertrophy and facet degenerative changes with moderate canal stenosis. C5-C6 Severe bilateral neural foraminal narrowing. C6-C7 mild canal stenosis. C7-T1 small disc osteophyte complex without canal stenosis again multilevel degenerative changes of the cervical spine with moderate and severe neuroforaminal narrowing most prominent at C5-C6. Which is consistent with the patient's radicular symptoms of the left arm involvement. Education completed on conservative therapy patient has completed pain management with Dr. Ivey will refer to physical/aqua therapy at [facility]. Will order an x-ray of the cervical spine flexion and extension and an MRI to determine interventional procedures. Patient denies history of osteoporosis. However, has not had a recent DEXA scan, within last 2 years, will order DEXA scan with forearm. Discussion of pharmacological management: OARRS reviewed, patient currently using [id number]-[id number] medications, Tylenol. Will order lidocaine patch and will get OTC thermapatch. Follow-up with Dr. Short once imaging is completed. Medical decision making shows a new problem to me with further workup planned or suggested with the potential for extensive treatment options that were considered with the most applicable given this patient's situation as noted above. Treatment options considered include a combination of physical therapy approaches, pharmacologic management, and interventional procedures. Those most applicable to the patient were discussed at this time. Risk of complications and/or morbidity and mortality is high given that acute and chronic pain poses a threat to life and bodily function if undertreated, poorly treated or with failure to maintain adequate treatment and timely follow up. Given the serious and fluctuating nature of pain with extensive consideration for whenever pain changes, there always remains the possibility of prolonged functional impairment requiring constant patient reassessment and high-level medical decision making. The amount and complexity of data reviewed is moderate given that patient labs, radiology reports, and other test were obtained, reviewed and summarized as applicable from the physician portal and/or outside medical records. Pertinent positive and negative findings were considered in medical decision-making. August, Post-menopausal (ICD-10 - Z78.0) August, Encounter for screening for depression (ICD-10 - Z13.31) PHQ reviewed score 0 negative screening [employer] Other 04-27-2023 Evaluation note* Encounter Date Diagnosis Assessment Notes Treatment Notes Treatment Clinical Notes Jul, Cervical osteoarthritis (ICD-10 - M47.812) Patients primary complaint today is progressing cervical pain. We discussed proceeding with a repeat cervical facet radiofrequency ablation however the patient is hesitant and would like more time to consider this. She will call into the office should she wish to proceed. Risks and benefits of procedure explained to patient; patient verbalizes understanding. We will follow up with the patient as needed. Anatomy of spine discussed in detail with patient in regards to patients condition. Jul, Cervical muscle pain (ICD-10 - M54.2) Jul, Other chronic pain (ICD-10 - G89.29) Jul, Other Above note writ ten by Vini Laws MA, Gas Engineer. Edited and approved by Dr. Silvano Leigh MD. [employer] Other 04-06-2023 Evaluation note* Encounter Date Diagnosis Assessment Notes Treatment Notes Treatment Clinical Notes Jul, Cervical osteoarthritis (ICD-10 - M47.812) Jul, Cervical muscle pain (ICD-10 - M54.2) We discussed treatment options for the patient's persistent cervical muscle pain. Patient shows notable muscle tenderness upon exam. Given location of pain and exam findings, patient cervical trigger point injections, which we will proceed with today in the office. Risks and benefits of procedure explained to patient; patient verbalizes understanding. Patient tolerated this well. In the future if the pain persists, we can consider repeat cervical facet radiofrequency ablation. Anatomy of spine discussed in detail with patient in regard to patients condition. We will follow up with her in three weeks, sooner if needed. Jul, Other chronic pain (ICD-10 - G89.29) Jul, Other Above note writ ten by [place] LPN, Gas Engineer. Edited and approved by Dr. Silvano Leigh MD. [employer] Other 10-19-2022 NotePre-procedure Verification and Time Out: Pre-Procedure Verification and Time Out: Procedure Locationprocedure area HUDDLE - Pre-procedure Verificationcompleted TIME OUT - Final Verificationcompleted immediately prior to procedure start DEBRIEFcompleted General Information: Anesthesia Critical Care: Non-Anesthesia Date/Time of Procedure: 29-Jan-2022 Post-Procedure Diagnosis: Tachycardia bradycardia syndrome; sinus davidson dysfunction Procedure Name: Dual chamber pacemaker implant; Loop recorder explant; Loop recorder analysis and reprogramming Findings: grossly normal anatomy Procedure performed by: mn Director Of Rotc(s): none Estimated Blood Loss (mL): none Specimen: no Indication(s): Tachycardia bradycardia syndrome; sinus davidson dysfunction Informed Consent: written consent obtained Procedure Details: Procedure Details: Permanent Pacemaker System Implantation Dual Chamber Summary: Successful implantation of a dual-chamber permanent pacemaker. The pacing and sensing thresholds were satisfactory. Recommendations: 1.The patient should continue with the present medications. Discharge: 1.The patient recovered uneventfully from the effects of conscious sedation. The patient left the EP laboratory in stable condition and was transferred to the telemetry unit. Follow up: 1.The patient will remain in the hospital for telemetry monitoring and observation, with anticipated discharge on the same day. The patient should be alert for bleeding, swelling, or signs of infection. The patient should call the loading dock helper immediately if symptoms recur, or for any problems. The patient and family ( via telephone with HIPAA consent) have been instructed accordingly. 2.Follow up with [facility] office in seven days at [facility] for post-operative wound assessment. 3.Follow up with [facility] in twelve weeks for routine device analysis and reprogramming if necessary. Remote monitoring will be instituted if possible. Procedures: RV and RA lead implantation. Pocket fashioned. Dual-chamber permanent pacemaker implantation. Device testing. Explant of loop recorder. Pre operative analysis of loop recorder. Patient history: Please refer to the detailed history and physical on the patient's medical chart. Diagnosis Tachycardia bradycardia syndrome; sinus davidson dysfunction Procedure narrative: The risks, benefits, and alternatives to the procedure and sedation were explained to the patient, and informed consent was obtained. The patient was in the fasting state. A grounding pad was placed. Self-adhesive anterior-posterior defibrillation pads were applied. A ZOLL defibrillator was used for monitoring and the defibrillator waveform was set to biphasic. The patient was set up for continuous monitoring of surface 12 lead ECG and pulse oximetry. Blood pressure was monitored. The procedure was performed under IV conscious sedation. The upper chest was prepped and draped in the usual sterile fashion. Local anesthesia: After preoperative IV antibiotic was completely infused, subcutaneous tissues just medial to the left deltopectoral area, were infiltrated with Lidocaine 1 % and Marcaine 0.25% for local anesthesia. 1. The device was analyzed and reprogrammed. The superior margin of the loop recorder was demarcated under fluoroscopic guidance. The left chest was then approached for pacemaker implant. Using a #15 scalpel, an incision was made, which was extended to the prepectoral fascia using blunt dissection. The left/right cephalic vein was identified, the distal end was tied off, and using Bello scissors, a venotomy was created. 2. A lead was then advanced to the heart via fluoroscopic guidance, and the ventricle was mapped. The lead was fixed to the right ventricular distal septum. After lead placement, appropriate sensing and thresholds were obtained. No diaphragmatic pacing occurred at 10V and 1.5ms. Complex procedure - additional 40 minutes for mapping the atrium and lead placement 3. A second lead was advanced to the heart, and the atrium was mapped. The atrium was dilated. The J stylets did not have enough reach to allow positioning of the atrial lead. A tangerine stylet was used. This also did not have enough reach. Individual custom curves with a hockey stick curve or with a large J curve were fashioned. The lead position was not stable. A perinatal instructor was used. This provided greater reach, and the lead was fixed to the lateral right atrium. After lead placement, appropriate sensing and thresholds were obtained. No diaphragmatic pacing occurred at 10V and 1.5 ms. 4. The leads were sutured in place to the pectoralis muscle. A second suture was placed around each lead sleeve. Hemostasis was obtained with bovie cautery and a t (more content not included)...[facility]10-19-2022 Note History & Physical Reviewed: I have reviewed the History and Physical dated: 31-Dec-2021 History and Physical reviewed and relevant findings noted. Patient examined to review pertinent physical findings.: Significant findings noted below Findings: Shared decision making performed. Patient agrees to loop explant and pacemaker implant. All questions answered in detail. Consent updated. Home Medications Reviewed: no changes noted Allergies Reviewed: no changes noted Airway/Sedation Assessment: Emotional Statusanxious Neurologicalert & oriented x 3 Respiratoryclear to auscultation Cardiovascularrhythm & rate regular GI/GUsoft, nontender Pulsespresent: Pedal Left, Pedal Right, Radial Left, Radial Right Mouth Opening OKyes Neck Flexibility OKyes Loose Teethno Oropharyngeal ClassificationClass II ASA PS ClassificationASA III Sedation Planmoderate sedation Consent: COVID-19 Consent: COVID-19 Risk ConsentSurgeon has reviewed more risks related to the risk of karen COVID-19 and if they contract COVID-19 what the risks are. Electronic Signatures: Arabella Witt) (Signed 29-Jan-2022 09:33) Authored: History & Physical Reviewed, Airway/Sedation, Consent, Note Completion Last Updated: 29-Jan-2022 09:33 by Arabella Witt)[facility] 01[facility]20[facility] (Normal[facility]Range:Negative Comments:Testing for SARS-CoV-2 by RT-PCR This test was developed and its performance characteristics determined by [employer] ([employer]) and validated at the [facility]. This test has not been FDA cleared or approved. This test has been authorized by FDA under an Emergency Use Authorization (EUA). This test has been validated in accordance with the FDA's Guidance Document (Policy for Diagnostics Testing in Laboratories Certified to Perform High Complexity Testing under CLIA prior to Emergency Use Authorization for Coronavirus Disease-2019 during the Public Health Emergency) issued on July 14, 2019. This test is only authorized for the duration of time the declaration that circumstances exist justifying the authorization of the emergency use of in vitro diagnostic tests for detection of SARS-CoV-2 virus and/or diagnosis of COVID-19 infection under section 564(b)(1) of the Act, 21 U.S.C. 360bbb-3(b)(1), unless the authorization is terminated or revoked sooner.PERFORMED BY:[place] [id number] [place] [place] [id number] MEDICAL DIRECTORAYANA CLEMENTE M.D. [facility] [address] DO Work Phone: Comment on above:Testing for SARS-CoV-2 by RT-PCR This test was developed and its performance characteristics determined by [employer] ([employer]) and validated at the [facility]. This test has not been FDA cleared or approved. This test has been authorized by FDA under an Emergency Use Authorization (EUA). This test has been validated in accordance with the FDA's Guidance Document (Policy for Diagnostics Testing in Laboratories Certified to Perform High Complexity Testing under CLIA prior to Emergency Use Authorization for Coronavirus Disease-2019 during the Public Health Emergency) issued on July 14, 2019. This test is only authorized for the duration of time the declarationthat circumstances exist justifying the authorization of the emergency use of in vitro diagnostic tests for detection of SARS-CoV-2 virus and/or diagnosis of COVID-19 infection under section 564(b)(1) of the Act, 21 U.S.C. 360bbb-3(b)(1), unless the authorization is terminated or revoked sooner.PERFORMED BY:[place] [address] [address] [place] [id number] MEDICAL DIRECTORAYANA CLEMENTE M.D. 01-27-2022 NoteFR COVID-19 [facility] (Normal[facility]Range:Negative Comments:Testing for SARS-CoV-2 by RT-PCR This test was developed and its performance characteristics determined by [employer] ([employer]) and validated at the [facility]. This test has not been FDA cleared or approved. This test has been authorized by FDA under an Emergency Use Authorization (EUA). This test has been validated in accordance with the FDA's Guidance Document (Policy for Diagnostics Testing in Laboratories Certified to Perform High Complexity Testing under CLIA prior to Emergency Use Authorization for Coronavirus Disease-2019 during the Public Health Emergency) issued on July 14, 2019. This test is only authorized for the duration of time the declaration that circumstances exist justifying the authorization of the emergency use of in vitro diagnostic tests for detection of SARS-CoV-2 virus and/or diagnosis of COVID-19 infection under section 564(b)(1) of the Act, 21 U.S.C. 360bbb-3(b)(1), unless the authorization is terminated or revoked sooner.PERFORMED BY:[place] [address] JOSE DAWSONVincentCYN [place] [phone] MEDICAL DIRECTORAYANA CLEMENTE M.D. [facility] Work Phone: Comment on above:Testing for SARS-CoV-2 by RT-PCR This test was developed and its performance characteristics determined by [employer] ([employer]) and validated at the [facility]. This test has not been FDA cleared or approved. This test has been authorized by FDA under an Emergency Use Authorization (EUA). This test has been validated in accordance with the FDA's Guidance Document (Policy for Diagnostics Testing in Laboratories Certified to Perform High Complexity Testing under CLIA prior to Emergency Use Authorization for Coronavirus Disease-2019 during the Public Health Emergency) issued on July 14, 2019. This test is only authorized for the duration of time the declarationthat circumstances exist justifying the authorization of the emergency use of in vitro diagnostic tests for detection of SARS-CoV-2 virus and/or diagnosis of COVID-19 infection under section 564(b)(1) of the Act, 21 U.S.C. 360bbb-3(b)(1), unless the authorization is terminated or revoked sooner.PERFORMED BY:[facility] [place] [id number] MEDICAL DIRECTORAYANA CLEMENTE M.D. 01-27-2022 NoteFR COVID-19 [facility] (Normal)Range:Negative Comments:Testing for SARS-CoV-2 by RT-PCR This test was developed and its performance characteristics determined by [employer] ([place]) and validated at the [facility]. This test has not been FDA cleared or approved. This test has been authorized by FDA under an Emergency Use Authorization (EUA). This test has been validated in accordance with the FDA's Guidance Document (Policy for Diagnostics Testing in Laboratories Certified to Perform High Complexity Testing under CLIA prior to Emergency Use Authorization for Coronavirus Disease-2019 during the Public Health Emergency) issued on July 14, 2019. This test is only authorized for the duration of time the declaration that circumstances exist justifying the authorization of the emergency use of in vitro diagnostic tests for detection of SARS-CoV-2 virus and/or diagnosis of COVID-19 infection under section 564(b)(1) of the Act, 21 U.S.C. 360bbb-3(b)(1), unless the authorization is terminated or revoked sooner.PERFORMED BY:[place] [address] [place], [place] [phone] MEDICAL DIRECTORAYANA CLEMENTE M.D. [place] [address] DO Work Phone: Comment on above:Testing for SARS-CoV-2 by RT-PCR This test was developed and its performance characteristics determined by [employer] ([employer]) and validated at the [facility]. This test has not been FDA cleared or approved. This test has been authorized by FDA under an Emergency Use Authorization (EUA). This test has been validated in accordance with the FDA's Guidance Document (Policy for Diagnostics Testing in Laboratories Certified to Perform High Complexity Testing under CLIA prior to Emergency Use Authorization for Coronavirus Disease-2019 during the Public Health Emergency) issued on July 14, 2019. This test is only authorized for the duration of time the declarationthat circumstances exist justifying the authorization of the emergency use of in vitro diagnostic tests for detection of SARS-CoV-2 virus and/or diagnosis of COVID-19 infection under section 564(b)(1) of the Act, 21 U.S.C. 360bbb-3(b)(1), unless the authorization is terminated or revoked sooner.PERFORMED BY:[place] [address] [address] [place] [phone] MEDICAL DIRECTORAYANA CLEMENTE M.D. 01-27-2022 NoteFRMC COVID-19 [facility] (Normal)Range:Negative Comments:Testing for SARS-CoV-2 by RT-PCR This test was developed and its performance characteristics determined by [employer] ([place]) and validated at the [facility]. This test has not been FDA cleared or approved. This test has been authorized by FDA under an Emergency Use Authorization (EUA). This test has been validated in accordance with the FDA's Guidance Document (Policy for Diagnostics Testing in Laboratories Certified to Perform High Complexity Testing under CLIA prior to Emergency Use Authorization for Coronavirus Disease-2019 during the Public Health Emergency) issued on July 14, 2019. This test is only authorized for the duration of time the declaration that circumstances exist justifying the authorization of the emergency use of in vitro diagnostic tests for detection of SARS-CoV-2 virus and/or diagnosis of COVID-19 infection under section 564(b)(1) of the Act, 21 U.S.C. 360bbb-3(b)(1), unless the authorization is terminated or revoked sooner.PERFORMED BY:[facility] [place], [place] [phone] MEDICAL DIRECTORAYANA CLEMENTE M.D. [place] [address] DO Work Phone: Comment on above:Testing for SARS-CoV-2 by RT-PCR This test was developed and its performance characteristics determined by [employer] ([place]) and validated at the [facility]. This test has not been FDA cleared or approved. This test has been authorized by FDA under an Emergency Use Authorization (EUA). This test has been validated in accordance with the FDA's Guidance Document (Policy for Diagnostics Testing in Laboratories Certified to Perform High Complexity Testing under CLIA prior to Emergency Use Authorization for Coronavirus Disease-2019 during the Public Health Emergency) issued on July 14, 2019. This test is only authorized for the duration of time the declarationthat circumstances exist justifying the authorization of the emergency use of in vitro diagnostic tests for detection of SARS-CoV-2 virus and/or diagnosis of COVID-19 infection under section 564(b)(1) of the Act, 21 U.S.C. 360bbb-3(b)(1), unless the authorization is terminated or revoked sooner.PERFORMED BY:[place] [address] [address] [place] [phone] MEDICAL DIRECTORAYANA CLEMENTE M.D. 01-27-2022 NoteFR COVID-19 [facility] (Normal)Range:Negative Comments:Testing for SARS-CoV-2 by RT-PCR This test was developed and its performance characteristics determined by [employer] ([employer]) and validated at the [facility]. This test has not been FDA cleared or approved. This test has been authorized by FDA under an Emergency Use Authorization (EUA). This test has been validated in accordance with the FDA's Guidance Document (Policy for Diagnostics Testing in Laboratories Certified to Perform High Complexity Testing under CLIA prior to Emergency Use Authorization for Coronavirus Disease-2019 during the Public Health Emergency) issued on July 14, 2019. This test is only authorized for the duration of time the declaration that circumstances exist justifying the authorization of the emergency use of in vitro diagnostic tests for detection of SARS-CoV-2 virus and/or diagnosis of COVID-19 infection under section 564(b)(1) of the Act, 21 U.S.C. 360bbb-3(b)(1), unless the authorization is terminated or revoked sooner.PERFORMED BY:[place] [address] [address] [place] [phone] MEDICAL DEVIN CLEMENTE M.D. [facility] DO Work Phone: Comment on above:Testing for SARS-CoV-2 by RT-PCR This test was developed and its performance characteristics determined by [employer] ([place]) and validated at the [facility]. This test has not been FDA cleared or approved. This test has been authorized by FDA under an Emergency Use Authorization (EUA). This test has been validated in accordance with the FDA's Guidance Document (Policy for Diagnostics Testing in Laboratories Certified to Perform High Complexity Testing under CLIA prior to Emergency Use Authorization for Coronavirus Disease-2019 during the Public Health Emergency) issued on July 14, 2019. This test is only authorized for the duration of time the declarationthat circumstances exist justifying the authorization of the emergency use of in vitro diagnostic tests for detection of SARS-CoV-2 virus and/or diagnosis of COVID-19 infection under section 564(b)(1) of the Act, 21 U.S.C. 360bbb-3(b)(1), unless the authorization is terminated or revoked sooner.PERFORMED BY:[facility] [id number] MEDICAL DIRECTORAYANA CLEMENTE M.D. 09-04-2021 NotePre-procedure Verification and Time Out: Pre-Procedure Verification and Time Out: Procedure Locationprocedure area HUDDLE - Pre-procedure Verificationcompleted TIME OUT - Final Verificationcompleted immediately prior to procedure start DEBRIEFcompleted General Information: Anesthesia Critical Care: Non-Anesthesia Date/Time of Procedure: 04-Sep-2021 Post-Procedure Diagnosis: palpitation, atrial fibrillation Procedure Name: implant of cardiac loop recorder Findings: grossly normal anatomy Procedure performed by: Director Of Rotc(s): none Estimated Blood Loss (mL): none Specimen: no Indication(s): palpitation, atrial fibrillation Informed Consent: written consent obtained Procedure Details: Procedure Details: Cardiac Event Recorder Implantation Summary: Successful implantation of a cardiac event recorder. Recommendations: 1.The patient should continue with the present medications. Discharge: 1.The patient left the EP laboratory in stable condition. Follow up: 1.The patient will be discharged on the day of the procedure, following bed rest and subsequent ambulation, provided the recovery parameters are appropriate. The patient should be alert for bleeding, swelling, or signs of infection. The patient should call the loading dock helper immediately if symptoms recur, or for any problems. The patient and family ( via telephone with HIPAA consent) have been instructed accordingly. Procedures: Insertion implantable event recorder. Device reprogramming. . Patient history: Please refer to the detailed history and physical on the patient's medical chart. Diagnosis palpitation, atrial fibrillation Procedure narrative: The risks, benefits, and alternatives to the procedure and sedation were explained to the patient, and informed consent was obtained. The patient was in the fasting state. A grounding pad was placed. Self-adhesive anterior-posterior defibrillation pads were applied. A defibrillator was used for monitoring and the defibrillator waveform was set to biphasic. The patient was set up for continuous monitoring of surface 12 lead ECG and pulse oximetry. Blood pressure was monitored. The procedure was performed under IV conscious sedation. The upper chest was prepped and draped in the usual sterile fashion. Local anesthesia: After preoperative IV antibiotic was infused, subcutaneous tissues were infused with Lidocaine 1 % and Marcaine 0.25% for local anesthesia. 1.An incision was made in the left parasternal area in the fourth intercostal space. 2.An implantable cardiac event recorder ([facility] [id number] # [id number] ) was inserted subcutaneously using the insertion tool, and excellent intracardiac recordings were obtained. 3. The skin was approximated with a suture of 3-0 Vicryl, skin adhesive, and steri strips. A sterile dressing was applied. 4.The device was programmed to automatically detect heart rates below 30 beats per minute and above 170 beats per minute. The patient was transferred to the telemetry unit. See signed procedural log and parameters. Complications: The patient tolerated the procedure without any complications or incident. EBL 0 cc Specimens obtained: No Prepared and signed by. Tolerance: good Complications: none Electronic Signatures: Arabella Witt) (Signed 04-Sep-2021 09:08) Authored: Pre-procedure Verification and Time Out, General Information, Procedure Details, Note Completion Last Updated: 04-Sep-2021 09:08 by Arabella Witt)[facility] 09-04-2021 NoteHistory & Physical Reviewed: I have reviewed the History and Physical dated: 27-Aug-2021 History and Physical reviewed and relevant findings noted. Patient examined to review pertinent physical findings.: No significant changes Home Medications Reviewed: no changes noted Allergies Reviewed: no changes noted Airway/Sedation Assessment: Emotional Statusanxious Neurologicalert & oriented x 3 Respiratoryclear to auscultation Cardiovascularrhythm & rate regular GI/GUsoft, nontender Pulsespresent: Pedal Left, Pedal Right, Radial Left, Radial Right Mouth Opening OKyes Neck Flexibility OKyes Loose Teethno Oropharyngeal ClassificationClass II ASA PS ClassificationASA III Sedation Planlight sedation Consent: COVID-19 Consent: COVID-19 Risk ConsentSurgeon has reviewed more risks related to the risk of karen COVID-19 and if they contract COVID-19 what the risks are. Electronic Signatures: Arabella Witt) (Signed 04-Sep-2021 08:41) Authored: History & Physical Reviewed, Airway/Sedation, Consent, Note Completion Last Updated: 04-Sep-2021 08:41 by Arabella Witt)[facility] 01-24-2021 Evaluation note* Encounter Date Diagnosis Assessment Notes Treatment Notes Treatment Clinical Notes Jan, Obstructive sleep apnea (ICD-10 - G47.33) Fortunately the patient is using and benefiting from treatment. With slight elevation in AHI we will adjust her maximum to 14 cm. Body weight has crept up since last download, which may account for higher pressure needs. 90 percentile pressure.also implies she sometimes needs more air than the current settings allow. She would like a new machine which we will order, and we anticipate return for 31 to 90-day visit as required by insurance Jan, Other Call if any questions or problems. Patient is advised to work on healthy diet choices and appropriate servings, weight control, regular exercise as directed, and reduce fat intake. Use machine regularly, and keep up with mask changes as needed. Call if problems with mask toleration, increased sleepiness, or poor response to treatment. . [employer] Other 09-01-2019 History general Narrative - Reported* Type Description Date Medical History a.fib Medical History GERD Medical History HTN Surgical History cardiac ablation Surgical History right knee replacement 12/2018 Surgical History right knee arthroscopy Surgical History total hysterectomy Surgical History cataract removal Surgical History appendectomy [employer] Other 09-01-2019 History general Narrative - Reported* Type Description Date Medical History a.fib Medical History GERD Medical History HTN Medical History RONEL Surgical History cardiac ablation Surgical History right knee replacement 12/2018 Surgical History right knee arthroscopy Surgical History total hysterectomy Surgical History cataract removal Surgical History appendectomy [employer] Other Evaluation noteNo assessment information available [facility] Work Phone: Evaluation note* Diagnosis Atrial flutter, unspecified type (CMS/HCC)- Primary Sinus bradycardia Other specified cardiac dysrhythmias Pulmonary hypertension (CMS/HCC) Other chronic pulmonary heart diseases Premature ventricular contractions (PVCs) (VPCs) Other premature beats Palpitation Palpitations PAC (premature atrial contraction) Supraventricular premature beats Longstanding persistent atrial fibrillation (CMS/HCC) Primary hypertension Unspecified essential hypertension Cardiac pacemaker in situ BMI 28.0-28.9,adult Never smoked tobacco documented in this encounter [facility] Work Phone: Evaluation note* Diagnosis Cardiac pacemaker in situ Sick sinus syndrome (CMS/HCC) Sinoatrial node dysfunction documented in this encounter [facility] Work Phone: Evaluation note* Diagnosis Longstanding persistent atrial fibrillation (CMS/HCC)- Primary Primary hypertension Unspecified essential hypertension PAC (premature atrial contraction) Supraventricular premature beats Palpitation Palpitations Pulmonary hypertension (CMS/HCC) Other chronic pulmonary heart diseases Typical atrial flutter (CMS/HCC) Abnormal EKG Nonspecific abnormal electrocardiogram (ECG) (EKG) Premature ventricular contractions (PVCs) (VPCs) Other premature beats Sinus bradycardia Other specified cardiac dysrhythmias BMI 27.0-27.9,adult Never smoked tobacco Cardiac pacemaker in situ 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) Sinoatrial node dysfunction documented in this encounter [facility] Work Phone: Evaluation note* Diagnosis Onset Date Resolution Status Hemangioma acute [facility] Work Phone: History general Narrative - Reported* Type Description Date Medical History a.fib Medical History GERD Medical History HTN Medical History RONEL Medical History Arthritis Medical History cataracts Medical History gall bladder disease Medical History heart disease Medical History pacemaker Surgical History cardiac ablation Surgical History right knee replacement 12/2018 Surgical History right knee arthroscopy Surgical History total hysterectomy Surgical History cataract removal Surgical History appendectomy Hospitalization History see surg [employer] Other History general Narrative - Reported* Type Description Date Medical History a.fib Medical History GERD Medical History HTN Medical History RONEL Medical History Arthritis Medical History cataracts Medical History gall bladder disease Medical History heart disease Medical History pacemaker Surgical History cardiac ablation Surgical History right knee replacement 12/2018 Surgical History right knee arthroscopy Surgical History total hysterectomy Surgical History cataract removal Surgical History appendectomy Surgical History cardiac pacemeker Hospitalization History see surg HX [employer] Other History of Present illness Narrative* She is here for electrophysiology evaluation * The patient and are here to discuss atrial fibrillation * The patient denies any lightheadedness, near syncope, syncope, palpitation, chest discomfort, dyspnea, DIEGO with mild exertion, PND, or edema. * Brings with her her list of blood pressures. On her blood pressure recordings her times of irregular heartbeat. She does not really feel atrial fibrillation. She believes they may be PACs. * See ROS, PMH, FMH, and surgical history for details. * The patient denies any recent hospitalization, procedure, or urgent care visit. * Personal review of ECG and cardiac data reviewed * Outside records: * Nuclear testing October 2019 * Echocardiogram January 2020 * ECG: Today. Sinus bradycardia. Normal axis. Corrected QT interval 450 ms ; nonspecific ST changes. * Imp / Plan * Persistent atrial fibrillation and atrial flutter, s/p PVI ablation x2 in [place], most recent ablation 2015. Chronic. Stable. Reviewed EKG with patient and . Echo with normal EF 65% in January 2020. Reviewed medication. Continue Eliquis and Bystolic. Declined and continues to decline loop recorder to assess for arrhythmia with symptoms. We reviewed that her irregular heart rate reading on her blood pressure machine could be her PACs. * High-risk medication - Eliquis. She continues to take lower dose than recommended Eliquis and understands risk of suboptimal anticoagulation what is considered standard dose anticoagulation * Abnormal echo with mild LA dilation, mild valvular heart disease with mild mitral vegetation tricuspid regurgitation in January 2020 echocardiogram. Defer to cardiology frequency of follow-up echocardiogram. Chronic. Stable. * Hypertension, benign, chronic, controlled. Stable. Reviewed medications. Increase valsartan to 60 mg daily. Refills discussed. She will keep a log of her blood pressure and follow-up with cardiology for further adjustment medication if needed. * Paroxysmal supraventricular tachycardia / atrial flutter and remote ablation. Chronic. Stable. No clinical recurrence. Reviewed medications. Reviewed EKGs. Also reviewed when to take Bystolic. I recommended taking half tablet twice daily, but the patient declined to do so as she feels her heart rate is too slow at times. Also, we discussed magnesium oxide rather than magnesium citrate, and she declines to change magnesium formulation as magnesium citrate helps with constipation. * Symptomatic PACs and PVC's. Chronic. Stable. Reviewed medications. Continue magnesium, of which shereports she can only tolerate magnesium citrate. * Stress test October 2019 normal perfusion. No ischemia. No infarct. Ejection fraction 76%. Reviewed test with patient and . * Overweight. * AHA recommendations for exercise, diet, and behavioral modification reviewed with pt. * The patient and I and has discussed the mechanism of arrhythmia, atrial arrhythmias, EKG, PACs, prior PVI, echocardiogram results, stress test results, anticoagulation, subtherapeutic anticoagulation, copy of EKG given to patient per her request, indications for and types of medications, discussion if and what medication refills needed, treatment options, risks, benefits, and imponderables. [employer] lifestyle changes and behavioral modification discussed. All questions answered in detail. Counseling over 50% visit regarding above. Patient appreciative of care. * Total time [facility] minutes [facility] Work [facility]: History of Present illness Narrative* ASSESSMENT: * 1. Atrial fibrillation /flutter with prior radiofrequency ablation, remained in sinus rhythm with no recurrence in a while, she does have frequent premature atrial contractions based on recent Holtermonitor. * 2. Mildly overweight. * 3. Abnormal ECG, but normal LV function and no significant left ventricular hypertrophy noted on prior echo. * 4. Hypertension controlled * 5. Rate documentation of PVCs * RECOMMENDATION: * 1. The patient was advised to switch her Edarbi to valsartan 40 mg daily and to continue to monitorblood pressure and if it remains elevated to notify me and will increase valsartan * 2. The patient was counseled on losing weight, exercise, and risk factor adjustment. * 3. I will see the patient back in 6-month * 4. I reviewed with her her [facility] Work Phone: History of Present illness Narrative* Patient is here for follow-up continue management for history of atrial fibrillation/flutter with prior ablation with continued symptoms of palpitation due to PACs, hypertension and mildly overweight. Since last time I saw her she describe some symptoms of palpitation in addition she has been describing symptoms of arthritis. She is convinced that it is related to Diovan. She had been in the paston ARB without any side effect. She demanded to be switched to olmesartan. * ASSESSMENT: * 1. Atrial fibrillation /flutter with prior radiofrequency ablation, remained in sinus rhythm with no recurrence in a while, she does have frequent premature atrial contractions based on recent Holtermonitor. * 2. Mildly overweight. * 3. Abnormal ECG, but normal LV function and no significant left ventricular hypertrophy noted on prior echo. * 4. Hypertension controlled * 5. Rate documentation of PVCs * RECOMMENDATION: * 1. The patient request to change Diovan to olmesartan due to concern about arthritis. We will do that and start at 20 mg daily. * 2. The patient was counseled on losing weight, exercise, and risk factor adjustment. * 3. I will see the patient back in 6-month * 4. Patient advised to repeat lab work * 5. Risk, benefit and alternative anticoagulation reviewed with her at length [facility] [place] Work Phone: History of Present illness Narrative* She is here for electrophysiology evaluation * The patient and are here to discuss Holter monitor. * She can feel her PAC's daily. It makes her tired and short of breath. * When she wore the 24 hour monitor, she didn't have many symptoms. * She tracks her bp and HR on her bp monitor. SHe's had irregular heart beats and slow beats. Bystolic was discontinued due to side effects. Then her PAC s increased in frequency. * The patient denies any near syncope, syncope, chest discomfort, orthopnea, PND, or edema. * See ROS, PMH, FMH, and surgical history for details. * The patient denies any recent hospitalizationor urgent care visit. * Personal review of ECG and cardiac data reviewed * Outside records: * Holter Jun 2021. Ave HR 57 bpm. Moderate amount of PAC's. Rare PVC's.No symptoms. No AF. * OV with me Jan 2021 * ECG Jan 2021 * Nuclear testing October 2019 * Echocardiogram January 2020 * Imp / Plan * Persistent atrial fibrillation and atrial flutter, s/p PVI ablation x2 in [place], most recent ablation 2016. Chronic. Stable. Palpitation, may correlate with PAC's. Reviewed Holter with patient and . Echo with normal EF 65% in January 2020. Reviewed medication. Change to Mg Ox to 400 mg daily. Restart Bystolic at 2.5 mg after 1 week of Mg Ox. Declined and continues to decline loop recorder to assess for arrhythmia with symptoms. 7 day event monitor after 2 weeks of Bystolic. Echo to reeval LVEF. If symptomatic bradycardia then dual chamber pacemaker. * High-risk medication - Eliquis. She continues to take lower dose than recommended Eliquis and understands risk of suboptimal anticoagulation what is considered standard dose anticoagulation * Abnormal echo with mild LA dilation, mild valvular heart disease with mild mitral vegetation tricuspid regurgitation in January 2020 echocardiogram. Chronic. * Hypertension, benign, chronic, controlled. Stable. Reviewed medications. Reenforced that pt should be taking valsartan 60 mg daily as noted in last OV with me. Refills discussed. * Paroxysmal supraventricular tachycardia / atrial flutter and remote ablation. Chronic. Stable. No clinical recurrence. Reviewed medications. Reviewed EKGs. Also reviewed Bystolic. * Rare PVC's. See above for treatment of PAC s. Chronic. Stable. Reviewed medications. Adjust meds asabove * Stress test October 2019 normal perfusion. No ischemia. No infarct. Ejection fraction 76%. Reviewed test with patient and . * Overweight. * AHA recommendations for exercise, diet, and behavioral modification reviewed with pt. * The patient and I and have discussed the mechanism of arrhythmia, atrial arrhythmias, Holter, PACs, PVC's prior PVI, echocardiogram results, stress test results, bp log, anticoagulation, subtherapeutic anticoagulation, copy of EKG given to patient per her request, indications for and types of medications, discussion if and what medication refills needed, treatment options, risks, benefits, and imponderables. [employer] lifestyle changes and behavioral modification discussed. All questions answered in detail. Counseling over 50% visit regarding above. Patient appreciative of care. -[facility] DO Work Phone: History of Present illness Narrative* She is here for electrophysiology evaluation * The patient and are here to discuss Holter monitor. * She can feel her PAC's several times a day. She doesn't like her beta roger because it makes her tired and short of breath. It feels the same as when she had AF. * She brings her log with irregular HR readings. * We reviewed her 7 day monitor which showed no AF but did show isolated and consecutive PAC s up to 3 beats. * She is very anxious. Mg Ox makes loose stool. Bystolic makes her tired. PAC s make her tired. * The patient denies any near syncope, syncope, chest discomfort, orthopnea, PND, or edema. * See ROS, PMH, FMH, and surgical history for details. * Personal review of ECG and cardiac data reviewed * Outside records: * Echo August 2021. Normal LVEF 60%. Mod pulm HTN with RVSP 52.6 mm Hg * Event monitor August 2021. No AF * Holter Jun 2021. Ave HR 57 bpm. Moderate amount of PAC's. Rare PVC's.No symptoms. No AF. * OV with me Jan 2021 * ECG Jan 2021 * Nuclear testing October 2019 * Echocardiogram January 2020 * Imp / Plan * Persistent atrial fibrillation and atrial flutter, s/p PVI ablation x2 in [place], most recent ablation 2015. Chronic. Stable. Palpitation, may correlate with PAC's. Reviewed event monitor and echo. Pt very anxious. Extended discussion 64 minutes re: no AF, PAC's, loop recorder, and what are indcations for pacemaker. She will take Bystolic every other day per her request, as she's too tired with daily dosing. Shared decision making. Discussed loop recorder. Reviewed model of loop recorder. Consented. If loop recorder shows symptomatic bradycardia in future, then dual chamber pacemaker. * High-risk medication - Eliquis. She continues to take lower dose than recommended Eliquis and understands risk of suboptimal anticoagulation what is considered standard dose anticoagulation. Hold Eliquis x 24 hours before procedure. * Abnormal echo with mild LA dilation, mild valvular heart disease with mild mitral vegetation tricuspid regurgitation in January 2020 echocardiogram. Chronic. * Moderate pulmonary HTN by echo August 2021. New interval finding. Defer to cardiology and PCP for treatment. Pulm HTN may be contributing to symptoms. * Hypertension, benign, chronic, controlled. Stable. Reviewed medications. Continue meds. Refills dsicussed * Paroxysmal supraventricular tachycardia / atrial flutter and remote ablation. Chronic. Stable. No clinical recurrence. Reviewed medications. Reviewed event monitor.. Also reviewed Bystolic. * Rare PVC's. See above for treatment of PAC s. Chronic. Stable. Reviewed medications. See above. Refills discussed. * Stress test October 2019 normal perfusion. No ischemia. No infarct. Ejection fraction 76%. Reviewed test with patient and . * Overweight. * AHA recommendations for exercise, diet, and behavioral modification reviewed with pt. * The patient and I and have discussed the mechanism of arrhythmia, atrial arrhythmias, eventmontior, PACs, PVC's prior PVI, echocardiogram results, pulmonary HTN, bp log, anticoagulation, subtherapeutic anticoagulation, preop for loop recorder, indications for and types of medications, discussion if and what medication refills needed, treatment options, risks, benefits, and imponderables.[employer] lifestyle changes and behavioral modification discussed. All questions an swered in detail. Counseling over 50% visit regarding above. Patient appreciative of care. [facility] [facility] DO Work Phone: History of Present illness Narrative* She is here for electrophysiology evaluation * The patient and are here to discuss loop recorder and palpitation. * She feels worse since PVI x 2 in [place]. * Every day she feels palpitation. * She has worked up Mg dose to Mg Ox 400 mg and Mg Citrate. * She can only take Bystolic 2.5 mg daily. * We reviewed loop recorder check with frequent PAC's. * The patient is agreeable to try alternating doses of Bystolic 2.5 mg and 5 mg. * We reviewed her personal bp and irregular HR log. * She continues to be anxious. She gets diarrhea with higher dose Mg Ox and Bystolic makes her tired. * She is fatigued , short of breath, feels palpitation, and has near syncope every day. * The patient denies any syncope, chest discomfort, orthopnea, PND, or edema. * See ROS, PMH, FMH, and surgical history for details. * Personal review of ECG and cardiac data reviewed * Outside records: * Device check Dec 2021 * Device check Nov 2021 * Device check October 2021 * Device check September 2021 * OV with me August 2021 * Echo August 2021. Normal LVEF 60%. Mod pulm HTN with RVSP 52.6 mm Hg MIld to mod LA and RA dilation. * Event monitor August 2021. No AF * Holter Jun 2021. Ave HR 57 bpm. Moderate amount of PAC's. Rare PVC's.No symptoms. No AF. * ECG Jan 2021 * Nuclear testing October 2019 * Echocardiogram January 2020 * Device check. 2021. NSR, PAC S and PVC s * HR histogram blunted with HR 40-50's bpm * ECG today. NSR, sinus arrhythmia. PAC. Normal axis. Qtc 450 ms. Inferolateral T wave abnormality. * Imp / Plan * Persistent atrial fibrillation and atrial flutter, s/p PVI ablation x2 in [place], most recent ablation 2015. Chronic. Stable. Palpitation, may correlate with PAC's. Will attempt to increase Bystolicto 2.5 mg alternating with 5 mg. Unable to tolerate higher dose Mg. * Sinus bradycardia with PAC s. HR 40-50's bpm. Chronotropic incompetence with fatigue and near syncope. Shared decision making performed. Camp decision tool. Indications for pacemaker Will plan for dual chamber pacemaker. Once pacer implanted, then plan for increase in Bystolic. * High-risk medication - Eliquis. Continue fpc. Refill discussed. * Abnormal echo with mild mod LA and RA dilation. LVEF 60% and restrictive pattern. MIld MR and TR. Mod pulm HTN 52.6 mm Hg. Given fatigue and dyspnea, consider high res CT chest for further eval, pulmonary vein stenosis, etc if needed. Follow up with Dr. Garcia. * Hypertension, benign, chronic, controlled. Stable. Reviewed medications. Continue meds. Refills discussed * Paroxysmal supraventricular tachycardia / atrial flutter and remote ablation. Chronic. Stable. No clinical recurrence. Reviewed medications in detail. * Rare PVC's. See above for treatment of PAC s. Chronic. Stable. Reviewed medications. See above. Refills discussed. * Stress test October 2019 normal perfusion. No ischemia. No infarct. Ejection fraction 76%. Reviewed test with patient and . * Overweight. * AHA recommendations for exercise, diet, and behavioral modification reviewed with pt. * The patient and I and have discussed the mechanism of arrhythmia, atrial arrhythmias, priorPVI's , echocardiogram results, pulmonary HTN, bp log, anticoagulation, preop for pacemaker, indications for and types of medications, discussion if and what medication refills needed, treatment optio ns, risks, benefits, and imponderables. [employer] lifestyle changes and behavioralmodification discussed. All questions answered in detail. Counseling over 50% visit regarding above. Patient appreciative of care. * Extended time of visit to discuss PAC's, echo with dilated atria, meds, side effects of meds, and pacemaker. * I also updated Dr. Garcia regarding above. -[facility] [address] DO Work Phone: History of Present illness Narrative* Patient is here for follow-up continue management for history of paroxysmal atrial fibrillation with prior ablation x2, will continue complain of palpitation. She clearly has an element of sick sinussyndrome and recently underwent pacemaker implantation historically she has been treated with diastolic due to tendency to have bradycardia. Her previous work-up including the presence of pulmonary hypertension is moderately elevated. She denies lightheadedness, dizziness or syncope. She is Functional class II. * ASSESSMENT: * 1. Atrial fibrillation /flutter with prior radiofrequency ablation, remained in sinus rhythm with no recurrence in a while, she does have frequent premature atrial contractions based on recent Holtermonitor. Recent documentation of bradycardia and sick sinus syndrome underwent pacemaker implantation * 2. Mildly overweight. * 3. Abnormal ECG, but normal LV function and no significant left ventricular hypertrophy noted on prior echo. * 4. Hypertension optimally controlled * 5. Rate documentation of PVCs and * 6. Recent documentation of moderate degree of pulmonary hypertension she is functional class I she is 80 years old. She has no lung disease this is a new finding and I suggested for the time being with recommend to repeat echo in 6 months to a year and advised the patient to notify if she had changes in her shortness of breath. One of the concerns is pulmonary venous stenosis considering she had a previous ablation x2 * RECOMMENDATION: * 1. The patient advised to try to switch from diastolic to metoprolol XL 50 mg once daily to see if her palpitation will improve * 2. The patient was counseled on losing weight, exercise, and risk factor adjustment. * 3. I will see the patient back in 6-month and plan to repeat her echocardiogram if pulmonary pressure remains elevated will consider CTA to look for pulmonic vein stenosis * 4. I reviewed with her her recent hospitalization record and pacemaker check * 5. Risk, benefit and alternative anticoagulation reviewed with her at length * 6. I we will see her back in the office in 6 weeks and follow-up [facility]la DO Work Phone: History of Present illness Narrative* She is here for electrophysiology follow-up * The patient and are here to discuss l pacemaker. * She feels worse since PVI x 2 in [place]. * She inquires if remote PVI's added to her shortness of breath. We did discuss that pulmonary vein stenosis can occur with PVI's. Defer to PCP for further evaluation. * For symptomatic bradycardia, she had pacemaker implanted in January 2022. She used to have daily episodes of near syncope, and those resolved since pacemaker was implanted. * Her arrhythmia symptoms have stabilized. She may feel better with her heart rate at 60 bpm rather than 50 bpm. * She can feel sharp episodes of rapid beat that lasts for about 20 beats in a row. We reviewed that her device check did not show any tachycardia. We also discussed that the device was tweaked to increase the sensitivity of diagnosis. * I reviewed with the patient and her how pacemaker works and that it does not prevent atrialfibrillation. * We reviewed her personal heart rate and blood pressure log. * The patient denies any syncope, chest discomfort, orthopnea, PND, or edema. * See ROS, PMH, FMH, and surgical history for details. * Personal review of ECG and cardiac data reviewed * Outside records: * OV with Dr. Garcia February 2022 * Pacemaker implant January 2022. Loop recorder implant January 2022 * Device check Dec 2021 * OV with me December 2021 * Echo August 2021. Normal LVEF 60%. Mod pulm HTN with RVSP 52.6 mm Hg MIld to mod LA and RA dilation. * Event monitor August 2021. No AF * Holter Jun 2021. Ave HR 57 bpm. Moderate amount of PAC's. Rare PVC's.No symptoms. No AF. * ECG Jan 2021 * Nuclear testing October 2019 * Echocardiogram January 2020 * Device check. Today. [employer] 2272 pacemaker. Estimate longevity device over 10.2 years. 0 A. fib. 0 VT. 11% atrial pacing and 9% ventricular pacing. Acceptable heart rate histogram. * Chest x-ray pending * ECG today. NSR,. PACs. Normal axis. Qtc 450 ms. LVH. Inferolateral T wave abnormality. * Imp / Plan * Persistent atrial fibrillation and atrial flutter, s/p PVI ablation x2 in [place], most recent ablation 2016. Chronic. Stable. Monitor for burden of atrial fibrillation. Pacemaker * Palpitation, may correlate with PAC's. Reviewed medications. Continue medications. Follow-up with cardiology. * Chronotropic competence and sinus node dysfunction. Status post pacemaker. Resolution of syncope after pacemaker. * [employer] 2272 pacemaker. Reviewed device check. Normal device function. Ordered device checks. Patient follows at [facility] device clinic. Will change normal rate limit back to 60 bpm after May 20 after giving patient a trial of approximately 1 month with a lower rate limit of 50 bpm. It is hard to distinguish symptoms with any arrhythmias versus attempting to minimize atrial pacing which may contribute to pacer syndrome symptoms. I did discuss with the patient and her the concept of symptoms due to the timing of the closure of the valves given rhythm and heart rate * High-risk medication - Eliquis. Continue fpc. Refill discussed. * Abnormal echo with mild mod LA and RA dilation. LVEF 60% and restrictive pattern. MIld MR and TR. Mod pulm HTN 52.6 mm Hg. Given fatigue and dyspnea, consider high res CT chest for further eval, pulmonary vein stenosis, etc if needed. Follow up with Dr. Garcia. * Hypertension, benign, chronic, controlled. Stable. Reviewed medications. Continue meds. Discussed refills. * Paroxysmal supraventricular tachycardia / atrial flutter and remote ablation. Chronic. Stable. No clinical recurrence. Empirically treated with metoprolol. Discussed refills. * Rare PVC's. See above for treatment of PAC s. Chronic. Stable. Reviewed medications. Discussed refills. * Stress test October 2019 normal perfusion. No ischemia. No infarct. Ejection fraction 76%. Reviewed test with patient and . * Overweight. * AHA recommendations for exercise, diet, and behavioral modification reviewed with pt. * The patient and I and her have discussed the mechanism of arrhythmia, atrial arrhythmias, prior PVI's , shortness of breath, resolution of near syncope with pacemaker, pacemaker function, response of pacemaker to PAC s and atrial fibrillation, pulmonary HTN, bp log, anticoagulation, device follow-up at [facility] as per patient report indications for and types of medications, discussion if and what medication refills needed, treatment options, risks, benefits, and imponderables. [employer] lifestyle changes and behavioral modification discussed. All questions answ ered in detail. Counseling over 50% visit regarding above. Patient appreciative of care. -[facility] 320 DO Work Phone: History of Present illness Narrative* Here for follow- up continue management for history of atrial fibrillation flutter status post PVI x2, sick sinus syndrome with permanent pacemaker implantation, continue complain of palpitation. She also had documentation of moderate degree of pulmonary hypertension. There had been some concern about the possibility of pulmonic vein stenosis. Patient denies complaint of chest pain, lightheadedness, dizziness or syncope. She denies shortness of breath. She continues to complain of intermittent palpitation. She report her blood pressure overall is controlled. She reports her palpitation is improved since restarting Q enzyme Q10. * ASSESSMENT: * 1. Atrial fibrillation /flutter with prior radiofrequency ablation, remained in sinus rhythm with no recurrence in a while, she does have frequent premature atrial contractions based on recent Holtermonitor. Recent documentation of bradycardia and sick sinus syndrome underwent pacemaker implantation * 2. Mildly overweight. * 3. Abnormal ECG, but normal LV function and no significant left ventricular hypertrophy noted on prior echo. * 4. Hypertension controlled * 5. Documentation of ectopic beats based on Holter monitor * 6. Recent documentation of moderate degree of pulmonary hypertension she is functional class I. Concern had been raised about the possibility of pulmonic vein stenosis however the plan was to repeat echo for follow-up * RECOMMENDATION: * 1. The patient advised to present medical regimen * 2. The patient was counseled on losing weight, exercise, and risk factor adjustment. * 3. I will repeat echocardiogram for follow-up for pulmonary hypertension if continues to demonstrate significant pulmonary hypertension consideration for CTA of the chest looking for pulmonic vein stenosis * 4. I reviewed with her her recent test check * 5. Risk, benefit and alternative anticoagulation reviewed with her at length * 6. I we will see her back in the office in 6 weeks and follow-up [facility] 250 DO Work Phone: History of Present illness Narrative* Here for follow- up continue management for history of atrial fibrillation flutter status post PVI x2, sick sinus syndrome with permanent pacemaker implantation, continue complain of palpitation. She also had documentation of moderate degree of pulmonary hypertension. There had been some concern about the possibility of pulmonic vein stenosis. Patient denies complaint of chest pain, lightheadedness, dizziness or syncope. She denies shortness of breath. She continues to complain of intermittent palpitation. She report her blood pressure overall is controlled. She reports her palpitation is improved since restarting Q enzyme Q10. * ASSESSMENT: * 1. Atrial fibrillation /flutter with prior radiofrequency ablation, remained in sinus rhythm with no recurrence in a while, she does have frequent premature atrial contractions based on recent Holtermonitor. Recent documentation of bradycardia and sick sinus syndrome underwent pacemaker implantation * 2. Mildly overweight. * 3. Abnormal ECG, but normal LV function and no significant left ventricular hypertrophy noted on prior echo. * 4. Hypertension controlled * 5. Documentation of ectopic beats based on Holter monitor * 6. Recent documentation of moderate degree of pulmonary hypertension she is functional class I. Concern had been raised about the possibility of pulmonic vein stenosis however the plan was to repeat echo for follow-up * RECOMMENDATION: * 1. The patient advised to present medical regimen * 2. The patient was counseled on losing weight, exercise, and risk factor adjustment. * 3. I will repeat echocardiogram for follow-up for pulmonary hypertension if continues to demonstrate significant pulmonary hypertension consideration for CTA of the chest looking for pulmonic vein stenosis * 4. I reviewed with her her recent test check * 5. Risk, benefit and alternative anticoagulation reviewed with her at length * 6. I we will see her back in the office in 6 weeks and follow-up [facility] Work Phone: Reason for referral (narrative)* Consultation (Routine) - Authorized Specialty Diagnoses / Procedures Referred By Contac t Referred To Contact Cardiology Diagnoses Longstanding persistent atrial fibrillation (CMS/HCC) Procedures Follow Up In Cardiology Dmitri Garcia MD [address] [place] [address], [address] [address] Dmitri Garcia MD [address] [place] [address] 2, [address] [address] Referral ID Status Reason Start Date Expiration Date V isits Requested Visits Authorized [id number] Authorized 04/16/2023 04/15/2024 1 1 * Medications - Pending Review Specialty Diagnoses / Procedures Referred By Contcarmelita t Referred To Contact Diagnoses Longstanding persistent atrial fibrillation (CMS/HCC) Typical atrial flutter (CMS/HCC) Dmitri Garcia MD [address] [place] [address], [address] [address] Referral ID Status Reason Start Date Expiration Date V isits Requested Visits Authorized [id number] Pending Review 1 1 [facility] Work Phone: Reason for visit NarrativePATIENT IS HERE AT THE REQUEST OF DR. ONEILL FOR CYST ON LIVER. US RUQ AND LABS IN REFERRAL [facility] [employer] Other Summary Purpose Family History No Family History Records FoundUnknown Family Member Name Dates Details Family history of arterioscl erotic cardiovascular disease: Other(V17.49, Z82.49) Status:Active Unknown Family Member Name Dates Details Family history of arterioscl erotic cardiovascular disease: Other(V17.49, Z82.49) Status:Active Unknown Family Member Name Dates Details Family history of arterioscl erotic cardiovascular disease: Other(V17.49, Z82.49) Status:Active Unknown Family Member Name Dates Details Family history of arterioscl erotic cardiovascular disease: Other(V17.49, Z82.49) Status:Active Unknown Family Member Name Dates Details Family history of arterioscl erotic cardiovascular disease: Other(V17.49, Z82.49) Status:Active Unknown Family Member Name Dates Details Family history of arterioscl erotic cardiovascular disease: Other(V17.49, Z82.49) Status:Active Unknown Family Member Name Dates Details Family history of arterioscl erotic cardiovascular disease: Other(V17.49, Z82.49) Status:Active Unknown Family Member Name Dates Details Family history of arterioscl erotic cardiovascular disease: Other(V17.49, Z82.49) Status:Active Unknown Family Member Name Dates Details Family history of arterioscl erotic cardiovascular disease: Other(V1.49, Z82.49) Status:Active Unknown Family Member Name Dates Details Family history of arterioscl erotic cardiovascular disease: Other(V17.49, Z82.49) Status:Active Unknown Family Member Name Dates Details Family history of arterioscl erotic cardiovascular disease: Other(V1.49, Z82.49) Status:Active Unknown Family Member Name Dates Details Family history of arterioscl erotic cardiovascular disease: Other(V17.49, Z82.49) Status:Active Unknown Family Member Name Dates Details Family history of arterioscl erotic cardiovascular disease: Other(V17.49, Z82.49) Status:Active Relationship Condition Age at Onset Recorded Date/T autumn father Heart disease Unknown Malignant neoplasm of lung Unknown Not Specified Malignant neoplasm of esophagus Unknown Unknown Family Member Name Dates Details Family history of arterioscl erotic cardiovascular disease: Other(V17.49, Z82.49) Status:Active Unknown Family Member Name Dates Details Family history of arterioscl erotic cardiovascular disease: Other(V17.49, Z82.49) Status:Active Unknown Family Member Name Dates Details Family history of arterioscl erotic cardiovascular disease: Other(V1.49, Z82.49) Status:Active Unknown Family Member Name Dates Details Family history of arterioscl erotic cardiovascular disease: Other(V17.49, Z82.49) Status:Active Unknown Family Member Name Dates Details Family history of arterioscl erotic cardiovascular disease: Other(V17.49, Z82.49) Status:Active Unknown Family Member Name Dates Details Family history of arterioscl erotic cardiovascular disease: Other(V17.49, Z82.49) Status:Active Unknown Family Member Name Dates Details Family history of arterioscl erotic cardiovascular disease: Other(V17.49, Z82.49) Status:Active Unknown Family Member Name Dates Details Family history of arterioscl erotic cardiovascular disease: Other(V17.49, Z82.49) Status:Active Unknown Family Member Name Dates Details Family history of arterioscl erotic cardiovascular disease: Other(V17.49, Z82.49) Status:Active Unknown Family Member Name Dates Details Family history of arterioscl erotic cardiovascular disease: Other(V17.49, Z82.49) Status:Active Unknown Family Member Name Dates Details Family history of arterioscl erotic cardiovascular disease: Other(V17.49, Z82.49) Status:Active Unknown Family Member Name Dates Details Family history of arterioscl erotic cardiovascular disease: Other(V17.49, Z82.49) Status:Active Unknown Family Member Name Dates Details Family history of arterioscl erotic cardiovascular disease: Other(V17.49, Z82.49) Status:Active Advance Directives No Advanced Directives Records Found Advance Directive Response Recorded Date/ Time Advance Directives No December 03, 2017 4:27pm Advance Directive Response Recorded Date/ Time Advance Directives No December 03, 2017 3:27pm Procedure Findings Note Patient: MAU LOPEZ Naa RN: [id number] Age: 78 years Sex: Female : 1940 Associated Diagnoses: None Author: Ho Sexton MD Postoperative Information Post Operative Note: Post Anesthesia Care Unit. Anesthetic utilized: General. Health Status Allergies: Allergic Reactions (All) Moderate Demerol- Hypotension. Penicillin- Swelling and redness. Severity Not Documented Erythromycin- Jittery. Problem list: All Problems Hypertension / SNOMED CT 1679143378 / Confirmed Apnea, sleep / SNOMED CT 211719836 / Confirmed Localized osteoarthritis of knee / SNOMED CT 841675932 / Confirmed right Acquired valgus deformity of knee / SNOMED CT 36521635 / Confirmed right Resolved: History of atrial fibrillation / SNOMED CT 255887670 resolved after second ablation Physical Examination Intake and Output adequate hydration Vital Signs 12/20/2018 14:35 EDT Heart Rate Monitored 66 bpm Respiratory Rate Monitored 14.0 br/min Systolic Blood Pressure 108 mmHg Diastolic Blood Pressure 67 mm (more content not included)... 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 PROCEDURE: Right total knee arthroplasty. CONSULTATIONS: Physical therapy, occupational therapy, social service as well as hospitalist for medical management. HOSPITAL COURSE: Mau was admitted from the Recovery Room with x-rays showing stable position and alignment of the prosthesis. Her pain is well controlled. She is restarted on her Eliquis which she is on normally for atrial fibrillation. She is instituted with mechanical deep venous thrombosis prophylaxis as well. Regular diet. On postoperative day 1, she is seen and evaluated with stable labs, doing well with pain control. Will see how she responds with physical therapy today with probable discharge later today pending her physica (more content not included)... 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 PROCEDURE: Right total knee arthroplasty. CONSULTATIONS: Physical therapy, occupational therapy, social service as well as hospitalist for medical management. HOSPITAL COURSE: Mau was admitted from the Recovery Room with x-rays showing stable position and alignment of the prosthesis. Her pain is well controlled. She is restarted on her Eliquis which she is on normally for atrial fibrillation. She is instituted with mechanical deep venous thrombosis prophylaxis as well. Regular diet. On postoperative day 1, she is seen and evaluated with stable labs, doing well with pain control. Will see how she responds with physical therapy today with probable discharge later today pending her physica (more content not included)... Chief Complaint Patient here for 1 year follow-up.MAU LOPEZ is being seen for a 6 month follow-up of.MAU LOPEZ is being seen for a 6 month follow-up of.Patient is here today to review recent test resultsPatient here to review recent Echocardiogram and RAGINI results* Patient here S/P loop recorder done by Dr. Witt at [facility] on 09/04/2021. Lesa Gonzalez NP in suite.No complaints. No ATB given. Medication list was updated verbally with patient. Insertion site showe d no signs of drainage or infection. Insertion site reviewed by Mike Benjamin RN. * To.Dr Witt for review * Patient here S/P loop recorder done by Dr. Witt at [facility] on 09/04/2021. Lesa Gonzalez NP in suite.No complaints. No ATB given. Medication list was updated verbally with patient. Insertion site showed no signs of drainage or infection. Insertion site reviewed by Mike Benjamin RN. * To.Dr Witt for review Patient here for S/P Loop recorder done by Dr. Witt at [facility] on 09/04/21. Patient presented in office for redness/warmth to the area. Patient was concerned with infection. Patient called office and we scheduled her for a 2nd wound check. Dr. Kobe Fraga MD in suite. Incision site appeared to have redness and warmth to incision site. Dr. Kobe Fraga MD prescribed Keflex 500 Mg TID X 5 days. Insertion site reviewed by Mike Benjamin RN and Dr. Kobe Fraga MD prior to discharge.Patient here for 4 month follow-up from [facility] after loop recorder insertion* Patient here for wound check s/p pacemaker insert/ removal of loop recorder with Dr. Witt at [facility] on 01/29/2022. No ATB at D/C. No cardiac complaints at time of visit. Steri strips still intact. No signs of infections, no odor or drainage seen, No ecchymosis or edema noted. Reviewed per aristides benjamin rn * Dr. Dmitri Garcia MD in suite. MAU LOPEZ is being seen for a 6 month follow-up of.Patient here for 3 month follow-up, s/p loop recorder explant and PM implantSFLORES LOPEZ is being seen for a 6 month follow-up of.MAU LOPEZ is being seen for a 6 month follow-up of. Chief Complaint and Reason for Visit Chief Complaint Atrial Fibrillation Sleep apnea annual follow up Chief Complaint Atrial Fibrillation Sleep apnea annual follow up Atrial Fibrillation Chief Complaint Atrial Fibrillation Sleep apnea annual follow up Atrial Fibrillation Screening Chief Complaint Sleep apnea annual f ollow up Atrial Fibrillation Screening R00.1 I10 E03.6 Chief Complaint Sleep apnea annual f ollow up Atrial Fibrillation Screening R00.1 I10 E03.6 Atrial Fibrillation Chief Complaint Atrial Fibrillation Screening R00.1 I10 E03.6 Atrial Fibrillation R05.9 J98.8 Chief Complaint R05.9 J98.8 z95.0 Chief Complaint z95.0 See order Chief Complaint See order z95.0 Chief Complaint See order z95.0 M54.2 Chief Complaint See order z95.0 M54.2 m54.2 Chief Complaint M54.2 m54.2 Z95.0 Chief Complaint Z95.0 Screening Chief Complaint Z95.0 Screening See order Chief Complaint Screening See order Z95.0 Chief Complaint See order Z95.0 D17.79 Chief Complaint Cyst On Liver//Forme r Hykes Pt D17.79 Z95.0 R10.9 D17.79 Chief Complaint Cyst On Liver//Forme r Hykes Pt D17.79 Z95.0 R10.9 D17.79 d17.79 Chief Complaint Cyst On Liver//Forme r Hykes Pt D17.79 Z95.0 R10.9 D17.79 d17.79 FOLLOW UP/LABS/MRI Reason for Visit Hemangioma Chief Complaint Z95.0 R10.9 D17.79 d17.79 FOLLOW UP/LABS/MRI See order Reason for Visit Hemangioma Reason for Referral Specialty Diagnoses / Procedures Referred By Sherri moore Referred To Contact Cardiology Diagnoses Cardiac pacemaker in situ Sick sinus syndrome (CMS/HCC) Procedures Cardiac device check - In Clinic Arabella Witt MD [address] [facility], [address] [address] Referral ID Status Reason Start Date Expiration Date Visits Requested Visits Authorized [id number] Pending Review Perform Procedure 3 07/19/2023 1 1 Specialty Diagnoses / Procedures Referred By Sherri moore Referred To Contact Diagnoses PAC (premature atrial contraction) Longstanding persistent atrial fibrillation (CMS/HCC) Procedures ECG 12 Lead Arabella Witt MD [address] [facility], [address] [address] Referral ID Status Reason Start Date Expiration Date V isits Requested Visits Authorized [id number] Pending Review 02/27/2023 02/27/2024 1 1 Specialty Diagnoses / Procedures Referred By Contac t Referred To Contact Cardiology Diagnoses Atrial flutter, unspecified type (CMS/HCC) Longstanding persistent atrial fibrillation (CMS/HCC) Procedures Transthoracic Echo (TTE) Complete AL ECHO TRANSTHORC R-T 2D W/WO M-MODE REC F-UP/LMTD AL DOP ECHOCARD COLOR FLOW VELOCITY MAPPING AL DOP ECHOCARD PULSE WAVE W/SPECTRAL F-UP/LMTD STD Arabella Witt MD [address] [facility], [address] [address] Referral ID Status Reason Start Date Expiration Date Visits Requested Visits Authorized [id number] Pending Review Perform Procedure 02/27/2024 1 1 Specialty Diagnoses / Procedures Referred By Contac t Referred To Contact Cardiology Diagnoses Atrial flutter, unspecified type (CMS/HCC) Cardiac pacemaker in situ Procedures Cardiac device check - In Clinic Arabella Witt MD [address] [facility], [address] [address] Referral ID Status Reason Start Date Expiration Date Visits Requested Visits Authorized [id number] Pending Review Perform Procedure 02/27/2024 1 1 Specialty Diagnoses / Procedures Referred By Contac t Referred To Contact Diagnoses Atrial flutter, unspecified type (CMS/HCC) Procedures ECG 12 lead (Ancillary Performed) Arabella Witt MD [address] [facility], [address] [address] Referral ID Status Reason Start Date Expiration Date V isits Requested Visits Authorized [id number] Pending Review 02/27/2023 02/27/2024 1 1 Reason aqua therapy- evalua te and treat patient previously saw Silvia and would like to reestablish with her Diagnosis 1 Cervical muscle pain (M54.2) Referral Organization [facility] u[facility] Referring Provider First Name Felisha Referring Provider Last Name Sly Referring Provider Specialty Nurse Pract itioner Referred Organization [facility] Referred Address [address],[place], [place],[address] Referred Provider Specialty Physical The rapist Referral Priority Routine Additional Source Comments INFORMATION SOURCE (unrecogn ized section and content) DATE CREATED AUTHOR 09/30/2017 [facility] DATE CREATED AUTHOR AUTHOR'S ORGANIZ ATION 01/29/2018 [facility] DATE CREATED AUTHOR AUTHOR'S ORGANIZ ATION 01/16/2019 [facility] DATE CREATED AUTHOR AUTHOR'S ORGANIZ ATION 06/20/[address] [facility] dical Specialist DATE CREATED AUTHOR AUTHOR'S ORGANIZ ATION 05/06/2022 [facility] DATE CREATED AUTHOR AUTHOR'S ORGANIZ ATION 06/25/2022 [facility] DATE CREATED AUTHOR AUTHOR'S ORGANIZ ATION 11/27/2022 [facility] ical Center DATE CREATED AUTHOR AUTHOR'S ORGANIZ ATION 11/28/2022 [facility] DATE CREATED AUTHOR AUTHOR'S ORGANIZ ATION 04/19/2023 [facility] DATE CREATED AUTHOR AUTHOR'S ORGANIZ ATION 06/19/[address] [facility] dical Specialists EPIC DATE CREATED AUTHOR AUTHOR'S ORGANIZ ATION 08/14/2023 [facility] Reason for Visit (unrecogniz ed section and content) Specialty Diagnoses / Procedures Referred By Sherri t Referred To Contact Diagnoses Occipital neuralgia, unspecified laterality Occipital neuralgia, unspecified laterality [M54.81] Procedures AL INJECTION AA&/STRD GREATER OCCIPITAL NERVE INJECTION NERVE GREATER OCCIPITAL Jeferson Hassan MD [address] [place] [address] Referral ID Status Reason Start Date Expiration Date Visits Re quested Visits Authorized [id number] 11/20/2022 1 1 Reason Comments Follow-up 10 month follow up. Specialty Diagnoses / Procedures Referred By Contac t Referred To Contact Diagnoses PAC (premature atrial contraction) Longstanding persistent atrial fibrillation (CMS/HCC) Procedures ECG 12 Lead Arabella Witt MD [address] [facility] [facility] [address], [address] [place] [address] Referral ID Status Reason Start Date Expiration Date V isits Requested Visits Authorized [id number] Pending Review 02/27/2023 02/27/2024 1 1 Specialty Diagnoses / Procedures Referred By Contac t Referred To Contact Cardiology Diagnoses Cardiac pacemaker in situ Sick sinus syndrome (CMS/HCC) Procedures Cardiac device check - In Clinic Arabella Witt MD [address] [facility] [address], [address] [place] [address] Referral ID Status Reason Start Date Expiration Date Visits Requested Visits Authorized [id number] Pending Review Perform Procedure 3 07/19/2023 1 1 Reason Comments Follow-up 6 months Care Teams (unrecognized sec tion and content) Team Status: Inactive Member Role Status Lurdes Oneill MD Primary Care Provider, Attending Prov micheller Active Team Status: Inactive Member Role Status Lurdes Oneill MD Primary Care Provider Active Arabella Witt MD Attending Provider Active Lianne Stewart NP-Cassandra Other Provider Active Team Status: Inactive Member Role Status Lurdes Oneill MD Primary Care Provider Active Dmitri Garcia MD Attending Provider Active Team Status: Inactive Member Role Status Dates Mary Oneill MD Primary Care Provider Active Sarah Hardin DO Attending Provider Active Team Status: Active Member Role Status Dates Mary Oneill MD Primary Care Provider Active Team Status: Inactive Member Role Status Dates Isis Hernandez MD Attending Provider Active Mary Oneill MD Primary Care Provider Active Team Status: Inactive Member Role Status Lurdes Oneill MD Primary Care Provider Active Arabella Witt MD Attending Provider Active Team Status: Inactive Member Role Status Lurdes Oneill MD Primary Care Provider Active SHREYA Perez Attending Provider Active [employer] Compliance Specialist Relationship Specialty Start Date End Date Mary Oneill MD [address] [place] [address] PCP - General Internal Medicine 11/17/22 Team Status: Inactive Member Role Status Lurdes Oneill MD Primary Care Provider Active Referral Self Attending Provider Active Sarah Hardin DO Referring Provider Active [employer] Compliance Specialist Relationship Specialty Start Date End Date Mary Oneill MD [address] [place] [id number] PCP - General 01/15/21 [employer] Compliance Specialist Relationship Specialty Start Date End Date Mary Oneill MD [address] [place] [address] PCP - General 01/15/21 [employer] Compliance Specialist Relationship Specialty Start Date End Date Mary Oneill MD [address] [place] [address] PCP - General 01/15/21 Team Status: Inactive Member Role Status Dates Mary Oneill MD Primary Care Provider Active Fco Gordillo MD Attending Provider Active Team Status: Inactive Member Role Status Lurdes Gordillo MD Attending Provider Active Start: April 20, 2023 End: April 20, 2023 Team Status: Inactive Member Role Status Lurdes Oneill MD Primary Care Provider Active St art: April 20, 2023 End: April 20, 2023 Fco Gordillo MD Attending Provider Active Start: April 20, 2023 End: April 20, 2023 Team Status: Inactive Member Role Status Lurdes Gordillo MD Attending Provider Active Start: April 29, 2023 End: April 29, 2023 Team Status: Inactive Member Role Status Lurdes Oneill MD Primary Care Provider Active St art: May 15, 2023 End: May 15, 2023 Arabella Witt MD Attending Provider Active Start: May 15, 2023 End: May 15, 2023 Team Status: Inactive Member Role Status Lurdes Oneill MD Primary Care Provider Active St art: May 27, 2023 End: May 27, 2023 Fco Gordillo MD Attending Provider Active Start: May 27, 2023 End: May 27, 2023 Team Status: Inactive Member Role Status Lurdes Oneill MD Primary Care Provider Active St art: June 02, 2023 End: June 02, 2023 Fco Gordillo MD Attending Provider Active Start: June 02, 2023 End: June 02, 2023 Team Status: Inactive Member Role Status Lurdes Oneill MD Primary Care Provider Active St art: June 03, 2023 End: June 03, 2023 Fco Gordillo MD Attending Provider Active Start: June 03, 2023 End: June 03, 2023 Team Status: Inactive Member Role Status Dates Mary Oneill MD Primary Care Provide r, Attending Provider Active Start: August 11, 2023 End: August 11, 2023 Goals (unrecognized section and content) Goals may be documented in a n alternate section Continuous Active and Recently Administ ered Medications (unrecognized section and content) Medication Order 11/22/2022 11/23/2022 11/24/2022 Sodium chloride 0.9% IV solution Intravenous, at 125 mL/hr, CONTINUOUS, Starting on Thu11/24/22 at 0630, Until Thu11/24/22 at 1022 0623 ($$New Bag$$ - Provider: Keesha Fonseca, RN)[id number] (Stopped - Provider: Diana Ramirez, RN) PRN Medication Order 11/22/2022 11/23/2022 11/24/2022 Bupivacaine (PF) (MARCAINE) 0.25 % injection (CANCELED) NEEDED, Starting on Thu11/24/22 at 0729, Until Thu11/24/22 at 0738, Intra-op/Intra-Proc 0729 (Given - Provid er: Jeferson Hassan MD) methylPREDNISolone acetate (DEPO-MEDROL) injection (CANCELED) NEEDED, Starting on Thu11/24/22 at 0729, Until Thu11/24/22 at 0738, Intra-op/Intra-Proc 0729 (Given - Provid er: Jeferson Hassan MD - Comment: Occipital) FOR RECORDS PERTAINING TO PATIENTS WHO ARE OR HAVE BEEN ENROLLED IN A CHEMICAL DEPENDENCY/SUBSTANCEABUSE PROGRAM, SOME INFORMATION MAY BE OMITTED. This clinical summary was aggregated from multiple sources. Caution should be exercised in using it in the provision of clinical care. This summary normalizes information from multiple sources, and as a consequence, information in this document may materially change the coding, format and clinical context of patient data. In addition, data may be omitted in some cases. CLINICAL DECISIONS SHOULD BE BASED ON THE PRIMARY CLINICAL RECORDS. [employer] provides no warranty or guarantee of the accuracy or completeness of information in this document.
--- NOTE | 2023-08-17 13:12 | VEIN_ITS ---
[address] [address] Patient Name: MAU WILLAMS MRN: [id number] date: 1940 Sex: F Assigned Patient Location: Current Patient Location: Accession/Order Number: [id number] Exam Date: 08/17/2023 13:05 Report Date: 08/17/2023 13:54 At the request of: ISIS DYSON Procedure: VC Endovenous Ablation 1VeinRT EXAMINATION: VC Endovenous Ablation 1Vein RT , small saphenous vein HISTORY: I83.813 painful varicose veins COMPARISON: No relevant comparison available. TECHNIQUE: The risks and benefits of the procedure had been previously discussed, and were rediscussed at length. Informed written consent was obtained. Vivienne Wang and Froylan Carrizales assisted. Time out procedure was performed. The right lower extremity was prepared and draped in the usual sterile fashion. Duplex ultrasound probe was draped in a sterile cover, sterile transmission gel was used. Venous mapping was performed with the areas of dilation and large tributaries marked. The total length was 18 cm from the entry 15 cm above the lateral malleolus to 3 cm below the saphenopopliteal junction. The diameter of the small bowel saphenous vein ranged from 4-8 mm. A 30 gauge needle and 1% buffered lidocaine was used to anesthetize the entry site. A 4 mm incision was made with a scalpel and the saphenous vein was entered percutaneously under direct ultrasound guidance with a micropuncture set, a single stick was successful in gaining access. A micro-guide wire was inserted and the needle removed. A micro-set including a dilator was inserted over the microwire and the needle and dilator were removed. A 0.018 guide wire was inserted through the micro-set and threaded through the saphenous vein . The dilator was removed and an introducer sheath was inserted over the wire. The dilator and wire were removed and the 600 micron fiber was introduced and placed and positioned so that it extended beyond the sheath and was 3 cm peripheral to the saphenofemoral popliteal junction. Final position of the fiber was determined by ultrasound guidance and duplex imaging. Tumescent anesthetic was delivered by ultrasound guidance. 125 cc of fluid was delivered along the entire course of the saphenous vein. The solution consisted of 1000 cc of normal saline with 40 mL of 1% lidocaine and 20 mL of sodium bicarbonate. A final positioning check was made. The energy source was turned on by means of the foot pedal and the fiber and sheath were withdrawn. The total number of Joules delivered was 892. The laser was active for 112seconds under continuous pulse, average laser use of 8 J. Laser start time 1:35 PM 08/17/2023 . Laser stop time 1:37 PM 08/17/2023 . A duplex ultrasound revealed compressibility and flow at the saphenofemoral junction immediately after the procedure. Hemostasis at the access site was achieved. The skin incision of the saphenous vein was closed with a 4 x 4. A compression stocking was applied. Postop instructions were given. A follow up appointment was recommended and scheduled. The patient tolerated the procedure well and was discharged in good condition . VEIN/VC Endovenous Ablation 1VeinRT IMPRESSION: Technically successful endovenous laser ablation of the right small saphenous vein Electronically authenticated by: ISIS DYSON Date: 08/17/2023 13:54
== END 2023-08-17 12:46 | disposition home or self-care (01) ==
LOC: VC 12:45
PROVIDERS: PCP Radiology Diagnostic Radiology; Visit Provider Radiology Diagnostic Radiology
DX: I83.813 Varicose veins of bilateral lower extremities with pain (principal)
CPT/HCPCS: 36478

== ENCOUNTER 2023-08-25 14:26 | Outpatient (OUT) | payer MEDICARE, SELFPAY ==
--- NOTE | 2023-08-25 14:28 | VEIN_ITS ---
Patient Name: MAU WILLAMS MR#: [id number] : 1940 Exam Date: 08/25/2023 Ordering Doctor: DR ISIS DYSON M.D. RADIOLOGY REPORT PROCEDURE: VC EXT VENOUS RT LMTD COMPARISON: None. INDICATIONS: Phlebitis of superficial veins of rt lower extremity I80.01 TECHNIQUE: Lower extremity ochoa scale and Duplex Doppler evaluation of the deep venous system from the inguinal ligament through the calf veins. FINDINGS: REGION: Right lower extremity. THROMBI: Negative for DVT. Heat induced thrombus visualized 1.4 cm from the SPJ. The heat induced thrombus extends from junction to distal calf. COMPRESSIBILITY: Non-compressible segments corresponding to thrombus FLOW: Normal waveform and antegrade flow between 5 and 20 cm/s.Areas of no flow corresponding to thrombus OTHER: CONCLUSION: 1. Successful post ablation occlusion of right small saphenous vein. Dictated by: Willis Solano M.D. on 08/25/2023 at 15:05 Approved by: Willis Solano M.D. on 08/25/2023 at 15:07
--- NOTE | 2023-08-25 14:28 | VEIN_ITS ---
Patient Name: MAU WILLAMS MR#: [id number] : 1940 Exam Date: 08/25/2023 Ordering Doctor: DR ISIS DYSON M.D. RADIOLOGY REPORT PROCEDURE: FACILITY EST LMTD VEIN CENTER - OFFICE VISIT FOLLOW UP COMPARISON: None. PROGRESS NOTES: The patient reports improvement in leg symptoms. There has been interval reduction in varicosities. The patient has followed our recommendations to walk 20-30 minutes once or twice per day since the procedure. Physical exam demonstrates decrease in varicosities of the leg. Persistent varicosities are identified along the right leg. Review of the ultrasound performed the same day demonstrates occlusive thrombus extending throughout the treated vein(s), see separate report, consistent with a successful ablation. No thrombus extending into or beyond the saphenofemoral junction. The patient expressed a desire to proceed with treatment of incompetent branch saphenous varicosities. The patient was informed that treatment was a process and would require approximately 2 procedures/sessions. VEIN/[facility] IMPRESSION: 1. Successful ablation of the right small saphenous vein(s). 2. Persistent varicose veins and right lower extremity symptoms. PLAN: 1. Microfoam chemical ablation of right leg incompetent branch saphenous varicosities. Nurse notes, history and physical were reviewed and confirmed, see attached forms. The nurse was present throughout the physical exam and consultation Dictated by: Willis Solano M.D. on 08/25/2023 at 15:07 Approved by: Willis Solano M.D. on 08/25/2023 at 15:08
== END 2023-08-25 14:27 | disposition home or self-care (01) ==
LOC: VC 14:26
PROVIDERS: PCP Radiology Diagnostic Radiology; Visit Provider Radiology Diagnostic Radiology
DX: I80.01 Phlebitis and thrombophlebitis of superficial vessels of right lower extremity (principal)
CPT/HCPCS: 93971; G0463

== ENCOUNTER 2023-08-31 10:52 | Outpatient (OUT) | payer MEDICARE, SELFPAY ==
--- NOTE | 2023-08-31 10:54 | VEIN_ITS ---
[address] [address] Patient Name: MAU WILLAMS MRN: [id number] date: 1940 Sex: F Assigned Patient Location: Current Patient Location: Accession/Order Number: [id number] Exam Date: 08/31/2023 11:00 Report Date: 08/31/2023 13:02 At the request of: ISIS DYSON Procedure: VC INJ Foam Sclerosant WUS RN NICU PROCEDURE: VC INJ Foam Sclerosant WUS RN NICU HISTORY: I83.813 Pain due to varicose veins of bilateral legs Pre-operative Diagnosis: CEAP class C3 venous insufficiency with pain, tenderness, edema and incompetent branch saphenous vein(s), chronic venous insufficiency right leg secondary to venous incompetence Post-operative Diagnosis: CEAP class C3 venous insufficiency with pain, tenderness, edema and incompetent branch saphenous vein(s), chronic venous insufficiency right leg secondary to venous incompetence Procedure Performed: 1. Ultrasound-guided microfoam chemical ablation with Varithenaregistered 2. Intraoperative ultrasound guidance Physician: Willis Solano M.D. Anesthesia: None Indications for Procedure: 82 year old female. Symptoms including lower extremity dilated bulging veins, swelling, heaviness, aching for many years despite conservative medical therapy including medical compression stockings, exercise and analgesics. Prior procedures include endovenous laser ablation. Multiple incompetent varicosities of the right leg. Duplex scan showed reflux and enlarged diameters up to 6 mm. The patient underwent informed consent including management options where the complications of infection, bleeding, pain, and skin injury were discussed. Particular attention was spent discussing thrombus extension and deep vein thrombosis as well as the possibility of pulmonary embolus and treatment with oral or injectable blood thinners. Procedure: The patient walked to the procedure room. All applicable staff donned appropriate apparel. A procedure timeout was performed to confirm correct patient, correct extremity, correct procedure, and correct room set-up including presence of all applicable supplies, devices, and drugs. A duplex ultrasound, performed by myself confirmed the location and incompetence of branch saphenous varicosities and their course was marked on the skin together with the dilated tributaries. The extent of treatment of the vein and the associated varicosities was determined through ultrasound mapping. The skin was prepped and then punctured with a butterfly needle and advanced under ultrasound guidance. The Varithenaregistered canister was activated and the canister was primed and purged as required in the instructions for use. Varithenaregistered was drawn into a sterile syringe. Varithenaregistered was slowly administered at 0.5-1.0 cc/second with close observation by ultrasound of its course in the vessels. Total volume utilized was: 7 mL into a 6 mm varicosity mid medial lower leg. Following administration of Varithenaregistered the leg was elevated and the patient was asked to repeatedly dorsiflex the ankle to limit flow of Varithenaregistered into perforating veins. Once appropriate spasm had been confirmed in the treated veins, the vascular catheter was removed from the leg and light pressure was applied over the puncture site for hemostasis. The common femoral and deep superficial veins were then evaluated for flow and compressibility prior to dressing placement. The lower extremity was kept elevated at 45 degrees above the horizontal and cording material was applied over the saphenous segments and tributaries to allow for eccentric compression over the target vessels including the targeted saphenous vein(s). A multilayer dressing was applied consisting of foam pads, coban and thigh-high 20-30 mm Hg compression elastic support hose were placed on the patient. The leg was lowered only after compression had been applied and the patient was immediately ambulatory. The patient ambulated 10 minutes under supervision and was without apparent concerns at time of release. Post-care instructions include advising patient to keep post-treatment bandages in place and dry for 48 hours, avoid extended periods of inactivity, avoid heavy exercise for one week, wear compression stockings on the treated leg continuously for two weeks, to walk daily for 10 minutes over the next month. The patient was instructed to take an anti-inflammatory medicine as needed and to follow up for color duplex scan of the Saphenous veins, the treated branch saphenous varicosities, the adjacent deep veins, and additional treatment within 7 days. PERSONNEL: Froylan Carriazles RN Electronically authenticated by: WILLIS SOLANO Date: 08/31/2023 13:02
== END 2023-08-31 10:53 | disposition home or self-care (01) ==
LOC: VC 10:52
PROVIDERS: PCP Radiology Diagnostic Radiology; Visit Provider Radiology Diagnostic Radiology
DX: I83.813 Varicose veins of bilateral lower extremities with pain (principal)
CPT/HCPCS: 36466

== ENCOUNTER 2023-09-03 14:21 | Outpatient (OUT) | payer MEDICARE, SELFPAY ==
--- NOTE | 2023-09-03 14:22 | VEIN_ITS ---
Patient Name: MAU WILLAMS MR#: [id number] : 1940 Exam Date: 09/03/2023 Ordering Doctor: DR EDISON KUMAR M.D. RADIOLOGY REPORT PROCEDURE: [facility] EST [facility] - OFFICE VISIT FOLLOW UP [facility]. PROGRESS NOTES: The patient reports no significant pain following micro foam chemical ablation of incompetent right varicose veins. The patient did wear her compression stocking. The patient did require oral analgesics. Physical exam demonstrates scattered thrombosed varicose veins. A single residual patent varicose vein identified in the distal left medial lower leg/ankle which the patient did not want treated this time. Reticular and spider veins which the patient also does not want treated Review of the ultrasound performed the same day demonstrates occlusive thrombus extending throughout the treated varicose veins. A residual 4.1 mm varicose vein is observed. No deep vein thrombus. The patient expressed a desire to terminate treatments at this time and did not want treatment of the residual incompetent right varicose vein or reticular or spider veins. VEIN/[facility] EST TD IMPRESSION: 1. Successful ablation of treated incompetent right varicose veins. 2. Persistent incompetent right varicose, reticular and spider. PLAN: Treatment plan is now patient's request. Follow-up in 12-24 months or as needed Nurse notes, history and physical were reviewed and confirmed, see attached forms. The nurse was present throughout the physical exam and consultation Dictated by: Edison Kumar MD on 09/03/2023 at 14:50 Approved by: Edison Kumar MD on 09/03/2023 at 14:51
--- NOTE | 2023-09-03 14:23 | VEIN_ITS ---
Patient Name: MAU WILLAMS MR#: [id number] : 1940 Exam Date: 09/03/2023 Ordering Doctor: DR EDISON KUMAR M.D. RADIOLOGY REPORT PROCEDURE: VC EXT VENOUS RT LMTD COMPARISON: VC EXT VENOUS RT LMTD, 08/25/2023. INDICATIONS: I80.01 Phlebitis of superficial veins of rt lower extremity TECHNIQUE: Lower extremity ochoa scale and Duplex Doppler evaluation of the deep venous system from the inguinal ligament through the calf veins. FINDINGS: REGION: Right lower extremity. THROMBI: Negative for DVT. Varithena induced thrombus visualized at mid/med calf. COMPRESSIBILITY: Non-compressible segments corresponding to thrombus FLOW: Areas of no flow corresponding to thrombus OTHER: Large varicose vein remains with branches at distal/med calf that measures 4.1mm with 0.8s reflux. CONCLUSION: Post ablation occlusion of treated varicose veins with an incompetent varicose vein measuring 4.1 mm. Dictated by: Edison Kumar MD on 09/03/2023 at 14:41 Approved by: Edison Kumar MD on 09/03/2023 at 14:41
== END 2023-09-03 14:22 | disposition home or self-care (01) ==
LOC: VC 14:21
PROVIDERS: PCP Radiology Diagnostic Radiology; Visit Provider Radiology Diagnostic Radiology
DX: I80.01 Phlebitis and thrombophlebitis of superficial vessels of right lower extremity (principal)
CPT/HCPCS: 93971; G0463